=== PATIENT | female | born 1990 | race Caucasian/White ===

== ENCOUNTER → 2018-03-07 09:28 | Outpatient (CLI) | payer OTHER, MEDICAID, SELFPAY ==
[2018-03-07 10:55] LABS: Free T3, Triiodothyronine Free 3.14 pg/mL (2.77-5.27); T4 Total Thyroxine 6.44 ug/dL (5.5-11.0)
== END ==
PROVIDERS: PCP Nurse Practitioner Family; Visit Provider Nurse Practitioner Family
DX: E03.9 Hypothyroidism, unspecified (principal)
CPT/HCPCS: 36415; 84436; 84443; 84481

== ENCOUNTER → 2018-04-24 09:22 | Outpatient (CLI) | payer OTHER, MEDICAID, SELFPAY ==
[2018-04-24 12:25] LABS: Free T4, Direct Thyroxine 1.11 ng/dL (0.78-2.19)
[2018-04-26 19:58] LABS: Triiodothyronine T3 Total 82 ng/dL (76-181)
== END ==
PROVIDERS: PCP Nurse Practitioner Family; Visit Provider Nurse Practitioner Family
DX: E03.9 Hypothyroidism, unspecified (principal)
CPT/HCPCS: 36415; 84439; 84443; 84480

== ENCOUNTER → 2018-05-03 13:17 | Outpatient (CLI) | payer OTHER, MEDICAID, SELFPAY ==
[2018-05-03 13:56] LABS: Add Manual Diff / Slide Review NO; Basophils Absolute Auto 0 /uL (0-100); Basophils Percent Auto 0.5 % (0-2); Eosinophils Absolute Auto 200 /uL (0-450); Eosinophils Percent Auto 4.6 % (2-4); Hematocrit 41.2 % (36-46); Lymphocytes Absolute Auto 1700 /uL (1100-4500); Lymphocytes Percent Auto 35.1 % (25-40); Mean Corpuscular Hemoglobin 31.1 PG (26-34); Mean Corpuscular Volume 91.5 fL (80-100); Monocytes Absolute Auto 400 /uL (0-900); Monocytes Percent Auto 8.4 % (3-14); Neutrophils Absolute Auto 2400 /uL (1500-7000); Neutrophils Percent Auto 51.4 % (50-75); Platelet Count 291 X10^3/uL (150-400); Red Cell Distribution Width 12.3 % (11.6-14.8); White Blood Cell Count 4.7 X10^3/uL (4.5-11.0)
[2018-05-03 14:48] LABS: Alanine Aminotransferase 26 IU/L (9-52); Albumin 4.6 g/dL (3.5-5.0); Albumin Globulin Ratio 1.5 (1.0-2.8); Alkaline Phosphatase 43 U/L (38-126); Aspartate Aminotransferase 17 IU/L (14-36); BUN Creatinine Ratio 13.3 (6-22); Bilirubin Total 0.4 mg/dL (0.2-1.3); Blood Urea Nitrogen 12 mg/dL (7-17); Calcium 9.5 mg/dL (8.4-10.2); Carbon Dioxide 28 mmol/L (22-32); Chloride 101 mmol/L (98-107); Estimated Glomerular Filt Rate > 60.0 mL/min (>60); Glucose 99 mg/dL (70-100); HEMOLYSIS < 15 (0-50); Potassium 3.9 mmol/L (3.4-5.1); Sodium 140 mmol/L (137-145); Total Protein 7.6 g/dL (6.3-8.2)
[2018-05-03 15:04] LABS: Follicle Stimulating Hormone 8.18 mIU/mL; Prolactin 9.7 ng/mL (3.0-18.6)
[2018-05-05 20:34] LABS: Estradiol 31 pg/mL
[2018-05-07 11:15] LABS: Amylase 42 U/L (30-110); Lipase 154 U/L (23-300)
== END ==
PROVIDERS: PCP Nurse Practitioner Family; Visit Provider Nurse Practitioner Family
DX: R10.13 Epigastric pain (principal); N92.6 Irregular menstruation, unspecified
CPT/HCPCS: 36415; 80053; 82150; 82670; 83001; 83690; 84146; 85025

== ENCOUNTER → 2018-06-11 09:20 | Outpatient (CLI) | payer OTHER, MEDICAID, SELFPAY ==
[2018-06-11 10:49] LABS: Amylase 50 U/L (30-110); Lipase 78 U/L (23-300)
[2018-06-11 11:00] LABS: Free T4, Direct Thyroxine 1.31 ng/dL (0.78-2.19)
[2018-06-11 11:14] LABS: Thyroid Stimulating Hormone 5.61 uIU/mL (0.47-4.68)
[2018-06-13 15:18] LABS: Triiodothyronine T3 Total 92 ng/dL (76-181)
== END ==
PROVIDERS: PCP Nurse Practitioner Family; Visit Provider Nurse Practitioner Family
DX: R10.13 Epigastric pain (principal); E03.9 Hypothyroidism, unspecified
CPT/HCPCS: 36415; 82150; 83690; 84439; 84443; 84480

== ENCOUNTER 2018-08-19 12:18 | Emergency (ER) | payer OTHER, MEDICAID, SELFPAY ==
--- NOTE | 2018-08-19 12:22 | ED.ABDPAIN ---
HPI - Abdominal Pain <Stefanie Mccormack PA-C - Last Filed: 08/19/18 15:00> General Chief Complaint: Abdominal Pain Stated Complaint: RLQ abd pain/nausea/ x6 months Time Seen by Provider: 08/19/18 12:21 Source: patient Mode of arrival: ambulatory Limitations: no limitations History of Present Illness HPI narrative: This 28-year-old female is sent by her primary care provider for evaluation right epigastric and upper quadrant pain. She states this has been present for 6 months, gradually worsened. She states that she or shift yesterday and typically has been able to manage pain at work with ibuprofen and edibles, but getting to the point that his really difficult for her. She states pain is present to some degree constantly, better on an empty stomach and worse after eating, especially meat. She states that she has had nausea and took some Zofran earlier. She has not had vomiting. She states that she has times where she feels hot and cold, that occurs mainly in association with the pain. She has not checked her temperature. She denies any hematuria or urinary symptoms. She denies any STD concerns or possibility of stating she is abstinent. She denies acute bowel habit changes though states she has not had a bowel movement for 2 days and normally she goes daily (she admits she has been eating less due to this abdominal pain). She has been tolerating fluids without problem. She denies any other new complaints or history changes since last visit here Related Data Home Medications Medication Instructions Recorded Confirmed buprenorphine-naloxone 2 tab SUBLINGUAL DAILY 08/19/18 08/19/18 levothyroxine 100 mcg PO DAILY 08/19/18 08/19/18 trazodone 08/19/18 Previous Rx's Medication Instructions Recorded gabapentin [Neurontin] 300 mg PO SEE INSTRUCTIONS #270 cap 08/16/16 methocarbamol 1,000 mg PO Q8H #20 tab 08/19/18 Allergies Allergy/AdvReac Type Severity Reaction Status Date / Time amoxicillin [AMOXICILLIN] Allergy Unknown RASH/HIVES Verified 08/19/18 12:30 hydromorphone [From DILAUDID] Allergy Unknown Verified 08/19/18 12:30 Opioids - Morphine Analogues Allergy Unknown Verified 08/19/18 12:30 [OPIOIDS - MORPHINE ANALOGUES] Penicillins Allergy Unknown Verified 08/19/18 12:31 Review of Systems <Stefanie Mccormack PA-C - Last Filed: 08/19/18 15:00> Review of Systems ROS Unobtainable: All systems reviewed & are unremarkable except as noted in HPI and below PFSH <Stefanie Mccormack PA-C - Last Filed: 08/19/18 15:00> Medical History (Updated 08/19/18 @ 14:27 by Stefanie Mccormack PA-C) Migraine (Chronic) Insomnia disorder (Chronic) Hypothyroidism Crohn's disease without complication (04/23/15) Opiate dependence, continuous (04/23/15) Chronic bilateral low back pain without sciatica (07/19/15) GERD (gastroesophageal reflux disease) (Chronic) Surgical History (Updated 08/19/18 @ 12:25 by Stefanie Mccormack PA-C) H/O oophorectomy (Chronic) Social History (Updated 08/19/18 @ 12:26 by Stefanie Mccormack PA-C) Smoking Status: Current every day smoker Social History (Updated 08/19/18 @ 12:26 by Stefanie Mccormack PA-C) Smoking Status: Current every day smoker Comment: h/o opioid abuse. Denies ETOH Exam <Stefanie Mccormack PA-C - Last Filed: 08/19/18 15:00> Narrative Exam Narrative: GENERAL APPEARANCE: Patient sitting comfortably, in no distress. HEENT: PERRL, EOMI, no scleral icterus NECK: Supple LUNGS: Clear to auscultation bilaterally. HEART: Rate and rhythm regular, normal S1 and S2, no S3 or S4. ABDOMEN: Soft, nondistended, bowel sounds present x 4 quadrants, no masses palpable, no hepatosplenomegaly. Tender from the right epigastric border up to the right costal margin, +Gallo's sign. No lower quadrant tenderness. No clear mass palpable or visible with patient standing or straining that the right umbilical border feels slightly more full than the left EXTREMITIES: No edema DERMATOLOGIC: No jaundice or exanthem NEUROLOGIC: Alert and oriented with normal speech and coordination Initial Vital Signs Initial Vital Signs: Vital Signs Temperature 98.1 F 08/19/18 12:26 Pulse Rate 74 08/19/18 12:26 Respiratory Rate 16 08/19/18 12:26 Blood Pressure 133/99 H 08/19/18 12:26 Pulse Oximetry 100 08/19/18 12:26 <Brando Pedersen DO - Last Filed: 08/20/18 08:13> Initial Vital Signs Initial Vital Signs: Vital Signs Temperature 98.1 F 08/19/18 12:26 Pulse Rate 74 08/19/18 12:26 Respiratory Rate 16 08/19/18 12:26 Blood Pressure 133/99 H 08/19/18 12:26 Pulse Oximetry 100 08/19/18 12:26 Course <Stefanie Mccormack PA-C - Last Filed: 08/19/18 15:00> Additional Information: Patient has had pain present for 6 months, gradually worsening. No evidence of acute surgical issue or need for hospital admission today. 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 There is also potentially some relation to food intake and may need further workup or consultation. She can continue NSAID and also states she was recently prescribed Prilosec. I did send in a prescription of muscle relaxant for her to try to see if this is helpful. Advised follow-up with PCP. In addition, she had some micro hematuria but looked like her UA was contaminated. She declined to leave another sample. Has not had any history of urinary symptoms. Advised to repeat UA at follow-up with her PCP this week. Orders Ordered: Discontinued Medications Ketorolac Tromethamine (Toradol) 60 mg IM NOW ONE Stop: 08/19/18 12:38 Last Admin: 08/19/18 12:53 Dose: 60 mg Vital Signs - 8 hr 08/19/18 12:26 08/19/18 14:34 Temperature 98.1 F Pulse Rate 74 60 Respiratory Rate 16 18 Blood Pressure 133/99 H 124/94 H Pulse Oximetry 100 98 <Brando Pedersen DO - Last Filed: 08/20/18 08:13> Orders Ordered: Discontinued Medications Ketorolac Tromethamine (Toradol) 60 mg IM NOW ONE Stop: 08/19/18 12:38 Last Admin: 08/19/18 12:53 Dose: 60 mg Vital Signs - 8 hr 08/19/18 12:26 08/19/18 14:34 Temperature 98.1 F Pulse Rate 74 60 Respiratory Rate 16 18 Blood Pressure 133/99 H 124/94 H Pulse Oximetry 100 98 MDM - Abdominal Pain <Stefanie Mccormack PA-C - Last Filed: 08/19/18 15:00> Lab Data Attestation: I reviewed the patient's lab results. Result diagrams: 08/19/18 12:50 08/19/18 12:50 Lab Results 08/19/18 08/19/18 08/19/18 Range/Units 12:50 12:50 13:30 WBC 6.0 (4.5-11.0) X10^3/uL RBC 4.90 (4.0-5.2) X10^6/uL Hgb 14.6 (12.0-16.0) g/dL Hct 44.1 (36-46) % MCV 90.0 (80-100) fL MCH 29.7 (26-34) PG MCHC 33.0 (30-36) % RDW 12.6 (11.6-14.8) % Plt Count 277 (150-400) X10^3/uL Neut % (Auto) 54.6 (50-75) % Lymph % (Auto) 34.3 (25-40) % [place] % (Auto) 8.0 (3-14) % Eos % (Auto) 2.4 (2-4) % Baso % (Auto) 0.7 (0-2) % Neut # (Auto) 3300 (1617-6736) /uL Lymph # (Auto) 2100 (0186-8986) /uL [place] # (Auto) 500 (0-900) /uL Eos # (Auto) 100 (0-450) /uL Baso # (Auto) 0 (0-100) /uL Sodium 140 (137-145) mmol/L Potassium 3.8 (3.4-5.1) mmol/L Chloride 102 (98-107) mmol/L Carbon Dioxide 27 (22-32) mmol/L BUN 11 (7-17) mg/dL Creatinine 0.80 (0.52-1.04) mg/dL Estimated GFR > 60.0 (>60) mL/min BUN/Creatinine Ratio 13.8 (6-22) Glucose 96 (70-100) mg/dL Calcium 9.7 (8.4-10.2) mg/dL Total Bilirubin 0.6 (0.2-1.3) mg/dL AST 25 (14-36) IU/L ALT 25 (9-52) IU/L Alkaline Phosphatase 53 (38-126) U/L Total Protein 8.4 H (6.3-8.2) g/dL Albumin 4.7 (3.5-5.0) g/dL Globulin 3.7 (1.7-4.1) g/dL Albumin/Globulin Ratio 1.3 (1.0-2.8) Lipase 63 (23-300) U/L Urine RBC None seen (0-5/HPF) Urine WBC 1-5/hpf (0-5/HPF) Ur Squamous Epith Cells 5-10 /hpf H (0-5/HPF) Urine Bacteria Many (>30) H (None) Ur Culture Indicated? Culture not indicate Micro UA Comment Point of care testing: Point of Care Testing Test Results Negative Urine Dip Bedside Urine Glucose Negative Bedside Urine Bilirubin - Negative Bedside Urine Ketone - Negative Urine Specific [place] 1.025 Bedside Urine Occult Blood + Bedside Urine pH 6.5 Bedside Urine Protein - Negative Bedside Urine Urobilinogen - Negative Bedside Urine Nitrite - Negative Bedside Urine Leukocytes +/- 15 Esterase Imaging Data US - abdomen: Radiologist's impression: [address] [address] Ultrasound Report Signed Patient: GarrettJuly [facility]#: [id number] : 1990Acct:[id number] Age/Sex: 28 / FDate of Service: 08/19/18 Loc: ED Accession Number: [id number] Procedure: US abdomen limited Ordering Provider: Stefanie Mccormack P.A-C PROCEDURE: US ABDOMEN LIMITED INDICATIONS: PAIN; GALLBLADDER VS HERNIA TECHNIQUE: Real-time focused scanning was performed of the abdomen, with image documentation. COMPARISON: [facility], CT, ABDOMEN/PELVIS WITH CONTRAST, 05/20/2011, 20:37. FINDINGS: The liver is mildly enlarged at 20.9 cm craniocaudad. In an area near the umbilicus, to the right margin of the umbilicus no abnormality is seen despite tenderness in that region. Gallbladder wall thickness is normal. Bile ducts are not distended, no gallstones are seen. IMPRESSION: Normal limited abdominal ultrasound, no evidence of cholecystitis, or body wall hernia or inflammation in the area of current clinical concern near the umbilicus. Dictated by: Niraj Barber M.D. on 08/19/2018 at 13:37 Approved by: Niraj Barber M.D. on 08/19/2018 at 13:39 <Brando Pedersen DO - Last Filed: 08/20/18 08:13> Lab Data Lab Results 08/19/18 08/19/18 08/19/18 Range/Units 12:50 12:50 13:30 WBC 6.0 (4.5-11.0) X10^3/uL RBC 4.90 (4.0-5.2) X10^6/uL Hgb 14.6 (12.0-16.0) g/dL Hct 44.1 (36-46) % MCV 90.0 (80-100) fL MCH 29.7 (26-34) PG MCHC 33.0 (30-36) % RDW 12.6 (11.6-14.8) % Plt Count 277 (150-400) X10^3/uL Neut % (Auto) 54.6 (50-75) % Lymph % (Auto) 34.3 (25-40) % [place] % (Auto) 8.0 (3-14) % Eos % (Auto) 2.4 (2-4) % Baso % (Auto) 0.7 (0-2) % Neut # (Auto) 3300 (0012-3577) /uL Lymph # (Auto) 2100 (9291-3220) /uL [place] # (Auto) 500 (0-900) /uL Eos # (Auto) 100 (0-450) /uL Baso # (Auto) 0 (0-100) /uL Sodium 140 (137-145) mmol/L Potassium 3.8 (3.4-5.1) mmol/L Chloride 102 (98-107) mmol/L Carbon Dioxide 27 (22-32) mmol/L BUN 11 (7-17) mg/dL Creatinine 0.80 (0.52-1.04) mg/dL Estimated GFR > 60.0 (>60) mL/min BUN/Creatinine Ratio 13.8 (6-22) Glucose 96 (70-100) mg/dL Calcium 9.7 (8.4-10.2) mg/dL Total Bilirubin 0.6 (0.2-1.3) mg/dL AST 25 (14-36) IU/L ALT 25 (9-52) IU/L Alkaline Phosphatase 53 (38-126) U/L Total Protein 8.4 H (6.3-8.2) g/dL Albumin 4.7 (3.5-5.0) g/dL Globulin 3.7 (1.7-4.1) g/dL Albumin/Globulin Ratio 1.3 (1.0-2.8) Lipase 63 (23-300) U/L Urine RBC None seen (0-5/HPF) Urine WBC 1-5/hpf (0-5/HPF) Ur Squamous Epith Cells 5-10 /hpf H (0-5/HPF) Urine Bacteria Many (>30) H (None) Ur Culture Indicated? Culture not indicate Micro UA Comment Point of care testing: Point of Care Testing Test Results Negative Urine Dip Bedside Urine Glucose Negative Bedside Urine Bilirubin - Negative Bedside Urine Ketone - Negative Urine Specific [place] 1.025 Bedside Urine Occult Blood + Bedside Urine pH 6.5 Bedside Urine Protein - Negative Bedside Urine Urobilinogen - Negative Bedside Urine Nitrite - Negative Bedside Urine Leukocytes +/- 15 Esterase Discharge Plan Departure Patient Disposition: Home Clinical Impression: Right upper quadrant abdominal pain Discharge Date/Time: 08/19/18 14:35 Interventions: ED Discharge Assessment Last Done: 08/19/18 14:34 Instructions: DI for Abdominal Pain-Adult Activity Restrictions/Additional Instructions: Please return as we talked about if you have any acutely worsening symptoms, otherwise please call Dr. Ivey's office when you leave today and let them know that you were seen here and we advised you to follow up in the next few days. The source of your pain was not clear on your lab work. We did not culture your urine today since you were not able to leave another sample, but please be sure to recheck a urinalysis when you go to your office appointment. You can continue ibuprofen as needed. Please continue your Prilosec, 20 mg, and make sure you take it 30-45 minutes before a meal as it works better that way. I have sent in a muscle relaxant for you to try as well, but remember it can make you sleepy and do not drive when you take it. Please limit any activity that may strain your abdominal area such as heavy lifting or repetitive twisting or lifting. Prescriptions: New methocarbamol 500 mg tablet 1,000 mg PO Q8H Qty: 20 RF: 0 No Action gabapentin [Neurontin] 300 MG capsule 300 mg PO SEE INSTRUCTIONS Qty: 270 RF: 5 levothyroxine 100 mcg tablet 100 mcg PO DAILY RF: 0 trazodone 100 mg tablet RF: 0 buprenorphine-naloxone 8 MG/2 MG tablet, sublingual 2 tab Sublingual DAILY RF: 0 Referrals: Devan Lopez, AN/SYQ 13 NAV/C2 OPERATOR [Primary Care Provider] - <Brando Pedersen DO - Last Filed: 08/20/18 08:13> Cosign ED Attending Kiera Attestation: I was immediately available in the department for consultation. Documentation has been reviewed. I agree with assessment and plan.
[2018-08-19 12:26] VITALS: BP 133/99; PULSE 74; RESP 16; TEMP 36.7; O2SAT 100; BMI 34.5
--- NOTE | 2018-08-19 12:26 | ED_ITS ---
HPI - Abdominal Pain <Stefanie Mccormack PA-C - Last Filed: 08/19/18 15:00> General Chief Complaint: Abdominal Pain Stated Complaint: RLQ abd pain/nausea/ x6 months Time Seen by Provider: 08/19/18 12:21 Source: patient Mode of arrival: ambulatory Limitations: no limitations History of Present Illness HPI narrative: This 28-year-old female is sent by her primary care provider for evaluation right epigastric and upper quadrant pain. She states this has been present for 6 months, gradually worsened. She states that she or shift yesterday and typically has been able to manage pain at work with ibuprofen and edibles, but getting to the point that his really difficult for her. She states pain is present to some degree constantly, better on an empty stomach and worse after eating, especially meat. She states that she has had nausea and took some Zofran earlier. She has not had vomiting. She states that she has times where she feels hot and cold, that occurs mainly in association with the pain. She has not checked her temperature. She denies any hematuria or urinary symptoms. She denies any STD concerns or possibility of stating she is abstinent. She denies acute bowel habit changes though states she has not had a bowel movement for 2 days and normally she goes daily (she admits she has been eating less due to this abdominal pain). She has been tolerating fluids without problem. She denies any other new complaints or history changes since last visit here Related Data Home Medications Medication Instructions Recorded Confirmed buprenorphine-naloxone 2 tab SUBLINGUAL DAILY 08/19/18 08/19/18 levothyroxine 100 mcg PO DAILY 08/19/18 08/19/18 trazodone 08/19/18 Previous Rx's Medication Instructions Recorded gabapentin [Neurontin] 300 mg PO SEE INSTRUCTIONS #270 cap 08/16/16 methocarbamol 1,000 mg PO Q8H #20 tab 08/19/18 Allergies Allergy/AdvReac Type Severity Reaction Status Date / Time amoxicillin [AMOXICILLIN] Allergy Unknown RASH/HIVES Verified 08/19/18 12:30 hydromorphone [From DILAUDID] Allergy Unknown Verified 08/19/18 12:30 Opioids - Morphine Analogues Allergy Unknown Verified 08/19/18 12:30 [OPIOIDS - MORPHINE ANALOGUES] Penicillins Allergy Unknown Verified 08/19/18 12:31 Review of Systems <Stefanie Mccormack PA-C - Last Filed: 08/19/18 15:00> Review of Systems ROS Unobtainable: All systems reviewed & are unremarkable except as noted in HPI and below PFSH <Stefanie Mccormack PA-C - Last Filed: 08/19/18 15:00> Medical History (Updated 08/19/18 @ 14:27 by Stefanie Mccormack PA-C) Migraine (Chronic) Insomnia disorder (Chronic) Hypothyroidism Crohn's disease without complication (04/23/15) Opiate dependence, continuous (04/23/15) Chronic bilateral low back pain without sciatica (07/19/15) GERD (gastroesophageal reflux disease) (Chronic) Surgical History (Updated 08/19/18 @ 12:25 by Stefanie Mccormack PA-C) H/O oophorectomy (Chronic) Social History (Updated 08/19/18 @ 12:26 by Stefanie Mccormack PA-C) Smoking Status: Current every day smoker Social History (Updated 08/19/18 @ 12:26 by Stefanie Mccormack PA-C) Smoking Status: Current every day smoker Comment: h/o opioid abuse. Denies ETOH Exam <Stefanie Mccormack PA-C - Last Filed: 08/19/18 15:00> Narrative Exam Narrative: GENERAL APPEARANCE: Patient sitting comfortably, in no distress. HEENT: PERRL, EOMI, no scleral icterus NECK: Supple LUNGS: Clear to auscultation bilaterally. HEART: Rate and rhythm regular, normal S1 and S2, no S3 or S4. ABDOMEN: Soft, nondistended, bowel sounds present x 4 quadrants, no masses palpable, no hepatosplenomegaly. Tender from the right epigastric border up to the right costal margin, +Gallo's sign. No lower quadrant tenderness. No clear mass palpable or visible with patient standing or straining that the right umbilical border feels slightly more full than the left EXTREMITIES: No edema DERMATOLOGIC: No jaundice or exanthem NEUROLOGIC: Alert and oriented with normal speech and coordination Initial Vital Signs Initial Vital Signs: Vital Signs Temperature 98.1 F 08/19/18 12:26 Pulse Rate 74 08/19/18 12:26 Respiratory Rate 16 08/19/18 12:26 Blood Pressure 133/99 H 08/19/18 12:26 Pulse Oximetry 100 08/19/18 12:26 <Brando Pedersen DO - Last Filed: 08/20/18 08:13> Initial Vital Signs Initial Vital Signs: Vital Signs Temperature 98.1 F 08/19/18 12:26 Pulse Rate 74 08/19/18 12:26 Respiratory Rate 16 08/19/18 12:26 Blood Pressure 133/99 H 08/19/18 12:26 Pulse Oximetry 100 08/19/18 12:26 Course <Stefanie Mccormack PA-C - Last Filed: 08/19/18 15:00> Additional Information: Patient has had pain present for 6 months, gradually worsening. No evidence of acute surgical issue or need for hospital admission today. 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 There is also potentially some re lation to food intake and may need further workup or consultation. She can continue NSAID and also states she was recently prescribed Prilosec. I did send in a prescription of muscle relaxant for her to try to see if this is helpful. Advised follow-up with PCP. In addition, she had some micro hematuria but looked like her UA was contaminated. She declined to leave another sample. Has not had any history of urinary symptoms. Advised to repeat UA at follow-up with her PCP this week. Orders Ordered: Discontinued Medications Ketorolac Tromethamine (Toradol) 60 mg IM NOW ONE Stop: 08/19/18 12:38 Last Admin: 08/19/18 12:53 Dose: 60 mg Vital Signs - 8 hr 08/19/18 12:26 08/19/18 14:34 Temperature 98.1 F Pulse Rate 74 60 Respiratory Rate 16 18 Blood Pressure 133/99 H 124/94 H Pulse Oximetry 100 98 <Brando Pedersen DO - Last Filed: 08/20/18 08:13> Orders Ordered: Discontinued Medications Ketorolac Tromethamine (Toradol) 60 mg IM NOW ONE Stop: 08/19/18 12:38 Last Admin: 08/19/18 12:53 Dose: 60 mg Vital Signs - 8 hr 08/19/18 12:26 08/19/18 14:34 Temperature 98.1 F Pulse Rate 74 60 Respiratory Rate 16 18 Blood Pressure 133/99 H 124/94 H Pulse Oximetry 100 98 MDM - Abdominal Pain <Stefanie Mccormack PA-C - Last Filed: 08/19/18 15:00> Lab Data Attestation: I reviewed the patient's lab results. Result diagrams: 08/19/18 12:50 08/19/18 12:50 Lab Results 08/19/18 08/19/18 08/19/18 Range/Units 12:50 12:50 13:30 WBC 6.0 (4.5-11.0) X10^3/uL RBC 4.90 (4.0-5.2) X10^6/uL Hgb 14.6 (12.0-16.0) g/dL Hct 44.1 (36-46) % MCV 90.0 (80-100) fL MCH 29.7 (26-34) PG MCHC 33.0 (30-36) % RDW 12.6 (11.6-14.8) % Plt Count 277 (150-400) X10^3/uL Neut % (Auto) 54.6 (50-75) % Lymph % (Auto) 34.3 (25-40) % [place] % (Auto) 8.0 (3-14) % Eos % (Auto) 2.4 (2-4) % Baso % (Auto) 0.7 (0-2) % Neut # (Auto) 3300 (0685-6430) /uL Lymph # (Auto) 2100 (9469-4419) /uL [place] # (Auto) 500 (0-900) /uL Eos # (Auto) 100 (0-450) /uL Baso # (Auto) 0 (0-100) /uL Sodium 140 (137-145) mmol/L Potassium 3.8 (3.4-5.1) mmol/L Chloride 102 (98-107) mmol/L Carbon Dioxide 27 (22-32) mmol/L BUN 11 (7-17) mg/dL Creatinine 0.80 (0.52-1.04) mg/dL Estimated GFR > 60.0 (>60) mL/min BUN/Creatinine Ratio 13.8 (6-22) Glucose 96 (70-100) mg/dL Calcium 9.7 (8.4-10.2) mg/dL Total Bilirubin 0.6 (0.2-1.3) mg/dL AST 25 (14-36) IU/L ALT 25 (9-52) IU/L Alkaline Phosphatase 53 (38-126) U/L Total Protein 8.4 H (6.3-8.2) g/dL Albumin 4.7 (3.5-5.0) g/dL Globulin 3.7 (1.7-4.1) g/dL Albumin/Globulin Ratio 1.3 (1.0-2.8) Lipase 63 (23-300) U/L Urine RBC None seen (0-5/HPF) Urine WBC 1-5/hpf (0-5/HPF) Ur Squamous Epith Cells 5-10 /hpf H (0-5/HPF) Urine Bacteria Many (>30) H (None) Ur Culture Indicated? Culture not indicate Micro UA Comment Point of care testing: Point of Care Testing Test Results Negative Urine Dip Bedside Urine Glucose Negative Bedside Urine Bilirubin - Negative Bedside Urine Ketone - Negative Urine Specific [place] 1.025 Bedside Urine Occult Blood + Bedside Urine pH 6.5 Bedside Urine Protein - Negative Bedside Urine Urobilinogen - Negative Bedside Urine Nitrite - Negative Bedside Urine Leukocytes +/- 15 Esterase Imaging Data US - abdomen: Radiologist's impression: [address] [address] Ultrasound Report Signed Patient: GarrettJuly [facility]#: [id number] : 1990Acct:[id number] Age/Sex: 28 / FDate of Service: 08/19/18 Loc: ED Accession Number: [id number] Procedure: US abdomen limited Ordering Provider: Stefanie Mccormack P.A-C PROCEDURE: US ABDOMEN LIMITED INDICATIONS: PAIN; GALLBLADDER VS HERNIA TECHNIQUE: Real-time focused scanning was performed of the abdomen, with image documentation. COMPARISON: [facility], CT, ABDOMEN/PELVIS WITH CONTRAST, 05/20/2011, 20:37. FINDINGS: The liver is mildly enlarged at 20.9 cm craniocaudad. In an area near the umbilicus, to the right margin of the umbilicus no abnormality is seen despite tenderness in that region. Gallbladder wall thickness is normal. Bile ducts are not distended, no gallstones are seen. IMPRESSION: Normal limited abdominal ultrasound, no evidence of cholecystitis, or body wall hernia or inflammation in the area of current clinical concern near the umb ilicus. Dictated by: Niraj Barber M.D. on 08/19/2018 at 13:37 Approved by: Niraj Barber M.D. on 08/19/2018 at 13:39 <Brando Pedersen DO - Last Filed: 08/20/18 08:13> Lab Data Lab Results 08/19/18 08/19/18 08/19/18 Range/Units 12:50 12:50 13:30 WBC 6.0 (4.5-11.0) X10^3/uL RBC 4.90 (4.0-5.2) X10^6/uL Hgb 14.6 (12.0-16.0) g/dL Hct 44.1 (36-46) % MCV 90.0 (80-100) fL MCH 29.7 (26-34) PG MCHC 33.0 (30-36) % RDW 12.6 (11.6-14.8) % Plt Count 277 (150-400) X10^3/uL Neut % (Auto) 54.6 (50-75) % Lymph % (Auto) 34.3 (25-40) % [place] % (Auto) 8.0 (3-14) % Eos % (Auto) 2.4 (2-4) % Baso % (Auto) 0.7 (0-2) % Neut # (Auto) 3300 (6152-1940) /uL Lymph # (Auto) 2100 (0763-9157) /uL [place] # (Auto) 500 (0-900) /uL Eos # (Auto) 100 (0-450) /uL Baso # (Auto) 0 (0-100) /uL Sodium 140 (137-145) mmol/L Potassium 3.8 (3.4-5.1) mmol/L Chloride 102 (98-107) mmol/L Carbon Dioxide 27 (22-32) mmol/L BUN 11 (7-17) mg/dL Creatinine 0.80 (0.52-1.04) mg/dL Estimated GFR > 60.0 (>60) mL/min BUN/Creatinine Ratio 13.8 (6-22) Glucose 96 (70-100) mg/dL Calcium 9.7 (8.4-10.2) mg/dL Total Bilirubin 0.6 (0.2-1.3) mg/dL AST 25 (14-36) IU/L ALT 25 (9-52) IU/L Alkaline Phosphatase 53 (38-126) U/L Total Protein 8.4 H (6.3-8.2) g/dL Albumin 4.7 (3.5-5.0) g/dL Globulin 3.7 (1.7-4.1) g/dL Albumin/Globulin Ratio 1.3 (1.0-2.8) Lipase 63 (23-300) U/L Urine RBC None seen (0-5/HPF) Urine WBC 1-5/hpf (0-5/HPF) Ur Squamous Epith Cells 5-10 /hpf H (0-5/HPF) Urine Bacteria Many (>30) H (None) Ur Culture Indicated? Culture not indicate Micro UA Comment Point of care testing: Point of Care Testing Test Results Negative Urine Dip Bedside Urine Glucose Negative Bedside Urine Bilirubin - Negative Bedside Urine Ketone - Negative Urine Specific [place] 1.025 Bedside Urine Occult Blood + Bedside Urine pH 6.5 Bedside Urine Protein - Negative Bedside Urine Urobilinogen - Negative Bedside Urine Nitrite - Negative Bedside Urine Leukocytes +/- 15 Esterase Discharge Plan Departure Patient Disposition: Home Clinical Impression: Right upper quadrant abdominal pain Discharge Date/Time: 08/19/18 14:35 Interventions: ED Discharge Assessment Last Done: 08/19/18 14:34 Instructions: DI for Abdominal Pain-Adult Activity Restrictions/Additional Instructions: Please return as we talked about if you have any acutely worsening symptoms, otherwise please call Dr. Ivey's office when you leave today and let them know that you were seen here and we advised you to follow up in the next few days. The source of your pain was not clear on your lab work. We did not culture your urine today since you were not able to leave another sample, but please be sure to recheck a urinalysis when you go to your office appointment. You can continue ibuprofen as needed. Please continue your Prilosec, 20 mg, and make sure you take it 30-45 minutes before a meal as it works better that way. I have sent in a muscle relaxant for you to try as well, but remember it can make you sleepy and do not drive when you take it. Please limit any activity that may strain your abdominal area such as heavy lifting or repetitive twisting or lifting. Prescriptions: New methocarbamol 500 mg tablet 1,000 mg PO Q8H Qty: 20 RF: 0 No Action gabapentin [Neurontin] 300 MG capsule 300 mg PO SEE INSTRUCTIONS Qty: 270 RF: 5 levothyroxine 100 mcg tablet 100 mcg PO DAILY RF: 0 trazodone 100 mg tablet RF: 0 buprenorphine-naloxone 8 MG/2 MG tablet, sublingual 2 tab Sublingual DAILY RF: 0 Referrals: Devan Lopez, [employer] [Primary Care Provider] - <Brando Pedersen DO - Last Filed: 08/20/18 08:13> Cosign ED Attending Kiera Attestation: I was immediately available in the department for consultation. Documentation has been reviewed. I agree with as sessment and plan.
[2018-08-19] MEDS: KETOROLAC 60 MG/2 ML VIAL IM (12:53)
[2018-08-19 13:08] LABS: Add Manual Diff / Slide Review NO; Basophils Absolute Auto 0 /uL (0-100); Basophils Percent Auto 0.7 % (0-2); Eosinophils Absolute Auto 100 /uL (0-450); Eosinophils Percent Auto 2.4 % (2-4); Hematocrit 44.1 % (36-46); Hemoglobin 14.6 g/dL (12.0-16.0); Lymphocytes Absolute Auto 2100 /uL (1100-4500); Lymphocytes Percent Auto 34.3 % (25-40); Mean Corpuscular Hemoglobin 29.7 PG (26-34); Monocytes Absolute Auto 500 /uL (0-900); Neutrophils Absolute Auto 3300 /uL (1500-7000); Neutrophils Percent Auto 54.6 % (50-75); Platelet Count 277 X10^3/uL (150-400); Red Cell Distribution Width 12.6 % (11.6-14.8)
--- NOTE | 2018-08-19 13:09 | DI.US.S_ITS ---
PROCEDURE: US ABDOMEN LIMITED INDICATIONS: PAIN; GALLBLADDER VS HERNIA TECHNIQUE: Real-time focused scanning was performed of the abdomen, with image documentation. COMPARISON: [facility], CT, ABDOMEN/PELVIS WITH CONTRAST, 05/20/2011, 20:37. FINDINGS: The liver is mildly enlarged at 20.9 cm craniocaudad. In an area near the umbilicus, to the right margin of the umbilicus no abnormality is seen despite tenderness in that region. Gallbladder wall thickness is normal. Bile ducts are not distended, no gallstones are seen. IMPRESSION: Normal limited abdominal ultrasound, no evidence of cholecystitis, or body wall hernia or inflammation in the area of current clinical concern near the umbilicus. Dictated by: Niraj Barber M.D. on 08/19/2018 at 13:37 Approved by: Niraj Barber M.D. on 08/19/2018 at 13:39
[2018-08-19 13:16] LABS: Alanine Aminotransferase 25 IU/L (9-52); Albumin 4.7 g/dL (3.5-5.0); Albumin Globulin Ratio 1.3 (1.0-2.8); Alkaline Phosphatase 53 U/L (38-126); Aspartate Aminotransferase 25 IU/L (14-36); BUN Creatinine Ratio 13.8 (6-22); Bilirubin Total 0.6 mg/dL (0.2-1.3); Blood Urea Nitrogen 11 mg/dL (7-17); Calcium 9.7 mg/dL (8.4-10.2); Carbon Dioxide 27 mmol/L (22-32); Chloride 102 mmol/L (98-107); Estimated Glomerular Filt Rate > 60.0 mL/min (>60); Globulin 3.7 g/dL (1.7-4.1); Glucose 96 mg/dL (70-100); HEMOLYSIS < 15 (0-50); Lipase 63 U/L (23-300); Potassium 3.8 mmol/L (3.4-5.1); Sodium 140 mmol/L (137-145); Total Protein 8.4 g/dL (6.3-8.2)
--- NOTE | 2018-08-19 13:46 | PC.NURSE ---
Has not had a period in 5 years, but did have some vaginal bleeding last month. Has not been worked up for amenorrhea.
[2018-08-19 13:53] LABS: RBC Urine None Seen (0-5/HPF)
[2018-08-19 14:00] LABS: WBC Urine 1-5/HPF (0-5/HPF)
[2018-08-19 14:01] LABS: Bacteria Urine Many (>30); Squamous Epithelial Cell Urine 5-10 /HPF (0-5/HPF)
[2018-08-19 14:34] VITALS: BP 124/94; PULSE 60; RESP 18; O2SAT 98
== END 2018-08-19 14:35 | disposition home or self-care (01) ==
PROVIDERS: Emergency Provider Internal Medicine; PCP Nurse Practitioner Family
DX: R10.11 Right upper quadrant pain (principal)
CPT/HCPCS: 36415; 76705; 80053; 81003; 81015; 81025; 83690; 85025; 96372; 99282; 99284; J1885

== ENCOUNTER → 2018-12-03 12:41 | Outpatient (CLI) | payer OTHER, MEDICAID, SELFPAY ==
[2018-12-13 10:17] LABS: Triiodothyronine T3 Total 86
== END ==
PROVIDERS: PCP Nurse Practitioner Family; Visit Provider Nurse Practitioner Family
DX: E03.9 Hypothyroidism, unspecified (principal)
CPT/HCPCS: 36415; 84439; 84443; 84480

== ENCOUNTER → 2019-02-04 11:36 | Outpatient (CLI) | payer OTHER, MEDICAID, SELFPAY ==
[2019-02-04 12:52] LABS: Free T4, Direct Thyroxine 1.33 ng/dL (0.78-2.19)
== END ==
PROVIDERS: PCP Nurse Practitioner Family; Visit Provider Nurse Practitioner Family
DX: E03.9 Hypothyroidism, unspecified (principal)
CPT/HCPCS: 36415; 84439; 84443

== ENCOUNTER → 2019-06-05 13:30 | Outpatient (CLI) | payer OTHER, SELFPAY ==
--- NOTE | 2019-06-05 | DI.US.S_ITS ---
LIMITED ULTRASOUND OF LEFT BREAST: 06/05/2019 CLINICAL: Diffuse left breast pain. Comparison is made to exam dated: 06/05/2019 [facility] [place]. Real-time ultrasound of the left breast 11-4 o'clock region was performed on the area of interest. No discrete cystic or solid mass lesion identified in the area of pain. IMPRESSION: NEGATIVE There is no sonographic evidence of malignancy. There are no abnormalities seen in the left breast to correspond with the pain at 1, 2, 3, 4, 11, and 12 o'clock, however, clinical followup is recommended. This exam was interpreted at Station ID: [id number]. Electronically Signed By: Rudolph Leong M.D. ddp/:06/05/2019 14:14:31 letter sent: Clinical Evaluation Ultrasound BI-RADS: 1 Negative
--- NOTE | 2019-06-05 | DI.MG.S_ITS ---
BILATERAL DIGITAL DIAGNOSTIC MAMMOGRAM 3D/2D: 06/05/2019 CLINICAL: Baseline exam. Left breast pain. No prior exams were available for comparison. The tissue of both breasts is heterogeneously dense. This may lower the sensitivity of mammography. No significant masses, calcifications, or other findings are seen in either breast. IMPRESSION: INCOMPLETE: NEEDS ADDITIONAL IMAGING EVALUATION There is no abnormality seen in the left breast to correspond with the pain in the upper outer quadrant, however, ultrasound is recommended. This exam was interpreted at Station ID: [id number]. NOTE: For mammograms, a report in lay terms will be sent to the patient. Approximately 15% of breast malignancies will not be visualized mammographically. In the management of a palpable breast mass, a negative mammogram must not discourage biopsy of a clinically suspicious lesion. Electronically Signed By: Rudolph trivedi/axel:06/05/2019 14:03:52 ACR BI-RADS Category 0: Incomplete [id number]
== END ==
PROVIDERS: PCP Nurse Practitioner Family; Referring Provider Nurse Practitioner Family; Visit Provider Internal Medicine
DX: R92.8 Other abnormal and inconclusive findings on diagnostic imaging of breast (principal); N64.4 Mastodynia
CPT/HCPCS: 76642; 77066; G0279

== ENCOUNTER → 2020-06-18 09:42 | Outpatient (CLI) | payer OTHER, SELFPAY ==
[2020-06-18 10:21] LABS: Add Manual Diff / Slide Review NO; Basophils Absolute Auto 0 /uL (0-100); Basophils Percent Auto 0.6 % (0-2); Eosinophils Absolute Auto 100 /uL (0-450); Eosinophils Percent Auto 2.5 % (2-4); Hematocrit 39.8 % (36-46); Hemoglobin 13.5 g/dL (12.0-16.0); Lymphocytes Absolute Auto 1300 /uL (1100-4500); Lymphocytes Percent Auto 27.4 % (25-40); Mean Corpuscular HGB Conc 33.8 % (30-36); Mean Corpuscular Hemoglobin 30.6 PG (26-34); Mean Corpuscular Volume 90.8 fL (80-100); Monocytes Absolute Auto 400 /uL (0-900); Monocytes Percent Auto 7.4 % (3-14); Neutrophils Absolute Auto 3000 /uL (1500-7000); Neutrophils Percent Auto 62.1 % (50-75); Platelet Count 257 X10^3/uL (150-400); Red Blood Cell Count 4.39 X10^6/uL (4.0-5.2); Red Cell Distribution Width 12.6 % (11.6-14.8); White Blood Cell Count 4.8 X10^3/uL (4.5-11.0)
[2020-06-18 10:31] LABS: Hemoglobin A1C% w Est Avg Glu 5.2 % (4.0-6.0)
[2020-06-18 10:32] LABS: Alanine Aminotransferase 25 IU/L (<35); Albumin 4.7 g/dL (3.5-5.0); Alkaline Phosphatase 45 U/L (38-126); Aspartate Aminotransferase 30 IU/L (14-36); BUN Creatinine Ratio 12.5 (6-22); Bilirubin Total 0.1 mg/dL (0.2-1.3); Blood Urea Nitrogen 12 mg/dL (7-17); Calcium 9.2 mg/dL (8.4-10.2); Carbon Dioxide 29 mmol/L (22-32); Chloride 101 mmol/L (98-107); Estimated Glomerular Filt Rate > 60.0 mL/min (>60); Glucose 103 mg/dL (70-100); Potassium 3.9 mmol/L (3.4-5.1); Sodium 137 mmol/L (137-145); Total Protein 7.8 g/dL (6.3-8.2)
[2020-06-18 10:33] LABS: Albumin Globulin Ratio 1.5 (1.0-2.8); Cholesterol 217 mg/dL (140-199); Globulin 3.1 g/dL (1.7-4.1); HDL Cholesterol 44 mg/dL (40-60); HEMOLYSIS < 15 (0-50); LDL Cholesterol Calculated 140 mg/dL (<100); Triglycerides 167 mg/dL (35-150)
[2020-06-18 11:05] LABS: Free T4, Direct Thyroxine 0.93 ng/dL (0.78-2.19)
[2020-06-18 11:18] LABS: Thyroid Stimulating Hormone 30.4 uIU/mL (0.47-4.68)
== END ==
PROVIDERS: PCP Family Medicine; Referring Provider Family Medicine; Visit Provider Family Medicine
DX: E03.9 Hypothyroidism, unspecified (principal); F32.9 Major depressive disorder, single episode, unspecified; K50.90 Crohn's disease, unspecified, without complications
CPT/HCPCS: 36415; 80053; 80061; 83036; 84439; 84443; 85025

== ENCOUNTER → 2020-10-27 17:59 | Outpatient (CLI) | payer OTHER, SELFPAY ==
--- NOTE | 2020-10-27 18:00 | DI.RAD.S_ITS ---
PROCEDURE: XR KNEE RT 3V INDICATIONS: R knee pain/swelling TECHNIQUE: 3 views of the knee were acquired. COMPARISON: [facility], , KNEE 1-2 VIEWS RIGHT, 07/26/2007, 21:10. FINDINGS: Bones: Postsurgical changes from prior anterior cruciate ligament reconstruction with femoral and tibial tunnels and a metallic fixation device in the distal femur. A stable small chronic ossification is seen medial to the medial tibial plateau. Soft tissues: Small joint effusion. Small calcification adjacent to the lateral femoral epicondyle is likely secondary to a remote prior medial collateral ligament injury. IMPRESSION: 1. Postsurgical changes from anterior cruciate ligament reconstruction. 2. Small joint effusion. 3. No acute osseous abnormality. If clinical suspicion and/or symptoms persist, additional imaging with repeat plain films, or advanced imaging (e.g. CT, MRI) may be helpful for further assessment. Dictated by: Nasim Shaw M.D. on 10/27/2020 at 17:14 Approved by: Nasim Shaw M.D. on 10/27/2020 at 17:17
== END ==
PROVIDERS: PCP Family Medicine; Referring Provider Physician Assistant; Visit Provider Physician Assistant
DX: M25.561 Pain in right knee (principal); M25.461 Effusion, right knee
CPT/HCPCS: 73562

== ENCOUNTER 2021-01-11 01:11 | Emergency (ER) | payer OTHER, SELFPAY ==
[2021-01-11] VITALS (19 sets, daily range): BP systolic 100–165; BP diastolic 49–112; PULSE 39–43; RESP 14–25; TEMP 36.6; O2SAT 94–100; BMI 32.9
[2021-01-11] MEDS: ONDANSETRON 4 MG/2 ML INJ IV (01:24)
[2021-01-11 01:28] LABS: Add Manual Diff / Slide Review NO; Basophils Absolute Auto 0 /uL (0-100); Basophils Percent Auto 0.3 % (0-2); Eosinophils Absolute Auto 0 /uL (0-450); Eosinophils Percent Auto 0.5 % (2-4); Hematocrit 42.8 % (36-46); Hemoglobin 14.2 g/dL (12.0-16.0); Lymphocytes Absolute Auto 2200 /uL (1100-4500); Lymphocytes Percent Auto 20.4 % (25-40); Mean Corpuscular HGB Conc 33.3 % (30-36); Mean Corpuscular Hemoglobin 30.2 PG (26-34); Mean Corpuscular Volume 90.8 fL (80-100); Monocytes Absolute Auto 1000 /uL (0-900); Monocytes Percent Auto 9.3 % (3-14); Neutrophils Absolute Auto 7400 /uL (1500-7000); Neutrophils Percent Auto 69.5 % (50-75); Platelet Count 281 X10^3/uL (150-400); Red Blood Cell Count 4.71 X10^6/uL (4.0-5.2); Red Cell Distribution Width 12.5 % (11.6-14.8); White Blood Cell Count 10.7 X10^3/uL (4.5-11.0)
--- NOTE | 2021-01-11 01:31 | ED.ABDPAIN ---
HPI - Abdominal Pain General Chief Complaint: Abdominal Pain Stated Complaint: Vomiting/Abd pain Time Seen by Provider: 01/11/21 01:30 Source: patient and EMS Mode of arrival: EMS Limitations: no limitations History of Present Illness HPI narrative: This is a 30-year-old female comes emergency department complaint of vomiting and abdominal pain. Patient has had symptoms Sunday approximately 24 hours. She has felt hot cold but not had any objective fevers. Patient states that pain is in her lower abdomen and into her back. She denies chest pain, she denies shortness of breath. She denies any lightheadedness. She has had persistent vomiting/dry heaves. She has had multiple episodes of diarrhea, she does not believe she has had any black or bloody stools. She denies dysuria, urgency or frequency. She denies any vaginal discharge or bleeding. She denies any daily medications. She denies any past medical issues but per EMS has history of Crohn's. She denies any allergies but has allergies noted in her EMR. She does note she had a kidney infection about a month ago which was treated with antibiotics but never completely improved. She also has a known history of Crohn's with colitis. Patient accompanied by her roommate/friend. Related Data Home Medications Medication Instructions Recorded Confirmed buprenorphine 8 mg-naloxone 2 mg 2 tab SUBLINGUAL DAILY 08/19/18 10/27/20 sublingual tablet Previous Rx's Medication Instructions Recorded sertraline 50 mg tablet 50 mg PO DAILY #30 tab 02/16/20 levothyroxine 100 mcg tablet 100 mcg PO DAILY #90 tab 06/09/20 gabapentin 300 mg capsule 300 mg PO Q8H #270 cap 11/19/20 (Neurontin) trazodone 100 mg tablet 200 mg PO BEDTIME #180 tab 01/05/21 Allergies Allergy/AdvReac Type Severity Reaction Status Date / Time amoxicillin [AMOXICILLIN] Allergy Unknown RASH/HIVES Verified 01/11/21 01:24 hydromorphone [From DILAUDID] Allergy Unknown Verified 01/11/21 01:24 Opioids - Morphine Analogues Allergy Unknown Verified 01/11/21 01:24 [OPIOIDS - MORPHINE ANALOGUES] Penicillins Allergy Unknown Verified 01/11/21 01:24 Review of Systems Review of Systems ROS Unobtainable: All systems reviewed & are unremarkable except as noted in HPI and below Patient History Medical History Acne Anxiety Chronic bilateral low back pain without sciatica (07/19/15) Crohn's disease without complication (04/23/15) Depression GERD (gastroesophageal reflux disease) Headache Hyperlipidemia Hypothyroidism Insomnia disorder Migraine Opiate dependence, continuous (04/23/15) Pyelonephritis Tobacco abuse Surgical History Anesthesia H/O oophorectomy History of knee surgery Family History Father Thyroid condition Social History Smoking Status: Current every day smoker Tobacco: How many years used: 4 quit status: considering quitting alcohol intake: former substance use type: marijuana Smoking Status: Current every day smoker alcohol intake frequency: 0-2 drinks per day Substance Use Type: marijuana Exam Narrative Exam Narrative: GENERAL: Alert and oriented x three, female in mild distress. HEENT: Head normocephalic, atraumatic, EOMI, pupils reactive, face symmetric, moist mucous membranes NECK: Supple, full range of motion CARDIOVASCULAR: Bradycardic but regular rate and rhythm without murmurs, rubs or gallops. No swelling bilateral lower extremities. RESPIRATORY: Breath sounds equal bilaterally, no wheezes rales or rhonchi. No tachypnea accessory muscle use. ABDOMEN: Soft, positive for bilateral lower abdominal tenderness. Normoactive bowel sounds all 4 quadrants. No guarding or rebound, rigidity, no mass, non-distended. Patient has dry heaves but no liquid or solid emesis. : No CVA tenderness EXTREMITIES: Normal range of motion, no clubbing or edema bilaterally. Neurovascularly intact NEUROLOGICAL: Cranial nerves II through XII grossly intact. Moving all extremities SKIN: Warm, dry, no petechiae, no rashes or lesions. Initial Vital Signs Initial Vital Signs: Vital Signs Temperature 97.9 F 01/11/21 01:15 Pulse Rate 40 L 01/11/21 01:15 Respiratory Rate 14 01/11/21 01:15 Blood Pressure 157/76 H 01/11/21 01:15 Pulse Oximetry 99 01/11/21 01:15 Course Orders Ordered: Discontinued Medications Diphenhydramine HCl (Diphenhydramine 50 Mg/Ml Vial) 25 mg IV NOW ONE Stop: 01/11/21 04:26 Last Admin: 01/11/21 04:28 Dose: 25 mg Documented by: SYBIL Sodium Chloride (Normal Saline 0.9%) 1,000 mls @ 1,000 mls/hr IV BOLUS ONE Stop: 01/11/21 02:35 Last Infusion: 01/11/21 03:37 Dose: 0 mls/hr Documented by: Admin: 01/11/21 02:09 Dose: 1,000 mls/hr Documented by: SYBIL Sodium Chloride (Normal Saline 0.9%) 1,000 mls @ 1,000 mls/hr IV BOLUS ONE Stop: 01/11/21 04:45 Last Infusion: 01/11/21 06:38 Dose: 0 mls/hr Documented by: Admin: 01/11/21 04:00 Dose: 1,000 mls/hr Documented by: SYBIL Ketorolac Tromethamine (Ketorolac 30 Mg/Ml Vial) 15 mg IV NOW ONE Stop: 01/11/21 01:37 Last Admin: 01/11/21 01:55 Dose: 15 mg Documented by: SYBIL Lorazepam (Lorazepam 2 Mg/Ml Inj) 0.5 mg IV NOW ONE Stop: 01/11/21 01:37 Last Admin: 01/11/21 01:50 Dose: 0.5 mg Documented by: SYBIL Lorazepam (Lorazepam 2 Mg/Ml Inj) 0.5 mg IV NOW ONE Stop: 01/11/21 02:11 Last Admin: 01/11/21 02:12 Dose: 0.5 mg Documented by: SYBIL Metoclopramide HCl (Metoclopramide 10 Mg/2 Ml Inj) 10 mg IV NOW ONE Stop: 01/11/21 03:51 Last Admin: 01/11/21 04:00 Dose: 10 mg Documented by: SYBIL Morphine Sulfate (Morphine 4 Mg/Ml Inj) 4 mg IV NOW ONE Stop: 01/11/21 03:05 Last Admin: 01/11/21 03:10 Dose: 4 mg Documented by: SYBIL Ondansetron HCl (Ondansetron 4 Mg/2 Ml Inj) 4 mg IV NOW ONE Stop: 01/11/21 01:24 Last Admin: 01/11/21 01:24 Dose: 4 mg Documented by: SYBIL Ondansetron HCl (Ondansetron 4 Mg Odt Prepack) 1 bottle MISC SEEINSTR ONE Stop: 01/11/21 07:02 Last Admin: 01/11/21 07:16 Dose: 1 bottle Documented by: SYBIL Pantoprazole Sodium (Pantoprazole 40 Mg Vial) 40 mg IV NOW ONE Stop: 01/11/21 03:51 Last Admin: 01/11/21 04:00 Dose: 40 mg Documented by: SYBIL Reevaluation(s) Reevaluation #1: Patient has not had any active vomiting in the department but still feels nauseated. Given dose of Protonix and Reglan here in the department. Discussed we were able to obtain her last hospitalization at [facility] in August. At that time she was shown to have a TSH in 30s and HR was in the 40-50 range at that time. She also had negative CT and lab findings as well as a negative urine culture she was observed for 24 hours initially with concern for pyelonephritis complicated by dehydration and suspected marijuana induced hyperemesis. Patient was recommended to make sure she is taking her levothyroxine. Discussed here patient initially denied any medications then later stated she was taking her levothyroxine. Based on her elevation in her TSH I suspect that she is not. We have reviewed her labs and CT imaging. She has not given a urine and second liter of fluids was given. Time: 03:01 Reevaluation #2: Patient gave urine sample which was negative for obvious infection. Patient continues to be nauseated but has had no vomiting or dry heaving. Patient defers attempting an oral challenge and asks to be discharged home with oral antiemetic. Patient states she has an appointment with pcp in two weeks and will follow up her thyroid. All questions answered no other concerns for from patient. Return questions discussed. Time: 06:45 Vital Signs Vital signs: Vital Signs - 8 hr 01/11/21 01:15 01/11/21 01:20 01/11/21 01:30 Temperature 97.9 F Pulse Rate 40 L 40 L 43 L Respiratory Rate 14 22 24 Blood Pressure 157/76 H Pulse Oximetry 99 99 94 01/11/21 01:31 01/11/21 02:03 01/11/21 02:16 Temperature Pulse Rate 39 L 39 L 41 L Respiratory Rate 23 14 Blood Pressure 152/92 H 154/112 H Pulse Oximetry 99 100 99 01/11/21 02:30 01/11/21 03:00 01/11/21 03:01 Temperature Pulse Rate 39 L 39 L 39 L Respiratory Rate 23 22 Blood Pressure 156/110 H 165/89 H Pulse Oximetry 98 100 100 01/11/21 04:00 01/11/21 04:38 01/11/21 05:00 Temperature Pulse Rate 40 L 39 L 39 L Respiratory Rate 15 23 21 Blood Pressure 115/64 Pulse Oximetry 100 99 98 01/11/21 05:01 01/11/21 05:30 01/11/21 06:00 Temperature Pulse Rate 40 L 40 L 41 L Respiratory Rate 20 25 H 21 Blood Pressure 113/49 L Pulse Oximetry 98 98 97 01/11/21 06:01 01/11/21 06:30 Temperature Pulse Rate 40 L 41 L Respiratory Rate 20 24 Blood Pressure 100/50 L Pulse Oximetry 98 98 MDM - Abdominal Pain Lab Data Result diagrams: 01/11/21 01:14 01/11/21 01:14 Labs: Lab Results 01/11/21 01/11/21 01/11/21 Range/Units 01:14 01:14 01:14 WBC 10.7 (4.5-11.0) X10^3/uL RBC 4.71 (4.0-5.2) X10^6/uL Hgb 14.2 (12.0-16.0) g/dL Hct 42.8 (36-46) % MCV 90.8 (80-100) fL MCH 30.2 (26-34) PG MCHC 33.3 (30-36) % RDW 12.5 (11.6-14.8) % Plt Count 281 (150-400) X10^3/uL Neut % (Auto) 69.5 (50-75) % Lymph % (Auto) 20.4 L (25-40) % [place] % (Auto) 9.3 (3-14) % Eos % (Auto) 0.5 L (2-4) % Baso % (Auto) 0.3 (0-2) % Neut # (Auto) 7400 H (7366-0732) /uL Lymph # (Auto) 2200 (5053-4808) /uL [place] # (Auto) 1000 H (0-900) /uL Eos # (Auto) 0 (0-450) /uL Baso # (Auto) 0 (0-100) /uL Sodium 140 (137-145) mmol/L Potassium 3.5 (3.4-5.1) mmol/L Chloride 102 (98-107) mmol/L Carbon Dioxide 30 (22-32) mmol/L BUN 13 (7-17) mg/dL Creatinine 0.91 (0.52-1.04) mg/dL Estimated GFR > 60.0 (>60) mL/min BUN/Creatinine Ratio 14.3 (6-22) Glucose 105 H (70-100) mg/dL Calcium 10.0 (8.4-10.2) mg/dL Magnesium (1.6-2.3) mg/dL Total Bilirubin 0.8 (0.2-1.3) mg/dL AST 25 (14-36) IU/L ALT 19 (<35) IU/L Alkaline Phosphatase 47 (38-126) U/L Total Protein 8.3 H (6.3-8.2) g/dL Albumin 4.8 (3.5-5.0) g/dL Globulin 3.5 (1.7-4.1) g/dL Albumin/Globulin Ratio 1.4 (1.0-2.8) Lipase 72 (23-300) U/L TSH (0.47-4.68) uIU/mL Free T4 (0.78-2.19) ng/dL Serum , Qual Negative (Negative) Urine Color Urine Appearance Urine pH (4.5-8.0) Ur Specific [place] (1.000-1.035) Urine Protein (Negative) Urine Glucose (UA) (Negative) g/dL Urine Ketones (NEGATIVE) Urine Occult Blood (Negative) Urine Nitrate (Negative) Urine Bilirubin (NEGATIVE) Urine Urobilinogen (0.2) E.U./dL Ur Leukocyte Esterase (NEGATIVE) Urine RBC (0-5/HPF) Urine WBC (0-5/HPF) Ur Squamous Epith Cells (0-5/HPF) Urine Bacteria (None) Ur Culture Indicated? 01/11/21 01/11/21 01/11/21 Range/Units 01:14 01:14 06:30 WBC (4.5-11.0) X10^3/uL RBC (4.0-5.2) X10^6/uL Hgb (12.0-16.0) g/dL Hct (36-46) % MCV (80-100) fL MCH (26-34) PG MCHC (30-36) % RDW (11.6-14.8) % Plt Count (150-400) X10^3/uL Neut % (Auto) (50-75) % Lymph % (Auto) (25-40) % [place] % (Auto) (3-14) % Eos % (Auto) (2-4) % Baso % (Auto) (0-2) % Neut # (Auto) (0084-8628) /uL Lymph # (Auto) (9516-9288) /uL [place] # (Auto) (0-900) /uL Eos # (Auto) (0-450) /uL Baso # (Auto) (0-100) /uL Sodium (137-145) mmol/L Potassium (3.4-5.1) mmol/L Chloride (98-107) mmol/L Carbon Dioxide (22-32) mmol/L BUN (7-17) mg/dL Creatinine (0.52-1.04) mg/dL Estimated GFR (>60) mL/min BUN/Creatinine Ratio (6-22) Glucose (70-100) mg/dL Calcium (8.4-10.2) mg/dL Magnesium 1.8 (1.6-2.3) mg/dL Total Bilirubin (0.2-1.3) mg/dL AST (14-36) IU/L ALT (<35) IU/L Alkaline Phosphatase (38-126) U/L Total Protein (6.3-8.2) g/dL Albumin (3.5-5.0) g/dL Globulin (1.7-4.1) g/dL Albumin/Globulin Ratio (1.0-2.8) Lipase (23-300) U/L TSH 69.90 H (0.47-4.68) uIU/mL Free T4 0.93 (0.78-2.19) ng/dL Serum , Qual (Negative) Urine Color Dark yellow Urine Appearance Clear Urine pH 6.5 (4.5-8.0) Ur Specific [place] <=1.005 (1.000-1.035) Urine Protein 1+ H (Negative) Urine Glucose (UA) Negative (Negative) g/dL Urine Ketones 1+ H (NEGATIVE) Urine Occult Blood 2+ H (Negative) Urine Nitrate Negative (Negative) Urine Bilirubin Negative (NEGATIVE) Urine Urobilinogen 0.2 (0.2) E.U./dL Ur Leukocyte Esterase Negative (NEGATIVE) Urine RBC 1-5/hpf (0-5/HPF) Urine WBC 0-1/hpf (0-5/HPF) Ur Squamous Epith Cells 1-5 /hpf (0-5/HPF) Urine Bacteria Few (2-10) H (None) Ur Culture Indicated? Cult not indicated Imaging Data CT scan - abdomen/pelvis: Radiologist's Impression: No acute findings. Follicular cyst within the left ovary measuring 2.1 cm small volume free fluid within lower cul-de-sac likely physiologic reactive. Hepatomegaly. Multiple calcified phleboliths within the lower pelvis. ECG Data Attestation: I personally reviewed and interpreted this ECG as follows: Prior ECG tracings: available for review Interpretation: Sinus bradycardia rate of 41 MS 128 QRS of 106 and QTC of 400. No acute ST elevation. Nonspecific change. MDM Narrative Medical decision making narrative: This is a 30-year-old female who comes to the emergency department with complaint vomiting and abdominal pain starting 24 hours ago. Patient has bradycardia which is persistent. She is not hypotensive. Labs are unremarkable except for a TSH in the 50s which would correlate with her bradycardia. CT imaging does not show any acute changes. Patient had dry heaves in the department but no active fluid her liquid emesis. She is noted to have a hospitalization in August, at that time there was concern for pyelonephritis with similar symptoms and heart rate, urine culture was ultimately negative and at that time labs and imaging were also reassuring. Patient was arm drift or 24 hours and discharged home. During our discussion it is unclear if patient is taking her levothyroxine and we did discuss that if she is not taking it or it is not adjusted she can ultimately progressed to hypothyroid coma. Patient's urine is negative today. Patient continues to feel quite nauseated but has not had any persistent emesis or dry heaving. Patient and I discussed oral challenge here but she defers and would prefer anti nausea medication and discharge home at this time. Discharge Plan Departure Patient Disposition: Home Clinical Impression: Hypothyroid, Abdominal pain Instructions: Hypothyroidism, DI for Abdominal Pain-Adult Activity Restrictions/Additional Instructions: Your labs today show your TSH or thyroid level is very elevated. If you are taking your levothyroxine regularly here dosage likely needs to be adjusted. If you are not you do need to restart it. If it continues to worsen patients can become critically ill. Your labs, and CT imaging otherwise do not show any major changes. Your urine does not show any clear signs of infection. Take anti-nausea as prescribed. Please return for fevers, new or worsening symptoms, persistent vomiting, black or bloody stools, inability urinate passing out, new chest pain or shortness of breath or other concerning symptoms. Prescriptions: No Action levothyroxine 100 mcg tablet 100 mcg PO DAILY Qty: 90 RF: 1 gabapentin [Neurontin] 300 mg capsule 300 mg PO Q8H Qty: 270 RF: 1 trazodone 100 mg tablet 200 mg PO BEDTIME Qty: 180 RF: 1 sertraline 50 mg tablet 50 mg PO DAILY Qty: 30 RF: 2 buprenorphine-naloxone 8 MG/2 MG tablet, sublingual 2 tab Sublingual DAILY RF: 0 Referrals: Javier Mckee DO [Primary Care Provider] -
[2021-01-11 01:33] LABS: Alanine Aminotransferase 19 IU/L (<35); Albumin 4.8 g/dL (3.5-5.0); Albumin Globulin Ratio 1.4 (1.0-2.8); Alkaline Phosphatase 47 U/L (38-126); Aspartate Aminotransferase 25 IU/L (14-36); BUN Creatinine Ratio 14.3 (6-22); Bilirubin Total 0.8 mg/dL (0.2-1.3); Blood Urea Nitrogen 13 mg/dL (7-17); Carbon Dioxide 30 mmol/L (22-32); Chloride 102 mmol/L (98-107); Estimated Glomerular Filt Rate > 60.0 mL/min (>60); Globulin 3.5 g/dL (1.7-4.1); Glucose 105 mg/dL (70-100); HEMOLYSIS < 15 (0-50); Lipase 72 U/L (23-300); Potassium 3.5 mmol/L (3.4-5.1); Sodium 140 mmol/L (137-145); Total Protein 8.3 g/dL (6.3-8.2)
--- NOTE | 2021-01-11 01:36 | DI.CT.S_ITS ---
PROCEDURE: CT ABDOMEN PELVIS W CON INDICATIONS: vomiting/lower abd pain TECHNIQUE: After the administration of IV contrast, axial sections were acquired from the lung bases to the pubic symphysis. Coronal and sagittal reformats were performed. For radiation dose reduction, the following was used: automated exposure control, adjustment of mA and/or kV according to patient size. COMPARISON: [facility], CT, ABDOMEN/PELVIS WITH CONTRAST, 05/20/2011, 20:37. FINDINGS: Image quality: Excellent. Lung bases: Unremarkable. Heart: No significant findings. ABDOMEN: Liver: Unremarkable. Gallbladder: Unremarkable. Biliary ducts: Unremarkable. Pancreas: Unremarkable. Spleen: Unremarkable. Adrenal Glands: Unremarkable. Kidneys and Ureters: Unremarkable. Stomach and Bowel: Stomach, small bowel loops, and colon are normal in caliber and wall thickness. The appendix is normal in appearance. Peritoneum: There is a small amount of free fluid in the pelvis which appears within physiologic limits. No free air. Ventral Wall: No hernia. Abdominal Nodes: No retroperitoneal or mesenteric adenopathy by size criteria. Vessels: Aorta and inferior vena cava are normal in size. PELVIS: Pelvic Organs: There is a small peripherally enhancing cyst in the left ovary measuring up to 2.4 cm. Bladder: Unremarkable. Pelvic Nodes: No enlarged lymph nodes. Miscellaneous: No inguinal hernias are seen. Bones: There are a few small Schmorl's nodes along the superior and inferior endplates within the visualized lower thoracic and upper lumbar spine. IMPRESSION: 1. No definite acute intra-abdominal abnormality. 2. Small amount of pelvic free fluid appears within physiologic limits. 3. Peripherally enhancing cyst in the left ovary likely represents a corpus luteal cyst. Dictated by: Rudolph Leong M.D. on 01/11/2021 at 8:27 Approved by: Rudolph Leong M.D. on 01/11/2021 at 9:06
[2021-01-11 01:50] LABS: Pregnancy Test Serum,Qual Negative (Negative)
[2021-01-11] MEDS: LORazepam 2 MG/ML INJ 0.5 MG IV ×2 (01:50→02:12)
[2021-01-11] MEDS: KETOROLAC 30 MG/ML VIAL 15 MG IV (01:55)
[2021-01-11] MEDS: SODIUM CHLORIDE 0.9% 1,000 ML 1000 ML IV ×2 (02:09→04:00)
--- NOTE | 2021-01-11 02:29 | PC.NURSE ---
meds reassessed. Pt reports no change in pain or nausea but pt is now resting and not vomiting. MD aware of HR.
[2021-01-11 02:33] LABS: Magnesium 1.8 mg/dL (1.6-2.3)
[2021-01-11] MEDS: MORPHINE 4 MG/ML INJ IV (03:10)
[2021-01-11 03:20] LABS: Free T4, Direct Thyroxine 0.93 ng/dL (0.78-2.19)
--- NOTE | 2021-01-11 03:35 | PC.NURSE ---
Got pt up to the bathroom. She ambulated with stand by assist. Pt states once she is sitting on the commode that she is in too much pain to urinate and got up and walked back to her room. informed.
[2021-01-11] MEDS: PANTOPRAZOLE 40 MG VIAL IV (04:00)
[2021-01-11] MEDS: METOCLOPRAMIDE 10 MG/2 ML INJ IV (04:00)
--- NOTE | 2021-01-11 04:25 | PC.NURSE ---
Pt states that still after all the medications she is still nauseous and states I need more nausea meds or I'm going home. MD informed. Pt educated on nausea meds, her low HR and the interactions of nausea meds with her HR. to order Benadryl 25mg IV
[2021-01-11] MEDS: diphenhydrAMINE 50 MG/ML VIAL 25 MG IV (04:28)
--- NOTE | 2021-01-11 05:15 | PC.NURSE ---
Attempted to get a UA. Pt refused stating that she was still in pain and nauseous. Pt has not dry heaved since the first dose of Ativan and was soundly sleeping when I went in the room. MD does not wish to order any more medications at this time. 2nd L of NS almost finished infusing. Will continue to monitor the pt
--- NOTE | 2021-01-11 06:40 | PC.NURSE ---
Pt was requesting ice chips, was going to attempt a PO challenge. When ice chips were brought to her room she states that she is getting nauseous again. Ice chips held. notified. wishes to observe pt at this time. no new orders
[2021-01-11 06:47] LABS: Appearance Urine UA CLEAR; Bilirubin Urine UA NEGATIVE (NEGATIVE); Glucose Urine UA NEGATIVE (Negative); Ketones Urine UA 1+ (NEGATIVE); Leukocyte Esterase Urine UA NEGATIVE (NEGATIVE); Nitrite Urine UA NEGATIVE (Negative); Occult Blood Urine UA 2+ (Negative); Protein Urine UA 1+ (Negative); Specific Gravity Urine UA <=1.005 (1.000-1.035); Urobilinogen Urine UA 0.2 E.U./dL (0.2)
[2021-01-11 06:48] LABS: Color Urine UA Dark Yellow; pH Urine UA 6.5 (4.5-8.0)
[2021-01-11 06:53] LABS: Bacteria Urine Few (2-10); RBC Urine 1-5/HPF (0-5/HPF); Squamous Epithelial Cell Urine 1-5 /HPF (0-5/HPF); WBC Urine 0-1/HPF (0-5/HPF)
[2021-01-11 06:54] LABS: Culture Indicated Urine Cult Not Indicated
[2021-01-11] MEDS: ONDANSETRON 4 MG ODT PREPACK 1 BOTTLE MISC (07:16)
== END 2021-01-11 08:32 | disposition home or self-care (01) ==
PROVIDERS: Emergency Provider Emergency Medicine; PCP Family Medicine
DX: R10.9 Unspecified abdominal pain (principal); E03.9 Hypothyroidism, unspecified; R19.7 Diarrhea, unspecified; R11.2 Nausea with vomiting, unspecified; R00.1 Bradycardia, unspecified
CPT/HCPCS: 36415; 74177; 80053; 81001; 83690; 83735; 84439; 84443; 84703; 85025; 93005; 96361; 96374; 96375; 96376; 99284; C9113; J1200; J1885; J2060; J2270; J2405; J2765; Q9967

== ENCOUNTER 2021-01-12 08:53 | Emergency (ER) | payer OTHER, SELFPAY ==
[2021-01-12] VITALS (8 sets, daily range): BP systolic 117–138; BP diastolic 66–83; PULSE 39–54; RESP 17–18; TEMP 36.5; O2SAT 95–100; BMI 33.5
--- NOTE | 2021-01-12 09:07 | ED.ABDPAIN ---
HPI - Abdominal Pain General Chief Complaint: Nausea/Vomiting/Diarrhea Stated Complaint: Vomiting for 3 days Time Seen by Provider: 01/12/21 09:00 History of Present Illness HPI narrative: Patient is a 30-year-old female who presents for the 2nd time for nausea vomiting. She is that she has been vomiting for the last 3 days. Unable to keep anything down. She has been having bright red blood streaking in her vomit. She has continue to have pain on her left side. She was seen and evaluated here yesterday. She had CT blood work he was given multiple medications thought to have THC cyclic vomiting. She got Zofran at home she says that that has not helped. Denies any fever chest pain congestion. She says she previously had multiple episodes of diarrhea but has not had any diarrhea for 24 hours. She has not had any bloody diarrhea. She does take Suboxone, previous opiate addiction she says that she was able or has been trying to take her Suboxone as well. Related Data Home Medications Medication Instructions Recorded Confirmed buprenorphine 8 mg-naloxone 2 mg 2 tab SUBLINGUAL DAILY 08/19/18 10/27/20 sublingual tablet Previous Rx's Medication Instructions Recorded sertraline 50 mg tablet 50 mg PO DAILY #30 tab 02/16/20 levothyroxine 100 mcg tablet 100 mcg PO DAILY #90 tab 06/09/20 gabapentin 300 mg capsule 300 mg PO Q8H #270 cap 11/19/20 (Neurontin) trazodone 100 mg tablet 200 mg PO BEDTIME #180 tab 01/05/21 metoclopramide HCl 10 mg tablet 10 mg PO Q6H PRN #20 tab 01/12/21 (Reglan) Allergies Allergy/AdvReac Type Severity Reaction Status Date / Time amoxicillin [AMOXICILLIN] Allergy Unknown RASH/HIVES Verified 01/12/21 09:10 Penicillins Allergy Unknown Verified 01/11/21 01:24 Review of Systems Review of Systems Narrative: GENERAL: Denies chills, fatigue, malaise, fever, sweats, travel HEENT: Denies sinus pain, ear pain, sore throat, difficulty swallowing, neck pain RESPIRATORY: Denies dyspnea, cough, wheezing, hemoptysis, sputum. CARDIOVASCULAR: Denies chest pain, palpitations, orthopnea, edema GASTROINTESTINAL: See HPI : Denies dysuria, frequency, incontinence, hematuria, urinary retention, flank pain. MUSCULOSKELETAL: Denies weakness, joint pain, or bony pain SKIN: No rash, no erythema, no pruritus NEUROLOGIC: Denies weakness, dizziness, headache, numbness, change in speech, confusion PSYCHIATRIC: No concerning psychosocial issues. 12 point review of systems is negative except for those stated above and HPI Patient History Medical History Acne Anxiety Chronic bilateral low back pain without sciatica (07/19/15) Crohn's disease without complication (04/23/15) Depression GERD (gastroesophageal reflux disease) Headache Hyperlipidemia Hypothyroidism Insomnia disorder Migraine Opiate dependence, continuous (04/23/15) Pyelonephritis Tobacco abuse Surgical History Anesthesia H/O oophorectomy History of knee surgery Family History Father Thyroid condition Social History Smoking Status: Current every day smoker Tobacco: How many years used: 4 quit status: considering quitting alcohol intake: former substance use type: marijuana Smoking Status: Current every day smoker alcohol intake frequency: 0-2 drinks per day Substance Use Type: marijuana Exam Initial Vital Signs Initial Vital Signs: Vital Signs Temperature 97.7 F 01/12/21 09:05 Pulse Rate 45 L 01/12/21 09:05 Respiratory Rate 17 01/12/21 09:05 Blood Pressure 135/76 01/12/21 09:05 Pulse Oximetry 100 01/12/21 09:05 GENERAL: Patient is a 30-year-old female appears not feel well tearful HEENT: Head atraumatic,EOMI, pupils reactive, face symmetric, [moist] mucous membranes CARDIOVASCULAR: Regular rate and rhythm without murmurs, rubs or gallops. RESPIRATORY: Breath sounds equal bilaterally, no wheezes rales or rhonchi. ABDOMEN: Soft, nontender. Normoactive bowel sounds all 4 quadrants. No guarding or rebound. : No CVA tenderness EXTREMITIES: Normal range of motion, no clubbing or edema. Neurovascularly intact NEUROLOGICAL: Alert and oriented x4.Normal gait and speech. SKIN: Warm, dry, no laceration, no petechiae, no rashes or lesions. Course Orders Ordered: ED Orders 01/12/21 09:04 Complete Blood Count AUTO DIFF Stat Comprehensive Metabolic Panel Stat Lactate (Lactic Acid) Stat Lipase Stat 01/12/21 09:56 US pelvic complete Stat 01/12/21 11:20 Urine Culture Stat Urine Microscopic Stat Discontinued Medications Hydromorphone HCl (Hydromorphone 1 Mg Inj) 1 mg IV NOW ONE Stop: 01/12/21 11:02 Last Admin: 01/12/21 11:05 Dose: 1 mg Documented by: GRETCHEN Sodium Chloride (Normal Saline 0.9%) 1,000 mls @ 1,000 mls/hr IV CONT MCKAYLA Last Infusion: 01/12/21 10:51 Dose: 0 mls/hr Documented by: Admin: 01/12/21 09:22 Dose: 1,000 mls/hr Documented by: AMARILIS Sodium Chloride (Normal Saline 0.9%) 1,000 mls @ 1,000 mls/hr IV BOLUS ONE Stop: 01/12/21 12:48 Last Infusion: 01/12/21 12:45 Dose: 0 mls/hr Documented by: Admin: 01/12/21 11:57 Dose: 1,000 mls/hr Documented by: GRETCHEN Ketorolac Tromethamine (Ketorolac 30 Mg/Ml Vial) 30 mg IV NOW ONE Stop: 01/12/21 09:09 Last Admin: 01/12/21 09:23 Dose: 30 mg Documented by: AMARILIS Lorazepam (Lorazepam 2 Mg/Ml Inj) 0.5 mg IV NOW ONE Stop: 01/12/21 11:50 Last Admin: 01/12/21 11:57 Dose: 0.5 mg Documented by: GRETCHEN Metoclopramide HCl (Metoclopramide 10 Mg/2 Ml Inj) 10 mg IV NOW ONE Stop: 01/12/21 09:57 Last Admin: 01/12/21 10:05 Dose: 10 mg Documented by: GRETCHEN Ondansetron HCl (Ondansetron 4 Mg/2 Ml Inj) 4 mg IV NOW ONE Stop: 01/12/21 09:09 Last Admin: 01/12/21 09:23 Dose: 4 mg Documented by: AMARILIS Pantoprazole Sodium (Pantoprazole 40 Mg Vial) 40 mg IV NOW ONE Stop: 01/12/21 09:09 Last Admin: 01/12/21 09:23 Dose: 40 mg Documented by: AMARILIS Vital Signs Vital signs: Vital Signs - 8 hr 01/12/21 09:05 01/12/21 09:33 01/12/21 09:34 Temperature 97.7 F Pulse Rate 45 L 43 L 39 L Respiratory Rate 17 18 Blood Pressure 135/76 135/76 129/83 Pulse Oximetry 100 97 99 01/12/21 10:00 01/12/21 10:30 01/12/21 10:31 Temperature Pulse Rate 39 L 42 L 43 L Respiratory Rate Blood Pressure 138/83 128/66 Pulse Oximetry 95 96 97 01/12/21 11:40 01/12/21 12:59 Temperature Pulse Rate 42 L 54 L Respiratory Rate 18 18 Blood Pressure 138/83 117/66 Pulse Oximetry 98 97 MDM - Abdominal Pain Lab Data Result diagrams: 01/12/21 09:04 01/12/21 09:04 Labs: Lab Results 01/12/21 01/12/21 01/12/21 Range/Units 09:04 09:04 09:04 WBC 7.1 (4.5-11.0) X10^3/uL RBC 4.50 (4.0-5.2) X10^6/uL Hgb 13.7 (12.0-16.0) g/dL Hct 40.6 (36-46) % MCV 90.3 (80-100) fL MCH 30.4 (26-34) PG MCHC 33.7 (30-36) % RDW 12.5 (11.6-14.8) % Plt Count 264 (150-400) X10^3/uL Neut % (Auto) 61.2 (50-75) % Lymph % (Auto) 27.4 (25-40) % [place]rie % (Auto) 9.3 (3-14) % Eos % (Auto) 1.4 L (2-4) % Baso % (Auto) 0.7 (0-2) % Neut # (Auto) 4300 (3157-6301) /uL Lymph # (Auto) 1900 (6628-6488) /uL [place] # (Auto) 700 (0-900) /uL Eos # (Auto) 100 (0-450) /uL Baso # (Auto) 100 (0-100) /uL Sodium 138 (137-145) mmol/L Potassium 3.3 L (3.4-5.1) mmol/L Chloride 102 (98-107) mmol/L Carbon Dioxide 29 (22-32) mmol/L BUN 13 (7-17) mg/dL Creatinine 0.95 (0.52-1.04) mg/dL Estimated GFR > 60.0 (>60) mL/min BUN/Creatinine Ratio 13.7 (6-22) Glucose 96 (70-100) mg/dL Lactate 1.0 (0.7-2.1) mmol/L Calcium 9.4 (8.4-10.2) mg/dL Total Bilirubin 0.8 (0.2-1.3) mg/dL AST 22 (14-36) IU/L ALT 18 (<35) IU/L Alkaline Phosphatase 40 (38-126) U/L Total Protein 7.3 (6.3-8.2) g/dL Albumin 4.5 (3.5-5.0) g/dL Globulin 2.8 (1.7-4.1) g/dL Albumin/Globulin Ratio 1.6 (1.0-2.8) Lipase 100 (23-300) U/L Urine RBC (0-5/HPF) Urine WBC (0-5/HPF) Amorphous Sediment Urine Bacteria (None) Ur Culture Indicated? 01/12/21 Range/Units 11:20 WBC (4.5-11.0) X10^3/uL RBC (4.0-5.2) X10^6/uL Hgb (12.0-16.0) g/dL Hct (36-46) % MCV (80-100) fL MCH (26-34) PG MCHC (30-36) % RDW (11.6-14.8) % Plt Count (150-400) X10^3/uL Neut % (Auto) (50-75) % Lymph % (Auto) (25-40) % Guthrie % (Auto) (3-14) % Eos % (Auto) (2-4) % Baso % (Auto) (0-2) % Neut # (Auto) (5118-9338) /uL Lymph # (Auto) (6009-1105) /uL Guthrie # (Auto) (0-900) /uL Eos # (Auto) (0-450) /uL Baso # (Auto) (0-100) /uL Sodium (137-145) mmol/L Potassium (3.4-5.1) mmol/L Chloride (98-107) mmol/L Carbon Dioxide (22-32) mmol/L BUN (7-17) mg/dL Creatinine (0.52-1.04) mg/dL Estimated GFR (>60) mL/min BUN/Creatinine Ratio (6-22) Glucose (70-100) mg/dL Lactate (0.7-2.1) mmol/L Calcium (8.4-10.2) mg/dL Total Bilirubin (0.2-1.3) mg/dL AST (14-36) IU/L ALT (<35) IU/L Alkaline Phosphatase (38-126) U/L Total Protein (6.3-8.2) g/dL Albumin (3.5-5.0) g/dL Globulin (1.7-4.1) g/dL Albumin/Globulin Ratio (1.0-2.8) Lipase (23-300) U/L Urine RBC 0-1/hpf (0-5/HPF) Urine WBC 5-10/hpf H (0-5/HPF) Amorphous Sediment 3+ Urine Bacteria Moderate (10-30) H (None) Ur Culture Indicated? Culture not indicate Point of care testing: Urine Dip Bedside Urine Glucose Negative Bedside Urine Bilirubin - Negative Bedside Urine Ketone + 15 Urine Specific [place] 1.030 Bedside Urine Occult Blood ++ Bedside Urine pH 6 Bedside Urine Protein + 30 Bedside Urine Urobilinogen - Negative Bedside Urine Nitrite - Negative Bedside Urine Leukocytes - Negative Esterase Imaging Data US - [employer]: Radiologist's Impression: PROCEDURE:? US PELVIC COMPLETE ? INDICATIONS:? LEFT PELVIC PAIN WITH CYST ? TECHNIQUE:? Real-time scanning was performed of the pelvic organs, with image documentation.? Additional endovaginal scanning was necessary due to incomplete visualization of the adnexal and endometrial structures by transabdominal scanning.? ? COMPARISON:? [facility], [place], PELVIC COMPLETE, 07/26/2010, 11:34. ? FINDINGS:? ?? Uterus:? Anteverted.? Diffuse heterogeneity with prominent vessels.? The uterus measures 7.7 x 6.3 x 3.9 cm.? The endometrium measures 7.1 mm in combined thickness.? ? Ovaries:? The left ovary measures 4.5 x 2.4 x 2.6 cm. Hypoechoic lesion is seen within the left ovary, measuring up to 2 cm, which may represent a cyst or dominant follicle.? Arterial and venous flow is appreciated. The right ovary is not visualized. ? Other:? Small amount of fluid in the posterior cul-de-sac. ? IMPRESSION:? Hypoechoic lesion within the left ovary as detailed above, which may represent a cyst or dominant follicle. ? ? ? Dictated by: Lei Gavin M.D. on 01/12/2021 at 12:09 ? ? Approved by: Lei Gavin M.D. on 01/12/2021 at 12:15 ? [facility] Narrative Medical decision making narrative: Patient is having vomiting diarrhea ongoing for last few days. She has continue to feel nauseous here despite anti nausea medication but she has not thrown up. She is actually tolerating oral fluids. She has not had any diarrhea. Complains of left-sided pain. Both CT and ultrasound show very small ovarian cyst. Otherwise no abnormality. Blood work is overall reassuring. Patient was given a dose of Dilaudid which made her anxious requiring Ativan. She is requesting other medication besides Zofran to go home with. She understands on only wants Tylenol and Motrin if needed for pain. She also does use THC possible cyclic vomiting syndrome as well however with diarrhea I think more likely a gastroenteritis. No need to repeat CT at this time. Discharge Plan Departure Patient Disposition: Home Clinical Impression: Gastroenteritis Instructions: DI for Viral Gastroenteritis -- Adult Activity Restrictions/Additional Instructions: 1) You have been diagnosed with gastroenteritis 2) What to do: Drink frequent but small amounts of fluids. I recommend Gatorade or a Gatorade-like product, as it has small amounts of sugar and salts that improve fluid retention. 3) Take medications as directed With Reglan 10 mg every 6 hours if needed for nausea or vomiting--> SENT TO [facility] With Motrin 600 mg every 6-8 hours if needed for pain 4) Follow up with your primary care provider in 2-3 days 5) Return to ER if you should have any new or worsening symptoms such as, unable to hold down fluids despite use of anti-nausea medications and the small volume oral rehydration strategy. Prescriptions: New metoclopramide HCl [Reglan] 10 mg tablet 10 mg PO Q6H PRN (Reason: nausea and vomiting) Qty: 20 RF: 0 No Action levothyroxine 100 mcg tablet 100 mcg PO DAILY Qty: 90 RF: 1 gabapentin [Neurontin] 300 mg capsule 300 mg PO Q8H Qty: 270 RF: 1 trazodone 100 mg tablet 200 mg PO BEDTIME Qty: 180 RF: 1 sertraline 50 mg tablet 50 mg PO DAILY Qty: 30 RF: 2 buprenorphine-naloxone 8 MG/2 MG tablet, sublingual 2 tab Sublingual DAILY RF: 0 Referrals: Javier Mckee, [Primary Care Provider] -
[2021-01-12 09:18] LABS: Add Manual Diff / Slide Review NO; Basophils Absolute Auto 100 /uL (0-100); Basophils Percent Auto 0.7 % (0-2); Eosinophils Absolute Auto 100 /uL (0-450); Eosinophils Percent Auto 1.4 % (2-4); Hematocrit 40.6 % (36-46); Hemoglobin 13.7 g/dL (12.0-16.0); Lymphocytes Absolute Auto 1900 /uL (1100-4500); Lymphocytes Percent Auto 27.4 % (25-40); Mean Corpuscular HGB Conc 33.7 % (30-36); Mean Corpuscular Hemoglobin 30.4 PG (26-34); Mean Corpuscular Volume 90.3 fL (80-100); Monocytes Absolute Auto 700 /uL (0-900); Monocytes Percent Auto 9.3 % (3-14); Neutrophils Absolute Auto 4300 /uL (1500-7000); Neutrophils Percent Auto 61.2 % (50-75); Platelet Count 264 X10^3/uL (150-400); Red Cell Distribution Width 12.5 % (11.6-14.8); White Blood Cell Count 7.1 X10^3/uL (4.5-11.0)
[2021-01-12] MEDS: SODIUM CHLORIDE 0.9% 1,000 ML 1000 ML IV ×2 (09:22→11:57)
[2021-01-12] MEDS: ONDANSETRON 4 MG/2 ML INJ IV (09:23)
[2021-01-12] MEDS: KETOROLAC 30 MG/ML VIAL IV (09:23)
[2021-01-12] MEDS: PANTOPRAZOLE 40 MG VIAL IV (09:23)
[2021-01-12 09:26] LABS: Alanine Aminotransferase 18 IU/L (<35); Albumin 4.5 g/dL (3.5-5.0); Albumin Globulin Ratio 1.6 (1.0-2.8); Alkaline Phosphatase 40 U/L (38-126); Aspartate Aminotransferase 22 IU/L (14-36); BUN Creatinine Ratio 13.7 (6-22); Bilirubin Total 0.8 mg/dL (0.2-1.3); Blood Urea Nitrogen 13 mg/dL (7-17); Calcium 9.4 mg/dL (8.4-10.2); Carbon Dioxide 29 mmol/L (22-32); Chloride 102 mmol/L (98-107); Estimated Glomerular Filt Rate > 60.0 mL/min (>60); Globulin 2.8 g/dL (1.7-4.1); Glucose 96 mg/dL (70-100); HEMOLYSIS < 15 (0-50); Lipase 100 U/L (23-300); Potassium 3.3 mmol/L (3.4-5.1); Sodium 138 mmol/L (137-145); Total Protein 7.3 g/dL (6.3-8.2)
--- NOTE | 2021-01-12 09:56 | DI.US.S_ITS ---
PROCEDURE: US PELVIC COMPLETE INDICATIONS: LEFT PELVIC PAIN WITH CYST TECHNIQUE: Real-time scanning was performed of the pelvic organs, with image documentation. Additional endovaginal scanning was necessary due to incomplete visualization of the adnexal and endometrial structures by transabdominal scanning. COMPARISON: [facility], [place], PELVIC COMPLETE, 07/26/2010, 11:34. FINDINGS: Uterus: Anteverted. Diffuse heterogeneity with prominent vessels. The uterus measures 7.7 x 6.3 x 3.9 cm. The endometrium measures 7.1 mm in combined thickness. Ovaries: The left ovary measures 4.5 x 2.4 x 2.6 cm. Hypoechoic lesion is seen within the left ovary, measuring up to 2 cm, which may represent a cyst or dominant follicle. Arterial and venous flow is appreciated. The right ovary is not visualized. Other: Small amount of fluid in the posterior cul-de-sac. IMPRESSION: Hypoechoic lesion within the left ovary as detailed above, which may represent a cyst or dominant follicle. Dictated by: Lei Gavin M.D. on 01/12/2021 at 12:09 Approved by: Lei Gavin M.D. on 01/12/2021 at 12:15
[2021-01-12] MEDS: METOCLOPRAMIDE 10 MG/2 ML INJ IV (10:05)
[2021-01-12] MEDS: HYDROMORPHONE 1 MG INJ IV (11:05)
[2021-01-12 11:39] LABS: Amorphous Sediment Urine 3+; Bacteria Urine Moderate (10-30); RBC Urine 0-1/HPF (0-5/HPF); WBC Urine 5-10/HPF (0-5/HPF)
[2021-01-12] MEDS: LORazepam 2 MG/ML INJ 0.5 MG IV (11:57)
== END 2021-01-12 13:00 | disposition home or self-care (01) ==
PROVIDERS: Emergency Provider Emergency Medicine; PCP Family Medicine
DX: K52.9 Noninfective gastroenteritis and colitis, unspecified (principal); R11.2 Nausea with vomiting, unspecified; R10.2 Pelvic and perineal pain
CPT/HCPCS: 36415; 76830; 76856; 80053; 81003; 81015; 83605; 83690; 85025; 87086; 96361; 96374; 96375; 99284; C9113; J1170; J1885; J2060; J2405; J2765

== ENCOUNTER → 2021-01-21 09:34 | Outpatient (CLI) | payer OTHER, SELFPAY ==
[2021-01-21 12:29] LABS: COVID19 -Nasal RAPID Negative (Negative)
== END ==
PROVIDERS: PCP Family Medicine; Referring Provider Nurse Practitioner; Visit Provider Nurse Practitioner
DX: Z20.822 Contact with and (suspected) exposure to COVID-19 (principal)
CPT/HCPCS: 87635

== ENCOUNTER 2021-01-27 21:23 | Emergency (ER) | payer OTHER, SELFPAY ==
[2021-01-27 21:33] VITALS: BP 151/98; PULSE 70; RESP 15; TEMP 37.1; O2SAT 100; BMI 33.5
[2021-01-27 21:53] LABS: Add Manual Diff / Slide Review NO; Basophils Absolute Auto 100 /uL (0-100); Basophils Percent Auto 0.7 % (0-2); Eosinophils Absolute Auto 400 /uL (0-450); Eosinophils Percent Auto 4.7 % (2-4); Hematocrit 41.9 % (36-46); Hemoglobin 13.9 g/dL (12.0-16.0); Lymphocytes Absolute Auto 2000 /uL (1100-4500); Lymphocytes Percent Auto 24.1 % (25-40); Mean Corpuscular HGB Conc 33.2 % (30-36); Mean Corpuscular Hemoglobin 30.4 PG (26-34); Mean Corpuscular Volume 91.5 fL (80-100); Monocytes Absolute Auto 700 /uL (0-900); Monocytes Percent Auto 8.7 % (3-14); Neutrophils Absolute Auto 5000 /uL (1500-7000); Neutrophils Percent Auto 61.8 % (50-75); Platelet Count 336 X10^3/uL (150-400); Red Blood Cell Count 4.58 X10^6/uL (4.0-5.2); Red Cell Distribution Width 12.6 % (11.6-14.8); White Blood Cell Count 8.1 X10^3/uL (4.5-11.0)
[2021-01-27] MEDS: SODIUM CHLORIDE 0.9% 1,000 ML 1000 ML IV ×2 (21:54→23:01)
[2021-01-27 22:01] LABS: Alanine Aminotransferase 21 IU/L (<35); Albumin 4.6 g/dL (3.5-5.0); Albumin Globulin Ratio 1.5 (1.0-2.8); Alkaline Phosphatase 44 U/L (38-126); Aspartate Aminotransferase 25 IU/L (14-36); BUN Creatinine Ratio 13.5 (6-22); Bilirubin Total 0.5 mg/dL (0.2-1.3); Blood Urea Nitrogen 13 mg/dL (7-17); Calcium 9.5 mg/dL (8.4-10.2); Carbon Dioxide 29 mmol/L (22-32); Chloride 102 mmol/L (98-107); Estimated Glomerular Filt Rate > 60.0 mL/min (>60); Globulin 3.1 g/dL (1.7-4.1); Glucose 95 mg/dL (70-100); HEMOLYSIS 16 (0-50); Lipase 95 U/L (23-300); Sodium 139 mmol/L (137-145); Total Protein 7.7 g/dL (6.3-8.2)
[2021-01-27 22:09] LABS: COVID19 -Nasal RAPID Negative (Negative)
--- NOTE | 2021-01-27 22:33 | ED_ITS ---
HPI - General Adult General Chief complaint: Abdominal Pain Stated complaint: abdominal pain, vomiting Time Seen by Provider: 01/27/21 21:37 Source: patient and family Mode of arrival: Wheelchair Limitations: no limitations History of Present Illness HPI narrative: 30-year-old woman with a history of Crohn's disease, opioid use disorder currently on Suboxone, and hypothyroidism presents with complaints of persistent and worsening abdominal pain. She was initially seen in the emergency department on January 11 with similar complaints again on the she has had a couple of tele video appointments with her primary care provider and has a life appointment sometime next week. She describes severe unrelenting d iffuse abdominal pain that wraps around her entire abdomen. She states that palpating any portion of the abdomen will radiate pain to the other side. She denies chest pain dyspnea or palpitations. She states that she is utterly measurable with this and cannot continue. She describes no vaginal discharge or dysuria. She describes pain is 10/10 and is having trouble staying comfortable in any position on the exam bed. Workup today has included CT of the abdomen on the with no obvious abn ormalities. Pelvic ultrasound on the demonstrating no torsion and a 2 cm cyst on the left ovary likely a dominant follicle. Lab work with each visit has been unremarkable with no evidence of leukocytosis or anemia. Chemistries have been reassuring with no acute kidney injury and no elevated liver studies. Related Data Home Medications Medication Instructions Recorded Confirmed buprenorphine 8 mg-naloxone 2 mg 2 tab SUBLINGUAL DAILY 08/19/18 10/27/20 sublingual tablet Previous Rx's Medication Instructions Recorded sertraline 50 mg tablet 50 mg PO DAILY #30 tab 02/16/20 gabapentin 300 mg capsule 300 mg PO Q8H #270 cap 11/19/20 (Neurontin) trazodone 100 mg tablet 200 mg PO BEDTIME #180 tab 01/05/21 metoclopramide HCl 10 mg tablet 10 mg PO Q6H PRN #20 tab 01/12/21 (Reglan) levothyroxine 125 mcg tablet 100 mcg PO DAILY #90 tab 01/26/21 Allergies Allergy/AdvReac Type Severity Reaction Status Date / Time amoxicillin [AMOXICILLIN] Allergy Unknown RASH/HIVES Verified 01/12/21 09:10 Penicillins Allergy Unknown Verified 01/11/21 01:24 Review of Systems Review of Systems Narrative: Remainder of complete review of systems is otherwise unremarkable except for that included in the HPI. Patient History Medical History Acne Anxiety Chronic bilateral low back pain without sciatica (07/19/15) Crohn's disease without complication (04/23/15) Depression GERD (gastroesophageal reflux disease) Headache Hyperlipidemia Hypothyroidism Insomnia disorder Migraine Opiate dependence, continuous (04/23/15) Pyelonephritis Tobacco abuse Surgical History Anesthesia H/O oophorectomy History of knee surgery Family History Father Thyroid condition Social History Smoking Status: Current every day smoker Tobacco: How many years used: 4 quit status: considering quitting alcohol intake: former substance use type: marijuana Smoking Status: Current every day smoker alcohol intake frequency: 0-2 drinks per day Substance Use Type: marijuana Exam Narrative Exam Narrative: General: Healthy appearing, in severe distress with dramatic affect of behavior. Unable to get comfortable on the exam bed. Exam is compromised by dramatic behaviors. Well-nourished well-developed HEENT: Moist mucous membranes, normal sclera with reactive pupils, Respiratory: Lungs are clear to auscultation, no wheezing no rales no rhonchi. Full and symmetrical air movement Cardiac: Regular rate and rhythm no murmurs no bruits Abdomen: Diffusely tender across the entire abdomen, normal bowel tones, bilateral flank pain Genital: Normal external genitalia without vaginal discharge. Bimanual exam is attempted and simply having fingers in the introitus was too uncomfortable to continue. No vesicular lesions or mucosal abnormalities appreciated Skin: Warm and dry, no rashes Neurologic: Grossly neurologically intact with no obvious asymmetries or abnormalities Extremities: No trauma, well perfused Psych: Distracted by pain Initial Vital Signs Initial Vital Signs: Vital Signs Temperature 98.8 F 01/27/21 21:33 Pulse Rate 70 01/27/21 21:33 Respiratory Rate 15 01/27/21 21:33 Blood Pressure 151/98 H 01/27/21 21:33 Pulse Oximetry 100 01/27/21 21:33 Course Orders Ordered: ED Orders 01/27/21 21:42 COVID19 -Nasal swab/Pre-Proc Stat Complete Blood Count AUTO DIFF Stat Comprehensive Metabolic Panel Stat Lipase Stat 01/27/21 22:45 Urine Culture Stat Urine Drug Screen, Rapid Stat 01/27/21 22:47 CT abdomen pelvis w con Stat Discontinued Medications Diphenhydramine HCl (Diphenhydramine 50 Mg/Ml Vial) 50 mg IV NOW ONE Stop: 01/27/21 22:48 Last Admin: 01/27/21 23:00 Dose: 50 mg Documented by: DIA Haloperidol (Haloperidol 5 Mg/Ml Vial) 2 mg IV NOW ONE Stop: 01/27/21 22:48 Last Admin: 01/27/21 22:59 Dose: 2 mg Documented by: DIA Sodium Chloride (Normal Saline 0.9%) 1,000 mls @ 1,000 mls/hr IV BOLUS ONE Stop: 01/27/21 22:36 Last Infusion: 01/27/21 23:01 Dose: 0 mls/hr Documented by: Admin: 01/27/21 21:54 Dose: 1,000 mls/hr Documented by: DIA Sodium Chloride (Normal Saline 0.9%) 1,000 mls @ 1,000 mls/hr IV BOLUS ONE Stop: 01/27/21 23:46 Last Admin: 01/27/21 23:01 Dose: 1,000 mls/hr Documented by: DIA Ketorolac Tromethamine (Ketorolac 30 Mg/Ml Vial) 15 mg IV NOW ONE Stop: 01/27/21 22:48 Last Admin: 01/27/21 22:58 Dose: 15 mg Documented by: DIA Lorazepam (Lorazepam 2 Mg/Ml Inj) 1 mg IV NOW ONE Stop: 01/27/21 23:23 Last Admin: 01/27/21 23:25 Dose: 1 mg Documented by: DIA Vital Signs Vital signs: Vital Signs - 8 hr 01/27/21 21:33 01/27/21 23:08 Temperature 98.8 F Pulse Rate 70 56 L Respiratory Rate 15 16 Blood Pressure 151/98 H 104/59 L Pulse Oximetry 100 99 Medical Decision Making Lab Data Result diagrams: 01/27/21 21:42 01/27/21 21:42 Labs: Lab Results 10/01/27/21 01/27/21 Range/Units 21:42 21:42 21:42 WBC 8.1 (4.5-11.0) X10^3/uL RBC 4.58 (4.0-5.2) X10^6/uL Hgb 13.9 (12.0-16.0) g/dL Hct 41.9 (36-46) % MCV 91.5 (80-100) fL MCH 30.4 (26-34) PG MCHC 33.2 (30-36) % RDW 12.6 (11.6-14.8) % Plt Count 336 (150-400) X10^3/uL Neut % (Auto) 61.8 (50-75) % Lymph % (Auto) 24.1 L (25-40) % [place] % (Auto) 8.7 (3-14) % Eos % (Auto) 4.7 H (2-4) % Baso % (Auto) 0.7 (0-2) % Neut # (Auto) 5000 (2376-0041) /uL Lymph # (Auto) 2000 (8250-1999) /uL [place] # (Auto) 700 (0-900) /uL Eos # (Auto) 400 (0-450) /uL Baso # (Auto) 100 (0-100) /uL Sodium 139 (137-145) mmol/L Potassium 4.0 (3.4-5.1) mmol/L Chloride 102 (98-107) mmol/L Carbon Dioxide 29 (22-32) mmol/L BUN 13 (7-17) mg/dL Creatinine 0.96 (0.52-1.04) mg/dL Estimated GFR > 60.0 (>60) mL/min BUN/Creatinine Ratio 13.5 (6-22) Glucose 95 (70-100) mg/dL Calcium 9.5 (8.4-10.2) mg/dL Total Bilirubin 0.5 (0.2-1.3) mg/dL AST 25 (14-36) IU/L ALT 21 (<35) IU/L Alkaline Phosphatase 44 (38-126) U/L Total Protein 7.7 (6.3-8.2) g/dL Albumin 4.6 (3.5-5.0) g/dL Globulin 3.1 (1.7-4.1) g/dL Albumin/Globulin Ratio 1.5 (1.0-2.8) Lipase 95 (23-300) U/L U Opiates 300ng/mL cut (Negative) Ur Oxycodone Screen (Negative) Urine Methadone Screen (Negative) Ur Barbiturates Screen (Negative) U Tricyclic Antidepress (Negative) Ur Phencyclidine Scrn (Negative) Ur Amphetamines Screen (Negative) U Methamphetamines Scrn (Negative) Ur MDMA Scrn (Ecstasy) (Negative) U Benzodiazepines Scrn (Negative) Urine Cocaine Screen (Negative) U Marijuana (THC) Screen (Negative) SARS-CoV-2 (PCR) Negative (Negative) 01/27/21 Range/Units 22:45 WBC (4.5-11.0) X10^3/uL RBC (4.0-5.2) X10^6/uL Hgb (12.0-16.0) g/dL Hct (36-46) % MCV (80-100) fL MCH (26-34) PG MCHC (30-36) % RDW (11.6-14.8) % Plt Count (150-400) X10^3/uL Neut % (Auto) (50-75) % Lymph % (Auto) (25-40) % [place] % (Auto) (3-14) % Eos % (Auto) (2-4) % Baso % (Auto) (0-2) % Neut # (Auto) (6469-2617) /uL Lymph # (Auto) (8966-4139) /uL [place] # (Auto) (0-900) /uL Eos # (Auto) (0-450) /uL Baso # (Auto) (0-100) /uL Sodium (137-145) mmol/L Potassium (3.4-5.1) mmol/L Chloride (98-107) mmol/L Carbon Dioxide (22-32) mmol/L BUN (7-17) mg/dL Creatinine (0.52-1.04) mg/dL Estimated GFR (>60) mL/min BUN/Creatinine Ratio (6-22) Glucose (70-100) mg/dL Calcium (8.4-10.2) mg/dL Total Bilirubin (0.2-1.3) mg/dL AST (14-36) IU/L ALT (<35) IU/L Alkaline Phosphatase (38-126) U/L Total Protein (6.3-8.2) g/dL Albumin (3.5-5.0) g/dL Globulin (1.7-4.1) g/dL Albumin/Globulin Ratio (1.0-2.8) Lipase (23-300) U/L U Opiates 300ng/mL cut Negative (Negative) Ur Oxycodone Screen Negative (Negative) Urine Methadone Screen Negative (Negative) Ur Barbiturates Screen Negative (Negative) U Tricyclic Antidepress Negative (Negative) Ur Phencyclidine Scrn Negative (Negative) Ur Amphetamines Screen Negative (Negative) U Methamphetamines Scrn Negative (Negative) Ur MDMA Scrn (Ecstasy) Negative (Negative) U Benzodiazepines Scrn Negative (Negative) Urine Cocaine Screen Negative (Negative) U Marijuana (THC) Screen Positive H (Negative) SARS-CoV-2 (PCR) (Negative) Urine Dip Bedside Urine Glucose Negative Bedside Urine Bilirubin - Negative Bedside Urine Ketone - Negative Urine Specific [place] 1.030 Bedside Urine Occult Blood ++ Bedside Urine pH 5.5 Bedside Urine Protein - Negative Bedside Urine Urobilinogen - Negative Bedside Urine Nitrite - Negative Bedside Urine Leukocytes +/- 15 Esterase Point of care testing: Urine Dip Bedside Urine Glucose Negative Bedside Urine Bilirubin - Negative Bedside Urine Ketone - Negative Urine Specific [place] 1.030 Bedside Urine Occult Blood ++ Bedside Urine pH 5.5 Bedside Urine Protein - Negative Bedside Urine Urobilinogen - Negative Bedside Urine Nitrite - Negative Bedside Urine Leukocytes +/- [address] scan - abdomen/pelvis: Radiologist's Impression: FINDINGS:? Image quality:? Excellent.? ? Lung bases:? There is mild dependent atelectasis bilaterally. Heart:? No significant findings. ? ? ABDOMEN: Liver:? A small hypodense focus is redemonstrated in the posterior right hepatic dome which is too small to characterize but likely represents a cyst.? ? Gallbladder:? Unremarkable.? ? Biliary ducts:? Unremarkable.? ? Pancreas:? Unremarkable.? ? Spleen:? Unremarkable.? ? Adrenal Glands:? Unremarkable.? ? Kidneys and Ureters:? Unremarkable.? ? ? Stomach and Bowel:? Stomach, small bowel loops, and colon are normal in caliber and wall thickness.? The appendix is normal in appearance. Peritoneum:? There is a small amount of pelvic free fluid which appears within physiologic limits.? No free air.? ? Ventral Wall: ? There is a small fat-containing umbilical hernia.? No herniated bowel loops. Abdominal Nodes:? No retroperitoneal or mesenteric adenopathy by size criteria.? Vessels:? Aorta and inferior vena cava are normal in size.? ? PELVIS: Pelvic Organs:? The uterus and ovaries appear within normal size limits. ? Bladder:? The urinary bladder is nondistended. Pelvic Nodes: No enlarged lymph nodes.? Miscellaneous: No inguinal hernias are seen. ? ? ? Bones:? Unremarkable.? IMPRESSION:? ? 1.? No definite acute intra-abdominal abnormality. ? 2. No evidence of appendicitis, hydronephrosis, or bowel obstruction. ? 3. Small fat-containing umbilical hernia without evidence of bowel herniation.? ? ? Dictated by: Rudolph Leong M.D. on 01/27/2021 at 23:42 ? ? MDM Narrative Medical decision making narrative: 30-year-old woman now with her 3rd ER visit and 4th or 5th overall interaction with the healthcare system since early January with continued complaints of recurrent abdominal pain. She is writhing in agony. Workup today is unremarkable. Labs reassuring without evidence of significant infection, inflammation or sepsis. Because of the dramatic pain CT scan was read ordered and again shows no significant findings. Specifically no evidence of colitis, bowel obstruction, appendicitis, diverticulitis, suggestion of gallbladder inflammation, no pancreatitis no kidney stones no evidence of pyelonephritis. Urine shows no ketones nitrates leukocyte esterase Urine tox screen does show THC in the possibility of cannabinoid hyperemesis syndrome is entertained. She is given fluids IV Benadryl and IV Haldol. Has an adverse reaction to the Benadryl with increased agitation. Was given Ativan with significant relief. 1250 feeling better and would like to go home to see if she is able to actually sleep. We again did discuss cannabinoid hyperemesis syndrome. She said she done some reading on her own after talking about that at previous visits. She has not tried any hot showers to see if it helps with the pain when it occurs but she did not feel like her symptoms fit with what was described. At this point I do not have a definitive answer for her explain that to her and also reviewed all of the findings that she does not have. She is safe for home discharge at this time Discharge Plan Departure Patient Disposition: Home Clinical Impression: Abdominal pain Instructions: DI for Abdominal Pain-Adult Activity Restrictions/Additional Instructions: I am sorry that you are suffering so much Today's workup was quite reassuring. Your blood work does not show any sign of infection, anemia, your kidney function and liver function are very reassuring as are all of your electrolytes. Do not have any sign of a bladder infection at this time. No kidney infection and your CT scan suggests no kidney stones, no diverticulitis no appendicitis no inflammation of your intestines at any point. No evidence of gallbladder disease or pancreatic disease. Does not appear that you have pelvic inflammatory disease or ovarian abnormalities. No evidence of acute abnormalities along your spine or your skin. In the emergency department your given fluid as well as IV Benadryl and IV Haldol. It seems that you did not like the IV Benadryl but it may be simply because it when in a bit too quickly. It does seem that the IV Haldol helped with the nausea and the pain and when given a small amount of IV Ativan your able to sleep for a bit of time. Briefly discussed the possibility of cannabinoid hyperemesis syndrome. This syndrome response nicely to Haldol, as you did today. One of the trick she might try at home is trying a very hot shower or bath when your having this abdominal pain and see if that alleviates some of the symptoms. I would encourage you to do your own online research. The magazine [employer] has some excellent articles as well as online discussion panels the syndrome. I hope that you are feeling better. Prescriptions: No Action gabapentin [Neurontin] 300 mg capsule 300 mg PO Q8H Qty: 270 RF: 1 trazodone 100 mg tablet 200 mg PO BEDTIME Qty: 180 RF: 1 sertraline 50 mg tablet 50 mg PO DAILY Qty: 30 RF: 2 levothyroxine 125 mcg tablet 100 mcg PO DAILY Qty: 90 RF: 1 metoclopramide HCl [Reglan] 10 mg tablet 10 mg PO Q6H PRN (Reason: nausea and vomiting) Qty: 20 RF: 0 buprenorphine-naloxone 8 MG/2 MG tablet, sublingual 2 tab Sublingual DAILY RF: 0 Referrals: Javier Mckee, DO [Primary Care Provider] -
--- NOTE | 2021-01-27 22:47 | DI.CT.S_ITS ---
PROCEDURE: CT ABDOMEN PELVIS W CON INDICATIONS: persistent severe abdominal pain TECHNIQUE: After the administration of oral and IV contrast, axial sections were acquired from the lung bases to the pubic symphysis. Coronal and sagittal reformats were performed. For radiation dose reduction, the following was used: automated exposure control, adjustment of mA and/or kV according to patient size. COMPARISON: [facility], CT, CT ABDOMEN PELVIS W CON, 01/11/2021, 1:44. FINDINGS: Image quality: Excellent. Lung bases: There is mild dependent atelectasis bilaterally. Heart: No significant findings. ABDOMEN: Liver: A small hypodense focus is redemonstrated in the posterior right hepatic dome which is too small to characterize but likely represents a cyst. Gallbladder: Unremarkable. Biliary ducts: Unremarkable. Pancreas: Unremarkable. Spleen: Unremarkable. Adrenal Glands: Unremarkable. Kidneys and Ureters: Unremarkable. Stomach and Bowel: Stomach, small bowel loops, and colon are normal in caliber and wall thickness. The appendix is normal in appearance. Peritoneum: There is a small amount of pelvic free fluid which appears within physiologic limits. No free air. Ventral Wall: There is a small fat-containing umbilical hernia. No herniated bowel loops. Abdominal Nodes: No retroperitoneal or mesenteric adenopathy by size criteria. Vessels: Aorta and inferior vena cava are normal in size. PELVIS: Pelvic Organs: The uterus and ovaries appear within normal size limits. Bladder: The urinary bladder is nondistended. Pelvic Nodes: No enlarged lymph nodes. Miscellaneous: No inguinal hernias are seen. Bones: Unremarkable. IMPRESSION: 1. No definite acute intra-abdominal abnormality. 2. No evidence of appendicitis, hydronephrosis, or bowel obstruction. 3. Small fat-containing umbilical hernia without evidence of bowel herniation. Dictated by: Rudolph Leong M.D. on 01/27/2021 at 23:42 Approved by: Rudolph Leong M.D. on 01/27/2021 at 23:48
[2021-01-27] MEDS: KETOROLAC 30 MG/ML VIAL 15 MG IV (22:58)
[2021-01-27] MEDS: HALOPERIDOL 5 MG/ML VIAL 2 MG IV (22:59)
[2021-01-27] MEDS: diphenhydrAMINE 50 MG/ML VIAL IV (23:00)
[2021-01-27 23:08] VITALS: BP 104/59; PULSE 56; RESP 16; O2SAT 99
[2021-01-27 23:10] LABS: Ur Creatinine 50 (Normal); Ur Specific Gravity 1.025 (Normal); Urine pH 5 (Normal)
[2021-01-27 23:11] LABS: UR Morphine/Opiate cutoff 300 Negative (Negative); Urine Amphetamines Negative (Negative); Urine Barbiturates Negative (Negative); Urine Benzodiazepines Negative (Negative); Urine Cocaine Negative (Negative); Urine MDMA Negative (Negative); Urine Methadone Negative (Negative); Urine Methamphetamines Negative (Negative); Urine Oxycodone Negative (Negative); Urine Phencyclidine Negative (Negative); Urine Tetrahydrocannabinol Positive (Negative); Urine Tricyclic Antidepressant Negative (Negative)
[2021-01-27] MEDS: LORazepam 2 MG/ML INJ 1 MG IV (23:25)
--- NOTE | 2021-01-27 23:27 | PC.NURSE ---
Pt came back from CT and is c/o severe anxiety after given IV medications. MD aware. Pt does report reduction in abdominal pain.
--- NOTE | 2021-01-27 23:38 | PC.NURSE ---
Pt is now resting comfortably.
[2021-01-28 01:58] VITALS: BP 106/76; PULSE 82; RESP 16; O2SAT 96
== END 2021-01-28 02:19 | disposition home or self-care (01) ==
PROVIDERS: Emergency Provider Emergency Medicine; PCP Family Medicine
DX: R10.84 Generalized abdominal pain (principal); Z20.822 Contact with and (suspected) exposure to COVID-19
CPT/HCPCS: 36415; 74177; 80053; 80305; 81003; 83690; 85025; 87086; 87635; 96361; 96374; 96375; 99284; C9803; J1200; J1630; J1885; J2060; Q9967

== ENCOUNTER 2021-03-26 12:07 | Emergency (ER) | payer OTHER, SELFPAY ==
[2021-03-26] VITALS (9 sets, daily range): BP systolic 131–153; BP diastolic 80–122; PULSE 45–54; RESP 13–23; TEMP 36.7; O2SAT 97–100; BMI 34.2
[2021-03-26 12:28] LABS: Add Manual Diff / Slide Review NO; Basophils Absolute Auto 0 /uL (0-100); Basophils Percent Auto 0.4 % (0-2); Eosinophils Absolute Auto 0 /uL (0-450); Eosinophils Percent Auto 0.1 % (2-4); Hematocrit 42.1 % (36-46); Hemoglobin 14.4 g/dL (12.0-16.0); Lymphocytes Absolute Auto 1000 /uL (1100-4500); Lymphocytes Percent Auto 12.1 % (25-40); Mean Corpuscular HGB Conc 34.1 % (30-36); Mean Corpuscular Hemoglobin 30.9 PG (26-34); Mean Corpuscular Volume 90.4 fL (80-100); Monocytes Absolute Auto 700 /uL (0-900); Monocytes Percent Auto 8.5 % (3-14); Neutrophils Absolute Auto 6600 /uL (1500-7000); Neutrophils Percent Auto 78.9 % (50-75); Platelet Count 291 X10^3/uL (150-400); Red Blood Cell Count 4.66 X10^6/uL (4.0-5.2); Red Cell Distribution Width 12.7 % (11.6-14.8); White Blood Cell Count 8.3 X10^3/uL (4.5-11.0)
[2021-03-26] MEDS: ONDANSETRON 4 MG/2 ML INJ IV (12:31)
[2021-03-26] MEDS: SODIUM CHLORIDE 0.9% 1,000 ML 1000 ML IV (12:31)
--- NOTE | 2021-03-26 12:35 | DI.RAD.S_ITS ---
PROCEDURE: XR CHEST 1V INDICATIONS: Flu like symptoms TECHNIQUE: One view of the chest was acquired. COMPARISON: None. FINDINGS: Surgical changes and devices: None. Lungs and pleura: Lungs are clear. No pleural effusions or pneumothorax. Mediastinum: Mediastinal contours appear normal. Heart size is normal. Bones and chest wall: No suspicious bony lesions. Overlying soft tissues appear unremarkable. IMPRESSION: No acute cardiopulmonary abnormality. Dictated by: Ramon Burt M.D. on 03/26/2021 at 12:21 Approved by: Ramon Burt M.D. on 03/26/2021 at 12:22
[2021-03-26 12:43] LABS: COVID19 -Nasal RAPID Negative (Negative)
--- NOTE | 2021-03-26 12:45 | ED_ITS ---
HPI - Abdominal Pain General Chief Complaint: Abdominal Pain Stated Complaint: think I have the flu, puking for 3 days Time Seen by Provider: 03/26/21 12:15 Source: patient Mode of arrival: Ambulatory History of Present Illness HPI narrative: 30F daily smoker with a history of Crohn's disease, opioid use disorder currently on Suboxone, and hypothyroidism presents with complaints of persistent and worsening abdominal pain and nausea or vomiting for the past few days. She states everything hurts and is worsened by vomiting and moving. She's had no fever or chills. She denies any dietary change or missed medications. She's had no trauma or injury. She does have a history of similar presentations, and has had multiple visits in the past few months with extensive workups including lab work and multiple CTs which of been largely unremarkable. Related Data Home Medications Medication Instructions Recorded Confirmed buprenorphine 8 mg-naloxone 2 mg 2 tab SUBLINGUAL DAILY 08/19/18 02/14/21 sublingual tablet gabapentin 300 mg capsule 300 mg PO DAILY 03/26/21 03/26/21 (Neurontin) Previous Rx's Medication Instructions Recorded trazodone 100 mg tablet 200 mg PO BEDTIME #180 tab 01/05/21 levothyroxine 125 mcg tablet 125 mcg PO DAILY #90 tab 01/28/21 Allergies Allergy/AdvReac Type Severity Reaction Status Date / Time amoxicillin [AMOXICILLIN] Allergy Unknown RASH/HIVES Verified 03/26/21 12:40 Penicillins Allergy Unknown Verified 03/26/21 12:40 Review of Systems Review of Systems Narrative: GENERAL: See HP! HEENT: Denies sinus pain, ear pain, sore throat, difficulty swallowing, di zziness. RESPIRATORY: Denies dyspnea, cough, wheezing, hemoptysis, sputum. CARDIOVASCULAR: Denies chest pain, palpitations, orthopnea, edema, GASTROINTESTINAL: See HPI : Denies dysuria, frequency, incontinence, hematuria, urinary retention. MUSCULOSKELETAL: denies weakness, joint pain, or bony pain SKIN: Denies rash, skin lesions, or other NEUROLOGIC: Denies weakness, headache, numbness, change in speech, confusion, seizures, incoordination. PSYCHIATRIC: No concerning psychosocial issues. 12 point review of systems is negative except for those stated above Patient History Medical History Acne Anxiety Chronic bilateral low back pain without sciatica (07/19/15) Crohn's disease without complication (04/23/15) Depression GERD (gastroesophageal reflux disease) Headache Hyperlipidemia Hypothyroidism Insomnia disorder Migraine Opiate dependence, continuous (04/23/15) Pyelonephritis Tobacco abuse Surgical History Anesthesia H/O oophorectomy History of knee surgery Family History Father Thyroid condition Social History Smoking Status: Current every day smoker Tobacco: How many years used: 4 quit status: considering quitting alcohol intake: former substance use type: marijuana Smoking Status: Current every day smoker alcohol intake frequency: a few times a week Substance Use Type: marijuana Exam Narrative Exam Narrative: GENERAL: [30 year old patient appears stated age. Well-developed patient, in obvious distress, tearful, anxious HEAD: Atraumatic. Normocephalic. EYES: Pupils equal round and reactive. Extraocular motions intact. No scleral icterus. No injection or drainage. ENT: Nose without bleeding, purulent drainage. Throat without erythema, tonsillar hypertrophy or exudate. Airway patent. NECK: Trachea midline. Non tender CARDIOVASCULAR: Regular rate and rhythm without murmurs, gallops, or rubs. RESPIRATORY: Clear to auscultation. Breath sounds equal bilaterally. No wheezes, rales, or rhonchi. GASTROINTESTINAL: Abdomen soft, with generalized tendernesss, bowel sounds present EXTREMITIES: No edema or joint tenderness. BACK: Nontender without deformity or crepitance. No flank tenderness. NEURO: AOx3. SKIN: No rash or erythema of visible areas Initial Vital Signs Initial Vital Signs: Vital Signs Temperature 98.1 F 03/26/21 12:10 Pulse Rate 49 L 03/26/21 12:10 Respiratory Rate 20 03/26/21 12:10 Blood Pressure 153/81 H 03/26/21 12:10 Pulse Oximetry 97 03/26/21 12:10 Course Orders Ordered: ED Orders 03/26/21 12:18 COVID19 -Nasal swab/Pre-Proc Stat 03/26/21 12:21 Complete Blood Count AUTO DIFF Stat Comprehensive Metabolic Panel Stat Lipase Stat Troponin & CK Cardiac Panel Stat 03/26/21 12:29 EKG-12 Lead Stat 03/26/21 12:35 XR chest 1V Stat Discontinued Medications Sodium Chloride (Normal Saline 0.9%) 1,000 mls @ 1,000 mls/hr IV BOLUS ONE Stop: 03/26/21 13:24 Last Infusion: 03/26/21 13:39 Dose: 0 mls/hr Documented by: Admin: 03/26/21 12:31 Dose: 1,000 mls/hr Documented by: HERMELINDA Ketorolac Tromethamine (Ketorolac 30 Mg/Ml Vial) 15 mg IV NOW ONE Stop: 03/26/21 12:51 Last Admin: 03/26/21 12:54 Dose: 15 mg Documented by: HERMELINDA Lorazepam (Lorazepam 2 Mg/Ml Inj) 1 mg IV NOW ONE Stop: 03/26/21 12:51 Last Admin: 03/26/21 12:55 Dose: 1 mg Documented by: HERMELINDA Metoclopramide HCl (Metoclopramide 10 Mg/2 Ml Inj) 10 mg IV NOW ONE Stop: 03/26/21 13:33 Last Admin: 03/26/21 13:38 Dose: 10 mg Documented by: ZAINA Ondansetron HCl (Ondansetron 4 Mg/2 Ml Inj) 4 mg IV NOW ONE Stop: 03/26/21 12:26 Last Admin: 03/26/21 12:31 Dose: 4 mg Documented by: HERMELINDA Pantoprazole Sodium (Pantoprazole 40 Mg Vial) 40 mg IV NOW ONE Stop: 03/26/21 12:51 Last Admin: 03/26/21 12:55 Dose: 40 mg Documented by: HERMELINDA Reevaluation(s) Reevaluation #1: little if any improvement after 1st round of medications. Requesting more, added Reglan. Reevaluation #2: Patient left Against Medical Advice without any discussion, she was apparently upset, stated she did want a wait any longer and stormed out. It is likely that her IVs in place. Nursing has placed calls which were on answered. Vital Signs Vital signs: Vital Signs - 8 hr 03/26/21 12:10 03/26/21 12:25 03/26/21 12:30 Temperature 98.1 F Pulse Rate 49 L 54 L 47 L Respiratory Rate 20 20 16 Blood Pressure 153/81 H Pulse Oximetry 97 99 100 03/26/21 12:45 03/26/21 13:00 03/26/21 13:15 Temperature Pulse Rate 47 L 45 L 50 L Respiratory Rate 22 13 16 Blood Pressure 151/85 H 140/89 135/80 Pulse Oximetry 100 03/26/21 13:30 03/26/21 13:40 03/26/21 13:45 Temperature Pulse Rate 48 L 48 L 51 L Respiratory Rate 23 13 23 Blood Pressure 131/92 H 145/122 H Pulse Oximetry 100 99 MDM - Abdominal Pain Lab Data Result diagrams: 03/26/21 12:21 03/26/21 12:21 Labs: Lab Results 03/26/21 03/26/21 03/26/21 Range/Units 12:18 12: 12:21 WBC 8.3 (4.5-11.0) X10^3/uL RBC 4.66 (4.0-5.2) X10^6/uL Hgb 14.4 (12.0-16.0) g/dL Hct 42.1 (36-46) % MCV 90.4 (80-100) fL MCH 30.9 (26-34) PG MCHC 34.1 (30-36) % RDW 12.7 (11.6-14.8) % Plt Count 291 (150-400) X10^3/uL Neut % (Auto) 78.9 H (50-75) % Lymph % (Auto) 12.1 L (25-40) % [place] % (Auto) 8.5 (3-14) % Eos % (Auto) 0.1 L (2-4) % Baso % (Auto) 0.4 (0-2) % Neut # (Auto) 6600 (8246-2223) /uL Lymph # (Auto) 1000 L (1382-5827) /uL [place] # (Auto) 700 (0-900) /uL Eos # (Auto) 0 (0-450) /uL Baso # (Auto) 0 (0-100) /uL Sodium 137 (137-145) mmol/L Potassium 3.5 (3.4-5.1) mmol/L Chloride 101 (98-107) mmol/L Carbon Dioxide 31 (22-32) mmol/L BUN 17 (7-17) mg/dL Creatinine 0.93 (0.52-1.04) mg/dL Estimated GFR > 60.0 (>60) mL/min BUN/Creatinine Ratio 18.3 (6-22) Glucose 116 H (70-100) mg/dL Calcium 9.7 (8.4-10.2) mg/dL Total Bilirubin 0.6 (0.2-1.3) mg/dL AST 25 (14-36) IU/L ALT 18 (<35) IU/L Alkaline Phosphatase 36 L (38-126) U/L Total Creatine Kinase (30-135) U/L CK-MB (CK-2) CK-MB (CK-2) Rel Index Troponin I (0.01-0.034) ng/mL Total Protein 8.1 (6.3-8.2) g/dL Albumin 4.7 (3.5-5.0) g/dL Globulin 3.4 (1.7-4.1) g/dL Albumin/Globulin Ratio 1.4 (1.0-2.8) Lipase 59 (23-300) U/L SARS-CoV-2 (PCR) Negative (Negative) 03/26/21 Range/Units 12:21 WBC (4.5-11.0) X10^3/uL RBC (4.0-5.2) X10^6/uL Hgb (12.0-16.0) g/dL Hct (36-46) % MCV (80-100) fL MCH (26-34) PG MCHC (30-36) % RDW (11.6-14.8) % Plt Count (150-400) X10^3/uL Neut % (Auto) (50-75) % Lymph % (Auto) (25-40) % [place] % (Auto) (3-14) % Eos % (Auto) (2-4) % Baso % (Auto) (0-2) % Neut # (Auto) (8035-7410) /uL Lymph # (Auto) (4656-4071) /uL [place] # (Auto) (0-900) /uL Eos # (Auto) (0-450) /uL Baso # (Auto) (0-100) /uL Sodium (137-145) mmol/L Potassium (3.4-5.1) mmol/L Chloride (98-107) mmol/L Carbon Dioxide (22-32) mmol/L BUN (7-17) mg/dL Creatinine (0.52-1.04) mg/dL Estimated GFR (>60) mL/min BUN/Creatinine Ratio (6-22) Glucose (70-100) mg/dL Calcium (8.4-10.2) mg/dL Total Bilirubin (0.2-1.3) mg/dL AST (14-36) IU/L ALT (<35) IU/L Alkaline Phosphatase (38-126) U/L Total Creatine Kinase 69 (30-135) U/L CK-MB (CK-2) TNP CK-MB (CK-2) Rel Index TNP Troponin I < 0.012 (0.01-0.034) ng/mL Total Protein (6.3-8.2) g/dL Albumin (3.5-5.0) g/dL Globulin (1.7-4.1) g/dL Albumin/Globulin Ratio (1.0-2.8) Lipase (23-300) U/L SARS-CoV-2 (PCR) (Negative) Discharge Plan Departure Patient Disposition: Left Against Medical Advice Clinical Impression: Eloped from emergency department Prescriptions: No Action trazodone 100 mg tablet 200 mg PO BEDTIME Qty: 180 1RF levothyroxine 125 mcg tablet 125 mcg PO DAILY Qty: 90 1RF buprenorphine-naloxone 8 MG/2 MG tablet, sublingual 2 tab Sublingual DAILY 0RF gabapentin [Neurontin] 300 mg capsule 300 mg PO DAILY 0RF Referrals: Javier Mckee DO [Primary Care Provider] - Stand Alone Forms: Against Medical Advice
[2021-03-26 12:51] LABS: Alanine Aminotransferase 18 IU/L (<35); Albumin 4.7 g/dL (3.5-5.0); Albumin Globulin Ratio 1.4 (1.0-2.8); Alkaline Phosphatase 36 U/L (38-126); Aspartate Aminotransferase 25 IU/L (14-36); BUN Creatinine Ratio 18.3 (6-22); Bilirubin Total 0.6 mg/dL (0.2-1.3); Blood Urea Nitrogen 17 mg/dL (7-17); Calcium 9.7 mg/dL (8.4-10.2); Carbon Dioxide 31 mmol/L (22-32); Chloride 101 mmol/L (98-107); Creatine Kinase 69 U/L (30-135); Estimated Glomerular Filt Rate > 60.0 mL/min (>60); Globulin 3.4 g/dL (1.7-4.1); Glucose 116 mg/dL (70-100); HEMOLYSIS 32 (0-50); Lipase 59 U/L (23-300); Potassium 3.5 mmol/L (3.4-5.1); Sodium 137 mmol/L (137-145); Total Protein 8.1 g/dL (6.3-8.2)
[2021-03-26] MEDS: KETOROLAC 30 MG/ML VIAL 15 MG IV (12:54)
[2021-03-26] MEDS: LORazepam 2 MG/ML INJ 1 MG IV (12:55)
[2021-03-26] MEDS: PANTOPRAZOLE 40 MG VIAL IV (12:55)
[2021-03-26 13:03] LABS: Troponin I < 0.012 ng/mL (0.01-0.034)
[2021-03-26] MEDS: METOCLOPRAMIDE 10 MG/2 ML INJ IV (13:38)
--- NOTE | 2021-03-26 13:58 | PC.NURSE ---
Pt rang call kelley asking to be discharged. Provider aware. Less than 1 min later pt removed herself from monitoring and walked out of department. Unsure if she removed her IV. Ambulatory, steady gait, no active vomiting while leaving.
--- NOTE | 2021-03-26 14:03 | PC.NURSE ---
attempted to call patient to return. left message for patient to return to [facility]. 4 staff members unable to find patient's IV in room. We searched the trash and linen.
--- NOTE | 2021-03-26 14:06 | PC.NURSE ---
Pt used call light and this BUSINESS INTEGRATION MANAGER entered. Pt's deburring machine operator spoke for pt saying 'You're not a doctor'. This BUSINESS INTEGRATION MANAGER agreed and asked if there was anything I could help the pt with and the deburring machine operator and pt both said 'We want a doctor. We want more anti-nausea meds.' This BUSINESS INTEGRATION MANAGER verbally understood and said that the request would be reported to the nurse immediately. This BUSINESS INTEGRATION MANAGER left and reported the request to the nurse. The deburring machine operator and pt were both unpleasant in their speaking tone- they both seemed upset or possibly angry.
--- NOTE | 2021-03-26 14:14 | PC.NURSE ---
dispatch called to be made aware of patient left with an IV catheter, [address] informed dispatch that staff was unable to locate in the room if patient took the IV out. Charge, Ledy mcdaniels.
--- NOTE | 2021-03-26 14:28 | PC.NURSE ---
James WOODARD called back. went to patient's address on file. pt was not home. Will keep a look out for her. charge aware.
== END 2021-03-26 13:58 | disposition left against medical advice (07) ==
PROVIDERS: Emergency Provider Emergency Medicine; PCP Family Medicine
DX: Z53.29 Procedure and treatment not carried out because of patient's decision for other reasons (principal); F17.200 Nicotine dependence, unspecified, uncomplicated; Z20.822 Contact with and (suspected) exposure to COVID-19
CPT/HCPCS: 36415; 71045; 80053; 82550; 83690; 84484; 85025; 87635; 93005; 93010; 96361; 96374; 96375; 99284; C9803; C9113; J1885; J2060; J2405; J2765

== ENCOUNTER 2021-03-29 11:09 | Emergency (ER) | payer OTHER, SELFPAY ==
[2021-03-29 11:20] VITALS: BP 162/56; PULSE 54; RESP 18; TEMP 36.2; O2SAT 99
[2021-03-29] MEDS: SODIUM CHLORIDE 0.9% 1,000 ML 1000 ML IV (11:29)
[2021-03-29] MEDS: ONDANSETRON 4 MG/2 ML INJ IV (11:29)
[2021-03-29 11:35] LABS: Add Manual Diff / Slide Review NO; Basophils Absolute Auto 0 /uL (0-100); Basophils Percent Auto 0.4 % (0-2); Eosinophils Absolute Auto 100 /uL (0-450); Eosinophils Percent Auto 0.9 % (2-4); Hematocrit 41.5 % (36-46); Hemoglobin 14.4 g/dL (12.0-16.0); Lymphocytes Absolute Auto 1700 /uL (1100-4500); Lymphocytes Percent Auto 15.1 % (25-40); Mean Corpuscular HGB Conc 34.6 % (30-36); Mean Corpuscular Hemoglobin 31.1 PG (26-34); Monocytes Absolute Auto 900 /uL (0-900); Monocytes Percent Auto 8.1 % (3-14); Neutrophils Absolute Auto 8300 /uL (1500-7000); Neutrophils Percent Auto 75.5 % (50-75); Platelet Count 312 X10^3/uL (150-400); Red Blood Cell Count 4.62 X10^6/uL (4.0-5.2); Red Cell Distribution Width 12.5 % (11.6-14.8)
--- NOTE | 2021-03-29 11:39 | ED_ITS ---
HPI - Abdominal Pain General Chief Complaint: Abdominal Pain Stated Complaint: Vomiting, severe abd pain, Here 7 days ago Time Seen by Provider: 03/29/21 11:24 Source: patient and family Mode of arrival: Wheelchair Limitations: no limitations History of Present Illness HPI narrative: 37-year-old female who comes returning with acute on chronic abdominal pain. Patient has been seen here in the past. She was seen here on the , she had labs which were reassuring but eloped with her IV before the rest of her workup was performed. Patient states she has continued to have vomiting and abdominal pain continuing. She states in the last week. She has had episodes similar to this, she does not have a big change in her pattern of pain. She does have some flank particularly more on the left. She states she had a fever 101 last night. She has had nausea and vomiting. She had diarrhea several x2 nights ago but has not had any continued. She has not had any black or bloody stools. Denies any cold, cough or congestion. She denies any chest pain or shortness of breath. She denies any vaginal discharge or bleeding. She did states she has had some vaginal bleeding consistent with menses which she states is irregular. She is on buprenorphine for addiction. She states her last dose was 2 days ago. She takes gabapentin for chronic pain, levothyroxine and trazodone. She states she has had difficulty keeping her medications down. She also notes that she feels quite anxious. She has been off her Ativan for several months after being discharged from her primary care office. She does have follow-up established with Dr. Mckee but has not had a kmzf-sl-yrxy visit yet. Patient did have a negative COVID does done 03/26/2021. She is accompanied by her mother today. Related Data Home Medications Medication Instructions Recorded Confirmed buprenorphine 8 mg-naloxone 2 mg 2 tab SUBLINGUAL QAM 08/19/18 03/29/21 sublingual tablet gabapentin 300 mg capsule 300 mg PO DAILY 03/26/21 03/26/21 (Neurontin) Previous Rx's Medication Instructions Recorded trazodone 100 mg tablet 200 mg PO BEDTIME #180 tab 01/05/21 levothyroxine 125 mcg tablet 125 mcg PO DAILY #90 tab 01/28/21 Allergies Allergy/AdvReac Type Severity Reaction Status Date / Time amoxicillin [AMOXICILLIN] Allergy Unknown RASH/HIVES Verified 03/29/21 11:36 Penicillins Allergy Unknown Verified 03/29/21 11:36 Review of Systems Review of Systems ROS Unobtainable: All systems reviewed & are unremarkable except as noted in HPI and below Patient History Medical History Acne Anxiety Chronic bilateral low back pain without sciatica (07/19/15) Crohn's disease without complication (04/23/15) Depression GERD (gastroesophageal reflux disease) Headache Hyperlipidemia Hypothyroidism Insomnia disorder Migraine Opiate dependence, continuous (04/23/15) Pyelonephritis Tobacco abuse Surgical History Anesthesia H/O oophorectomy History of knee surgery Family History Father Thyroid condition Social History Smoking Status: Current every day smoker Tobacco: How many years used: 4 quit status: considering quitting alcohol intake: former substance use type: marijuana Smoking Status: Current every day smoker alcohol intake frequency: a few times a week Substance Use Type: former substance user and marijuana Exam Narrative Exam Narrative: GENERAL: Alert and oriented x three, female in moderate distress. Patient is bit tearful. HEENT: Head normocephalic, atraumatic, EOMI, pupils reactive, face symmetric, moist mucous membranes NECK: Supple, full range of motion CARDIOVASCULAR: Regular rate and rhythm without murmurs, rubs or gallops. RESPIRATORY: Breath sounds equal bilaterally, no wheezes rales or rhonchi. ABDOMEN: Soft, generalized tenderness. Normoactive bowel sounds all 4 quadrants. No guarding or rebound, rigidity, no mass. Patient did vomit clear phlegm while I was in the room. Non-distended. : No CVA tenderness EXTREMITIES: Normal range of motion, no clubbing or edema. Neurovascularly intact NEUROLOGICAL: Cranial nerves II through XII grossly intact. Moving all extremities SKIN: Warm, dry, no petechiae, no rashes or lesions. Initial Vital Signs Initial Vital Signs: Vital Signs Temperature 97.1 F L 03/29/21 11:20 Pulse Rate 54 L 03/29/21 11:20 Respiratory Rate 18 03/29/21 11:20 Blood Pressure 162/56 H 03/29/21 11:20 Pulse Oximetry 99 03/29/21 11:20 Course Orders Ordered: ED Orders 03/29/21 11:28 Complete Blood Count AUTO DIFF Stat Comprehensive Metabolic Panel Stat Lipase Stat 03/29/21 11:37 Consult to MANAGER DIVERSITY - Tomb Maker Helper Stat 03/29/21 11:41 Free T4, Direct Thyroxine Stat TSH w/ Reflex to FT4 Stat 03/29/21 12:34 CT abdomen pelvis w con Stat 03/29/21 13:32 Test Serum,Qual Stat Discontinued Medications Haloperidol (Haloperidol 5 Mg/Ml Vial) 5 mg IV NOW ONE Stop: 03/29/21 13:08 Last Admin: 03/29/21 13:13 Dose: 5 mg Documented by: CLAUDIA Sodium Chloride (Normal Saline 0.9%) 1,000 mls @ 1,000 mls/hr IV BOLUS ONE Stop: 03/29/21 12:25 Last Infusion: 03/29/21 13:31 Dose: 0 mls/hr Documented by: Admin: 03/29/21 11:29 Dose: 1,000 mls/hr Documented by: CLAUDIA Ketorolac Tromethamine (Ketorolac 30 Mg/Ml Vial) 30 mg IV NOW ONE Stop: 03/29/21 12:19 Last Admin: 03/29/21 12:25 Dose: 30 mg Documented by: CLAUDIA Lorazepam (Lorazepam 2 Mg/Ml Inj) 1 mg IV NOW ONE Stop: 03/29/21 12:19 Last Admin: 03/29/21 12:25 Dose: 1 mg Documented by: CLAUDIA Ondansetron HCl (Ondansetron 4 Mg/2 Ml Inj) 4 mg IV NOW ONE Stop: 03/29/21 11:22 Last Admin: 03/29/21 11:29 Dose: 4 mg Documented by: CLAUDIA Pantoprazole Sodium (Pantoprazole 40 Mg Vial) 40 mg IV NOW ONE Stop: 03/29/21 12:19 Last Admin: 03/29/21 12:25 Dose: 40 mg Documented by: CLAUDIA Vital Signs Vital signs: Vital Signs - 8 hr 03/29/21 11:20 03/29/21 12:28 03/29/21 12:30 Temperature 97.1 F L Pulse Rate 54 L 46 L 48 L Respiratory Rate 18 Blood Pressure 162/56 H Pulse Oximetry 99 99 98 03/29/21 12:31 03/29/21 12:51 03/29/21 13:00 Temperature Pulse Rate 46 L 45 L 47 L Respiratory Rate Blood Pressure 150/76 H 160/88 H 142/84 H Pulse Oximetry 99 100 99 MDM - Abdominal Pain Lab Data Result diagrams: 03/29/21 11:28 03/29/21 11:28 Labs: Lab Results 03/29/21 03/29/21 03/29/21 Range/Units 11:28 11:28 11:41 WBC 11.0 (4.5-11.0) X10^3/uL RBC 4.62 (4.0-5.2) X10^6/uL Hgb 14.4 (12.0-16.0) g/dL Hct 41.5 (36-46) % MCV 90.0 (80-100) fL MCH 31.1 (26-34) PG MCHC 34.6 (30-36) % RDW 12.5 (11.6-14.8) % Plt Count 312 (150-400) X10^3/uL Neut % (Auto) 75.5 H (50-75) % Lymph % (Auto) 15.1 L (25-40) % Bureau % (Auto) 8.1 (3-14) % Eos % (Auto) 0.9 L (2-4) % Baso % (Auto) 0.4 (0-2) % Neut # (Auto) 8300 H (9572-7927) /uL Lymph # (Auto) 1700 (4094-0255) /uL Bureau # (Auto) 900 (0-900) /uL Eos # (Auto) 100 (0-450) /uL Baso # (Auto) 0 (0-100) /uL Sodium 137 (137-145) mmol/L Potassium 4.1 (3.4-5.1) mmol/L Chloride 101 (98-107) mmol/L Carbon Dioxide 29 (22-32) mmol/L BUN 11 (7-17) mg/dL Creatinine 0.98 (0.52-1.04) mg/dL Estimated GFR > 60.0 (>60) mL/min BUN/Creatinine Ratio 11.2 (6-22) Glucose 103 H (70-100) mg/dL Calcium 9.5 (8.4-10.2) mg/dL Total Bilirubin 0.9 (0.2-1.3) mg/dL AST 37 H (14-36) IU/L ALT 41 H (<35) IU/L Alkaline Phosphatase 34 L (38-126) U/L Total Protein 7.9 (6.3-8.2) g/dL Albumin 4.7 (3.5-5.0) g/dL Globulin 3.2 (1.7-4.1) g/dL Albumin/Globulin Ratio 1.5 (1.0-2.8) Lipase 113 D (23-300) U/L TSH 22.40 H (0.47-4.68) uIU/mL Free T4 1.12 (0.78-2.19) ng/dL Serum , Qual (Negative) 03/29/21 Range/Units 13:32 WBC (4.5-11.0) X10^3/uL RBC (4.0-5.2) X10^6/uL Hgb (12.0-16.0) g/dL Hct (36-46) % MCV (80-100) fL MCH (26-34) PG MCHC (30-36) % RDW (11.6-14.8) % Plt Count (150-400) X10^3/uL Neut % (Auto) (50-75) % Lymph % (Auto) (25-40) % Bureau % (Auto) (3-14) % Eos % (Auto) (2-4) % Baso % (Auto) (0-2) % Neut # (Auto) (1847-7096) /uL Lymph # (Auto) (2065-1146) /uL Bureau # (Auto) (0-900) /uL Eos # (Auto) (0-450) /uL Baso # (Auto) (0-100) /uL Sodium (137-145) mmol/L Potassium (3.4-5.1) mmol/L Chloride (98-107) mmol/L Carbon Dioxide (22-32) mmol/L BUN (7-17) mg/dL Creatinine (0.52-1.04) mg/dL Estimated GFR (>60) mL/min BUN/Creatinine Ratio (6-22) Glucose (70-100) mg/dL Calcium (8.4-10.2) mg/dL Total Bilirubin (0.2-1.3) mg/dL AST (14-36) IU/L ALT (<35) IU/L Alkaline Phosphatase (38-126) U/L Total Protein (6.3-8.2) g/dL Albumin (3.5-5.0) g/dL Globulin (1.7-4.1) g/dL Albumin/Globulin Ratio (1.0-2.8) Lipase (23-300) U/L TSH (0.47-4.68) uIU/mL Free T4 (0.78-2.19) ng/dL Serum , Qual Negative (Negative) Imaging Data CT scan - abdomen/pelvis: Radiologist's Impression: GarrettJuly??30??F??1990 ? Allergy/Adv: amoxicillin, Penicillins Close Abdomen/Pelvis CT (Signed) Roger Maravilla - 03/29/21 Chest X-Ray (Signed) Ramon Burt - 03/26/21 Abdomen/Pelvis CT (Signed) Rudolph Leong - 01/27/21 Pelvis Ultrasound (Signed) RomaineLei - 01/12/21 Abdomen/Pelvis CT (Signed) Rudolph Leong - 01/11/21 Knee X-Ray (Signed) Nasim Shaw - 10/27/20 Mammogram Diagnostic (Signed) Rudolph Leong - 06/05/19 Breast Ultrasound (Signed) Rudolph Leong - 06/05/19 Abdomen Ultrasound (Signed) Niraj Barber - 08/19/18 Radiology - Historical 03/18/16 Launch?[address] [address] [address] Scan Report Signed Patient: GarrettJuly MR#: [id number] : 1990 Acct:[id number] Age/Sex: 30 / F Date of Service: 03/29/21 Loc: ED Accession Number: [id number] ?? Procedure: CT abdomen pelvis w con Ordering Provider: Ramonita Covarrubias D.O. PROCEDURE:? CT ABDOMEN PELVIS W CON ? INDICATIONS:? acute on chronic abd pain ? TECHNIQUE:? After the administration of IV contrast, axial sections were acquired from the lung bases to the pubic symphysis.? Coronal and sagittal reformats were performed.? For radiation dose reduction, the following was used:? automated exposure control, adjustment of mA and/or kV according to patient size. ? COMPARISON:? [facility], CT, CT ABDOMEN PELVIS W CON, 01/27/2021, 23:01. ? FINDINGS:? Image quality:? Excellent.? ? Lung bases:? Unremarkable.? ? Heart:? No significant findings. ? ? ABDOMEN: Liver:? Mildly prominent.? Tiny cyst at the dome of the liver suspected..? ? Gallbladder:? Not distended.? No calcified gallstones.? ? Biliary ducts:? Unremarkable.? ? Pancreas:? No peripancreatic fluid collection. Spleen:? No splenomegaly. Adrenal Glands:? No nodule. Kidneys and Ureters:? No hydronephrosis. ? Stomach and Bowel:? Stomach, small bowel loops, and colon are unremarkable.? The appendix is located in the midline location and is not dilated.? There is air within the appendiceal lumen. Peritoneum:? No abnormal intraperitoneal fluid.? No free air.? ? Ventral Wall: ? Small umbilical hernia is unchanged.? Abdominal Nodes:? No retroperitoneal or mesenteric adenopathy by size criteria.? Vessels:? Aorta and inferior vena cava are normal in size.? ? PELVIS: Pelvic Organs:? Small left ovarian cyst measuring 2.2 cm.? Anteverted uterus.? There is a small amount of free fluid in the pelvis. ? Bladder:? Unremarkable.? Small phleboliths are unchanged.? ? Pelvic Nodes: No enlarged lymph nodes.? Miscellaneous: No inguinal hernias are seen. ? ? ? Bones:? Unremarkable.? IMPRESSION:? 1. Small left ovarian cyst measuring 2.2 cm. Trace free fluid in the pelvis.? This potentially could be a source of pain. ? 2. Normal appendix.? No hydronephrosis.? Gallbladder is not distended. ? 3. Stable small umbilical hernia. ? 4. No small bowel obstruction. ? ? Dictated by: Roger Maravilla M.D. on 03/29/2021 at 12:58 ? ? Approved by: Roger Maravilla M.D. on 03/29/2021 at 13:05?? MDM Narrative Medical decision making narrative: Patient was seen recently for abdominal pain. She eloped prior to completion of workup potentially with her IV. Patient states that she recognizes not to do so today. She continues to have abdominal pain which has not resolved. She has had nausea and vomiting and did have 2 episodes of vomiting which looks to be clear phlegm while I am in the room. Patient's labs are reassuring. Urine sample was not obtained, CT was obtained and shows a small left ovarian cyst. Patient does note that she has pain more on the left side. Serum was obtained and is negative. TSH is 22 but is actually improved from prior. Patient had several doses of medication for nausea and discomfort. She felt like she was worse after contrast and tried Haldol as it seemed to have improved her symptoms in the past. Patient elects not to stay for the rest of her workup and left without completing this. She did wait for nursing to remove her IV before leaving. Discharge Plan Departure Patient Disposition: Home Clinical Impression: Abdominal pain, Vomiting, Ovarian cyst Instructions: DI for Abdominal Pain-Adult Activity Restrictions/Additional Instructions: Your lab work so far today is reassuring. Have not completed your workup and you have labs that have not been obtained and are pending. You are welcome to return at any time if he would like to. You do have a small left ovarian cyst that is 2.2 cm this could be causing you pain on your left side. Otherwise your imaging today does not show any other signs of infection or changes. Please return for fevers, worsening symptoms, persistent vomiting, passing out, black or bloody stools or other new or concerning symptoms. Prescriptions: No Action trazodone 100 mg tablet 200 mg PO BEDTIME Qty: 180 1RF levothyroxine 125 mcg tablet 125 mcg PO DAILY Qty: 90 1RF buprenorphine-naloxone 8 MG/2 MG tablet, sublingual 2 tab Sublingual QAM 0RF gabapentin [Neurontin] 300 mg capsule 300 mg PO DAILY 0RF Referrals: Javier Mckee, [Primary Care Provider] -
[2021-03-29 11:44] LABS: Alanine Aminotransferase 41 IU/L (<35); Albumin 4.7 g/dL (3.5-5.0); Albumin Globulin Ratio 1.5 (1.0-2.8); Alkaline Phosphatase 34 U/L (38-126); Aspartate Aminotransferase 37 IU/L (14-36); BUN Creatinine Ratio 11.2 (6-22); Bilirubin Total 0.9 mg/dL (0.2-1.3); Blood Urea Nitrogen 11 mg/dL (7-17); Calcium 9.5 mg/dL (8.4-10.2); Carbon Dioxide 29 mmol/L (22-32); Chloride 101 mmol/L (98-107); Estimated Glomerular Filt Rate > 60.0 mL/min (>60); Globulin 3.2 g/dL (1.7-4.1); Glucose 103 mg/dL (70-100); Lipase 113 U/L (23-300); Potassium 4.1 mmol/L (3.4-5.1); Sodium 137 mmol/L (137-145); Total Protein 7.9 g/dL (6.3-8.2)
[2021-03-29 11:45] LABS: HEMOLYSIS 131 (0-50)
[2021-03-29] MEDS: PANTOPRAZOLE 40 MG VIAL IV (12:25)
[2021-03-29] MEDS: LORazepam 2 MG/ML INJ 1 MG IV (12:25)
[2021-03-29] MEDS: KETOROLAC 30 MG/ML VIAL IV (12:25)
[2021-03-29 12:28] VITALS: PULSE 46; O2SAT 99
[2021-03-29 12:30] VITALS: PULSE 48; O2SAT 98
[2021-03-29 12:31] VITALS: BP 150/76; PULSE 46; O2SAT 99
--- NOTE | 2021-03-29 12:34 | DI.CT.S_ITS ---
PROCEDURE: CT ABDOMEN PELVIS W CON INDICATIONS: acute on chronic abd pain TECHNIQUE: After the administration of IV contrast, axial sections were acquired from the lung bases to the pubic symphysis. Coronal and sagittal reformats were performed. For radiation dose reduction, the following was used: automated exposure control, adjustment of mA and/or kV according to patient size. COMPARISON: [facility], CT, CT ABDOMEN PELVIS W CON, 01/27/2021, 23:01. FINDINGS: Image quality: Excellent. Lung bases: Unremarkable. Heart: No significant findings. ABDOMEN: Liver: Mildly prominent. Tiny cyst at the dome of the liver suspected.. Gallbladder: Not distended. No calcified gallstones. Biliary ducts: Unremarkable. Pancreas: No peripancreatic fluid collection. Spleen: No splenomegaly. Adrenal Glands: No nodule. Kidneys and Ureters: No hydronephrosis. Stomach and Bowel: Stomach, small bowel loops, and colon are unremarkable. The appendix is located in the midline location and is not dilated. There is air within the appendiceal lumen. Peritoneum: No abnormal intraperitoneal fluid. No free air. Ventral Wall: Small umbilical hernia is unchanged. Abdominal Nodes: No retroperitoneal or mesenteric adenopathy by size criteria. Vessels: Aorta and inferior vena cava are normal in size. PELVIS: Pelvic Organs: Small left ovarian cyst measuring 2.2 cm. Anteverted uterus. There is a small amount of free fluid in the pelvis. Bladder: Unremarkable. Small phleboliths are unchanged. Pelvic Nodes: No enlarged lymph nodes. Miscellaneous: No inguinal hernias are seen. Bones: Unremarkable. IMPRESSION: 1. Small left ovarian cyst measuring 2.2 cm. Trace free fluid in the pelvis. This potentially could be a source of pain. 2. Normal appendix. No hydronephrosis. Gallbladder is not distended. 3. Stable small umbilical hernia. 4. No small bowel obstruction. Dictated by: Roger Maravilla M.D. on 03/29/2021 at 12:58 Approved by: Roger Maravilla M.D. on 03/29/2021 at 13:05
[2021-03-29 12:51] VITALS: BP 160/88; PULSE 45; O2SAT 100
[2021-03-29 13:00] VITALS: BP 142/84; PULSE 47; O2SAT 99
[2021-03-29 13:06] LABS: Free T4, Direct Thyroxine 1.12 ng/dL (0.78-2.19)
[2021-03-29] MEDS: HALOPERIDOL 5 MG/ML VIAL IV (13:13)
--- NOTE | 2021-03-29 13:26 | CM.SWNOTE ---
S[employer] BUSINESS ANALYST Note [employer] BUSINESS ANALYST receives consult and enters room to meet with patient. Patient asks for SAP FICO BUSINESS ANALYST to return later. Per RN and WORKERS COMPENSATION CLAIMS ASSISTANT, patient is requesting to leave prior to SAP F[employer] BUSINESS ANALYST meeting with [employer] BUSINESS ANALYST. Patient presents to the ED with concern for abdominal pain, nausea and vomiting. Patient was present at this ED on 03/26/21 with similar symptoms and patient eloped with IV in arm. Patient has 9 ED encounters within the last 12 months. Patient's PCP is Dr. Javier Mckee and per MAR patient has fairly consistent f/u. Plan: Patient to d/c when medically clear, SAP F[employer] BUSINESS ANALYST to attempt to meet with patient at next presentation to the ED. ANIL Rodriges
--- NOTE | 2021-03-29 13:31 | PC.NURSE ---
Pt asked to leave. Pt signed paperwork and IV was removed. Pt was encouraged to stay but patient said she just needed to go. Pt called mom. 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
[2021-03-29 13:38] LABS: Pregnancy Test Serum,Qual Negative (Negative)
== END 2021-03-29 13:33 | disposition home or self-care (01) ==
PROVIDERS: Emergency Provider Emergency Medicine; PCP Family Medicine
DX: R10.9 Unspecified abdominal pain (principal); R11.2 Nausea with vomiting, unspecified; N83.202 Unspecified ovarian cyst, left side; Z88.0 Allergy status to penicillin; F17.200 Nicotine dependence, unspecified, uncomplicated
CPT/HCPCS: 36415; 74177; 80053; 83690; 84439; 84443; 84703; 85025; 96361; 96374; 96375; 99284; C9113; J1630; J1885; J2060; J2405; Q9967

== ENCOUNTER 2021-07-07 21:41 | Emergency (ER) | payer OTHER, SELFPAY ==
[2021-07-07 21:46] VITALS: BP 140/87; PULSE 74; RESP 18; TEMP 37; O2SAT 100; BMI 32.9
[2021-07-07] MEDS: TET,DIPH,PERTUSS(ACELL),VAC/PF 0.5 ML SYRINGE IM (21:56)
[2021-07-07] MEDS: LIDOCAINE 1% (PF) 2 ML INJ (22:53)
[2021-07-07] MEDS: OXYCODONE/ACETAMINOPHEN 5/325 TABLET 1 TAB PO (23:41)
[2021-07-07] MEDS: IBUPROFEN 400 MG TABLET PO (23:41)
--- NOTE | 2021-07-08 00:29 | ED.WOUNDLAC ---
HPI - Wound/Laceration General Chief Complaint: Wound/Laceration Stated Complaint: cut lt hand Time Seen by Provider: 07/07/21 23:35 Source: patient Mode of arrival: Ambulatory History of Present Illness HPI narrative: 30-year-old woman with a history of hypothyroidism, chronic pain and opioid use disorder presents after cutting her left middle finger at the D IP joint space while at work. 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 She is up-to-date on tetanus. She has no specific complaints or concerns beyond the injury. She notes that the injury is more painful than she has experienced with prior cuts and she isn't completely able to flex the tip of her finger and it is unclear with because there truly is a tendon injury or because of the severity of pain. Related Data Home Medications Medication Instructions Recorded Confirmed buprenorphine 8 mg-naloxone 2 mg 2 tab SUBLINGUAL QAM 08/19/18 03/29/21 sublingual tablet gabapentin 300 mg capsule 300 mg PO DAILY 03/26/21 03/26/21 (Neurontin) Previous Rx's Medication Instructions Recorded trazodone 100 mg tablet 200 mg PO BEDTIME #180 tab 01/05/21 levothyroxine 125 mcg tablet 125 mcg PO DAILY #90 tab 01/28/21 cephalexin 500 mg capsule 500 mg PO TID #15 cap 07/08/21 Allergies Allergy/AdvReac Type Severity Reaction Status Date / Time amoxicillin [AMOXICILLIN] Allergy Unknown RASH/HIVES Verified 07/07/21 21:48 Penicillins Allergy Unknown Verified 07/07/21 21:48 Review of Systems Review of Systems Narrative: No fevers, cough, chest pain, palpitations, dyspnea. Patient History Medical History Acne Anxiety Chronic bilateral low back pain without sciatica (07/19/15) Crohn's disease without complication (04/23/15) Depression GERD (gastroesophageal reflux disease) Headache Hyperlipidemia Hypothyroidism Insomnia disorder Migraine Opiate dependence, continuous (04/23/15) Pyelonephritis Tobacco abuse Surgical History Anesthesia H/O oophorectomy History of knee surgery Family History Father Thyroid condition Social History Smoking Status: Current every day smoker Tobacco: How many years used: 4 quit status: considering quitting alcohol intake: former substance use type: marijuana Smoking Status: Current every day smoker alcohol intake frequency: a few times a week Substance Use Type: former substance user and marijuana Exam Initial Vital Signs Initial Vital Signs: Vital Signs Temperature 98.6 F 07/07/21 21:46 Pulse Rate 74 07/07/21 21:46 Respiratory Rate 18 07/07/21 21:46 Blood Pressure 140/87 07/07/21 21:46 Pulse Oximetry 100 07/07/21 21:46 General: Alert appropriate in obvious pain with the laceration to the tip of the finger Respiratory: Able to speak in full sentences, no obvious respiratory distress Extremity: There is a 4 cm laceration along the D IP joint line, palmar surface middle finger left hand. There is no obvious tendon injury visible however she is having difficulty in flexing the tip of her finger. She is neurovascularly intact distally. Neurologic: Grossly intact no obvious asymmetries or abnormalities Psych: appropriate insight and affect, cooperative Procedures Laceration Repair Left middle finger laceration: Time of procedure: 00:35 Site: hand Side (If applicable): left Size (cm): 4 Description: flap Depth: involves tendon (Clearly into the fatty pad and concern for tendon involvement) Local Anesthetic: lidocaine 1% Amount of anesthesia used (mL): 4 Pre-repair: wound explored and irrigated extensively Skin layer closed with: nylon Size (cm): 4-0 Number of sutures: 4 Technique: simple, interrupted Course Orders Ordered: Discontinued Medications Diphtheria/Tetanus/Acell Pertussis (Tet,Diph,Pertuss(Acell),Vac/Pf 0.5 Ml Syringe) 0.5 ml IM .ONCE ONE Stop: 07/07/21 21:52 Last Admin: 07/07/21 21:56 Dose: 0.5 ml Documented by: AUPDIKE Ibuprofen (Ibuprofen 400 Mg Tablet) 400 mg PO NOW ONE Stop: 07/07/21 23:36 Last Admin: 07/07/21 23:41 Dose: 400 mg Documented by: RLAZANI Lidocaine HCl (Lidocaine 1% (Pf)) 2 ml INJ NOW ONE Stop: 07/07/21 22:47 Last Admin: 07/07/21 22:53 Dose: 2 ml Documented by: JOHNSON Oxycodone/Acetaminophen (Oxycodone/Acetaminophen 5/325 Tablet) 1 tab PO NOW ONE Stop: 07/07/21 23:36 Last Admin: 07/07/21 23:41 Dose: 1 tab Documented by: JOHNSON Vital Signs Vital signs: Vital Signs - 8 hr 07/07/21 21:46 Temperature 98.6 F Pulse Rate 74 Respiratory Rate 18 Blood Pressure 140/87 Pulse Oximetry 100 MDM - Wound/Laceration MDM Narrative Medical decision making narrative: 30-year-old woman who cut the distal portion of her left index finger in a wine glass while at work. I am concerned that she may have injured the tendon but it is difficult to completely tell as exam is compromised by the severity of her pain. The wound was cleaned completely no glass shards or foreign bodies appreciated. Closed with 4-0 nylon without complication. Will have her complete 5 days of Keflex due to infection risk. She is placed in a dressing that hold her finger in slight flexion including the D IP joint. Recommended sutures out in 7 days. I did recommend that she follow-up with [facility] orthopedic surgery with concerns for the tendon injury. Clearly reviewed with her signs and symptoms of the tendon injury and reason for follow-up. Clearly review signs and symptoms of infection and reasons to return to the emergency department. She is safe for home discharge at this time L&I forms are filled out Discharge Plan Departure Patient Disposition: Home Clinical Impression: Laceration of finger of left hand Instructions: DI for Minor Laceration Activity Restrictions/Additional Instructions: Thank you for coming in today I am sorry that you cut your finger on the wine glass. The wound was sutured together. I am going to give you a prescription for Keflex, wounds like this are at high risk for infection. The prescription was electronically transmitted to [facility] Using 400 mg of ibuprofen (2 uglm-[id number]-gjtzkvd pills) and 1 Tylenol every 6 hours can be very helpful in controlling pain. I am concerned that you cut the tendon going to the end of your finger. If you did, you are not going to be able to completely flex the and of your finger unless you have the tendon repaired. Please contact [facility] at [phone] to schedule an appointment with the hand surgeon so that they can evaluate the wound and see if additional treatment is going to be required. In the meantime, keep the area clean and dry. The stitches will need to come out on or about July 14. If you have increasing swelling, redness or any discharge from the wound you do need to have it re-evaluated. I hope you heal completely. Prescriptions: New cephalexin 500 mg capsule 500 mg PO TID Qty: 15 0RF No Action trazodone 100 mg tablet 200 mg PO BEDTIME Qty: 180 1RF levothyroxine 125 mcg tablet 125 mcg PO DAILY Qty: 90 1RF buprenorphine-naloxone 8 MG/2 MG tablet, sublingual 2 tab Sublingual QAM 0RF gabapentin [Neurontin] 300 mg capsule 300 mg PO DAILY 0RF Referrals: Javier Mckee, [Primary Care Provider] -
[2021-07-08 00:32] VITALS: BP 117/63; PULSE 55; RESP 16; O2SAT 98
[2021-07-08 00:48] VITALS: BP 133/81; PULSE 69; RESP 18; O2SAT 100
== END 2021-07-08 00:48 | disposition home or self-care (01) ==
PROVIDERS: Emergency Provider Emergency Medicine; PCP Family Medicine
DX: S61.213A Laceration without foreign body of left middle finger without damage to nail, initial encounter (principal); F17.200 Nicotine dependence, unspecified, uncomplicated; Z88.0 Allergy status to penicillin; W25.XXXA Contact with sharp glass, initial encounter; Y93.89 Activity, other specified; Y99.0 Civilian activity done for income or pay; Z23 Encounter for immunization
CPT/HCPCS: 12002; 90471; 99282; 99284; 90715

== ENCOUNTER 2021-07-26 11:02 | Emergency (ER) | payer OTHER, SELFPAY ==
[2021-07-26] MEDS: ONDANSETRON 4 MG/2 ML INJ (11:00)
[2021-07-26 11:09] VITALS: BP 150/84; PULSE 52; RESP 18; TEMP 37; O2SAT 98; BMI 32.9
[2021-07-26 11:51] LABS: Add Manual Diff / Slide Review NO; Basophils Absolute Auto 0 /uL (0-100); Basophils Percent Auto 0.2 % (0-2); Eosinophils Absolute Auto 0 /uL (0-450); Eosinophils Percent Auto 0.2 % (2-4); Hematocrit 45.1 % (36-46); Hemoglobin 15.3 g/dL (12.0-16.0); Lymphocytes Absolute Auto 1000 /uL (1100-4500); Lymphocytes Percent Auto 7.8 % (25-40); Mean Corpuscular Hemoglobin 30.9 PG (26-34); Mean Corpuscular Volume 91.1 fL (80-100); Monocytes Absolute Auto 500 /uL (0-900); Monocytes Percent Auto 3.7 % (3-14); Neutrophils Absolute Auto 11700 /uL (1500-7000); Neutrophils Percent Auto 88.1 % (50-75); Platelet Count 304 X10^3/uL (150-400); Red Blood Cell Count 4.95 X10^6/uL (4.0-5.2); Red Cell Distribution Width 12.6 % (11.6-14.8); White Blood Cell Count 13.3 X10^3/uL (4.5-11.0)
[2021-07-26 11:57] LABS: Alanine Aminotransferase 17 IU/L (<35); Albumin Globulin Ratio 1.5 (1.0-2.8); Alkaline Phosphatase 49 U/L (38-126); Aspartate Aminotransferase 25 IU/L (14-36); BUN Creatinine Ratio 10.8 (6-22); Bilirubin Total 0.5 mg/dL (0.2-1.3); Blood Urea Nitrogen 11 mg/dL (7-17); Calcium 9.7 mg/dL (8.4-10.2); Carbon Dioxide 26 mmol/L (22-32); Chloride 108 mmol/L (98-107); Estimated Glomerular Filt Rate > 60 mL/min (>60); Globulin 3.4 g/dL (1.7-4.1); Glucose 125 mg/dL (70-100); HEMOLYSIS < 15 (0-50); Lipase 69 U/L (23-300); Sodium 143 mmol/L (137-145); Total Protein 8.4 g/dL (6.3-8.2)
[2021-07-26] MEDS: KETOROLAC 30 MG/ML VIAL IV (12:03)
[2021-07-26] MEDS: LORazepam 2 MG/ML INJ 0.5 MG IV (12:04)
[2021-07-26] MEDS: SODIUM CHLORIDE 0.9% 1,000 ML 1000 ML IV (12:05)
[2021-07-26] MEDS: MORPHINE 4 MG/ML INJ IV (12:50)
--- NOTE | 2021-07-26 13:11 | PC.NURSE ---
Pt arrives stating left hand pain / post op, hand surgery 07/19/21 with persistent N/V. In addition, pt states vaginal and urinary bleeding but refuses urine POC and declines exam for vaginal bleeding. Pt pulled out her IV after receiving benedryl, reglan and morphine. Pt walked barefoot into the lobby twice in hospital gown. Pt redirected back to the exam room. Left VM with mother to peanut picker pt.
[2021-07-26] MEDS: METOCLOPRAMIDE 10 MG/2 ML INJ IV (13:20)
[2021-07-26] MEDS: diphenhydrAMINE 50 MG/ML VIAL IV (13:21)
--- NOTE | 2021-07-26 13:27 | PC.NURSE ---
Patient stating she needs to leave and walked out of ED with patient gown on looking for ride. Assisted in covering patient up and explained that we can assist in getting a ride home. Patient agreeable and walked back into ED. [employer] was called for patient.
--- NOTE | 2021-08-01 20:28 | ED_ITS ---
HPI - Nausea/Vomiting/Diarrhea <Ashley Gagnon PA-C - Last Filed: 08/01/21 20:39> General Chief complaint: Nausea/Vomiting/Diarrhea Stated complaint: Hand pain and nausea s/p hand surgery Time Seen by Provider: 07/26/21 11:40 Source: patient and EMS Mode of arrival: EMS History of Present Illness HPI Narrative: 31-year-old female with past medical history opiate dependence, on methadone presents to the ED status post a hand surgery for nausea and vomiting, surgical pain. Patient had to stop methadone a week prior to the surgery so she could get narcotic pain medications for postop pain control. Patient was put on Vicodin for pain control, which according to the patient was ineffective in controlling her pain. Patient also states that she is undergoing symptoms of opiate withdrawal such as nausea and vomiting. Patient is requesting that she go back on the methadone to end the withdrawal symptoms, and agrees to take Tylenol or ibuprofen for pain control which may or may not be effective. Patient denies fever, chills, chest pain, shortness of breath. Related Data Home Medications Medication Instructions Recorded Confirmed buprenorphine 8 mg-naloxone 2 mg 2 tab SUBLINGUAL QAM 08/19/18 03/29/21 sublingual tablet Previous Rx's Medication Instructions Recorded trazodone 100 mg tablet 200 mg PO BEDTIME #180 tab 01/05/21 levothyroxine 125 mcg tablet 125 mcg PO DAILY #90 tab 01/28/21 cephalexin 500 mg capsule 500 mg PO TID #15 cap 07/08/21 gabapentin 300 mg capsule 300 mg PO BID #60 cap 08/03/21 (Neurontin) Allergies Allergy/AdvReac Type Severity Reaction Status Date / Time amoxicillin [AMOXICILLIN] Allergy Unknown RASH/HIVES Verified 07/07/21 21:48 Penicillins Allergy Unknown Verified 07/07/21 21:48 Review of Systems <Ashley Gagnon PA-C - Last Filed: 08/01/21 20:39> Review of Systems ROS Unobtainable: All systems reviewed & are unremarkable except as noted in HPI and below Constitutional Constitutional: Denies chills, Denies fatigue, Denies fever(s), Denies frequent falls, Denies lethargy and Denies weakness Eyes Eyes: Denies change in vision, Denies eye discharge, Denies irritation and Denies loss of vision ENT Ears, Nose, Mouth, and Throat: Denies change in voice, Denies dizziness, Denies neck pain, Denies sore throat and Denies throat swelling Cardiovascular Cardiovascular: Denies chest pain, Denies irregular heart rhythm, Denies lightheadedness, Denies palpitations, Denies dyspnea, Denies dyspnea on exertion and Denies orthopnea Respiratory Respiratory: Denies cough, Denies dyspnea, Denies dyspnea on exertion and Denies wheezing Gastrointestinal Gastrointestinal: Denies abdominal pain, Denies change in bowel habits, Denies diarrhea, Reports nausea and Reports vomiting Genitourinary Genitourinary: Denies hematuria, Denies flank pain, Denies urinary incontinence and Denies urinary urgency Musculoskeletal Musculoskeletal: Denies back pain, Denies muscle weakness, Denies neck pain, Denies numbness and Denies tingling Comments: Hand pain at the site of surgery Integumentary/Breasts Skin/Breast: Denies pruritus, Denies erythema, Denies rash and Denies wounds Neurologic Neurologic: Denies behavioral changes, Denies confusion, Denies dizziness, Denies frequent falls, Denies loss of vision, Denies numbness, Denies tingling and Denies weakness Psychiatric Psychiatric: Denies anxiety, Denies behavioral changes, Denies confusion, Denies depression, Denies homicidal ideation and Denies suicidal ideation Endocrine Endocrine: Denies fatigue, Denies flushing and Denies palpitations Hematologic/Lymphatic Hematologic/Lymphatic: Denies easy bruising Allergic/Immunologic Allergic/Immunologic: Denies urticaria, Denies throat swelling and Denies wheezing Patient History <Ashley Gagnon PA-C - Last Filed: 08/01/21 20:39> Medical History Acne Anxiety Chronic bilateral low back pain without sciatica (07/19/15) Crohn's disease without complication (04/23/15) Depression GERD (gastroesophageal reflux disease) Headache Hyperlipidemia Hypothyroidism Insomnia disorder Migraine Opiate dependence, continuous (04/23/15) Pyelonephritis Tobacco abuse Surgical History Anesthesia H/O oophorectomy History of knee surgery Family History Father Thyroid condition Social History Smoking Status: Current every day smoker Tobacco: How many years used: 4 quit status: considering quitting alcohol intake: former substance use type: marijuana Smoking Status: Current every day smoker alcohol intake frequency: a few times a week Substance Use Type: former substance user and marijuana Exam <Ashley Gagnon PA-C - Last Filed: 08/01/21 20:39> Initial Vital Signs Initial Vital Signs: Vital Signs Temperature 98.6 F 07/26/21 11:09 Pulse Rate 52 L 07/26/21 11:09 Respiratory Rate 18 07/26/21 11:09 Blood Pressure 150/84 H 07/26/21 11:09 Pulse Oximetry 98 07/26/21 11:09 Const General: cooperative, healthy appearing and comfortable HENMT Head: normal to inspection Eyes General: Yes appearance normal, both eyes and all related structures Neck Neck: normal visual inspection Resp Effort & Inspection: normal respiratory effort Auscultation: clear to auscultation bilaterally Cardio Rate: regular rate Rhythm: regular rhythm GI Other: Abdomen is soft, nondistended, nontender to palpation. General: No CVA tenderness Skin General: no rashes or lesions noted Neuro General: patient alert, patient awake and patient oriented x3 Extrem Other: Surgical wound bandaged Psych Appearance: grossly normal Mental Status: mental status grossly normal <Ramonita Covarrubias DO - Last Filed: 08/10/21 03:41> Initial Vital Signs Initial Vital Signs: Vital Signs Temperature 98.6 F 07/26/21 11:09 Pulse Rate 52 L 07/26/21 11:09 Respiratory Rate 18 07/26/21 11:09 Blood Pressure 150/84 H 07/26/21 11:09 Pulse Oximetry 98 07/26/21 11:09 Course <Ashley Gagnon PA-C - Last Filed: 08/01/21 20:39> Orders Ordered: Discontinued Medications Diphenhydramine HCl (Diphenhydramine 50 Mg/Ml Vial) 50 mg IV NOW ONE Stop: 07/26/21 12:43 Last Admin: 07/26/21 13:21 Dose: 50 mg Documented by: AMARILIS Sodium Chloride (Normal Saline 0.9%) 1,000 mls @ 1,000 mls/hr IV BOLUS ONE Stop: 07/26/21 12:39 Last Infusion: 07/26/21 13:22 Dose: 0 mls/hr Documented by: Admin: 07/26/21 12:05 Dose: 1,000 mls/hr Documented by: AMARILIS Ketorolac Tromethamine (Ketorolac 30 Mg/Ml Vial) 30 mg IV NOW ONE Stop: 07/26/21 11:42 Last Admin: 07/26/21 12:03 Dose: 30 mg Documented by: AMARILIS Lorazepam (Lorazepam 2 Mg/Ml Inj) 0.5 mg IV NOW ONE Stop: 07/26/21 11:43 Last Admin: 07/26/21 12:04 Dose: 0.5 mg Documented by: AMARILIS Metoclopramide HCl (Metoclopramide 10 Mg/2 Ml Inj) 10 mg IV NOW ONE Stop: 07/26/21 12:42 Last Admin: 07/26/21 13:20 Dose: 10 mg Documented by: AMARILIS Morphine Sulfate (Morphine 4 Mg/Ml Inj) 4 mg IV NOW ONE Stop: 07/26/21 12:47 Last Admin: 07/26/21 12:50 Dose: 4 mg Documented by: AMARILIS Ondansetron HCl (Ondansetron 4 Mg/2 Ml Inj) 4 mg IV NOW ONE Stop: 07/26/21 11:41 <Ramonita Covarrubias DO - Last Filed: 08/10/21 03:41> Orders Ordered: Discontinued Medications Diphenhydramine HCl (Diphenhydramine 50 Mg/Ml Vial) 50 mg IV NOW ONE Stop: 07/26/21 12:43 Last Admin: 07/26/21 13:21 Dose: 50 mg Documented by: AMARILIS Sodium Chloride (Normal Saline 0.9%) 1,000 mls @ 1,000 mls/hr IV BOLUS ONE Stop: 07/26/21 12:39 Last Infusion: 07/26/21 13:22 Dose: 0 mls/hr Documented by: Admin: 07/26/21 12:05 Dose: 1,000 mls/hr Documented by: AMARILIS Ketorolac Tromethamine (Ketorolac 30 Mg/Ml Vial) 30 mg IV NOW ONE Stop: 07/26/21 11:42 Last Admin: 07/26/21 12:03 Dose: 30 mg Documented by: AMARILIS Lorazepam (Lorazepam 2 Mg/Ml Inj) 0.5 mg IV NOW ONE Stop: 07/26/21 11:43 Last Admin: 07/26/21 12:04 Dose: 0.5 mg Documented by: AMARILIS Metoclopramide HCl (Metoclopramide 10 Mg/2 Ml Inj) 10 mg IV NOW ONE Stop: 07/26/21 12:42 Last Admin: 07/26/21 13:20 Dose: 10 mg Documented by: AMARILIS Morphine Sulfate (Morphine 4 Mg/Ml Inj) 4 mg IV NOW ONE Stop: 07/26/21 12:47 Last Admin: 07/26/21 12:50 Dose: 4 mg Documented by: AMARILIS Ondansetron HCl (Ondansetron 4 Mg/2 Ml Inj) 4 mg IV NOW ONE Stop: 07/26/21 11:41 MDM - Nausea/Vomiting/Diarrhea <Ashley Gagnon PA-C - Last Filed: 08/01/21 20:39> Medical Records Attestation: I reviewed the patient's medical records. Lab Data Attestation: I reviewed the patient's lab results. Lab results narrative: Labs within normal limits Result diagrams: 07/26/21 11:30 07/26/21 11:30 Labs: Lab Results 07/26/21 07/26/21 07/26/21 Range/Units 11:30 11:30 11:30 WBC 13.3 H (4.5-11.0) X10^3/uL RBC 4.95 (4.0-5.2) X10^6/uL Hgb 15.3 (12.0-16.0) g/dL Hct 45.1 (36-46) % MCV 91.1 (80-100) fL MCH 30.9 (26-34) PG MCHC 34.0 (30-36) % RDW 12.6 (11.6-14.8) % Plt Count 304 (150-400) X10^3/uL Neut % (Auto) 88.1 H (50-75) % Lymph % (Auto) 7.8 L (25-40) % [place] % (Auto) 3.7 (3-14) % Eos % (Auto) 0.2 L (2-4) % Baso % (Auto) 0.2 (0-2) % Neut # (Auto) 45868 H (8606-4792) /uL Lymph # (Auto) 1000 L (6683-8185) /uL [place] # (Auto) 500 (0-900) /uL Eos # (Auto) 0 (0-450) /uL Baso # (Auto) 0 (0-100) /uL Sodium 143 (137-145) mmol/L Potassium 4.0 (3.4-5.1) mmol/L Chloride 108 H (98-107) mmol/L Carbon Dioxide 26 (22-32) mmol/L BUN 11 (7-17) mg/dL Creatinine 1.02 (0.52-1.04) mg/dL Estimated GFR > 60 (>60) mL/min BUN/Creatinine Ratio 10.8 (6-22) Glucose 125 H (70-100) mg/dL Calcium 9.7 (8.4-10.2) mg/dL Total Bilirubin 0.5 (0.2-1.3) mg/dL AST 25 (14-36) IU/L ALT 17 (<35) IU/L Alkaline Phosphatase 49 (38-126) U/L Total Protein 8.4 H (6.3-8.2) g/dL Albumin 5.0 (3.5-5.0) g/dL Globulin 3.4 (1.7-4.1) g/dL Albumin/Globulin Ratio 1.5 (1.0-2.8) Lipase 69 (23-300) U/L MDM Narrative Medical decision making narrative: 31-year-old female with past medical history opiate dependence, on methadone presents to the ED status post a hand surgery for nausea and vomiting, surgical pain. Concern for opiate withdrawal versus dehydration versus sepsis. Will order labs. Will treat symptoms with Zofran, Ketoralac, IV fluids. Patient's nausea was not controlled on Zofran or Reglan. Patient received Ativan with some relief. Patient's pain was treated with morphine. Patient wishes to be discharged, agrees to go back on the methadone at home, is aware that opiates will not be effective in that case for pain control. Patient is aware that she can take Tylenol or ibuprofen for pain. ED return precautions discussed with patient. Patient verbalizes understanding. <Ramonita Covarrubias DO - Last Filed: 08/10/21 03:41> Lab Data Labs: Lab Results 07/26/21 07/26/21 07/26/21 Range/Units 11:30 11:30 11:30 WBC 13.3 H (4.5-11.0) X10^3/uL RBC 4.95 (4.0-5.2) X10^6/uL Hgb 15.3 (12.0-16.0) g/dL Hct 45.1 (36-46) % MCV 91.1 (80-100) fL MCH 30.9 (26-34) PG MCHC 34.0 (30-36) % RDW 12.6 (11.6-14.8) % Plt Count 304 (150-400) X10^3/uL Neut % (Auto) 88.1 H (50-75) % Lymph % (Auto) 7.8 L (25-40) % [place] % (Auto) 3.7 (3-14) % Eos % (Auto) 0.2 L (2-4) % Baso % (Auto) 0.2 (0-2) % Neut # (Auto) 07889 H (6077-4018) /uL Lymph # (Auto) 1000 L (4044-5149) /uL [place] # (Auto) 500 (0-900) /uL Eos # (Auto) 0 (0-450) /uL Baso # (Auto) 0 (0-100) /uL Sodium 143 (137-145) mmol/L Potassium 4.0 (3.4-5.1) mmol/L Chloride 108 H (98-107) mmol/L Carbon Dioxide 26 (22-32) mmol/L BUN 11 (7-17) mg/dL Creatinine 1.02 (0.52-1.04) mg/dL Estimated GFR > 60 (>60) mL/min BUN/Creatinine Ratio 10.8 (6-22) Glucose 125 H (70-100) mg/dL Calcium 9.7 (8.4-10.2) mg/dL Total Bilirubin 0.5 (0.2-1.3) mg/dL AST 25 (14-36) IU/L ALT 17 (<35) IU/L Alkaline Phosphatase 49 (38-126) U/L Total Protein 8.4 H (6.3-8.2) g/dL Albumin 5.0 (3.5-5.0) g/dL Globulin 3.4 (1.7-4.1) g/dL Albumin/Globulin Ratio 1.5 (1.0-2.8) Lipase 69 (23-300) U/L Discharge Plan Departure Patient Disposition: Home Clinical Impression: Vomiting Instructions: DI for Dehydration -- Adult, DI for Vomiting -- Adult Activity Restrictions/Additional Instructions: You were evaluated in the ED today for nausea and vomiting. You were given medications for nausea control and pain control. You may resume taking Suboxone at home, however be aware that you will not be able to use opioid medication for pain control that you might need to heal from surgery. Please return to the ED if you continue to vomit uncontrollably, unable to keep down fluids, worse minnie symptoms. Prescriptions: No Action trazodone 100 mg tablet 200 mg PO BEDTIME Qty: 180 1RF levothyroxine 125 mcg tablet 125 mcg PO DAILY Qty: 90 1RF gabapentin [Neurontin] 300 mg capsule 300 mg PO BID Qty: 60 1RF buprenorphine-naloxone 8 MG/2 MG tablet, sublingual 2 tab Sublingual QAM 0RF cephalexin 500 mg capsule 500 mg PO TID Qty: 15 0RF Referrals: Javier Mckee DO [Primary Care Provider] - <Ramonita Covarrubias DO - Last Filed: 08/10/21 03:41> Cosign ED Attending Coskirstinature Attestation: I was immediately available in the department for consultation. Documentation has been reviewed.
== END 2021-07-26 13:37 | disposition home or self-care (01) ==
PROVIDERS: Emergency Medicine; Emergency Provider Student in an Organized Health Care Education/Training Program; PCP Family Medicine
DX: R11.2 Nausea with vomiting, unspecified (principal); G89.18 Other acute postprocedural pain; E86.0 Dehydration; F11.21 Opioid dependence, in remission
CPT/HCPCS: 36415; 80053; 83690; 85025; 96361; 96374; 96375; 99284; J1200; J1885; J2060; J2270; J2405; J2765

== ENCOUNTER → 2021-11-30 11:24 | Outpatient (CLI) | payer OTHER, SELFPAY ==
--- NOTE | 2021-11-30 11:26 | DI.RAD.S_ITS ---
PROCEDURE: XR ANKLE RT MIN 3V INDICATIONS: Possible ankle injury TECHNIQUE: 3 views of the ankle were acquired. COMPARISON: [facility], , ANKLE 3 VIEWS LEFT, 09/15/2008, 14:27. FINDINGS: Bones: No fractures or dislocations. Ankle mortise is normally aligned. No suspicious bony lesions. The talar dome demonstrates no jose d abnormality. An accessory ossicle is seen, an os supratalare. Soft tissues: No tibiotalar joint effusion. Achilles tendon appears normal. IMPRESSION: No displaced fractures are seen on these plain films. If there is focal tenderness, or other clinical concern for a fracture not seen on these images in this patient with a given history of trauma, please consider a dedicated CT or a short-term followup plain film series (in 1-2 weeks) for further evaluation. Dictated by: Matthew Jamison M.D. on 11/30/2021 at 11:38 Approved by: Matthew Jamison M.D. on 11/30/2021 at 11:38
--- NOTE | 2021-11-30 11:26 | DI.RAD.S_ITS ---
PROCEDURE: XR FOOT RT MIN 3V INDICATIONS: Foot pain TECHNIQUE: 3 views of the foot were acquired. COMPARISON: [facility], CR, XR ANKLE RT MIN 3V, 11/30/2021, 11:43. FINDINGS: Bones: No fractures or dislocations. No suspicious bony lesions. Accessory ossicles are seen, including an os supratalare and an os tibial externum Soft tissues: No tibiotalar joint effusion. Achilles tendon appears normal. IMPRESSION: No significant foot plain film abnormality is seen. Dictated by: Matthew Jamison M.D. on 11/30/2021 at 11:39 Approved by: Matthew Jamison M.D. on 11/30/2021 at 11:39
== END ==
LOC: RAD 11:26
PROVIDERS: PCP Family Medicine; Referring Provider Nurse Practitioner Family; Visit Provider Nurse Practitioner Family
DX: S99.911A Unspecified injury of right ankle, initial encounter (principal); M79.671 Pain in right foot; X58.XXXA Exposure to other specified factors, initial encounter
CPT/HCPCS: 73610; 73630

== ENCOUNTER 2022-01-21 17:07 | Emergency (ER) | payer OTHER, SELFPAY ==
[2022-01-21] VITALS (8 sets, daily range): BP systolic 121–153; BP diastolic 84–102; PULSE 55–71; RESP 15–31; TEMP 36.3; O2SAT 97–100; BMI 34.5
--- NOTE | 2022-01-21 17:22 | DI.RAD.S_ITS ---
PROCEDURE: XR CHEST 1V INDICATIONS: chest pain TECHNIQUE: One view of the chest was acquired. COMPARISON: [facility], , CHEST 1 VIEW, 03/18/2016, 20:17. [facility], , XR CHEST 1V, 03/26/2021, 12:38. FINDINGS: Surgical changes and devices: None. Lungs and pleura: Lungs are clear. No pleural effusions or pneumothorax. Mediastinum: Mediastinal contours appear normal. Heart size is normal. Bones and chest wall: No suspicious bony lesions. Overlying soft tissues appear unremarkable. IMPRESSION: Portable chest within normal limits. Dictated by: Matthew Jamison M.D. on 01/21/2022 at 17:09 Approved by: Matthew Jamison M.D. on 01/21/2022 at 17:10
[2022-01-21 17:45] LABS: Alanine Aminotransferase 16 IU/L (<35); Albumin 4.6 g/dL (3.5-5.0); Albumin Globulin Ratio 1.3 (1.0-2.8); Alkaline Phosphatase 51 U/L (38-126); Aspartate Aminotransferase 26 IU/L (14-36); BUN Creatinine Ratio 16.5 (6-22); Bilirubin Total 0.4 mg/dL (0.2-1.3); Blood Urea Nitrogen 14 mg/dL (7-17); Calcium 9.3 mg/dL (8.4-10.2); Carbon Dioxide 28 mmol/L (22-32); Chloride 103 mmol/L (98-107); Creatine Kinase 356 U/L (30-135); Estimated Glomerular Filt Rate > 60 mL/min (>60); Globulin 3.6 g/dL (1.7-4.1); Glucose 108 mg/dL (70-100); HEMOLYSIS < 15 (0-50); Lipase 89 U/L (23-300); Magnesium 2.1 mg/dL (1.6-2.3); Potassium 3.6 mmol/L (3.4-5.1); Sodium 138 mmol/L (137-145); Total Protein 8.2 g/dL (6.3-8.2)
[2022-01-21 17:48] LABS: Add Manual Diff / Slide Review NO; Basophils Absolute Auto 100 /uL (0-100); Basophils Percent Auto 0.9 % (0-2); Eosinophils Absolute Auto 200 /uL (0-450); Eosinophils Percent Auto 2.5 % (2-4); Hematocrit 40.7 % (36-46); Lymphocytes Absolute Auto 2900 /uL (1100-4500); Lymphocytes Percent Auto 32.4 % (25-40); Mean Corpuscular HGB Conc 34.5 % (30-36); Mean Corpuscular Hemoglobin 31.2 PG (26-34); Mean Corpuscular Volume 90.6 fL (80-100); Monocytes Absolute Auto 800 /uL (0-900); Monocytes Percent Auto 9.6 % (3-14); Neutrophils Absolute Auto 4800 /uL (1500-7000); Neutrophils Percent Auto 54.6 % (50-75); Platelet Count 324 X10^3/uL (150-400); Red Cell Distribution Width 12.4 % (11.6-14.8); White Blood Cell Count 8.8 X10^3/uL (4.5-11.0)
[2022-01-21 17:56] LABS: Troponin I < 0.012 ng/mL (0.01-0.034)
[2022-01-21 18:00] LABS: CKMB % Relative Index 0.9 % (1.5-5.0); Creatine Kinase MB 3.11 ng/mL (<2.37)
[2022-01-21 18:42] LABS: Free T4, Direct Thyroxine 1.35 ng/dL (0.78-2.19)
--- NOTE | 2022-01-21 19:18 | ED_ITS ---
HPI - Chest Pain General Chief Complaint: Chest Pain Stated Complaint: Left side chest pain, to upper back and left arm Time Seen by Provider: 01/21/22 18:07 Source: patient Mode of arrival: Ambulatory Limitations: no limitations History of Present Illness HPI narrative: 31-year-old woman with hypothyroidism and tobacco use presents with chest pain. Initial episode was approximately 2 months ago associated with walking lasted a couple of minutes 2nd episode was approximately 3 weeks ago, again with walking lasted a bit longer but spontaneous resolution. Current episode occurred with walking from a sports field to the car has been present for at least 4 hours she describes it as severe tightness in the center of her chest focusing on the left side radiating down her left arm and up to her face. She has a ?delusional type feeling? where she feels detached, she describes minor dyspnea no diaphoresis. Pain is still present mostly is tightness on my initial exam. Related Data Home Medications Medication Instructions Recorded Confirmed buprenorphine 8 mg-naloxone 2 mg 2 tab sublingual QAM 08/19/18 12/21/21 sublingual tablet Previous Rx's Medication Instructions Recorded cephalexin 500 mg capsule 500 mg PO TID #15 caps 07/08/21 trazodone 100 mg tablet See Rx Instructions .Route 12/06/21 .COMPLEX #180 tabs levothyroxine 125 mcg tablet See Rx Instructions .Route 12/21/21 .COMPLEX #30 tabs omeprazole 40 mg capsule,delayed 40 mg PO DAILY #30 caps 12/21/21 release prochlorperazine maleate 10 mg 10 mg PO Q8H PRN nausea and 12/21/21 tablet (Compazine) vomiting #30 tabs gabapentin 300 mg capsule See Rx Instructions .Route 01/12/22 .COMPLEX #60 caps Allergies Allergy/AdvReac Type Severity Reaction Status Date / Time amoxicillin [AMOXICILLIN] Allergy Unknown RASH/HIVES Verified 01/21/22 17:13 Penicillins Allergy Unknown Verified 01/21/22 17:13 Review of Systems Review of Systems Narrative: Pertinent positive and negative findings as per HPI Remainder of review of systems is otherwise unremarkable for Constitutional: Fevers, chills, weakness ENT: No sore throat, ear pain Respiratory: Cough, wheeze, dyspnea GI: Nausea, vomiting, diarrhea, : Dysuria, hematuria, Patient History Medical History Acne Anxiety Chronic bilateral low back pain without sciatica (07/19/15) Crohn's disease without complication (04/23/15) Depression GERD (gastroesophageal reflux disease) Headache Hyperlipidemia Hypothyroidism Insomnia disorder Migraine Opiate dependence, continuous (04/23/15) Pyelonephritis Tobacco abuse Surgical History Anesthesia H/O oophorectomy History of knee surgery Family History Father Thyroid condition Social History Smoking Status: Current every day smoker Tobacco: How many years used: 4 quit status: considering quitting alcohol intake: former substance use type: marijuana Smoking Status: Current every day smoker alcohol intake frequency: holidays/special occasions only Substance Use Type: former substance user and marijuana Exam Initial Vital Signs Initial Vital Signs: Vital Signs Temperature 97.3 F L 01/21/22 17:11 Pulse Rate 71 01/21/22 17:11 Respiratory Rate 15 01/21/22 17:11 Blood Pressure 140/91 H 01/21/22 17:11 Pulse Oximetry 100 01/21/22 17:11 Oxygen Delivery Method 01/21/22 17:11 Patient chose to leave against medical advice and declined exam at this time She was hoarse but breathing comfortably and cognitively appropriate. Course Orders Ordered: ED Orders 01/21/22 17:20 Complete Blood Count AUTO DIFF Stat Comprehensive Metabolic Panel Stat Free T4, Direct Thyroxine Stat Lipase Stat Magnesium Stat TSH w/ Reflex to FT4 Stat Troponin & CK Cardiac Panel Stat 01/21/22 17:22 XR chest 1V Stat EKG-12 Lead Stat Vital Signs Vital signs: Vital Signs - 8 hr 01/21/22 17:11 01/21/22 17:40 01/21/22 17:41 Temperature 97.3 F L Pulse Rate 71 66 66 Respiratory Rate 15 Blood Pressure 140/91 H Pulse Oximetry 100 98 98 Oxygen Delivery Method Room Air 01/21/22 17:41 01/21/22 18:00 01/21/22 18:00 Temperature Pulse Rate 64 Respiratory Rate 22 Blood Pressure 134/84 141/98 H Pulse Oximetry 97 Oxygen Delivery Method 01/21/22 18:30 01/21/22 18:31 01/21/22 18:31 Temperature Pulse Rate 61 60 Respiratory Rate 23 22 Blood Pressure 153/102 H Pulse Oximetry 98 98 Oxygen Delivery Method 01/21/22 19:00 01/21/22 19:01 01/21/22 19:01 Temperature Pulse Rate 55 L 58 L Respiratory Rate 31 H 23 Blood Pressure 121/84 Pulse Oximetry 98 98 Oxygen Delivery Method MDM - Chest Pain Lab Data Result diagrams: 01/21/22 17:20 01/21/22 17:20 Labs: Lab Results 01/21/22 01/21/22 01/21/22 Range/Units 17:20 17:20 17:20 WBC 8.8 (4.5-11.0) X10^3/uL RBC 4.50 (4.0-5.2) X10^6/uL Hgb 14.0 (12.0-16.0) g/dL Hct 40.7 (36-46) % MCV 90.6 (80-100) fL MCH 31.2 (26-34) PG MCHC 34.5 (30-36) % RDW 12.4 (11.6-14.8) % Plt Count 324 (150-400) X10^3/uL Neut % (Auto) 54.6 (50-75) % Lymph % (Auto) 32.4 (25-40) % [place] % (Auto) 9.6 (3-14) % Eos % (Auto) 2.5 (2-4) % Baso % (Auto) 0.9 (0-2) % Neut # (Auto) 4800 (6738-4208) /uL Lymph # (Auto) 2900 (4362-2120) /uL [place] # (Auto) 800 (0-900) /uL Eos # (Auto) 200 (0-450) /uL Baso # (Auto) 100 (0-100) /uL Sodium 138 (137-145) mmol/L Potassium 3.6 (3.4-5.1) mmol/L Chloride 103 (98-107) mmol/L Carbon Dioxide 28 (22-32) mmol/L BUN 14 (7-17) mg/dL Creatinine 0.85 (0.52-1.04) mg/dL Estimated GFR > 60 (>60) mL/min BUN/Creatinine Ratio 16.5 (6-22) Glucose 108 H (70-100) mg/dL Calcium 9.3 (8.4-10.2) mg/dL Magnesium 2.1 (1.6-2.3) mg/dL Total Bilirubin 0.4 (0.2-1.3) mg/dL AST 26 (14-36) IU/L ALT 16 (<35) IU/L Alkaline Phosphatase 51 (38-126) U/L Total Creatine Kinase 356 H (30-135) U/L CK-MB (CK-2) 3.11 H (<2.37) ng/mL CK-MB (CK-2) Rel Index 0.9 L (1.5-5.0) % Troponin I < 0.012 (0.01-0.034) ng/mL Total Protein 8.2 (6.3-8.2) g/dL Albumin 4.6 (3.5-5.0) g/dL Globulin 3.6 (1.7-4.1) g/dL Albumin/Globulin Ratio 1.3 (1.0-2.8) Lipase 89 (23-300) U/L TSH 12.20 H (0.47-4.68) uIU/mL Free T4 1.35 (0.78-2.19) ng/dL MDM Narrative Medical decision making narrative: 31-year-old woman with what sounds like increasing angina and needs further evaluation. Possibility of pulmonary embolism is certainly entertained. In itial troponin drawn approximately 1 hour after onset of chest pain is unremarkable. EKG does not show acute ischemic changes. After to have hours in the emergency department patient was unwilling to consider staying for additional workup as she is a single mom in her child needs to be cared for. She did not think she could find additional home child. She was able to speak in full sentences and not in acute distress as she signed out against medical advice. In the clearly reviewed with her that she has what sounds like significant medical issue, needs further workup, I am worried about her heart. I encouraged her repeatedly to stay and when she is at amount about need to care for her child encouraged her to return at any time. At the very least to follow-up with her primary care doctor early next week. Discharge Plan Departure Patient Disposition: Left Against Medical Advice Clinical Impression: Chest pain Prescriptions: No Action trazodone 100 mg tablet See Rx Instructions .ROUTE .COMPLEX Qty: 180 0RF Dose Instruction: TAKE TWO TABLETS NIGHTLY AT BEDTIME Rx Instructions: TAKE TWO TABLETS NIGHTLY AT BEDTIME levothyroxine 125 mcg tablet See Rx Instructions .ROUTE .COMPLEX Qty: 30 0RF Dose Instruction: TAKE ONE TABLET BY MOUTH DAILY. Rx Instructions: TAKE ONE TABLET BY MOUTH DAILY. gabapentin 300 mg capsule See Rx Instructions .ROUTE .COMPLEX Qty: 60 0RF Dose Instruction: TAKE ONE CAPSULE BY MOUTH TWICE DAILY Rx Instructions: TAKE ONE CAPSULE BY MOUTH TWICE DAILY omeprazole 40 mg capsule,delayed release(DR/EC) 40 mg PO DAILY Qty: 30 2RF prochlorperazine maleate [Compazine] 10 mg tablet 10 mg PO Q8H PRN (Reason: nausea and vomiting) Qty: 30 1RF buprenorphine-naloxone 8 MG/2 MG tablet, sublingual 2 tab Sublingual QAM cephalexin 500 mg capsule 500 mg PO TID Qty: 15 0RF Referrals: Javier Mckee, [Primary Care Provider] - Stand Alone Forms: Against Medical Advice
--- NOTE | 2022-01-21 19:19 | PC.NURSE ---
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 Patient updated on plan of care and Dr. Rincon notified. Patient again updated that MD will be in room within five minutes and patient uses profane language to tell this RN that she is only waiting five more minutes.
--- NOTE | 2022-01-21 19:28 | PC.NURSE ---
MD speaks with patient and patient persistent about leaving. Patient signs AMA form and is discharged, ambulating with steady gait.
== END 2022-01-21 19:30 | disposition left against medical advice (07) ==
PROVIDERS: Emergency Medicine; Emergency Provider Emergency Medicine; PCP Family Medicine
DX: R07.9 Chest pain, unspecified (principal)
CPT/HCPCS: 36415; 71045; 80053; 82550; 82553; 83690; 83735; 84439; 84443; 84484; 85025; 93005; 93010; 99283; 99284

== ENCOUNTER → 2022-02-20 10:06 | Outpatient (CLI) | payer OTHER, SELFPAY ==
--- NOTE | 2022-02-20 10:07 | DI.CT.S_ITS ---
PROCEDURE: CT ANGIO CHEST PE PROTOCOL INDICATIONS: Rule out past or recent PE TECHNIQUE: After the administration of intravenous contrast, 2 mm thick sections acquired from the pulmonary apices to the posterior costophrenic angles. 3-dimensional maximum intensity projection (MIP) coronal and sagittal reformats were then acquired through the thorax. For radiation dose reduction, the following was used: automated exposure control, adjustment of mA and/or kV according to patient size. COMPARISON: [facility], CR, XR CHEST 1V, 01/21/2022, 17:25. FINDINGS: Image quality: Excellent. Pulmonary arteries: The pulmonary artery defecation is slightly suboptimal. Pulmonary arteries are normal in size, and demonstrate no definitive intraluminal filling defects to suggest central pulmonary embolism. Lungs and pleura: Mild patchy subpleural ground-glass infiltrates in the left lower lobe and lingula. [place] dependent atelectasis. No pleural effusions or pneumothorax. Central and peripheral airways are patent. Mediastinum: Heart size is normal, without pericardial effusion. No mediastinal or hilar adenopathy. Thoracic aorta is normal in caliber and enhancement. Esophagus is normal in caliber, without hiatal hernia. Bones and chest wall: No suspicious bony lesions. Ribs and thoracic spine appear intact throughout. Thyroid gland is normal. No axillary or supraclavicular adenopathy. Abdomen: Visualized upper abdominal solid organs appear normal in the early arterial phase of enhancement. IMPRESSION: 1. No definitive central pulmonary embolism. 2. Mild patchy subpleural ground-glass infiltrates in the left lower lobe and lingula, suggesting atypical infection. Recommend clinical correlation. Dictated by: Joanne Cortez M.D. on 02/20/2022 at 10:44 Approved by: Joanne Cortez M.D. on 02/20/2022 at 10:49
[2022-02-20 11:21] LABS: Add Manual Diff / Slide Review NO; Basophils Absolute Auto 0 /uL (0-100); Basophils Percent Auto 0.6 % (0-2); Eosinophils Absolute Auto 200 /uL (0-450); Eosinophils Percent Auto 3.9 % (2-4); Hematocrit 41.3 % (36-46); Hemoglobin 13.9 g/dL (12.0-16.0); Lymphocytes Absolute Auto 1400 /uL (1100-4500); Lymphocytes Percent Auto 23.7 % (25-40); Mean Corpuscular HGB Conc 33.6 % (30-36); Mean Corpuscular Hemoglobin 31.1 PG (26-34); Mean Corpuscular Volume 92.6 fL (80-100); Monocytes Absolute Auto 500 /uL (0-900); Monocytes Percent Auto 8.5 % (3-14); Neutrophils Absolute Auto 3900 /uL (1500-7000); Neutrophils Percent Auto 63.3 % (50-75); Platelet Count 299 X10^3/uL (150-400); Red Blood Cell Count 4.46 X10^6/uL (4.0-5.2); Red Cell Distribution Width 12.5 % (11.6-14.8); White Blood Cell Count 6.1 X10^3/uL (4.5-11.0)
[2022-02-20 11:49] LABS: Alanine Aminotransferase 19 IU/L (<35); Albumin 4.2 g/dL (3.5-5.0); Albumin Globulin Ratio 1.4 (1.0-2.8); Alkaline Phosphatase 43 U/L (38-126); Aspartate Aminotransferase 20 IU/L (14-36); BUN Creatinine Ratio 16.9 (6-22); Bilirubin Total 0.4 mg/dL (0.2-1.3); Blood Urea Nitrogen 15 mg/dL (7-17); Calcium 8.7 mg/dL (8.4-10.2); Carbon Dioxide 28 mmol/L (22-32); Chloride 102 mmol/L (98-107); Cholesterol 161 mg/dL (140-199); Creatine Kinase 73 U/L (30-135); Estimated Glomerular Filt Rate > 60 mL/min (>60); Glucose 89 mg/dL (70-100); HDL Cholesterol 53 mg/dL (40-60); HEMOLYSIS < 15 (0-50); LDL Cholesterol Calculated 85 mg/dL (<100); Potassium 4.1 mmol/L (3.4-5.1); Sodium 138 mmol/L (137-145); Total Protein 7.2 g/dL (6.3-8.2); Triglycerides 113 mg/dL (35-150)
[2022-02-20 11:58] LABS: Free T4, Direct Thyroxine 1.19 ng/dL (0.78-2.19)
[2022-02-20 12:12] LABS: Thyroid Stimulating Hormone 5.24 uIU/mL (0.47-4.68)
== END ==
PROVIDERS: PCP Family Medicine; Referring Provider Family Medicine; Visit Provider Family Medicine
DX: R07.89 Other chest pain (principal); E78.2 Mixed hyperlipidemia; E03.9 Hypothyroidism, unspecified; K42.9 Umbilical hernia without obstruction or gangrene; Z72.0 Tobacco use
CPT/HCPCS: 36415; 71275; 80053; 80061; 82550; 84439; 84443; 85025; Q9967

== ENCOUNTER 2022-05-15 10:57 | Day surgery (SDC) | payer OTHER, SELFPAY ==
[2022-05-12 07:51] VITALS: BMI 36.7
[2022-05-15] VITALS (9 sets, daily range): BP systolic 102–139; BP diastolic 62–98; PULSE 54–79; RESP 15–19; TEMP 36.2–36.8; O2SAT 94–99; BMI 36.7
[2022-05-15] MEDS: LACTATED RINGERS 1,000 ML 42 ML IV ×2 (11:27→12:44)
--- NOTE | 2022-05-15 11:44 | SUR.PREOP ---
pt states she has not had sex for over 3 years and does not want to do a test.
--- NOTE | 2022-05-15 11:52 | PM.PREOP ---
Pre-operative Note COVID-19 COVID-19 status: Not tested Interval Note History & Physical reviewed/Exam performed by Physician: Yes Changes to H&P: No ASA Class (for procedural sedation): II
[2022-05-15] MEDS: CEFAZOLIN 2 GM/100 ML PREMIX 100 ML IV (12:10)
--- NOTE | 2022-05-15 12:21 | SUR.OPER ---
Supine on padded OR bed, head on pillow, arms secured on padded arm boards at <90 degrees abduction, legs uncrossed, safety belt at thigh.
[2022-05-15] MEDS: BUPIVACAINE 0.5% W/ EPI (PF) 30 ML VIAL INJ (12:29)
--- NOTE | 2022-05-15 13:10 | PM.OP.1 ---
Operative Date/Time/Diagnoses Date of procedure: 05/15/22 Time of procedure: 13:10 Pre-op diagnosis: Umbilical hernia Post-op diagnosis: same Procedure & Clinicians Procedure: Open umbilical hernia repair with mesh Same procedure as scheduled: Yes Surgeon: Joey Flores Anesthesia Type: General Operative Notes Procedure in detail: Ancef was administered. The patient was brought to the operating room, placed on the table in the supine position and general endotracheal anesthesia was induced. The abdomen was prepped and draped in the usual fashion. A time-out was performed. A 5 cm curvilinear incision was made inferior to the umbilicus. The hernia sac was dissected free from the surrounding subcutaneous adipose tissue. There were 3 small defects in close proximity. The thin fascial bridges were divided creating 1 larger defect of about a cm. The fascia was then closed transversely with multiple interrupted 0 Ethibond sutures. The subcutaneous adipose tissue was cleared off of the anterior sheath circumferentially about 1 cm in each direction. A piece of polypropylene mesh was trimmed to fit over the fascial closure and secured with Tisseel. Once the Tisseel was dried the umbilical skin was tacked down to the deep subcutaneous adipose tissue with a single 3-0 Vicryl stitch. The skin was closed with multiple interrupted 3-0 Vicryl dermal sutures followed by a running 4 Monocryl subcuticular closure. Steri-Strips were applied and an abdominal binder was applied. Post-operative Condition: stable Disposition: PACU
[2022-05-15] MEDS: fentaNYL 100 MCG/2 ML INJ IV (13:42)
[2022-05-15] MEDS: OXYCODONE/ACETAMINOPHEN 5/325 TABLET 1 TAB PO (13:44)
--- NOTE | 2022-05-15 13:59 | SUR.PHASEI ---
States she needs to void bad. taken to BR, ambulated to toilet independently. States she feels better. taken to P[facility] and report given to [place] PAULA.
== END 2022-05-15 14:26 | disposition home or self-care (01) ==
PROVIDERS: PCP Family Medicine; Referring Provider Surgery; Visit Provider Surgery
PROC: (CPT 49591; principal; 2022-05-15 12:00)
DX: K42.9 Umbilical hernia without obstruction or gangrene (principal)
CPT/HCPCS: 49591; J0330; J0690; J1100; J2405; J2704; J3010

== ENCOUNTER → 2022-06-24 11:49 | Outpatient (CLI) | payer OTHER, SELFPAY | PROVIDERS: PCP Family Medicine; Visit Provider Registered Nurse | DX: R10.9 Unspecified abdominal pain (principal) | CPT/HCPCS: 87086 ==

== ENCOUNTER 2022-06-24 12:04 | Emergency (ER) | payer OTHER, SELFPAY ==
[2022-06-24 12:09] VITALS: BP 137/81; PULSE 77; RESP 12; TEMP 36.6; O2SAT 100
--- NOTE | 2022-06-24 12:15 | DI.US.S_ITS ---
PROCEDURE: US ABDOMEN COMPLETE INDICATIONS: CVA Tenderness, bilat flank pain. TECHNIQUE: Real-time scanning was performed of the abdominal and retroperitoneal organs, with image documentation. COMPARISON: [facility], CT, CT ABDOMEN PELVIS W CON, 01/27/2021, 23:01. [facility], US, US ABDOMEN LIMITED, 08/19/2018, 12:59. FINDINGS: Liver: Liver measures 18.1 cm. There is diffuse increased echogenicity liver compared with the adjacent kidney. Gallbladder: Gallbladder is within normal limits without biliary sludge, stones, wall thickening, pericholecystic fluid, or sonographic Gallo sign. Biliary ducts: Intrahepatic bile ducts are non-dilated. Extrahepatic bile duct caliber measures 4.4 mm. Normal is 6-7 mm or less in diameter, or 10 mm or less post-cholecystectomy. Pancreas: Visualized portions of the pancreas are sonographically normal. Spleen: Spleen is normal in size and homogeneous in echotexture. Kidneys: Kidneys are normal in size and echotexture. Right kidney measures 11.4 cm long; left kidney measures 9.8 cm long. No hydronephrosis or nephrolithiasis. No solid masses. Aorta: Visualized aorta is normal in caliber at less than 3 cm. Iliacs: Proximal common iliac arteries are normal in caliber at less than 2.5 cm. IVC: Intrahepatic inferior vena cava is patent. Miscellaneous: Urinary bladder is within normal limits. Prevoid 101 mL. Urinary jets not identified. IMPRESSION: 1. No hydronephrosis or stone identified. 2. Increased echogenicity of the liver can be seen with hepatic steatosis. Dictated by: Juan R Tucker M.D. on 06/24/2022 at 13:28 Approved by: Juan R Tucker M.D. on 06/24/2022 at 13:32
[2022-06-24 13:19] LABS: Add Manual Diff / Slide Review NO; Basophils Absolute Auto 0 /uL (0-100); Basophils Percent Auto 0.6 % (0-2); Eosinophils Absolute Auto 300 /uL (0-450); Eosinophils Percent Auto 4.7 % (2-4); Hematocrit 40.4 % (36-46); Hemoglobin 13.8 g/dL (12.0-16.0); Lymphocytes Absolute Auto 1600 /uL (1100-4500); Lymphocytes Percent Auto 21.6 % (25-40); Mean Corpuscular HGB Conc 34.1 % (30-36); Mean Corpuscular Volume 90.8 fL (80-100); Monocytes Absolute Auto 500 /uL (0-900); Monocytes Percent Auto 7.4 % (3-14); Neutrophils Absolute Auto 4700 /uL (1500-7000); Neutrophils Percent Auto 65.7 % (50-75); Platelet Count 383 X10^3/uL (150-400); Red Blood Cell Count 4.45 X10^6/uL (4.0-5.2); Red Cell Distribution Width 12.4 % (11.6-14.8); White Blood Cell Count 7.2 X10^3/uL (4.5-11.0)
--- NOTE | 2022-06-24 13:58 | ED.FEMALEGU ---
HPI - Female Genitourinary <BETO Rich - Last Filed: 06/24/22 15:21> General Chief complaint: Urogenital-Female Stated complaint: Sent from [facility]; hernia surgery; poss. kidney inf. Time Seen by Provider: 06/24/22 12:36 History of Present Illness HPI Narrative: This is a 31-year-old female presents to the emergency department complaining of dysuria and worsening symptoms now with bilateral flank pain over the last few days. States that she had pharyngitis, presumably streptococcal earlier this week and treated with salt water rinses but endorses having patchy exudate on her tonsils, sore throat, and now with these symptoms related to her urine. She denies any abnormal vaginal discharge, states that she has not been eating or drinking much due to low appetite and has not been voiding or having as many stools as usual. She denies fever chills but states that she is been feeling nauseous, now with flank pain, dysuria, cloudy urine and feeling like she must need antibiotics now. She has anaphylaxis allergy to penicillins. Related Data Home Medications Medication Instructions Recorded Confirmed buprenorphine 8 mg-naloxone 2 mg 2 tab sublingual QAM 08/19/18 05/15/22 sublingual tablet Previous Rx's Medication Instructions Recorded omeprazole 40 mg capsule,delayed 40 mg PO DAILY #30 caps 12/21/21 release nitroglycerin 0.4 mg sublingual 0.4 mg sublingual Q5M PRN chest 02/15/22 tablet pain #20 tabs gabapentin 300 mg capsule 300 mg PO BID #180 caps 05/02/22 levothyroxine 125 mcg tablet See Rx Instructions .Route 05/02/22 .COMPLEX #90 tabs trazodone 100 mg tablet See Rx Instructions .Route 05/02/22 .COMPLEX #180 tabs oxycodone-acetaminophen 5 mg-325 1 tab PO Q8H PRN pain #10 tabs 05/15/22 mg tablet clindamycin HCl 300 mg capsule 300 mg PO TID 10 days #30 caps 06/24/22 ondansetron 4 mg disintegrating 4 mg PO Q8H PRN nausea and 06/24/22 tablet vomiting #10 tabs sulfamethoxazole 800 1 tab PO BID 7 days #14 tabs 06/24/22 mg-trimethoprim 160 mg tablet (Bactrim DS) Allergies Allergy/AdvReac Type Severity Reaction Status Date / Time amoxicillin [AMOXICILLIN] Allergy Unknown RASH/HIVES Verified 06/24/22 12:11 Penicillins Allergy Unknown Verified 06/24/22 12:11 hydromorphone Allergy Verified 06/24/22 12:11 Opioids - Morphine Analogues Allergy Verified 06/24/22 12:11 Review of Systems <BETO Rich - Last Filed: 06/24/22 15:21> Review of Systems ROS Unobtainable: All systems reviewed & are unremarkable except as noted in HPI and below Patient History <BETO Rich - Last Filed: 06/24/22 15:21> Medical History Acne Anxiety Chronic bilateral low back pain without sciatica (07/19/15) Crohn's disease without complication (04/23/15) Depression GERD (gastroesophageal reflux disease) Headache Hyperlipidemia Hypothyroidism Insomnia disorder Migraine Opiate dependence, continuous (04/23/15) Pyelonephritis Tobacco abuse Umbilical hernia Surgical History Anesthesia H/O oophorectomy History of knee surgery Family History Father Thyroid condition alcohol intake frequency: holidays/special occasions only Substance Use Type: former substance user and marijuana Exam <BETO Rich - Last Filed: 06/24/22 15:21> Narrative Exam Narrative: Reviewed vitals signs and nursing notes. General: cooperative, in no acute distress, well groomed HEENT: symmetrical facial expressions, moist mucous membranes, neck is supple CV: regular rate and rhythm, warm extremities Respiratory: Without abnormal breath sounds, normal work of breathing, without tachypnea, hypoxia. GI: abdomen soft, protuberant, mild CVA tenderness bilaterally, suprapubic tenderness to palpation, no other abdominal tenderness, without masses MSK: moves all extremities, neurovascularly intact, no weakness, normal tone Skin: brisk capillary refill, without rash or wound Neuro: normal speech and cognition, A&O x3, ambulatory, clear speech Initial Vital Signs Initial Vital Signs: Vital Signs Temperature 97.9 F 06/24/22 12:09 Pulse Rate 77 06/24/22 12:09 Respiratory Rate 12 06/24/22 12:09 Blood Pressure 137/81 06/24/22 12:09 Pulse Oximetry 100 06/24/22 12:09 Oxygen Delivery Method Room Air 06/24/22 12:09 <Ramonita Covarrubias DO - Last Filed: 06/25/22 13:29> Initial Vital Signs Initial Vital Signs: Vital Signs Temperature 97.9 F 06/24/22 12:09 Pulse Rate 77 06/24/22 12:09 Respiratory Rate 12 06/24/22 12:09 Blood Pressure 137/81 06/24/22 12:09 Pulse Oximetry 100 06/24/22 12:09 Oxygen Delivery Method Room Air 06/24/22 12:09 Course <BETO Rich - Last Filed: 06/24/22 15:21> Orders Ordered: Discontinued Medications Azithromycin (Azithromycin 250 Mg Tablet) 500 mg PO NOW ONE Stop: 06/24/22 13:49 Last Admin: 06/24/22 14:22 Dose: Not Given Documented By: EDIE Clindamycin HCl (Clindamycin 150 Mg Capsule) 300 mg PO NOW ONE Stop: 06/24/22 13:51 Last Admin: 06/24/22 14:10 Dose: 300 mg Documented By: EDIE Dexamethasone (Dexamethasone 10 Mg/Ml Vial) 10 mg PO NOW ONE Stop: 06/24/22 13:49 Last Admin: 06/24/22 14:10 Dose: 10 mg Documented By: EDIE Ketorolac Tromethamine (Ketorolac 30 Mg/Ml Vial) 30 mg IM NOW ONE Stop: 06/24/22 13:49 Last Admin: 06/24/22 14:10 Dose: 30 mg Documented By: EDIE Ondansetron HCl (Ondansetron 4 Mg Odt) 4 mg PO NOW PRN PRN Reason: Nausea And Vomiting Last Admin: 06/24/22 14:11 Dose: 4 mg Documented By: EDIE Ondansetron HCl (Ondansetron 4 Mg/2 Ml Inj) 4 mg IV NOW PRN PRN Reason: Nausea And Vomiting Trimethoprim/Sulfamethoxazole (Trimeth/Sulfa 160/800 (Ds) Tablet) 1 tab PO NOW ONE Stop: 06/24/22 13:49 Last Admin: 06/24/22 14:11 Dose: 1 tab Documented By: EDIE Vital Signs Vital signs: Vital Signs - 8 hr 06/24/22 12:09 06/24/22 14:22 Temperature 97.9 F 98.8 F Pulse Rate 77 88 Respiratory Rate 12 18 Blood Pressure 137/81 125/84 Pulse Oximetry 100 99 Oxygen Delivery Method Room Air Room Air <Ramonita Covarrubias DO - Last Filed: 06/25/22 13:29> Orders Ordered: Discontinued Medications Azithromycin (Azithromycin 250 Mg Tablet) 500 mg PO NOW ONE Stop: 06/24/22 13:49 Last Admin: 06/24/22 14:22 Dose: Not Given Documented By: EDIE Clindamycin HCl (Clindamycin 150 Mg Capsule) 300 mg PO NOW ONE Stop: 06/24/22 13:51 Last Admin: 06/24/22 14:10 Dose: 300 mg Documented By: EDIE Dexamethasone (Dexamethasone 10 Mg/Ml Vial) 10 mg PO NOW ONE Stop: 06/24/22 13:49 Last Admin: 06/24/22 14:10 Dose: 10 mg Documented By: EDIE Ketorolac Tromethamine (Ketorolac 30 Mg/Ml Vial) 30 mg IM NOW ONE Stop: 06/24/22 13:49 Last Admin: 06/24/22 14:10 Dose: 30 mg Documented By: EDIE Ondansetron HCl (Ondansetron 4 Mg Odt) 4 mg PO NOW PRN PRN Reason: Nausea And Vomiting Last Admin: 06/24/22 14:11 Dose: 4 mg Documented By: EDIE Ondansetron HCl (Ondansetron 4 Mg/2 Ml Inj) 4 mg IV NOW PRN PRN Reason: Nausea And Vomiting Trimethoprim/Sulfamethoxazole (Trimeth/Sulfa 160/800 (Ds) Tablet) 1 tab PO NOW ONE Stop: 06/24/22 13:49 Last Admin: 06/24/22 14:11 Dose: 1 tab Documented By: EDIE Vital Signs Vital signs: Vital Signs - 8 hr 06/24/22 12:09 06/24/22 14:22 Temperature 97.9 F 98.8 F Pulse Rate 77 88 Respiratory Rate 12 18 Blood Pressure 137/81 125/84 Pulse Oximetry 100 99 Oxygen Delivery Method Room Air Room Air MDM - Female Genitourinary <BETO Rich - Last Filed: 06/24/22 15:21> Lab Data 06/24/22 13:04 06/24/22 13:44 Labs: Lab Results 06/24/22 06/24/22 06/24/22 Range/Units 13:04 13:44 13:50 WBC 7.2 (4.5-11.0) X10^3/uL RBC 4.45 (4.0-5.2) X10^6/uL Hgb 13.8 (12.0-16.0) g/dL Hct 40.4 (36-46) % MCV 90.8 (80-100) fL MCH 31.0 (26-34) PG MCHC 34.1 (30-36) % RDW 12.4 (11.6-14.8) % Plt Count 383 (150-400) X10^3/uL Neut % (Auto) 65.7 (50-75) % Lymph % (Auto) 21.6 L (25-40) % [place] % (Auto) 7.4 (3-14) % Eos % (Auto) 4.7 H (2-4) % Baso % (Auto) 0.6 (0-2) % Neut # (Auto) 4700 (3299-6787) /uL Lymph # (Auto) 1600 (6530-0470) /uL [place] # (Auto) 500 (0-900) /uL Eos # (Auto) 300 (0-450) /uL Baso # (Auto) 0 (0-100) /uL Sodium 139 (137-145) mmol/L Potassium 4.3 (3.4-5.1) mmol/L Chloride 103 (98-107) mmol/L Carbon Dioxide 30 (22-32) mmol/L BUN 10 (7-17) mg/dL Creatinine 0.78 (0.52-1.04) mg/dL Estimated GFR > 60 (>60) mL/min BUN/Creatinine Ratio 12.8 (6-22) Glucose 99 (70-100) mg/dL Calcium 9.1 (8.4-10.2) mg/dL Total Bilirubin 0.5 (0.2-1.3) mg/dL AST 21 (14-36) IU/L ALT 18 (<35) IU/L Alkaline Phosphatase 58 (38-126) U/L Total Protein 8.0 (6.3-8.2) g/dL Albumin 4.4 (3.5-5.0) g/dL Globulin 3.6 (1.7-4.1) g/dL Albumin/Globulin Ratio 1.2 (1.0-2.8) Lipase 77 (23-300) U/L Urine RBC 0-1/hpf (0-5/HPF) Urine WBC 5-10/hpf H (0-5/HPF) Ur Squamous Epith Cells 1-5 /hpf (0-5/HPF) Amorphous Sediment 2+ Urine Bacteria Moderate (10-30) H (None) Ur Chlamydia DNA (PCR) N gonorrhoeae DNA (PCR) 06/24/22 Range/Units 13:50 WBC (4.5-11.0) X10^3/uL RBC (4.0-5.2) X10^6/uL Hgb (12.0-16.0) g/dL Hct (36-46) % MCV (80-100) fL MCH (26-34) PG MCHC (30-36) % RDW (11.6-14.8) % Plt Count (150-400) X10^3/uL Neut % (Auto) (50-75) % Lymph % (Auto) (25-40) % [place] % (Auto) (3-14) % Eos % (Auto) (2-4) % Baso % (Auto) (0-2) % Neut # (Auto) (0773-9083) /uL Lymph # (Auto) (2054-5009) /uL [place] # (Auto) (0-900) /uL Eos # (Auto) (0-450) /uL Baso # (Auto) (0-100) /uL Sodium (137-145) mmol/L Potassium (3.4-5.1) mmol/L Chloride (98-107) mmol/L Carbon Dioxide (22-32) mmol/L BUN (7-17) mg/dL Creatinine (0.52-1.04) mg/dL Estimated GFR (>60) mL/min BUN/Creatinine Ratio (6-22) Glucose (70-100) mg/dL Calcium (8.4-10.2) mg/dL Total Bilirubin (0.2-1.3) mg/dL AST (14-36) IU/L ALT (<35) IU/L Alkaline Phosphatase (38-126) U/L Total Protein (6.3-8.2) g/dL Albumin (3.5-5.0) g/dL Globulin (1.7-4.1) g/dL Albumin/Globulin Ratio (1.0-2.8) Lipase (23-300) U/L Urine RBC (0-5/HPF) Urine WBC (0-5/HPF) Ur Squamous Epith Cells (0-5/HPF) Amorphous Sediment Urine Bacteria (None) Ur Chlamydia DNA (PCR) Not detected N gonorrhoeae DNA (PCR) Not detected Point of Care Testing Rapid Strep A Positive Imaging Data US - abdomen: Radiologist's Impression: PROCEDURE:? US ABDOMEN COMPLETE ? INDICATIONS:? CVA Tenderness, bilat flank pain. ? TECHNIQUE:? Real-time scanning was performed of the abdominal and retroperitoneal organs, with image documentation.? ? COMPARISON:? [facility], CT, CT ABDOMEN PELVIS W CON, 01/27/2021, 23:01.? [facility], US, US ABDOMEN LIMITED, 08/19/2018, 12:59. ? FINDINGS:? ? Liver:? Liver measures 18.1 cm.? There is diffuse increased echogenicity liver compared with the adjacent kidney. ? Gallbladder:? Gallbladder is within normal limits without biliary sludge, stones, wall thickening, pericholecystic fluid, or sonographic Gallo sign. ? Biliary ducts:? Intrahepatic bile ducts are non-dilated.? Extrahepatic bile duct caliber measures 4.4 mm.? Normal is 6-7 mm or less in diameter, or 10 mm or less post-cholecystectomy.? ? Pancreas:? Visualized portions of the pancreas are sonographically normal.? ? Spleen:? Spleen is normal in size and homogeneous in echotexture.? ? Kidneys:? Kidneys are normal in size and echotexture.? Right kidney measures 11.4 cm long; left kidney measures 9.8 cm long.? No hydronephrosis or nephrolithiasis.? No solid masses.? ? Aorta:? Visualized aorta is normal in caliber at less than 3 cm.? ? Iliacs:? Proximal common iliac arteries are normal in caliber at less than 2.5 cm.? ? IVC:? Intrahepatic inferior vena cava is patent.? ? Miscellaneous:? Urinary bladder is within normal limits.? Prevoid 101 mL.? Urinary jets not identified. ? ? IMPRESSION:? 1. No hydronephrosis or stone identified. 2. Increased echogenicity of the liver can be seen with hepatic steatosis. ? ? ? Dictated by: Juan R Tucker M.D. on 06/24/2022 at 13:28 ? ? Approved by: Juan R Tucker M.D. on 06/24/2022 at 13:32 ? MDM Narrative Medical decision making narrative: Chief Complaint: Urinary tract infection, sore throat Independent historian: Patient Differential diagnoses include but are not limited to: I have independently reviewed the patient's vital signs and nursing notes as well as prior records if available. Pertinent lab findings reviewed: CBC is unremarkable, urine microscopy shows moderate bacteria and WBCs, chemistry is unremarkable, Rapid strep is positive for strep throat Urine dip from the walk-in clinic was positive for leukocyte esterase, RBCs and WBCs, urine microscopy was added on but this did not get started for at least 2 hours, new urine sample obtained and was sent down to the lab for microscopy and urine culture, throat culture obtained and is pending Pertinent Imaging reviewed: Abdominal ultrasound ordered from nursing, it does not show hydronephrosis, renal calculus, increased echogenicity of the liver Patient was sent over from the walk-in clinic for definitive care with upper urinary tract symptoms, complains of strep throat symptoms for the last week but has not had treatment other than salt water rinses. Today her rapid strep is positive, your microscopy with bacteria and WBCs. She had CVA tenderness bilaterally but it was mild. She was treated with clindamycin t.i.d. times 10 days as she has anaphylaxis allergy to amoxicillin and Bactrim for UTI b.i.d. x7 days. Encouraged patient to stay hydrated, she is given a prescription of Zofran to use as needed nausea vomiting. Her lab work is unremarkable, she is tolerating p.o. and wishes to be discharged so she can go to work today. Her pain was treated with dexamethasone 10 mg, Toradol IM Social considerations that may affect disposition: none Questions are addressed and there is agreement with the plan and for follow-up. Patient is appropriate for outpatient management. MIPS: This encounter doesn't have any diagnosis' associated with MIPS criteria. <Ramonita Covarrubias, DO - Last Filed: 06/25/22 13:29> Lab Data Labs: Lab Results 06/24/22 06/24/22 06/24/22 Range/Units 13:04 13:44 13:50 WBC 7.2 (4.5-11.0) X10^3/uL RBC 4.45 (4.0-5.2) X10^6/uL Hgb 13.8 (12.0-16.0) g/dL Hct 40.4 (36-46) % MCV 90.8 (80-100) fL MCH 31.0 (26-34) PG MCHC 34.1 (30-36) % RDW 12.4 (11.6-14.8) % Plt Count 383 (150-400) X10^3/uL Neut % (Auto) 65.7 (50-75) % Lymph % (Auto) 21.6 L (25-40) % [place] % (Auto) 7.4 (3-14) % Eos % (Auto) 4.7 H (2-4) % Baso % (Auto) 0.6 (0-2) % Neut # (Auto) 4700 (6324-9019) /uL Lymph # (Auto) 1600 (3662-0450) /uL [place] # (Auto) 500 (0-900) /uL Eos # (Auto) 300 (0-450) /uL Baso # (Auto) 0 (0-100) /uL Sodium 139 (137-145) mmol/L Potassium 4.3 (3.4-5.1) mmol/L Chloride 103 (98-107) mmol/L Carbon Dioxide 30 (22-32) mmol/L BUN 10 (7-17) mg/dL Creatinine 0.78 (0.52-1.04) mg/dL Estimated GFR > 60 (>60) mL/min BUN/Creatinine Ratio 12.8 (6-22) Glucose 99 (70-100) mg/dL Calcium 9.1 (8.4-10.2) mg/dL Total Bilirubin 0.5 (0.2-1.3) mg/dL AST 21 (14-36) IU/L ALT 18 (<35) IU/L Alkaline Phosphatase 58 (38-126) U/L Total Protein 8.0 (6.3-8.2) g/dL Albumin 4.4 (3.5-5.0) g/dL Globulin 3.6 (1.7-4.1) g/dL Albumin/Globulin Ratio 1.2 (1.0-2.8) Lipase 77 (23-300) U/L Urine RBC 0-1/hpf (0-5/HPF) Urine WBC 5-10/hpf H (0-5/HPF) Ur Squamous Epith Cells 1-5 /hpf (0-5/HPF) Amorphous Sediment 2+ Urine Bacteria Moderate (10-30) H (None) Ur Chlamydia DNA (PCR) N gonorrhoeae DNA (PCR) 06/24/22 Range/Units 13:50 WBC (4.5-11.0) X10^3/uL RBC (4.0-5.2) X10^6/uL Hgb (12.0-16.0) g/dL Hct (36-46) % MCV (80-100) fL MCH (26-34) PG MCHC (30-36) % RDW (11.6-14.8) % Plt Count (150-400) X10^3/uL Neut % (Auto) (50-75) % Lymph % (Auto) (25-40) % [place] % (Auto) (3-14) % Eos % (Auto) (2-4) % Baso % (Auto) (0-2) % Neut # (Auto) (4937-9029) /uL Lymph # (Auto) (2257-3301) /uL [place] # (Auto) (0-900) /uL Eos # (Auto) (0-450) /uL Baso # (Auto) (0-100) /uL Sodium (137-145) mmol/L Potassium (3.4-5.1) mmol/L Chloride (98-107) mmol/L Carbon Dioxide (22-32) mmol/L BUN (7-17) mg/dL Creatinine (0.52-1.04) mg/dL Estimated GFR (>60) mL/min BUN/Creatinine Ratio (6-22) Glucose (70-100) mg/dL Calcium (8.4-10.2) mg/dL Total Bilirubin (0.2-1.3) mg/dL AST (14-36) IU/L ALT (<35) IU/L Alkaline Phosphatase (38-126) U/L Total Protein (6.3-8.2) g/dL Albumin (3.5-5.0) g/dL Globulin (1.7-4.1) g/dL Albumin/Globulin Ratio (1.0-2.8) Lipase (23-300) U/L Urine RBC (0-5/HPF) Urine WBC (0-5/HPF) Ur Squamous Epith Cells (0-5/HPF) Amorphous Sediment Urine Bacteria (None) Ur Chlamydia DNA (PCR) Not detected N gonorrhoeae DNA (PCR) Not detected Point of Care Testing Rapid Strep A Positive Discharge Plan Departure Patient Disposition: Home Clinical Impression: Complicated urinary tract infection Pharyngitis Qualifiers: Pharyngitis/tonsillitis etiology: streptococcus Qualified Code(s): J02.0 - Streptococcal pharyngitis Instructions: Urinary Tract Infection, DI for Pharyngitis/Tonsillopharyngitis -- Adult Activity Restrictions/Additional Instructions: *You have been diagnosed with pharyngitis, likely strep throat or another bacterial pharyngitis. You also have a complicated urinary tract infection which has ascended up towards her kidneys. Please stay on these antibiotics as prescribed, the clindamycin you take for 10 days for your throat and Bactrim he will take for at least 7 days for your UTI. Use Zofran as needed for nausea, follow-up with your primary care provider as needed, come back to the emergency department if you need us, I am sorry for your symptoms and I hope that you start feeling better soon. He will call you if we need to change her antibiotic based on the throat culture and urine culture. *What to do: *Please continue to take your regular medications as directed. [ x] New medication prescriptions sent to your pharmacy: [ [facility] [ ] New medication written as a paper prescription [ ] No new medications given *Please follow up with your primary care provider in 2-3 days, call for an appointment. Let them know you were seen in the Emergency Department and that we asked that you be seen for follow-up. We will electronically transmit a record of today's note if your PCP is in our system *If you do not have a primary care provider please contact [phone] to establish care with one of the [facility] primary care providers. *Return to Emergency Department if you should have any new, worsening, or concerning symptoms, such as [fever greater than 101F, chills, worsening pain, persistent vomiting or other bothersome symptoms]. Prescriptions: New clindamycin HCl 300 mg capsule 300 mg PO TID 10 Days Qty: 30 0RF sulfamethoxazole-trimethoprim [Bactrim DS] 800-160 mg tablet 1 tab PO BID 7 Days Qty: 14 0RF ondansetron 4 mg tablet,disintegrating 4 mg PO Q8H PRN (Reason: nausea and vomiting) Qty: 10 0RF No Action levothyroxine 125 mcg tablet See Rx Instructions .ROUTE .COMPLEX Qty: 90 0RF Dose Instruction: TAKE ONE TABLET BY MOUTH DAILY. Rx Instructions: TAKE ONE TABLET BY MOUTH DAILY. gabapentin 300 mg capsule 300 mg PO BID Qty: 180 1RF trazodone 100 mg tablet See Rx Instructions .ROUTE .COMPLEX Qty: 180 1RF Dose Instruction: TAKE TWO TABLETS NIGHTLY AT BEDTIME Rx Instructions: TAKE TWO TABLETS NIGHTLY AT BEDTIME omeprazole 40 mg capsule,delayed release(DR/EC) 40 mg PO DAILY Qty: 30 2RF nitroglycerin 0.4 mg tablet, sublingual 0.4 mg sublingual Q5M PRN (Reason: chest pain) Qty: 20 1RF Rx Instructions: do not exceed 3 doses per episode oxycodone-acetaminophen 5-325 mg tablet 1 tab PO Q8H PRN (Reason: pain) Qty: 10 0RF buprenorphine-naloxone 8 MG/2 MG tablet, sublingual 2 tab Sublingual QAM Referrals: Javier Mckee DO [Primary Care Provider] - Stand Alone Forms: Patient Portal/API <Ramonita Covarrubias DO - Last Filed: 06/25/22 13:29> Cosign ED Attending Cosignature Attestation: I was immediately available in the department for consultation. Supervised by Ramonita Covarrubias DO
[2022-06-24 14:03] LABS: Alanine Aminotransferase 18 IU/L (<35); Albumin 4.4 g/dL (3.5-5.0); Albumin Globulin Ratio 1.2 (1.0-2.8); Alkaline Phosphatase 58 U/L (38-126); Aspartate Aminotransferase 21 IU/L (14-36); BUN Creatinine Ratio 12.8 (6-22); Bilirubin Total 0.5 mg/dL (0.2-1.3); Blood Urea Nitrogen 10 mg/dL (7-17); Calcium 9.1 mg/dL (8.4-10.2); Carbon Dioxide 30 mmol/L (22-32); Chloride 103 mmol/L (98-107); Estimated Glomerular Filt Rate > 60 mL/min (>60); Globulin 3.6 g/dL (1.7-4.1); Glucose 99 mg/dL (70-100); HEMOLYSIS < 15 (0-50); Lipase 77 U/L (23-300); Potassium 4.3 mmol/L (3.4-5.1); Sodium 139 mmol/L (137-145)
[2022-06-24 14:05] LABS: Amorphous Sediment Urine 2+; Bacteria Urine Moderate (10-30); RBC Urine 0-1/HPF (0-5/HPF); Squamous Epithelial Cell Urine 1-5 /HPF (0-5/HPF); WBC Urine 5-10/HPF (0-5/HPF)
[2022-06-24] MEDS: CLINDAMYCIN 150 MG CAPSULE 300 MG PO (14:10)
[2022-06-24] MEDS: KETOROLAC 30 MG/ML VIAL IM (14:10)
[2022-06-24] MEDS: DEXAMETHASONE 10 MG/ML VIAL PO (14:10)
[2022-06-24] MEDS: TRIMETH/SULFA 160/800 (DS) TABLET 1 TAB PO (14:11)
[2022-06-24] MEDS: ONDANSETRON 4 MG ODT PO (14:11)
[2022-06-24 14:22] VITALS: BP 125/84; PULSE 88; RESP 18; TEMP 37.1; O2SAT 99
[2022-06-24 15:28] LABS: Urine N gonorrhoeae NOT DETECTED
[2022-06-24 15:33] LABS: Urine Chlamydia NOT DETECTED
== END 2022-06-24 14:23 | disposition home or self-care (01) ==
PROVIDERS: Emergency Medicine; Emergency Provider Nurse Practitioner Critical Care Medicine; PCP Family Medicine
DX: N39.0 Urinary tract infection, site not specified (principal); J02.0 Streptococcal pharyngitis; R10.9 Unspecified abdominal pain; F17.200 Nicotine dependence, unspecified, uncomplicated
CPT/HCPCS: 36415; 76700; 80053; 81015; 83690; 85025; 87070; 87086; 87491; 87591; 87880; 96372; 99283; 99284; J1100; J1885

== ENCOUNTER → 2023-04-10 14:44 | Outpatient (CLI) | payer OTHER, SELFPAY | PROVIDERS: PCP Family Medicine; Visit Provider Nurse Practitioner Family | DX: R10.30 Lower abdominal pain, unspecified (principal) | CPT/HCPCS: 87086 ==

== ENCOUNTER 2023-04-10 14:58 | Emergency (ER) | payer OTHER, SELFPAY ==
[2023-04-10 15:04] VITALS: BP 132/79; PULSE 67; RESP 18; TEMP 37.6; O2SAT 100; BMI 34.5
[2023-04-10 15:32] LABS: Add Manual Diff / Slide Review NO; Basophils Absolute Auto 0 /uL (0-100); Basophils Percent Auto 0.5 % (0-2); Eosinophils Absolute Auto 200 /uL (0-450); Eosinophils Percent Auto 2.2 % (2-4); Hematocrit 41.9 % (36-46); Hemoglobin 14.5 g/dL (12.0-16.0); Lymphocytes Absolute Auto 2100 /uL (1100-4500); Mean Corpuscular HGB Conc 34.5 % (30-36); Mean Corpuscular Hemoglobin 31.5 PG (26-34); Mean Corpuscular Volume 91.4 fL (80-100); Monocytes Absolute Auto 700 /uL (0-900); Monocytes Percent Auto 9.5 % (3-14); Neutrophils Absolute Auto 4500 /uL (1500-7000); Neutrophils Percent Auto 59.8 % (50-75); Platelet Count 294 X10^3/uL (150-400); Red Blood Cell Count 4.59 X10^6/uL (4.0-5.2); Red Cell Distribution Width 12.4 % (11.6-14.8); White Blood Cell Count 7.5 X10^3/uL (4.5-11.0)
--- NOTE | 2023-04-10 15:53 | ED_ITS ---
HPI - Abdominal Pain General Chief Complaint: Abdominal Pain Stated Complaint: lower abd pain Time Seen by Provider: 04/10/23 15:31 Source: patient Mode of arrival: Ambulatory History of Present Illness HPI narrative: Patient is 32-year-old female history of substance abuse sober for the last 7 years presenting today with ongoing lower abdominal pain. She says it has been about 2 weeks intensifying. She may have had some effect stool she denies any Pepto-Bismol. She sometimes feels nauseous. No fever or chills. She has previously had a couple of abdominal surgeries including hernia repairs. She is very tearful tender on exam. She tried to go to [facility] yesterday but was very upset when they gave her Dilaudid she left without any workup. She continues to have pain today. No chest pain or shortness of breath. She sometimes had fatigue. She is helped very upset unsure what this pain is. Sometimes she has right flank pain radiating down to her groin. But really feels like she is pain all across her lower abdomen definitely worse on the right greater than the left Related Data Home Medications Medication Instructions Recorded Confirmed buprenorphine 8 mg-naloxone 2 mg 2 tab sublingual QAM 08/19/18 04/10/23 sublingual tablet Previous Rx's Medication Instructions Recorded nitroglycerin 0.4 mg sublingual 0.4 mg sublingual Q5M PRN chest 02/15/22 tablet pain #20 tabs trazodone 100 mg tablet See Rx Instructions .Route 05/02/22 .COMPLEX #180 tabs levothyroxine 125 mcg tablet See Rx Instructions .Route 10/20/22 .COMPLEX #90 tabs gabapentin 300 mg capsule 300 mg PO BID #180 caps 12/07/22 Allergies Allergy/AdvReac Type Severity Reaction Status Date / Time amoxicillin [AMOXICILLIN] Allergy Unknown RASH/HIVES Verified 04/10/23 14:38 Penicillins Allergy Unknown Verified 04/10/23 14:38 hydromorphone Allergy Verified 04/10/23 14:38 Opioids - Morphine Analogues Allergy Verified 04/10/23 14:38 cephalexin AdvReac Severe Rash Verified 04/10/23 14:38 Patient History Medical History Acne Anxiety Chronic bilateral low back pain without sciatica (04/11/16) Crohn's disease without complication (04/23/15) Depression GERD (gastroesophageal reflux disease) Headache Hyperlipidemia Hypothyroidism Insomnia disorder Left ankle injury Migraine Opiate dependence, continuous (04/23/15) Pyelonephritis Tobacco abuse Umbilical hernia Surgical History Anesthesia H/O oophorectomy History of knee surgery Family History Father Thyroid condition Social History household members: friend(s) Smoking Status: Current every day smoker Tobacco: How many years used: 4 quit status: considering quitting alcohol intake: former substance use type: marijuana Smoking Status: Current every day smoker alcohol intake frequency: holidays/special occasions only Substance Use Type: former substance user and marijuana Exam Initial Vital Signs Initial Vital Signs: Vital Signs Temperature 99.6 F 04/10/23 15:04 Pulse Rate 67 04/10/23 15:04 Respiratory Rate 18 04/10/23 15:04 Blood Pressure 132/79 04/10/23 15:04 Pulse Oximetry 100 04/10/23 15:04 Oxygen Delivery Method Room Air 04/10/23 15:04 GENERAL: Tearful 32-year-old female HEENT: Head atraumatic,EOMI, pupils reactive, face symmetric, moist mucous membranes CARDIOVASCULAR: Regular rate and rhythm without murmurs, rubs or gallops. RESPIRATORY: Breath sounds equal bilaterally, no wheezes rales or rhonchi. ABDOMEN: Soft, lower abdominal pain right greater than left round left as well. Minimal right upper quadrant pain : Mild right CVA tenderness EXTREMITIES: Normal range of motion, no clubbing or edema. Neurovascularly intact NEUROLOGICAL: Alert and oriented x4. SKIN: Warm, dry, no laceration, no petechiae, no rashes or lesions. Course Orders Ordered: ED Orders 04/10/23 15:16 Consult to COMPUTER ASSEMBLER - [employer] Stat 04/10/23 15:20 Complete Blood Count AUTO DIFF Stat Comprehensive Metabolic Panel Stat Lipase Stat 04/10/23 16:26 CT abdomen pelvis w con Stat 04/10/23 16:35 Urine Microscopic Stat Ondansetron HCl (Ondansetron 4 Mg Odt) 4 mg PO NOW PRN PRN Reason: Nausea And Vomiting Ondansetron HCl (Ondansetron 4 Mg/2 Ml Inj) 4 mg IV NOW PRN PRN Reason: Nausea And Vomiting Vital Signs Vital signs: Vital Signs - 8 hr 04/10/23 15:04 Temperature 99.6 F Pulse Rate 67 Respiratory Rate 18 Blood Pressure 132/79 Pulse Oximetry 100 Oxygen Delivery Method Room Air MDM - Abdominal Pain Lab Data 04/10/23 15:20 04/10/23 15:20 Labs: Lab Results 04/10/23 04/10/23 Range/Units 15:20 16:35 WBC 7.5 (4.5-11.0) X10^3/uL RBC 4.59 (4.0-5.2) X10^6/uL Hgb 14.5 (12.0-16.0) g/dL Hct 41.9 (36-46) % MCV 91.4 (80-100) fL MCH 31.5 (26-34) PG MCHC 34.5 (30-36) % RDW 12.4 (11.6-14.8) % Plt Count 294 (150-400) X10^3/uL Neut % (Auto) 59.8 (50-75) % Lymph % (Auto) 28.0 (25-40) % [place] % (Auto) 9.5 (3-14) % Eos % (Auto) 2.2 (2-4) % Baso % (Auto) 0.5 (0-2) % Neut # (Auto) 4500 (6220-9248) /uL Lymph # (Auto) 2100 (7603-9288) /uL [place] # (Auto) 700 (0-900) /uL Eos # (Auto) 200 (0-450) /uL Baso # (Auto) 0 (0-100) /uL Sodium 137 (137-145) mmol/L Potassium 3.2 L (3.4-5.1) mmol/L Chloride 98 (98-107) mmol/L Carbon Dioxide 30 (22-32) mmol/L BUN 17 (7-17) mg/dL Creatinine 0.97 (0.52-1.04) mg/dL Estimated GFR > 60 (>60) mL/min BUN/Creatinine Ratio 17.5 (6-22) Glucose 90 (70-100) mg/dL Calcium 9.5 (8.4-10.2) mg/dL Total Bilirubin 0.8 (0.2-1.3) mg/dL AST TNP ALT 36 H (<35) IU/L Alkaline Phosphatase 47 (38-126) U/L Total Protein 8.3 H (6.3-8.2) g/dL Albumin 4.6 (3.5-5.0) g/dL Globulin 3.7 (1.7-4.1) g/dL Albumin/Globulin Ratio 1.2 (1.0-2.8) Lipase 115 (23-300) U/L Urine RBC 0-1/hpf (0-5/HPF) Urine WBC 0-1/hpf (0-5/HPF) Ur Squamous Epith Cells 0-1 /hpf (0-5/HPF) Urine Bacteria Few (2-10) H (None) Ur Culture Indicated? Cult not indicated Point of care testing: Point of Care Testing Test Results Negative Urine Dip Bedside Urine Glucose Negative Bedside Urine Bilirubin - Negative Urine Specific [place] 1.005 Bedside Urine Occult Blood + Bedside Urine pH 6.0 Bedside Urine Protein - Negative Bedside Urine Urobilinogen - Negative Bedside Urine Nitrite - Negative Bedside Urine Leukocytes +/- [address] scan - abdomen/pelvis: Radiologist's Impression: PROCEDURE: CT ABDOMEN PELVIS W CON INDICATIONS: right flank pain and ab pain TECHNIQUE: After the administration of intravenous contrast, axial sections acquired from the lung bases to the pubic symphysis. Coronal and sagittal reformats were performed. For radiation dose reduction, the following was used: automated exposure control, adjustment of mA and/or kV according to patient size. COMPARISON: [facility], CT, CT ABDOMEN PELVIS W CON, 03/29/2021, 12:45. [facility], CT, CT ABDOMEN PELVIS W CON, 01/27/2021, 23:01. FINDINGS: Image quality: Diagnostic. Lower Chest: No significant findings. ABDOMEN: Liver: No solid mass. Gallbladder: No radiopaque gallstones or wall thickening. Biliary ducts: No biliary dilation. Pancreas: No ductal dilation. Spleen: Size is within normal limits. Adrenal Glands: No adrenal nodules. Kidneys and Ureters: No hydronephrosis. No solid mass. No complex renal cystic lesion which requires follow up. Stomach and Bowel: Normal colonic caliber, without significant wall thickening. Normal appendix Peritoneum: No abnormal intraperitoneal fluid. No free air. Ventral Wall: Increase soft tissue density in periumbilical hernia without acute inflammatory changes. This may represent interval hernia repair. Recommend clinical correlation. Abdominal Nodes: No retroperitoneal or mesenteric adenopathy by size criteria. Vessels: Aorta and inferior vena cava are normal in size. PELVIS: Pelvic Organs: Unremarkable. Bladder: Unremarkable. Pelvic Nodes: No enlarged lymph nodes. Miscellaneous: No inguinal hernias are seen. Bones: Visualized osseous structures appear intact without acute fracture or focal destructive lesion. No acute compression fractures of the imaged spine. IMPRESSION: CT abdomen and pelvis without of acute abnormalities to explain patient's symptoms. Normal appendix. No evidence for obstructive uropathy. Dictated by: Tonny Brooks M.D. on 04/10/2023 at 18:00 [facility] Narrative Medical decision making narrative: Patient 32-year-old tearful female presenting today with ongoing abdominal pain for the last 2 weeks she feels like she can not go to work because of it. This is never happened to her before. No fever or chills. Blood work does not show any evidence of anemia or leukocytosis. She has reported some episodes of black stool, potassium slightly low 3.2 no PAUL or electrolyte abnormalities no evidence of pancreatitis CT abdomen no cause of abdominal pain is identified At this time patient is tender but blood work is reassuring CT does not show any acute abnormality. Recommend colonoscopy possible endometriosis need further outpatient workup. She understands but is quite frustrated. Discharge Plan Departure Patient Disposition: Home Clinical Impression: Abdominal pain Instructions: DI for Abdominal Pain-Adult Activity Restrictions/Additional Instructions: *You have been diagnosed with abdominal pain *What to do: At this time your CT and blood work are overall reassuring. Recommend outpatient follow-up with your ongoing abdominal pain may need colonoscopy *Continue to take medications as directed *Follow up with your primary care provider in 2-3 days or call [phone] *Return to ER if you should have increasing pain nausea vomiting weakness [or] any new, worsening or concerning symptoms Prescriptions: No Action trazodone 100 mg tablet See Rx Instructions .ROUTE .COMPLEX Qty: 180 1RF Dose Instruction: TAKE TWO TABLETS NIGHTLY AT BEDTIME Rx Instructions: TAKE TWO TABLETS NIGHTLY AT BEDTIME levothyroxine 125 mcg tablet See Rx Instructions .ROUTE .COMPLEX Qty: 90 0RF Dose Instruction: TAKE ONE TABLET BY MOUTH DAILY. Rx Instructions: TAKE ONE TABLET BY MOUTH DAILY. gabapentin 300 mg capsule 300 mg PO BID Qty: 180 1RF nitroglycerin 0.4 mg tablet, sublingual 0.4 mg sublingual Q5M PRN (Reason: chest pain) Qty: 20 1RF Rx Instructions: do not exceed 3 doses per episode buprenorphine-naloxone 8 MG/2 MG tablet, sublingual 2 tab Sublingual QAM Referrals: Javier Mckee DO [Primary Care Provider] - Stand Alone Forms: Patient Portal/API
--- NOTE | 2023-04-10 16:26 | DI.CT.S_ITS ---
PROCEDURE: CT ABDOMEN PELVIS W CON INDICATIONS: right flank pain and ab pain TECHNIQUE: After the administration of intravenous contrast, axial sections acquired from the lung bases to the pubic symphysis. Coronal and sagittal reformats were performed. For radiation dose reduction, the following was used: automated exposure control, adjustment of mA and/or kV according to patient size. COMPARISON: [facility], CT, CT ABDOMEN PELVIS W CON, 03/29/2021, 12:45. [facility], CT, CT ABDOMEN PELVIS W CON, 01/27/2021, 23:01. FINDINGS: Image quality: Diagnostic. Lower Chest: No significant findings. ABDOMEN: Liver: No solid mass. Gallbladder: No radiopaque gallstones or wall thickening. Biliary ducts: No biliary dilation. Pancreas: No ductal dilation. Spleen: Size is within normal limits. Adrenal Glands: No adrenal nodules. Kidneys and Ureters: No hydronephrosis. No solid mass. No complex renal cystic lesion which requires follow up. Stomach and Bowel: Normal colonic caliber, without significant wall thickening. Normal appendix Peritoneum: No abnormal intraperitoneal fluid. No free air. Ventral Wall: Increase soft tissue density in periumbilical hernia without acute inflammatory changes. This may represent interval hernia repair. Recommend clinical correlation. Abdominal Nodes: No retroperitoneal or mesenteric adenopathy by size criteria. Vessels: Aorta and inferior vena cava are normal in size. PELVIS: Pelvic Organs: Unremarkable. Bladder: Unremarkable. Pelvic Nodes: No enlarged lymph nodes. Miscellaneous: No inguinal hernias are seen. Bones: Visualized osseous structures appear intact without acute fracture or focal destructive lesion. No acute compression fractures of the imaged spine. IMPRESSION: CT abdomen and pelvis without of acute abnormalities to explain patient's symptoms. Normal appendix. No evidence for obstructive uropathy. Dictated by: Tonny Brooks M.D. on 04/10/2023 at 18:00 Approved by: Tonny Brooks M.D. on 04/10/2023 at 18:06
--- NOTE | 2023-04-10 16:27 | CM.SWNOTE ---
ED DRYWALL SANDER Note DRYWALL SANDER receives consult due to patient's concern for her financial situation. Patient is 32 y/o female who presents to the ED due to concern for abdominal pain. Patient was at [facility] yesterday but had to leave AMA due to concern for lack of childcare. Patient's PCP is Dr. Mckee, patient has [employer] insurance. Patient endorses she has been feeling sick for quite some time especially the last few days and has been unable to work. Patient endorses she has a friend caring for her child until 6pm and has to leave ED before then. Patient endorse she will need a medical work note as well. DRYWALL SANDER provides patient with financial hardship application, encourages patient to apply for Medicaid as well. DRYWALL SANDER provides patient with resources for food, utilities and basic needs. Plan: patient to d/c to home upon medical clearance, patient to f/u with resources provided and f/u with PCP. OSEAS RodrigesSW
[2023-04-10 16:39] LABS: Alanine Aminotransferase 36 IU/L (<35); Albumin 4.6 g/dL (3.5-5.0); Albumin Globulin Ratio 1.2 (1.0-2.8); Alkaline Phosphatase 47 U/L (38-126); BUN Creatinine Ratio 17.5 (6-22); Bilirubin Total 0.8 mg/dL (0.2-1.3); Blood Urea Nitrogen 17 mg/dL (7-17); Calcium 9.5 mg/dL (8.4-10.2); Carbon Dioxide 30 mmol/L (22-32); Chloride 98 mmol/L (98-107); Estimated Glomerular Filt Rate > 60 mL/min (>60); Globulin 3.7 g/dL (1.7-4.1); Glucose 90 mg/dL (70-100); Lipase 115 U/L (23-300); Potassium 3.2 mmol/L (3.4-5.1); Sodium 137 mmol/L (137-145); Total Protein 8.3 g/dL (6.3-8.2)
[2023-04-10 17:05] LABS: Bacteria Urine Few (2-10); Culture Indicated Urine Cult Not Indicated; RBC Urine 0-1/HPF (0-5/HPF); Squamous Epithelial Cell Urine 0-1 /HPF (0-5/HPF); WBC Urine 0-1/HPF (0-5/HPF)
[2023-04-13 16:32] LABS: HEMOLYSIS < 15 (0-50)
[2023-04-13 16:33] LABS: Aspartate Aminotransferase 31 IU/L (14-36)
== END 2023-04-10 18:14 | disposition home or self-care (01) ==
PROVIDERS: Emergency Provider Emergency Medicine; PCP Family Medicine
DX: R10.30 Lower abdominal pain, unspecified (principal)
CPT/HCPCS: 36415; 74177; 80053; 81003; 81015; 81025; 83690; 85025; 87086; 99284; Q9967

== ENCOUNTER 2023-06-24 08:43 | Emergency (ER) | payer OTHER, SELFPAY ==
[2023-06-24] VITALS (9 sets, daily range): BP systolic 94–141; BP diastolic 52–94; PULSE 47–95; RESP 16; TEMP 37.1; O2SAT 91–99; BMI 34.2
--- NOTE | 2023-06-24 08:52 | ED.NAVMDI ---
HPI - Nausea/Vomiting/Diarrhea General Chief complaint: Nausea/Vomiting/Diarrhea Stated complaint: vomiting/cramping T-4 Time Seen by Provider: 06/24/23 08:45 Source: patient and family Mode of arrival: Ambulatory History of Present Illness HPI Narrative: 32-year-old female with history of Crohn's disease, not currently on medications, former substance use presents by private vehicle from home for 4 days of generalized abdominal pain with nausea and vomiting. Patient states that this feels like a typical Crohn's flare-up for her, triggered by stress. Patient states that her mother recently and since then she has had pain. She was tried dicyclomine without relief. She states that hot showers have somewhat helped her pain, but today is day 4 of symptoms and her friend prompted her to seek evaluation in the emergency department. Related Data Home Medications Medication Instructions Recorded Confirmed buprenorphine 8 mg-naloxone 2 mg 2 tab sublingual QAM 08/19/18 04/10/23 sublingual tablet Previous Rx's Medication Instructions Recorded nitroglycerin 0.4 mg sublingual 0.4 mg sublingual Q5M PRN chest 02/15/22 tablet pain #20 tabs gabapentin 300 mg capsule 300 mg PO BID #180 caps 12/07/22 dicyclomine 20 mg tablet 20 mg PO TID PRN abdominal pain 04/17/23 #30 tabs levothyroxine 125 mcg tablet See Rx Instructions .Route 04/17/23 .COMPLEX #90 tabs ondansetron 8 mg disintegrating 8 mg PO Q8H PRN nausea and 04/17/23 tablet vomiting #30 tabs trazodone 100 mg tablet See Rx Instructions .Route 06/12/23 .COMPLEX #180 tabs ondansetron 4 mg disintegrating 4 mg PO Q8H PRN nausea and 06/24/23 tablet vomiting #30 tabs promethazine 25 mg tablet 25 mg PO Q6H PRN nausea and 06/24/23 vomiting #20 tabs Allergies Allergy/AdvReac Type Severity Reaction Status Date / Time amoxicillin [AMOXICILLIN] Allergy Unknown RASH/HIVES Verified 06/24/23 08:51 Penicillins Allergy Unknown Verified 06/24/23 08:51 hydromorphone Allergy Verified 06/24/23 08:51 Opioids - Morphine Analogues Allergy Verified 06/24/23 08:51 cephalexin AdvReac Severe Rash Verified 06/24/23 08:51 diphenhydramine AdvReac Severe Anxiety Verified 06/24/23 08:51 Review of Systems Review of Systems Narrative: Negative except as noted above Patient History Medical History Left ankle injury Umbilical hernia Pyelonephritis Tobacco abuse Hyperlipidemia Acne Anxiety Headache Depression GERD (gastroesophageal reflux disease) Chronic bilateral low back pain without sciatica (07/19/15) Opiate dependence, continuous (04/23/15) Crohn's disease without complication (04/23/15) Hypothyroidism Insomnia disorder Migraine Surgical History Anesthesia History of knee surgery H/O oophorectomy Family History Father Thyroid condition Social History household members: friend(s) Smoking Status: Current every day smoker Tobacco: How many years used: 4 quit status: considering quitting alcohol intake: former substance use type: marijuana Smoking Status: Current every day smoker alcohol intake frequency: holidays/special occasions only Substance Use Type: former substance user and marijuana Exam Initial Vital Signs Initial Vital Signs: Vital Signs Temperature 98.8 F 06/24/23 08:49 Pulse Rate 95 H 06/24/23 08:49 Respiratory Rate 16 06/24/23 08:49 Blood Pressure 141/94 H 06/24/23 08:49 Pulse Oximetry 99 06/24/23 08:49 Oxygen Delivery Method Room Air 06/24/23 08:49 Const: Awake, alert, uncomfortable, in pain Cardiac: regular rate, regular rhythm RESP: unlabored, clear bilaterally, no wheezing GI: Soft, generalized tenderness to palpation without rebound or guarding MSK: Atraumatic, full range of motion, pulses equal Skin: Warm, Dry, intact, no rashes Neuro: AO x3, CN II-XII grossly intact, moves all extremities Course Orders Ordered: ED Orders 06/24/23 08:51 EKG-12 Lead Stat 06/24/23 08:55 CBC Auto Diff [Complete Blood Count AUTO DIFF] Stat CMP [Comprehensive Metabolic Panel] Stat Lipase Stat Discontinued Medications Droperidol (Droperidol 5 Mg/2 Ml Vial) 2.5 mg IV NOW ONE Stop: 06/24/23 08:51 Last Admin: 06/24/23 09:09 Dose: 2.5 mg Documented By: KANA Sodium Chloride (Normal Saline 0.9%) 1,000 mls @ 1,000 mls/hr IV BOLUS ONE Stop: 06/24/23 09:49 Last Infusion: 06/24/23 10:14 Dose: Infused Documented By: Admin: 06/24/23 09:08 Dose: 1,000 mls/hr Documented By: KANA Acetaminophen (Ofirmev) 1,000 mg in 100 mls @ 400 mls/hr IV NOW ONE Stop: 06/24/23 09:46 Last Infusion: 06/24/23 09:53 Dose: Infused Documented By: Admin: 06/24/23 09:36 Dose: 400 mls/hr Documented By: KANA Sodium Chloride (Normal Saline 0.9%) 1,000 mls @ 1,000 mls/hr IV BOLUS ONE Stop: 06/24/23 11:45 Last Infusion: 06/24/23 12:11 Dose: Infused Documented By: Admin: 06/24/23 10:58 Dose: 1,000 mls/hr Documented By: KANA Vital Signs Vital signs: Vital Signs - 8 hr 06/24/23 08:49 06/24/23 09:38 06/24/23 10:00 Temperature 98.8 F Pulse Rate 95 H 54 L 54 L Respiratory Rate 16 Blood Pressure 141/94 H Pulse Oximetry 99 91 92 Oxygen Delivery Method Room Air 06/24/23 10:07 06/24/23 10:07 06/24/23 10:30 Temperature Pulse Rate 56 L Respiratory Rate Blood Pressure 102/57 L 98/54 L Pulse Oximetry 95 Oxygen Delivery Method 06/24/23 10:30 06/24/23 11:00 06/24/23 11:00 Temperature Pulse Rate 54 L Respiratory Rate Blood Pressure 102/56 L Pulse Oximetry 98 97 Oxygen Delivery Method 06/24/23 11:21 06/24/23 11:21 06/24/23 11:30 Temperature Pulse Rate 55 L Respiratory Rate Blood Pressure 104/66 102/58 L Pulse Oximetry 98 Oxygen Delivery Method 06/24/23 11:30 06/24/23 12:00 06/24/23 12:00 Temperature Pulse Rate 47 L 49 L Respiratory Rate Blood Pressure 94/52 L Pulse Oximetry 98 95 Oxygen Delivery Method MDM - Nausea/Vomiting/Diarrhea Differential Diagnosis Differential diagnosis: Likely traveler's diarrhea, food poisoning and gastroenteritis Lab Data 06/24/23 08:55 06/24/23 08:55 Labs: Lab Results 06/24/23 Range/Units 08:55 WBC 11.7 H (4.5-11.0) X10^3/uL RBC 4.85 (4.0-5.2) X10^6/uL Hgb 14.9 (12.0-16.0) g/dL Hct 43.7 (36-46) % MCV 89.9 (80-100) fL MCH 30.8 (26-34) PG MCHC 34.2 (30-36) % RDW 12.6 (11.6-14.8) % Plt Count 353 (150-400) X10^3/uL Neut % (Auto) 77.8 H (50-75) % Lymph % (Auto) 12.6 L (25-40) % [place] % (Auto) 8.8 (3-14) % Eos % (Auto) 0.2 L (2-4) % Baso % (Auto) 0.6 (0-2) % Neut # (Auto) 9100 H (2194-8025) /uL Lymph # (Auto) 1500 (4594-4575) /uL [place] # (Auto) 1000 H (0-900) /uL Eos # (Auto) 0 (0-450) /uL Baso # (Auto) 100 (0-100) /uL Sodium 140 (137-145) mmol/L Potassium 3.8 (3.4-5.1) mmol/L Chloride 103 (98-107) mmol/L Carbon Dioxide 30 (22-32) mmol/L BUN 18 H (7-17) mg/dL Creatinine 1.19 H (0.52-1.04) mg/dL Estimated GFR > 60 (>60) mL/min BUN/Creatinine Ratio 15.1 (6-22) Glucose 101 H (70-100) mg/dL Calcium 10.3 H (8.4-10.2) mg/dL Total Bilirubin 0.8 (0.2-1.3) mg/dL AST 24 (14-36) IU/L ALT 22 (<35) IU/L Alkaline Phosphatase 49 (38-126) U/L Total Protein 8.9 H (6.3-8.2) g/dL Albumin 4.8 (3.5-5.0) g/dL Globulin 4.1 (1.7-4.1) g/dL Albumin/Globulin Ratio 1.2 (1.0-2.8) Lipase 72 (23-300) U/L [facility] Narrative Medical decision making narrative: Abdominal pain with nausea and vomiting, per patient history likely stress induced. Patient reports improvement with hot showers, consider cannabinoid hyperemesis as well. Abdomen is soft, generally tender to palpation without focality. Hemodynamically stable. We will trial droperidol, IV fluids and we will reassess. Pain and nausea resolved after droperidol and IV Tylenol administration. Laboratory work is reviewed, patient's WBC count 11.7, hemoglobin 14.9. Suspect that mild leukocytosis is secondary to stress from vomiting. Sodium 140, potassium 3.8, chloride 103, creatinine 1.19, GFR greater than 60. Patient received 2 L of IV fluids, subsequently able to tolerate p.o. without nausea or emesis. Patient stated that she felt well and ready to go home. Nausea medication sent to pharmacy of choice. Patient counseled to follow a brat diet. PCP follow up advised. Discharge Plan Departure Patient Disposition: Home Clinical Impression: Nausea & vomiting Instructions: DI for Vomiting -- Adult Activity Restrictions/Additional Instructions: Follow a light diet over the next several days to avoid aggravating her stomach. Take the prescribed nausea medications as directed. Please follow up with your primary care doctor. Prescriptions: New ondansetron 4 mg tablet,disintegrating 4 mg PO Q8H PRN (Reason: nausea and vomiting) Qty: 30 0RF promethazine 25 mg tablet 25 mg PO Q6H PRN (Reason: nausea and vomiting) Qty: 20 0RF No Action gabapentin 300 mg capsule 300 mg PO BID Qty: 180 1RF trazodone 100 mg tablet See Rx Instructions .ROUTE .COMPLEX Qty: 180 1RF Dose Instruction: TAKE TWO TABLETS NIGHTLY AT BEDTIME Rx Instructions: TAKE TWO TABLETS NIGHTLY AT BEDTIME nitroglycerin 0.4 mg tablet, sublingual 0.4 mg sublingual Q5M PRN (Reason: chest pain) Qty: 20 1RF Rx Instructions: do not exceed 3 doses per episode dicyclomine 20 mg tablet 20 mg PO TID PRN (Reason: abdominal pain) Qty: 30 1RF ondansetron 8 mg tablet,disintegrating 8 mg PO Q8H PRN (Reason: nausea and vomiting) Qty: 30 1RF levothyroxine 125 mcg tablet See Rx Instructions .ROUTE .COMPLEX Qty: 90 3RF Dose Instruction: TAKE ONE TABLET BY MOUTH DAILY. Rx Instructions: TAKE ONE TABLET BY MOUTH DAILY. buprenorphine-naloxone 8 MG/2 MG tablet, sublingual 2 tab Sublingual QAM Referrals: Javier Mckee DO [Primary Care Provider] - Stand Alone Forms: Patient Portal/API
[2023-06-24] MEDS: SODIUM CHLORIDE 0.9% 1,000 ML 1000 ML IV ×2 (09:08→10:58)
[2023-06-24 09:09] LABS: Basophils Absolute Auto 100 /uL (0-100); Eosinophils Absolute Auto 0 /uL (0-450); Hemoglobin 14.9 g/dL (12.0-16.0); Monocytes Absolute Auto 1000 /uL (0-900)
[2023-06-24] MEDS: DROPERIDOL 5 MG/2 ML VIAL 2.5 MG IV (09:09)
--- NOTE | 2023-06-24 09:13 | PC.NURSE ---
Pt came to the ED today because she has been having worsening abd pain and n/v for the past 4 days. Pt has hx og crohn's disease and her mother recently . Pt states that she often has crohn's flare-ups when she is experiencing significant stress in her life. Pt states that she is having an 8/10 pain that she describes as cramping and sharp. pt also reports that she cannot keep any food or fluids down. And tender on palpation. VS WNL. A&ox4.
[2023-06-24 09:15] LABS: Add Manual Diff / Slide Review NO; Basophils Percent Auto 0.6 % (0-2); Eosinophils Percent Auto 0.2 % (2-4); Hematocrit 43.7 % (36-46); Lymphocytes Absolute Auto 1500 /uL (1100-4500); Lymphocytes Percent Auto 12.6 % (25-40); Mean Corpuscular HGB Conc 34.2 % (30-36); Mean Corpuscular Hemoglobin 30.8 PG (26-34); Mean Corpuscular Volume 89.9 fL (80-100); Monocytes Percent Auto 8.8 % (3-14); Neutrophils Absolute Auto 9100 /uL (1500-7000); Neutrophils Percent Auto 77.8 % (50-75); Platelet Count 353 X10^3/uL (150-400); Red Blood Cell Count 4.85 X10^6/uL (4.0-5.2); Red Cell Distribution Width 12.6 % (11.6-14.8); White Blood Cell Count 11.7 X10^3/uL (4.5-11.0)
[2023-06-24 09:21] LABS: Alanine Aminotransferase 22 IU/L (<35); Albumin 4.8 g/dL (3.5-5.0); Albumin Globulin Ratio 1.2 (1.0-2.8); Alkaline Phosphatase 49 U/L (38-126); Aspartate Aminotransferase 24 IU/L (14-36); BUN Creatinine Ratio 15.1 (6-22); Bilirubin Total 0.8 mg/dL (0.2-1.3); Blood Urea Nitrogen 18 mg/dL (7-17); Calcium 10.3 mg/dL (8.4-10.2); Carbon Dioxide 30 mmol/L (22-32); Chloride 103 mmol/L (98-107); Estimated Glomerular Filt Rate > 60 mL/min (>60); Globulin 4.1 g/dL (1.7-4.1); Glucose 101 mg/dL (70-100); HEMOLYSIS < 15 (0-50); Potassium 3.8 mmol/L (3.4-5.1); Sodium 140 mmol/L (137-145); Total Protein 8.9 g/dL (6.3-8.2)
[2023-06-24 09:22] LABS: Lipase 72 U/L (23-300)
[2023-06-24] MEDS: ACETAMINOPHEN IV 1,000 MG/100 ML VIAL 400 MG IV (09:36)
== END 2023-06-24 12:49 | disposition home or self-care (01) ==
PROVIDERS: Emergency Provider Emergency Medicine; PCP Family Medicine
DX: R11.2 Nausea with vomiting, unspecified (principal); R07.9 Chest pain, unspecified
CPT/HCPCS: 36415; 80053; 83690; 85025; 93005; 96361; 96365; 96375; 99284; J0136; J1790

== ENCOUNTER 2023-10-22 21:46 | Emergency (ER) | payer SELFPAY ==
--- NOTE | 2023-10-22 22:01 | ED.GENADULT ---
HPI - General Adult General Chief complaint: Abdominal Pain Stated complaint: stomach pain Time Seen by Provider: 10/22/23 22:01 History of Present Illness HPI narrative: 33-year-old woman with a history of Crohn's disease, hypothyroidism who presents with 3 weeks of abdominal pain. She notes that in the past she has had kidney infections without significant urinary symptoms and she is wondering if that is what is causing her pain at this time. Over the 3 weeks she is tried increasing fluids, cranberry capsules, she has not noticed significant dysuria or frequency, no diarrhea, no vaginal discharge and no genital lesions or concerns. She describes the pain as through the central portion of her abdomen and radiating into her back. She is not describing fevers, chest pain, palpitations, dyspnea, lower extremity edema. Related Data Home Medications Medication Instructions Recorded Confirmed buprenorphine 8 mg-naloxone 2 mg 2 tab sublingual QAM 08/19/18 04/10/23 sublingual tablet Previous Rx's Medication Instructions Recorded nitroglycerin 0.4 mg sublingual 0.4 mg sublingual Q5M PRN chest 02/15/22 tablet pain #20 tabs dicyclomine 20 mg tablet 20 mg PO TID PRN abdominal pain 04/17/23 #30 tabs levothyroxine 125 mcg tablet See Rx Instructions .Route 04/17/23 .COMPLEX #90 tabs ondansetron 8 mg disintegrating 8 mg PO Q8H PRN nausea and 04/17/23 tablet vomiting #30 tabs trazodone 100 mg tablet See Rx Instructions .Route 06/12/23 .COMPLEX #180 tabs ondansetron 4 mg disintegrating 4 mg PO Q8H PRN nausea and 06/24/23 tablet vomiting #30 tabs promethazine 25 mg tablet 25 mg PO Q6H PRN nausea and 06/24/23 vomiting #20 tabs gabapentin 300 mg capsule 300 mg PO BID #180 caps 10/12/23 Allergies Allergy/AdvReac Type Severity Reaction Status Date / Time amoxicillin [AMOXICILLIN] Allergy Unknown RASH/HIVES Verified 06/24/23 08:51 Penicillins Allergy Unknown Verified 06/24/23 08:51 hydromorphone Allergy Verified 06/24/23 08:51 Opioids - Morphine Analogues Allergy Verified 06/24/23 08:51 cephalexin AdvReac Severe Rash Verified 06/24/23 08:51 diphenhydramine AdvReac Severe Anxiety Verified 06/24/23 08:51 Review of Systems Review of Systems Narrative: Pertinent positive and negative findings as per HPI Patient History Medical History Left ankle injury Umbilical hernia Pyelonephritis Tobacco abuse Hyperlipidemia Acne Anxiety Headache Depression GERD (gastroesophageal reflux disease) Chronic bilateral low back pain without sciatica (07/19/15) Opiate dependence, continuous (04/23/15) Crohn's disease without complication (04/23/15) Hypothyroidism Insomnia disorder Migraine Surgical History Anesthesia History of knee surgery H/O oophorectomy Family History Father Thyroid condition Social History household members: friend(s) Smoking Status: Current every day smoker Tobacco: How many years used: 4 quit status: considering quitting alcohol intake: former substance use type: marijuana Smoking Status: Current every day smoker alcohol intake frequency: holidays/special occasions only Substance Use Type: former substance user and marijuana Exam Initial Vital Signs Initial Vital Signs: Vital Signs Temperature 97.7 F 10/22/23 22:06 Pulse Rate 49 L 10/22/23 22:06 Respiratory Rate 16 10/22/23 22:06 Blood Pressure 124/72 10/22/23 22:06 Pulse Oximetry 100 10/22/23 22:06 Oxygen Delivery Method Room Air 10/22/23 22:06 General: Healthy appearing, appears significantly uncomfortable and complains the pain is radiating to her perineum and perirectal area. Able to give a complete and coherent history. Well-nourished well-developed HEENT: Moist mucous membranes, normal sclera with reactive pupils, Respiratory: Lungs are clear to auscultation, no wheezing no rales no rhonchi. Full and symmetrical air movement Cardiac: Regular rate and rhythm no murmurs no bruits Abdomen: Soft, moderate diffuse tenderness with significant tenderness periumbilical and into the right low quadrant with some mild periumbilical guarding but no rebound. She does not have flank pain Skin: Warm and dry, no rashes Neurologic: Grossly neurologically intact with no obvious asymmetries or abnormalities Extremities: No trauma, well perfused Psych: Cooperative, appropriate insight and affect Course Orders Ordered: ED Orders 10/22/23 22:01 Complete Blood Count AUTO DIFF Stat Comprehensive Metabolic Panel Stat Lipase Stat UA Complete [Urinalysis and Microscopic] Stat Urine Culture Stat 10/22/23 22:12 EKG-12 Lead Stat 10/22/23 23:03 CT abdomen pelvis w con Stat Ondansetron HCl (Ondansetron 4 Mg/2 Ml Inj) 4 mg IV NOW PRN PRN Reason: Nausea And Vomiting Ondansetron HCl (Ondansetron 4 Mg Odt) 4 mg PO NOW PRN PRN Reason: Nausea And Vomiting Discontinued Medications Sodium Chloride (Normal Saline 0.9%) 1,000 mls @ 1,000 mls/hr IV BOLUS ONE Stop: 10/23/23 00:02 Last Admin: 10/22/23 23:09 Dose: 1,000 mls/hr Documented By: Vital Signs Vital signs: Vital Signs - 8 hr 10/22/23 22:06 Temperature 97.7 F Pulse Rate 49 L Respiratory Rate 16 Blood Pressure 124/72 Pulse Oximetry 100 Oxygen Delivery Method Room Air Medical Decision Making Lab Data 10/22/23 22:01 10/22/23 22:01 Labs: Lab Results 10/22/23 Range/Units 22:01 WBC 8.9 (4.5-11.0) X10^3/uL RBC 4.34 (4.0-5.2) X10^6/uL Hgb 13.5 (12.0-16.0) g/dL Hct 40.0 (36-46) % MCV 92.2 (80-100) fL MCH 31.0 (26-34) PG MCHC 33.7 (30-36) % RDW 13.0 (11.6-14.8) % Plt Count 264 (150-400) X10^3/uL Neut % (Auto) 66.0 (50-75) % Lymph % (Auto) 24.0 L (25-40) % [place] % (Auto) 8.2 (3-14) % Eos % (Auto) 1.3 L (2-4) % Baso % (Auto) 0.5 (0-2) % Neut # (Auto) 5900 (5974-7472) /uL Lymph # (Auto) 2100 (3494-4315) /uL [place] # (Auto) 700 (0-900) /uL Eos # (Auto) 100 (0-450) /uL Baso # (Auto) 0 (0-100) /uL Sodium 137 (137-145) mmol/L Potassium 3.6 (3.4-5.1) mmol/L Chloride 108 H (98-107) mmol/L Carbon Dioxide 27 (22-32) mmol/L BUN 13 (7-17) mg/dL Creatinine 0.88 (0.52-1.04) mg/dL Estimated GFR > 60 (>60) mL/min BUN/Creatinine Ratio 14.8 (6-22) Glucose 96 (70-100) mg/dL Calcium 9.1 (8.4-10.2) mg/dL Total Bilirubin 0.4 (0.2-1.3) mg/dL AST 27 (14-36) IU/L ALT 15 (<35) IU/L Alkaline Phosphatase 47 (38-126) U/L Total Protein 7.4 (6.3-8.2) g/dL Albumin 4.3 (3.5-5.0) g/dL Globulin 3.1 (1.7-4.1) g/dL Albumin/Globulin Ratio 1.4 (1.0-2.8) Lipase 69 (23-300) U/L Urine Color Yellow Urine Appearance Sl cloudy Urine pH 5.5 (4.5-8.0) Ur Specific [place] >=1.030 H (1.000-1.035) Urine Protein Negative (Negative) Urine Glucose (UA) Negative (Negative) g/dL Urine Ketones Negative (NEGATIVE) Urine Occult Blood 1+ H (Negative) Urine Nitrate Positive H (Negative) Urine Bilirubin Negative (NEGATIVE) Urine Urobilinogen 0.2 (0.2) E.U./dL Ur Leukocyte Esterase Negative (NEGATIVE) Urine RBC 0-1/hpf (0-5/HPF) Urine WBC 1-5/hpf (0-5/HPF) Ur Squamous Epith Cells 0-1 /hpf (0-5/HPF) Urine Bacteria Moderate (10-30) H (None) Ur Culture Indicated? Cult not indicated Vol Urine Centrifuged 10ml (spun) Point of Care Testing Test Results Negative Urine Dip Bedside Urine Glucose Negative Bedside Urine Bilirubin - Negative Bedside Urine Ketone - Negative Urine Specific [place] 1.030 Bedside Urine Occult Blood ++ Bedside Urine pH 6.0 Bedside Urine Protein - Negative Bedside Urine Urobilinogen - Negative Bedside Urine Nitrite + Positive Bedside Urine Leukocytes - Negative Esterase Point of care testing: Point of Care Testing Test Results Negative Urine Dip Bedside Urine Glucose Negative Bedside Urine Bilirubin - Negative Bedside Urine Ketone - Negative Urine Specific [place] 1.030 Bedside Urine Occult Blood ++ Bedside Urine pH 6.0 Bedside Urine Protein - Negative Bedside Urine Urobilinogen - Negative Bedside Urine Nitrite + Positive Bedside Urine Leukocytes - Negative Esterase Imaging Data CT scan - abdomen/pelvis: Radiologist's Impression: PROCEDURE: CT ABDOMEN PELVIS W CON INDICATIONS: diffuse abdominal pain TECHNIQUE: After the administration of intravenous contrast, axial sections acquired from the lung bases to the pubic symphysis. Coronal and sagittal reformats were performed. For radiation dose reduction, the following was used: automated exposure control, adjustment of mA and/or kV according to patient size. COMPARISON: [facility], CT, CT ABDOMEN PELVIS W CON, 04/10/2023, 16:40. FINDINGS: Image quality: Diagnostic. Lower Chest: No significant findings. ABDOMEN: Liver: No solid mass. Gallbladder: No radiopaque gallstones or wall thickening. Biliary ducts: No biliary dilation. Pancreas: No ductal dilation. Spleen: Size is within normal limits. Adrenal Glands: No adrenal nodules. Kidneys and Ureters: No hydronephrosis. No solid mass. No complex renal cystic lesion which requires follow up. Stomach and Bowel: Normal colonic caliber, without significant wall thickening. Peritoneum: Trace dependent fluid. No free air. Ventral Wall: No significant ventral hernia. Abdominal Nodes: No retroperitoneal or mesenteric adenopathy by size criteria. Vessels: Aorta and inferior vena cava are normal in size. PELVIS: Pelvic Organs: Unremarkable. Bladder: No bladder wall thickening, accounting for underdistention. Pelvic Nodes: No enlarged lymph nodes. Miscellaneous: No inguinal hernias are seen. Bones: No aggressive osseous abnormality. IMPRESSION: No acute abdominal or pelvic process. Dictated by: Josephine Chatterjee M.D. on 10/22/2023 at 23:55 MDM Narrative Medical decision making narrative: CC: Three weeks of abdominal pain increasing and now radiating toward her perineum and perirectal Complicating co-morbidities: History of Crohn's disease Data collected from: patient Medical records reviewed: ER documentation from June 23 with complaints of vomiting and cramping with the abdominal imaging done at that time Surgical notes from May of 2022 with umbilical hernia repair reviewed. Patient notes that her belly just has not felt same since the surgery. Primary care notes from April of 2023 are reviewed Differential considered: Crohn's flare, fistula, perirectal abscess, ruptured appendicitis. Doubt pelvic inflammatory disease or STI Exam documented above, pertinent findings include: Diffuse abdominal tenderness worse periumbilical radiating down into the right lower quadrant with mild periumbilical guarding but no rebound. Remainder of exam is benign Lab Test results independently reviewed as above. Pertinent findings: CBC does not suggest significant infection Chemistries are reassuring Lipase is unremarkable Urine has nitrites Imaging studies independently reviewed: CT scan does not show significant pathology, no abscess, diverticulitis, appendicitis, thickened bowel wall. There was a moderate amount of stool but no other explanation for her symptoms Treatments: Fluids, Zofran Re-evaluations: Discussion: 33-year-old woman with a history of Crohn's disease comes in with recurrent episode of abdominal pain. There has been worsening for 3 weeks she is concerned she has a kidney infection or pyelonephritis. She has had no fevers, vaginal discharge. She does not report diarrhea or constipation. CT scan is reassuring with no evidence of acute surgical findings, no significant bowel wall inflammation, no suggestion of inflammation in the pelvis. She has got a moderate amount of stool particularly in the right side and this may be contributing to her pain. We discussed trying MiraLax to see if having a large bowel movement is effective in helping with her overall pain control. Clearly reviewed with her laboratory findings urinalysis and CT findings. At this point there is no indication for hospitalization additional imaging or or lab work. Questions were answered and she is safe for discharge Discharge Plan Departure Patient Disposition: Home Clinical Impression: Abdominal pain Qualifiers: Abdominal location: generalized Qualified Code(s): R10.84 - Generalized abdominal pain Instructions: DI for Abdominal Pain-Adult Activity Restrictions/Additional Instructions: Thank you for coming in today Fortunately, your blood work was very reassuring. Kidney function, liver function, electrolytes were all normal. There was no sign of overwhelming infection or significant anemia. Your CT scan does not suggest any acute surgical abnormality such as abscess, diverticulitis, appendicitis, thickened bowel wall or other concerning findings. There was a moderate amount of stool throughout your right colon and this may be contributing to your overall pain. I would suggest you try a couple of doses of MiraLax to get your bowels moving. The correct amount of MiraLax is however much takes to begin having bowel movements. If you find that you are getting worse or develop any new symptoms, please feel free to return to the emergency department for further evaluation. Prescriptions: No Action trazodone 100 mg tablet See Rx Instructions .ROUTE .COMPLEX Qty: 180 1RF Dose Instruction: TAKE TWO TABLETS NIGHTLY AT BEDTIME Rx Instructions: TAKE TWO TABLETS NIGHTLY AT BEDTIME gabapentin 300 mg capsule 300 mg PO BID Qty: 180 1RF nitroglycerin 0.4 mg tablet, sublingual 0.4 mg sublingual Q5M PRN (Reason: chest pain) Qty: 20 1RF Rx Instructions: do not exceed 3 doses per episode dicyclomine 20 mg tablet 20 mg PO TID PRN (Reason: abdominal pain) Qty: 30 1RF ondansetron 8 mg tablet,disintegrating 8 mg PO Q8H PRN (Reason: nausea and vomiting) Qty: 30 1RF levothyroxine 125 mcg tablet See Rx Instructions .ROUTE .COMPLEX Qty: 90 3RF Dose Instruction: TAKE ONE TABLET BY MOUTH DAILY. Rx Instructions: TAKE ONE TABLET BY MOUTH DAILY. ondansetron 4 mg tablet,disintegrating 4 mg PO Q8H PRN (Reason: nausea and vomiting) Qty: 30 0RF promethazine 25 mg tablet 25 mg PO Q6H PRN (Reason: nausea and vomiting) Qty: 20 0RF buprenorphine-naloxone 8 MG/2 MG tablet, sublingual 2 tab Sublingual QAM Referrals: Javier Mckee DO [Primary Care Provider] - Stand Alone Forms: Patient Portal/API
[2023-10-22 22:06] VITALS: BP 124/72; PULSE 49; RESP 16; TEMP 36.5; O2SAT 100; BMI 29.6
[2023-10-22 22:20] LABS: Add Manual Diff / Slide Review NO; Basophils Absolute Auto 0 /uL (0-100); Basophils Percent Auto 0.5 % (0-2); Eosinophils Absolute Auto 100 /uL (0-450); Eosinophils Percent Auto 1.3 % (2-4); Hemoglobin 13.5 g/dL (12.0-16.0); Lymphocytes Absolute Auto 2100 /uL (1100-4500); Mean Corpuscular HGB Conc 33.7 % (30-36); Mean Corpuscular Volume 92.2 fL (80-100); Monocytes Absolute Auto 700 /uL (0-900); Monocytes Percent Auto 8.2 % (3-14); Neutrophils Absolute Auto 5900 /uL (1500-7000); Platelet Count 264 X10^3/uL (150-400); Red Blood Cell Count 4.34 X10^6/uL (4.0-5.2); White Blood Cell Count 8.9 X10^3/uL (4.5-11.0)
[2023-10-22 22:36] LABS: Alanine Aminotransferase 15 IU/L (<35); Albumin 4.3 g/dL (3.5-5.0); Albumin Globulin Ratio 1.4 (1.0-2.8); Alkaline Phosphatase 47 U/L (38-126); Aspartate Aminotransferase 27 IU/L (14-36); BUN Creatinine Ratio 14.8 (6-22); Bilirubin Total 0.4 mg/dL (0.2-1.3); Blood Urea Nitrogen 13 mg/dL (7-17); Calcium 9.1 mg/dL (8.4-10.2); Carbon Dioxide 27 mmol/L (22-32); Chloride 108 mmol/L (98-107); Estimated Glomerular Filt Rate > 60 mL/min (>60); Globulin 3.1 g/dL (1.7-4.1); Glucose 96 mg/dL (70-100); HEMOLYSIS 32 (0-50); Lipase 69 U/L (23-300); Potassium 3.6 mmol/L (3.4-5.1); Sodium 137 mmol/L (137-145); Total Protein 7.4 g/dL (6.3-8.2)
--- NOTE | 2023-10-22 23:03 | DI.CT.S_ITS ---
PROCEDURE: CT ABDOMEN PELVIS W CON INDICATIONS: diffuse abdominal pain TECHNIQUE: After the administration of intravenous contrast, axial sections acquired from the lung bases to the pubic symphysis. Coronal and sagittal reformats were performed. For radiation dose reduction, the following was used: automated exposure control, adjustment of mA and/or kV according to patient size. COMPARISON: [facility], CT, CT ABDOMEN PELVIS W CON, 04/10/2023, 16:40. FINDINGS: Image quality: Diagnostic. Lower Chest: No significant findings. ABDOMEN: Liver: No solid mass. Gallbladder: No radiopaque gallstones or wall thickening. Biliary ducts: No biliary dilation. Pancreas: No ductal dilation. Spleen: Size is within normal limits. Adrenal Glands: No adrenal nodules. Kidneys and Ureters: No hydronephrosis. No solid mass. No complex renal cystic lesion which requires follow up. Stomach and Bowel: Normal colonic caliber, without significant wall thickening. Peritoneum: Trace dependent fluid. No free air. Ventral Wall: No significant ventral hernia. Abdominal Nodes: No retroperitoneal or mesenteric adenopathy by size criteria. Vessels: Aorta and inferior vena cava are normal in size. PELVIS: Pelvic Organs: Unremarkable. Bladder: No bladder wall thickening, accounting for underdistention. Pelvic Nodes: No enlarged lymph nodes. Miscellaneous: No inguinal hernias are seen. Bones: No aggressive osseous abnormality. IMPRESSION: No acute abdominal or pelvic process. Dictated by: Josephine Chatterjee M.D. on 10/22/2023 at 23:55 Approved by: Josephine Chatterjee M.D. on 10/23/2023 at 0:01
[2023-10-22] MEDS: SODIUM CHLORIDE 0.9% 1,000 ML 1000 ML IV (23:09)
[2023-10-22 23:47] LABS: Appearance Urine UA SL CLOUDY; Bilirubin Urine UA NEGATIVE (NEGATIVE); Color Urine UA YELLOW; Glucose Urine UA NEGATIVE (Negative); Ketones Urine UA NEGATIVE (NEGATIVE); Leukocyte Esterase Urine UA NEGATIVE (NEGATIVE); Nitrite Urine UA POSITIVE (Negative); Occult Blood Urine UA 1+ (Negative); Protein Urine UA NEGATIVE (Negative); Specific Gravity Urine UA >=1.030 (1.000-1.035); Urobilinogen Urine UA 0.2 E.U./dL (0.2); pH Urine UA 5.5 (4.5-8.0)
[2023-10-22 23:53] LABS: Bacteria Urine Moderate (10-30); Culture Indicated Urine Cult Not Indicated; RBC Urine 0-1/HPF (0-5/HPF); Squamous Epithelial Cell Urine 0-1 /HPF (0-5/HPF); Urine Volume 10mL (spun); WBC Urine 1-5/HPF (0-5/HPF)
[2023-10-23 00:58] VITALS: BP 129/87; PULSE 65; RESP 16; O2SAT 100
== END 2023-10-23 01:03 | disposition home or self-care (01) ==
PROVIDERS: Emergency Provider Emergency Medicine; PCP Family Medicine
DX: R10.84 Generalized abdominal pain (principal)
CPT/HCPCS: 36415; 74177; 80053; 81001; 81003; 81025; 83690; 85025; 87077; 87086; 87186; 96360; 96361; 99284; Q9967

== ENCOUNTER → 2023-12-21 11:00 | Outpatient (CLI) | payer OTHER, MEDICAID, SELFPAY ==
[2023-12-21 12:27] LABS: Natera Collection Specimen Collected
[2023-12-21 12:42] LABS: Add Manual Diff / Slide Review NO; Basophils Absolute Auto 0 /uL (0-100); Basophils Percent Auto 0.4 % (0-2); Eosinophils Absolute Auto 0 /uL (0-450); Eosinophils Percent Auto 0.8 % (2-4); Hematocrit 40.1 % (36-46); Hemoglobin 13.7 g/dL (12.0-16.0); Lymphocytes Absolute Auto 900 /uL (1100-4500); Mean Corpuscular Hemoglobin 31.5 PG (26-34); Mean Corpuscular Volume 92.6 fL (80-100); Monocytes Absolute Auto 900 /uL (0-900); Monocytes Percent Auto 15.9 % (3-14); Neutrophils Absolute Auto 3600 /uL (1500-7000); Neutrophils Percent Auto 66.9 % (50-75); Platelet Count 262 X10^3/uL (150-400); Red Blood Cell Count 4.33 X10^6/uL (4.0-5.2); Red Cell Distribution Width 13.2 % (11.6-14.8); White Blood Cell Count 5.4 X10^3/uL (4.5-11.0)
[2023-12-21 13:27] LABS: Hepatitis B Surface Antigen NEGATIVE s/c (NEGATIVE); Rubella Antibody IgG 25.5 IU/mL (>15)
[2023-12-21 13:42] LABS: HIV 1 & 2 Ab/Ag 4th Gen Combo NEGATIVE (NEGATIVE); Hep C Virus Ab w/Reflex Quant NEGATIVE s/c (NEGATIVE)
[2023-12-22 06:18] LABS: RPR Screen Non Reactive (Non Reactive)
[2023-12-22 07:20] LABS: Varicella IgG Antibody 1158 index (Immune >165)
[2023-12-22 16:47] LABS: Free T4, Direct Thyroxine 0.91 ng/dL (0.78-2.19)
== END ==
PROVIDERS: PCP Family Medicine; Referring Provider Student in an Organized Health Care Education/Training Program; Visit Provider Student in an Organized Health Care Education/Training Program
DX: O09.90 Supervision of high risk pregnancy, unspecified, unspecified trimester (principal); O99.280 Endocrine, nutritional and metabolic diseases complicating pregnancy, unspecified trimester; E03.9 Hypothyroidism, unspecified
CPT/HCPCS: 36415; 80055; 84439; 84443; 86787; 86803; 86850; 86900; 86901; 87389

== ENCOUNTER → 2024-02-08 12:59 | Outpatient (CLI) | payer OTHER, MEDICAID, SELFPAY | PROVIDERS: PCP Family Medicine; Referring Provider Physician Assistant Medical; Visit Provider Physician Assistant Medical | DX: R30.0 Dysuria (principal); N30.01 Acute cystitis with hematuria | CPT/HCPCS: 81002; 87077; 87086; 87186 ==

== ENCOUNTER 2024-02-13 05:42 | Emergency (ER) | payer OTHER, MEDICAID, SELFPAY ==
[2024-02-13 05:46] VITALS: BP 111/72; PULSE 61; RESP 16; TEMP 37; O2SAT 100; BMI 34.0
--- NOTE | 2024-02-13 06:02 | PC.NURSE ---
Pt recently treated for UTI. Pt feels symptoms are not better.
--- NOTE | 2024-02-13 06:07 | ED_ITS ---
HPI - Back Pain/Injury General Chief Complaint: Back Pain/Injury Stated Complaint: uti 18 weeks Time Seen by Provider: 02/13/24 05:52 Source: patient Mode of arrival: Ambulatory History of Present Illness HPI Narrative: Patient is a 33-year-old female. Approximately 17 weeks EGA. No vaginal bleeding. No loss of fluid. Was having quite a bit of dysuria and urgency and frequency. Went to the walk-in clinic approximately 1 week ago. Was diagnosed with a urinary tract infection. Was placed on Macrobid. She stated that it was a 5 day treatment. She took it for approximately 3 days but the last 2 days she was ?not been consistent? with taking the medicine because of nausea. She was having continued dysuria, frequency, urgency. Related Data Home Medications Medication Instructions Recorded Confirmed buprenorphine 8 mg-naloxone 2 mg 2 tab sublingual QAM 08/19/18 02/08/24 sublingual tablet vitamin-ferrous sulfate tab PO 11/27/23 02/08/24 27 mg iron-folic acid 0.8 mg tablet Previous Rx's Medication Instructions Recorded nitroglycerin 0.4 mg sublingual 0.4 mg sublingual Q5M PRN chest 02/15/22 tablet pain #20 tabs trazodone 100 mg tablet See Rx Instructions .Route 06/12/23 .COMPLEX #180 tabs ondansetron 4 mg disintegrating 4 mg PO Q8H PRN nausea and 06/24/23 tablet vomiting #30 tabs levothyroxine 150 mcg tablet 150 mcg PO DAILY #30 tabs 12/24/23 gabapentin 100 mg capsule 100 mg PO DAILY #30 caps 01/04/24 nicotine 7 mg/24 hr daily 1 patch transdermal Q24H #14 ea 01/04/24 transdermal patch nitrofurantoin 100 mg PO Q12H 7 days #14 caps 02/08/24 monohydrate/macrocrystals 100 mg capsule (Macrobid) ondansetron 4 mg disintegrating 4 mg PO Q6H PRN nausea and 02/13/24 tablet vomiting #14 tabs phenazopyridine 100 mg tablet 100 mg PO TID PRN pain 6 doses #6 02/13/24 (Pyridium) tabs sulfamethoxazole 800 1 tab PO BID 3 days #6 tabs 02/13/24 mg-trimethoprim 160 mg tablet (Bactrim DS) Allergies Allergy/AdvReac Type Severity Reaction Status Date / Time amoxicillin [AMOXICILLIN] Allergy Unknown RASH/HIVES Verified 02/08/24 10:48 Penicillins Allergy Unknown Swelling Verified 02/08/24 10:48 of Lip/Tongue/Throat cephalexin AdvReac Severe Rash Verified 02/08/24 10:48 diphenhydramine AdvReac Severe Anxiety Verified 02/08/24 10:48 hydromorphone AdvReac Verified 02/08/24 10:48 Opioids - Morphine Analogues AdvReac Verified 02/08/24 10:48 Review of Systems Review of Systems Narrative: See HPI Patient History Medical History Opioid abuse, in remission History of opioid abuse Crohn's disease without complication (04/23/15) Hypothyroidism Left ankle injury Umbilical hernia Pyelonephritis Ovarian neoplasm Acne GERD (gastroesophageal reflux disease) Chronic bilateral low back pain without sciatica (07/19/15) Surgical History (Updated 12/06/23 @ 13:07 by Emma Hall DO) History of hernia repair Anesthesia History of knee surgery H/O oophorectomy Family History (Updated 11/27/23 @ 10:28 by Vika Rey RN) Father Hyperthyroidism Heart disease Heavy smoker Mother Depression Anxiety Drug abuse Social History marital status: unmarried,living together number of children: 1 household members: significant other and children lives independently: Yes caregiver/support person: Yes housing: house pets and animals: Yes (dogs, birds, aware of precautions) education level: college (some college) 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) current occupational exposures/hazards: No travel history: recent ([place]) seatbelt use: always helmet use: Yes water heater temp set < 120 deg: Yes working smoke detector in home: Yes fire extinguisher in home: Yes carbon monox detector in home: Yes firearms in home: No do you feel safe at home: Yes Smoking Status: Former smoker Tobacco: How many years used: 4 quit status: considering quitting second hand exposure: Yes (S/O smokes) alcohol intake: former substance use type: former substance user and marijuana during the past year weight has: decreased > 10 lbs (unintentional following mother's ) well-balanced diet: daily or most days daily servings fruits/ve or more times/day caffeine: Yes Type(s) of exercise: walking, bicycling and other (skateboarding) Smoking Status: Former smoker alcohol intake frequency: holidays/special occasions only Substance Use Type: former substance user and marijuana Exam Initial Vital Signs Initial Vital Signs: Vital Signs Temperature 98.6 F 02/13/24 05:46 Pulse Rate 61 02/13/24 05:46 Respiratory Rate 16 02/13/24 05:46 Blood Pressure 111/72 02/13/24 05:46 Pulse Oximetry 100 02/13/24 05:46 Oxygen Delivery Method Room Air 02/13/24 05:46 Const General: cooperative, comfortable and No ill appearing [facility] Head: normal to inspection and normocephalic GI Inspection: non-distended Neuro General: patient alert and patient awake Course Orders Ordered: ED Orders 02/13/24 06:08 Urine Culture Stat Discontinued Medications Phenazopyridine HCl (Phenazopyridine 100 Mg Tablet) 100 mg PO NOW ONE Stop: 02/13/24 06:07 Trimethoprim/Sulfamethoxazole (Trimeth/Sulfa 160/800 (Ds) Tablet) 1 tab PO NOW ONE Stop: 02/13/24 06:07 Vital Signs Vital signs: Vital Signs - 8 hr 02/13/24 05:46 Temperature 98.6 F Pulse Rate 61 Respiratory Rate 16 Blood Pressure 111/72 Pulse Oximetry 100 Oxygen Delivery Method Room Air MDM - Back Pain/Injury Lab Data Labs: Urine Dip Bedside Urine Glucose Negative Bedside Urine Bilirubin - Negative Bedside Urine Ketone - Negative Urine Specific [place] 1.015 Bedside Urine Occult Blood +/- Bedside Urine pH 6.0 Bedside Urine Protein - Negative Bedside Urine Urobilinogen - Negative Bedside Urine Nitrite - Negative Bedside Urine Leukocytes - Negative Esterase MDM Narrative Medical decision making narrative: Nontoxic appearing, afebrile, not tachycardic. Low suspicion for pyelonephritis. Review of the medical record shows that she had an E coli that was pansensitive. It seems that she was what inconsistent with taking the Macrobid towards the end of the treatment. She was still having quite a bit of dysuria. She was allergic to Keflex and penicillin. She was not allergic to sulfa. She was in the 2nd trimester. Will treat with sulfa and Pyridium. Another culture was obtained. She has a follow-up with her OB provider next week. Will discharge patient home with return precautions. Discharge Plan Departure Patient Disposition: Home Clinical Impression: Dysuria Instructions: DI for Dysuria -- Adult Activity Restrictions/Additional Instructions: I recommend that you keep your scheduled appointment with your primary OB provider for next week. A prescription for a new antibiotic was sent to [facility]. Please take it as directed. Increase your fluid intake. Return to the emergency department for new symptoms. Prescriptions: New sulfamethoxazole-trimethoprim [Bactrim DS] 800-160 mg tablet 1 tab PO BID 3 Days Qty: 6 0RF phenazopyridine [Pyridium] 100 mg tablet 100 mg PO TID PRN (Reason: pain) Qty: 6 0RF ondansetron 4 mg tablet,disintegrating 4 mg PO Q6H PRN (Reason: nausea and vomiting) Qty: 14 0RF No Action trazodone 100 mg tablet See Rx Instructions .ROUTE .COMPLEX Qty: 180 1RF Dose Instruction: TAKE TWO TABLETS NIGHTLY AT BEDTIME Rx Instructions: TAKE TWO TABLETS NIGHTLY AT BEDTIME levothyroxine 150 mcg tablet 150 mcg PO DAILY Qty: 30 3RF nitrofurantoin monohyd/m-cryst [Macrobid] 100 mg capsule 100 mg PO Q12H 7 Days Qty: 14 0RF Rx Instructions: must administer with a meal/food nicotine 7 mg/24 hr patch 24 hour 1 patch transdermal Q24H Qty: 14 0RF Rx Instructions: use daily for two weeks then quit gabapentin 100 mg capsule 100 mg PO DAILY Qty: 30 0RF nitroglycerin 0.4 mg tablet, sublingual 0.4 mg sublingual Q5M PRN (Reason: chest pain) Qty: 20 1RF Rx Instructions: do not exceed 3 doses per episode vit-ferrous sulfat-FA 27 mg iron- 0.8 mg tablet PO ondansetron 4 mg tablet,disintegrating 4 mg PO Q8H PRN (Reason: nausea and vomiting) Qty: 30 0RF buprenorphine-naloxone 8 MG/2 MG tablet, sublingual 2 tab Sublingual QAM Referrals: Javier Mckee DO [Primary Care Provider] - Stand Alone Forms: Patient Portal/API/Survey
[2024-02-13] MEDS: PHENAZOPYRIDINE 100 MG TABLET PO (06:15)
[2024-02-13] MEDS: TRIMETH/SULFA 160/800 (DS) TABLET 1 TAB PO (06:15)
== END 2024-02-13 06:32 | disposition home or self-care (01) ==
PROVIDERS: Emergency Provider Emergency Medicine; PCP Family Medicine
DX: O26.892 Other specified pregnancy related conditions, second trimester (principal); R30.0 Dysuria; Z3A.17 17 weeks gestation of pregnancy
CPT/HCPCS: 81003; 87086; 99283

== ENCOUNTER → 2024-02-26 11:15 | Outpatient (CLI) | payer OTHER, MEDICAID, SELFPAY | PROVIDERS: PCP Family Medicine; Visit Provider Student in an Organized Health Care Education/Training Program | DX: O23.42 Unspecified infection of urinary tract in pregnancy, second trimester (principal); N39.0 Urinary tract infection, site not specified; Z3A.26 26 weeks gestation of pregnancy | CPT/HCPCS: 87086 ==

== ENCOUNTER → 2024-03-11 08:31 | Outpatient (CLI) | payer OTHER, MEDICAID, SELFPAY ==
--- NOTE | 2024-03-11 08:32 | DI.US.S_ITS ---
PROCEDURE: US OB >= 14 WEEKS FETUS INDICATIONS: ANATOMY OUTSIDE/PRIOR DATING DATA: The calculations are made using the working MISTY of 07/14/2024. TECHNIQUE: Real-time scanning was performed of the fetus, with image documentation and biometric measurements. Endovaginal scanning: Not performed COMPARISON: None. FINDINGS: General: A single living intrauterine gestation is present. Presentation: Vertex. Placenta: Placental position is posterior , without previa. Amniotic fluid index: 19.7 cm, normal range is 5-24 cm. Single deepest vertical pocket is 5.4 cm. heart rate: 147 beats per minute. Maternal cervical canal: 4.3 cm long. Normal lower limit is 2.5 cm. biometrics: Biparietal diameter: 5.5 cm, 22 weeks 4 days Head circumference: 20.2 cm, 22 weeks 2 days Abdominal circumference: 19.5 cm, 24 weeks 2 days (94th percentile) Femur length: 3.7 cm, 21 weeks 6 days Clinically estimated gestational age: 21 weeks 1 day Composite gestational age from present scan: 22 weeks 5 days Estimated weight and percentile: 562 g, 88th percentile Anatomic survey: Neuro: Ventricles are non-dilated at less than 10 mm. Cisterna magna is normal at 3-11 mm. Cerebellum is normal in size and morphology. Nuchal skin fold: Normal at less than 6 mm between 14-21 weeks gestational age. Face: Nose and lips, facial profile are normal. Spine: No evidence for spina bifida. Heart: 4-chambered heart is present, with normal ventricular outflow tracts. Diaphragm: Diaphragm is intact. Stomach: Left-sided stomach is present. Kidneys: No hydronephrosis. Normal is less than 5 mm in 2nd trimester, less than 7 mm in 3rd trimester. Cord: 3-vessel cord has orthotopic insertion. Bladder: Normal in size. Extremities: All 4 extremities identified. IMPRESSION: Single living intrauterine at 22 weeks 1 day, MISTY of 07/14/2024. Estimated weight of 562 g, 88th percentile. Abdominal circumference is at 94th percentile. Otherwise, normal anatomy survey. We strive to produce accurate, complete, and clear reports of imaging services. To assist us in improving patient care, this report was composed using standard report templates and voice recognition software. Therefore, it may contain abnormal punctuation, insertions and/or omissions. Occasional wrong-word or sound-alike substitutions may occur. Though we review the report and make efforts to correct it, we do recommend that the report be read carefully in proper context to recognize any text inaccuracies. Dictated by: Don Gonzales M.D. on 03/12/2024 at 12:37 Approved by: Don oGnzales M.D. on 03/12/2024 at 12:40
== END ==
PROVIDERS: PCP Family Medicine; Referring Provider Student in an Organized Health Care Education/Training Program; Visit Provider Student in an Organized Health Care Education/Training Program
DX: Z34.82 Encounter for supervision of other normal pregnancy, second trimester (principal); Z3A.22 22 weeks gestation of pregnancy
CPT/HCPCS: 76811

== ENCOUNTER 2024-05-21 08:06 | Emergency (ER) | payer OTHER, SELFPAY ==
[2024-05-21 08:20] VITALS: BP 119/64; PULSE 67; RESP 18; TEMP 37.4; O2SAT 99; BMI 38.0
[2024-05-21 08:28] VITALS: PULSE 81; O2SAT 97
[2024-05-21 08:30] VITALS: PULSE 74; O2SAT 97
[2024-05-21 08:47] LABS: Add Manual Diff / Slide Review NO; Basophils Absolute Auto 100 /uL (0-100); Basophils Percent Auto 0.4 % (0-2); Eosinophils Absolute Auto 200 /uL (0-450); Eosinophils Percent Auto 1.6 % (2-4); Hematocrit 35.8 % (36-46); Hemoglobin 12.2 g/dL (12.0-16.0); Lymphocytes Absolute Auto 1300 /uL (1100-4500); Lymphocytes Percent Auto 10.7 % (25-40); Mean Corpuscular Hemoglobin 31.8 PG (26-34); Mean Corpuscular Volume 93.4 fL (80-100); Monocytes Absolute Auto 900 /uL (0-900); Monocytes Percent Auto 7.5 % (3-14); Neutrophils Absolute Auto 9800 /uL (1500-7000); Neutrophils Percent Auto 79.8 % (50-75); Platelet Count 273 X10^3/uL (150-400); Red Blood Cell Count 3.83 X10^6/uL (4.0-5.2); Red Cell Distribution Width 12.6 % (11.6-14.8); White Blood Cell Count 12.2 X10^3/uL (4.5-11.0)
[2024-05-21 08:51] LABS: Alanine Aminotransferase 26 IU/L (<35); Albumin 3.7 g/dL (3.5-5.0); Albumin Globulin Ratio 1.2 (1.0-2.8); Alkaline Phosphatase 111 U/L (38-126); Aspartate Aminotransferase 28 IU/L (14-36); BUN Creatinine Ratio 10.6 (6-22); Bilirubin Total 0.4 mg/dL (0.2-1.3); Blood Urea Nitrogen 7 mg/dL (7-17); Calcium 8.8 mg/dL (8.4-10.2); Carbon Dioxide 18 mmol/L (22-32); Chloride 110 mmol/L (98-107); Estimated Glomerular Filt Rate > 60 mL/min (>60); Globulin 3.1 g/dL (1.7-4.1); Glucose 90 mg/dL (70-100); HEMOLYSIS < 15 (0-50); Lipase 114 U/L (23-300); Potassium 3.8 mmol/L (3.4-5.1); Sodium 135 mmol/L (137-145); Total Protein 6.8 g/dL (6.3-8.2)
[2024-05-21] MEDS: SODIUM CHLORIDE 0.9% 1,000 ML 1000 ML IV (09:02)
--- NOTE | 2024-05-21 09:42 | ED.PREGNANCY ---
HPI - General Chief complaint: OB/Uterine Contractions Stated complaint: needs fluids, 32wks , sent by Time Seen by Provider: 05/21/24 08:39 Source: patient, RN notes reviewed and old records reviewed Mode of arrival: Family Vehicle Limitations: no limitations History of Present Illness HPI Narrative: 33-year-old female history of opiate abuse, hypothyroidism 32 weeks presents with complaint of nausea and vomiting. Patient has recent exposures to influenza and RSV over the past 4 weeks from her child states she has been a little bit congested although improving. No fevers today but had a fever of 102 F about 3 days ago. Patient states no chest pain, little bit of shortness of breath, mild cough that has been nonproductive. No hemoptysis. No abdominal back or flank pain. Has had some intermittent nausea and vomiting. Patient states has had normal bowel movements with no black or bloody stools. No vaginal bleeding or discharge. No dysuria urgency or frequency that she appreciates although a little bit of suprapubic discomfort with urination. Patient states was told to come by her physician for fluids and evaluation. Home medications include Subutex, gabapentin and levothyroxine. Patient states does have allergy to amoxicillin but thinks she can take cephalexin. Patient has cephalexin listed under her allergies. She has Zofran at home but found it was not very helpful. Former smoker, occasional alcohol, marijuana, former opiate substance use. Patient is following with Dr. Hall. Related Data Home Medications Medication Instructions Recorded Confirmed buprenorphine 8 mg-naloxone 2 mg 2 tab sublingual QAM 08/19/18 05/20/24 sublingual tablet vitamin-ferrous sulfate tab PO 11/27/23 05/20/24 27 mg iron-folic acid 0.8 mg tablet Previous Rx's Medication Instructions Recorded nitroglycerin 0.4 mg sublingual 0.4 mg sublingual Q5M PRN chest 02/15/22 tablet pain #20 tabs trazodone 100 mg tablet See Rx Instructions .Route 06/12/23 .COMPLEX #180 tabs ondansetron 4 mg disintegrating 4 mg PO Q8H PRN nausea and 06/24/23 tablet vomiting #30 tabs levothyroxine 150 mcg tablet 150 mcg PO DAILY #30 tabs 12/24/23 gabapentin 100 mg capsule 100 mg PO DAILY #30 caps 01/04/24 nicotine 7 mg/24 hr daily 1 patch transdermal Q24H #14 ea 01/04/24 transdermal patch ondansetron 4 mg disintegrating 4 mg PO Q6H PRN nausea and 02/13/24 tablet vomiting #14 tabs phenazopyridine 100 mg tablet 100 mg PO TID PRN pain 6 doses #6 02/13/24 (Pyridium) tabs metoclopramide HCl 10 mg tablet 10 mg PO Q6H PRN nausea and 05/21/24 (Reglan) vomiting #10 tabs nitrofurantoin 100 mg PO BID 5 days #10 caps 05/21/24 monohydrate/macrocrystals 100 mg capsule (Macrobid) Allergies Allergy/AdvReac Type Severity Reaction Status Date / Time amoxicillin [AMOXICILLIN] Allergy Unknown RASH/HIVES Verified 05/20/24 08:36 Penicillins Allergy Unknown Swelling Verified 05/20/24 08:36 of Lip/Tongue/Throat cephalexin AdvReac Severe Rash Verified 05/20/24 08:36 diphenhydramine AdvReac Severe Anxiety Verified 05/20/24 08:36 hydromorphone AdvReac Verified 05/20/24 08:36 Opioids - Morphine Analogues AdvReac Verified 05/20/24 08:36 Review of Systems Review of Systems ROS Unobtainable: All systems reviewed & are unremarkable except as noted in HPI and below Exam Narrative Exam Narrative: GENERAL: Alert and oriented x three, female in mild distress HEENT: Head normocephalic, atraumatic, EOMI, pupils reactive, face symmetric, mild nasal congestion, moist mucous membranes NECK: Supple, full range of motion CARDIOVASCULAR: Regular rate and rhythm without murmurs, rubs or gallops. RESPIRATORY: Breath sounds equal bilaterally, no wheezes rales or rhonchi. ABDOMEN: Soft, nontender. Gravid, size appears appropriate for dates. Normoactive bowel sounds all 4 quadrants. No guarding or rebound, rigidity, no mass : No CVA tenderness EXTREMITIES: Normal range of motion, no clubbing or edema. Reflexes slightly brisk upper and lower extremities. Neurovascularly intact NEUROLOGICAL: Cranial nerves II through XII grossly intact. Moving all extremities SKIN: Warm, dry, no petechiae, no rashes or lesions. Initial Vital Signs Initial Vital Signs: Vital Signs Temperature 99.3 F 05/21/24 08:20 Pulse Rate 67 05/21/24 08:20 Respiratory Rate 18 05/21/24 08:20 Blood Pressure 119/64 05/21/24 08:20 Pulse Oximetry 99 05/21/24 08:20 Oxygen Delivery Method Room Air 05/21/24 08:20 Course Orders Ordered: Discontinued Medications Sodium Chloride (Normal Saline 0.9%) 1,000 mls @ 1,000 mls/hr IV BOLUS ONE Stop: 05/21/24 09:25 Last Infusion: 05/21/24 10:21 Dose: Infused Documented By: Admin: 05/21/24 09:02 Dose: 1,000 mls/hr Documented By: MAGDA Nitrofurantoin Macrocrystals (Nitrofurantoin Er 100 Mg Capsule) 100 mg PO NOW ONE Stop: 05/21/24 10:08 Last Admin: 05/21/24 10:22 Dose: 100 mg Documented By: MAGDA Vital Signs Vital signs: Vital Signs - 8 hr 05/21/24 08:20 05/21/24 08:28 05/21/24 08:30 Temperature 99.3 F Pulse Rate 67 81 74 Respiratory Rate 18 Blood Pressure 119/64 Pulse Oximetry 99 97 97 Oxygen Delivery Method Room Air MDM - OB/Uterine Contractions Lab Data 05/21/24 08:27 05/21/24 08:27 Labs: Lab Results 05/21/24 05/21/24 Range/Units 08:27 08:58 WBC 12.2 H (4.5-11.0) X10^3/uL RBC 3.83 L (4.0-5.2) X10^6/uL Hgb 12.2 (12.0-16.0) g/dL Hct 35.8 L (36-46) % MCV 93.4 (80-100) fL MCH 31.8 (26-34) PG MCHC 34.0 (30-36) % RDW 12.6 (11.6-14.8) % Plt Count 273 (150-400) X10^3/uL Neut % (Auto) 79.8 H (50-75) % Lymph % (Auto) 10.7 L (25-40) % Garden % (Auto) 7.5 (3-14) % Eos % (Auto) 1.6 L (2-4) % Baso % (Auto) 0.4 (0-2) % Neut # (Auto) 9800 H (9192-3034) /uL Lymph # (Auto) 1300 (5221-5964) /uL Garden # (Auto) 900 (0-900) /uL Eos # (Auto) 200 (0-450) /uL Baso # (Auto) 100 (0-100) /uL Sodium 135 L (137-145) mmol/L Potassium 3.8 (3.4-5.1) mmol/L Chloride 110 H (98-107) mmol/L Carbon Dioxide 18 L (22-32) mmol/L BUN 7 (7-17) mg/dL Creatinine 0.66 (0.52-1.04) mg/dL Estimated GFR > 60 (>60) mL/min BUN/Creatinine Ratio 10.6 (6-22) Glucose 90 (70-100) mg/dL Calcium 8.8 (8.4-10.2) mg/dL Total Bilirubin 0.4 (0.2-1.3) mg/dL AST 28 (14-36) IU/L ALT 26 (<35) IU/L Alkaline Phosphatase 111 (38-126) U/L Total Protein 6.8 (6.3-8.2) g/dL Albumin 3.7 (3.5-5.0) g/dL Globulin 3.1 (1.7-4.1) g/dL Albumin/Globulin Ratio 1.2 (1.0-2.8) Lipase 114 (23-300) U/L Urine RBC 1-5/hpf (0-5/HPF) Urine WBC 1-5/hpf (0-5/HPF) Ur Squamous Epith Cells 1-5 /hpf (0-5/HPF) Urine Bacteria Few (2-10) H (None) Ur Culture Indicated? Cult not indicated Vol Urine Centrifuged Low vol <10ml (spun) A Urine Dip Bedside Urine Glucose Negative Bedside Urine Bilirubin - Negative Bedside Urine Ketone - Negative Urine Specific [place] 1.030 Bedside Urine Occult Blood - Negative Bedside Urine pH 6.0 Bedside Urine Protein +/- 15 Bedside Urine Urobilinogen - Negative Bedside Urine Nitrite - Negative Bedside Urine Leukocytes +/- 15 Esterase MDM Narrative Medical decision making narrative: Thirty-two weeks told to come to the emergency department for fluids intermittent nausea vomiting for 2 weeks had a child at home with RSV 2 weeks ago. Patient did complain of headache, reflexes are slightly brisk, no clonus. Pressure is 119/64 here on arrival. Patient has had recent upper respiratory symptoms likely contributing. Labs show white count of 12.2 hemoglobin of 12.2 platelets of 273. Electrolytes shows sodium 135 chloride of 110 CO2 18 BUN of 7 with a creatinine of 0.66, potassium of 3.8 glucose is 90 LFTs are negative lipase is 114. Point of care urine shows leukocyte esterase, no nitrates. Positive for protein. Urine microscopy 5 red cells 1-5 whites 1-5 squamous few bacteria. Patient received a L of saline. She states she was feeling significantly improved at this time. She was not having any persistent vomiting here in the department. Defers anything additional. Discussed with the patient has a little bit of urinary symptoms does have some bacteria since she was we will go ahead and cover with an oral antibiotic patient reports allergy to amoxicillin possibly cephalexin as well we will cover with Macrobid. Patient I discussed she has Zofran at home but was not helpful we will give script for oral to use as needed. Patient discharged to and D for NST. Discharge Plan Departure Patient Disposition: Home Clinical Impression: Nausea and vomiting during Activity Restrictions/Additional Instructions: Follow up with your provider. Your urine shows questionable infection does have some bacteria as well as white cells and leukocyte esterase a prescription for oral antibiotic was sent to [facility] in [place] There is also prescription for Reglan, can take 1 tablet every 6 hours as needed for nausea/vomiting. You can take this instead of ondansetron or Zofran. Please return for fevers, new abdominal back or flank pain, persistent vomiting, lightheadedness or passing out, new chest pain or shortness of breath, coughing up blood, sudden swelling of your lower extremities, severe headaches or other new or concerning changes. Prescriptions: New metoclopramide HCl [Reglan] 10 mg tablet 10 mg PO Q6H PRN (Reason: nausea and vomiting) Qty: 10 0RF nitrofurantoin monohyd/m-cryst [Macrobid] 100 mg capsule 100 mg PO BID 5 Days Qty: 10 0RF Rx Instructions: must administer with a meal/food No Action trazodone 100 mg tablet See Rx Instructions .ROUTE .COMPLEX Qty: 180 1RF Dose Instruction: TAKE TWO TABLETS NIGHTLY AT BEDTIME Rx Instructions: TAKE TWO TABLETS NIGHTLY AT BEDTIME levothyroxine 150 mcg tablet 150 mcg PO DAILY Qty: 30 3RF nicotine 7 mg/24 hr patch 24 hour 1 patch transdermal Q24H Qty: 14 0RF Rx Instructions: use daily for two weeks then quit gabapentin 100 mg capsule 100 mg PO DAILY Qty: 30 0RF nitroglycerin 0.4 mg tablet, sublingual 0.4 mg sublingual Q5M PRN (Reason: chest pain) Qty: 20 1RF Rx Instructions: do not exceed 3 doses per episode vit-ferrous sulfat-FA 27 mg iron- 0.8 mg tablet PO ondansetron 4 mg tablet,disintegrating 4 mg PO Q8H PRN (Reason: nausea and vomiting) Qty: 30 0RF buprenorphine-naloxone 8 MG/2 MG tablet, sublingual 2 tab Sublingual QAM phenazopyridine [Pyridium] 100 mg tablet 100 mg PO TID PRN (Reason: pain) Qty: 6 0RF ondansetron 4 mg tablet,disintegrating 4 mg PO Q6H PRN (Reason: nausea and vomiting) Qty: 14 0RF Referrals: Javier Mckee DO [Primary Care Provider] - Emma Hall DO [Physician] - Stand Alone Forms: Patient Portal/API/Survey
[2024-05-21 09:58] LABS: Bacteria Urine Few (2-10); RBC Urine 1-5/HPF (0-5/HPF); Squamous Epithelial Cell Urine 1-5 /HPF (0-5/HPF); Urine Volume Low Vol <10mL (spun); WBC Urine 1-5/HPF (0-5/HPF)
[2024-05-21 09:59] LABS: Culture Indicated Urine Cult Not Indicated
[2024-05-21] MEDS: NITROFURANTOIN ER 100 MG CAPSULE PO (10:22)
--- NOTE | 2024-05-21 10:24 | PC.NURSE ---
Pt denies cramping. states she feels baby move. States she is 32 weeks along. states she had a l&d appt yesterday. Pt reports vomiting and not being able to keep any fluids down. Pt reports cold like symptoms going around; however pt states she feels she is somewhat getting better. Pt ambulatory w/o assistance. Denies urinary issues or discharge.
[2024-05-21 10:27] VITALS: BP 116/64; PULSE 61; RESP 16; TEMP 36.6; O2SAT 96
== END 2024-05-21 10:30 | disposition home or self-care (01) ==
PROVIDERS: Emergency Provider Emergency Medicine; PCP Family Medicine
DX: O21.9 Vomiting of pregnancy, unspecified (principal); R50.9 Fever, unspecified; R51.9 Headache, unspecified; Z3A.32 32 weeks gestation of pregnancy
CPT/HCPCS: 59025; 80053; 81003; 81015; 83690; 84112; 85025; 96360; 99284

== ENCOUNTER 2024-05-21 10:32 | Outpatient (CLI) | payer OTHER, SELFPAY ==
--- NOTE | 2024-05-21 11:49 | PM.OBTRLD ---
Visit Information Visit Information Date of evaluation: 05/21/24 Primary OB Provider: Emma Hall On-call OB Provider: Lala James Reason for Evaluation: Yes non-stress test Comments/Additional reasons for admission: N/v, resolved with IVF [facility] Medical History Opioid abuse, in remission History of opioid abuse Crohn's disease without complication (04/23/15) Hypothyroidism Left ankle injury Umbilical hernia Pyelonephritis Ovarian neoplasm Acne GERD (gastroesophageal reflux disease) Chronic bilateral low back pain without sciatica (07/19/15) Surgical History (Updated 12/06/23 @ 13:07 by Emma Hall DO) History of hernia repair Anesthesia History of knee surgery H/O oophorectomy Family History (Updated 11/27/23 @ 10:28 by Vika Rey RN) Father Hyperthyroidism Heart disease Heavy smoker Mother Depression Anxiety Drug abuse Social History marital status: unmarried,living together number of children: 1 household members: significant other and children lives independently: Yes caregiver/support person: Yes housing: house pets and animals: Yes (dogs, birds, aware of precautions) education level: college (some college) 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) current occupational exposures/hazards: No travel history: recent ([place]) seatbelt use: always helmet use: Yes water heater temp set < 120 deg: Yes working smoke detector in home: Yes fire extinguisher in home: Yes carbon monox detector in home: Yes firearms in home: No do you feel safe at home: Yes Smoking Status: Former smoker Tobacco: How many years used: 4 quit status: considering quitting second hand exposure: Yes (S/O smokes) alcohol intake: former substance use type: former substance user and marijuana during the past year weight has: decreased > 10 lbs (unintentional following mother's ) well-balanced diet: daily or most days daily servings fruits/ve or more times/day caffeine: Yes Type(s) of exercise: walking, bicycling and other (skateboarding) Evaluation Evaluation Baseline heart rate: 135 Variability: Average (6-10) monitor accelerations: Present Monitor Decelerations: Absent Status: Category l Diagnosis, Plan/Disposition Plan/Disposition OB Disposition: home
== END 2024-05-21 11:54 | disposition home or self-care (01) ==
LOC: LABOR 10:48 → OB 13:23
PROVIDERS: PCP Family Medicine; Referring Provider Student in an Organized Health Care Education/Training Program; Visit Provider Student in an Organized Health Care Education/Training Program
DX: O26.893 Other specified pregnancy related conditions, third trimester (principal); R11.2 Nausea with vomiting, unspecified; E86.0 Dehydration; Z3A.32 32 weeks gestation of pregnancy
CPT/HCPCS: 59025; 84112; G0378; G0379

== ENCOUNTER 2024-06-06 09:06 | Outpatient (CLI) | payer OTHER, SELFPAY ==
[2024-06-06 09:38] LABS: Appearance Urine UA CLEAR; Bilirubin Urine UA NEGATIVE (NEGATIVE); Color Urine UA YELLOW; Glucose Urine UA NEGATIVE (Negative); Ketones Urine UA NEGATIVE (NEGATIVE); Leukocyte Esterase Urine UA TRACE (NEGATIVE); Nitrite Urine UA NEGATIVE (Negative); Occult Blood Urine UA NEGATIVE (Negative); Protein Urine UA NEGATIVE (Negative); Specific Gravity Urine UA 1.025 (1.000-1.035); Urobilinogen Urine UA 0.2 E.U./dL (0.2)
[2024-06-06] MEDS: LACTATED RINGERS 1,000 ML 1000 ML IV ×2 (09:40→10:40)
[2024-06-06 09:49] LABS: Bacteria Urine Many (>30); Culture Indicated Urine Cult Not Indicated; RBC Urine None Seen (0-5/HPF); Squamous Epithelial Cell Urine 5-10 /HPF (0-5/HPF); Urine Volume 10mL (spun); WBC Urine 1-5/HPF (0-5/HPF)
== END 2024-06-06 11:00 | disposition home or self-care (01) ==
LOC: LABOR 09:38 → OB 15:01
PROVIDERS: PCP Family Medicine; Referring Provider Student in an Organized Health Care Education/Training Program; Visit Provider Student in an Organized Health Care Education/Training Program
DX: O26.893 Other specified pregnancy related conditions, third trimester (principal); R10.9 Unspecified abdominal pain; M54.9 Dorsalgia, unspecified; R10.2 Pelvic and perineal pain; Z3A.34 34 weeks gestation of pregnancy
CPT/HCPCS: 36415; 59050; 81001; 87086; 96360; 96361; G0378; G0379

== ENCOUNTER → 2024-06-06 12:06 | Outpatient (CLI) | payer OTHER, SELFPAY ==
--- NOTE | 2024-06-06 12:07 | DI.US.S_ITS ---
PROCEDURE: US ABDOMEN LIMITED INDICATIONS: RUQ PAIN-R/O CHOLECYSTITIS TECHNIQUE: Real-time scanning was performed of the abdominal and retroperitoneal organs, with image documentation. COMPARISON: [facility], [place], US ABDOMEN COMPLETE, 06/24/2022, 13:13. FINDINGS: Liver: Liver measures 20.1 cm. No focal mass. Gallbladder: No gallstones. No wall thickening. No pericholecystic edema. Negative sonographic Gallo's sign. Biliary ducts: Intrahepatic bile ducts are non-dilated. Extrahepatic bile duct caliber measures 4.3 mm. Normal is 6-7 mm or less in diameter, or 10 mm or less post-cholecystectomy. Pancreas: Not visualized. Miscellaneous: No free abdominal fluid. Single live intrauterine is identified with heart tones measuring 126 beats per minute. IMPRESSION: Mild paddle megaly. Single live intrauterine . Gallbladder is unremarkable. Dictated by: Josephine Chatterjee M.D. on 06/06/2024 at 14:21 Approved by: Josephine Chatterjee M.D. on 06/06/2024 at 14:21
[2024-06-06 12:56] LABS: Add Manual Diff / Slide Review NO; Basophils Absolute Auto 100 /uL (0-100); Basophils Percent Auto 0.6 % (0-2); Eosinophils Absolute Auto 100 /uL (0-450); Hematocrit 35.1 % (36-46); Lymphocytes Absolute Auto 2000 /uL (1100-4500); Lymphocytes Percent Auto 15.7 % (25-40); Mean Corpuscular HGB Conc 34.1 % (30-36); Mean Corpuscular Hemoglobin 31.6 PG (26-34); Mean Corpuscular Volume 92.8 fL (80-100); Monocytes Absolute Auto 900 /uL (0-900); Monocytes Percent Auto 7.2 % (3-14); Neutrophils Absolute Auto 9500 /uL (1500-7000); Neutrophils Percent Auto 75.5 % (50-75); Platelet Count 277 X10^3/uL (150-400); Red Blood Cell Count 3.78 X10^6/uL (4.0-5.2); Red Cell Distribution Width 12.3 % (11.6-14.8); White Blood Cell Count 12.6 X10^3/uL (4.5-11.0)
[2024-06-06 13:09] LABS: Alanine Aminotransferase 23 IU/L (<35); Albumin 3.6 g/dL (3.5-5.0); Albumin Globulin Ratio 1.2 (1.0-2.8); Alkaline Phosphatase 154 U/L (38-126); Amylase 60 U/L (30-110); Aspartate Aminotransferase 27 IU/L (14-36); BUN Creatinine Ratio 8.8 (6-22); Bilirubin Total 0.3 mg/dL (0.2-1.3); Blood Urea Nitrogen 5 mg/dL (7-17); Calcium 9.1 mg/dL (8.4-10.2); Carbon Dioxide 20 mmol/L (22-32); Chloride 107 mmol/L (98-107); Estimated Glomerular Filt Rate > 60 mL/min (>60); Globulin 2.9 g/dL (1.7-4.1); Glucose 68 mg/dL (70-100); HEMOLYSIS < 15 (0-50); Lipase 122 U/L (23-300); Potassium 3.6 mmol/L (3.4-5.1); Sodium 136 mmol/L (137-145); Total Protein 6.5 g/dL (6.3-8.2)
--- NOTE | 2024-06-06 13:53 | DI.US.S_ITS ---
PROCEDURE: US ABDOMEN LIMITED INDICATIONS: rule-out appendicitis TECHNIQUE: Real-time focused scanning was performed of the abdomen with attention to the appendix, with image documentation. COMPARISON: [facility], [place], US ABDOMEN LIMITED, 06/06/2024, 13:24. FINDINGS: Appendix visualization: Visualized Appendix measurements: Greatest measurement measures 4 mm Associated findings: Echogenic fat: Negative. Appendiceal compressibility: Present Appendicoliths: Negative. Nearby free fluid: Negative. Lymphadenopathy: Negative. Tenderness on exam: Negative. Miscellaneous: Single live intrauterine with heart tones seen at 128 beats per minute. IMPRESSION: Negative for appendicitis. Dictated by: Josephine Chatterjee M.D. on 06/06/2024 at 14:23 Approved by: Josephine Chatterjee M.D. on 06/06/2024 at 14:23
[2024-06-06 14:09] LABS: Free T4, Direct Thyroxine 0.72 ng/dL (0.78-2.19)
== END ==
PROVIDERS: PCP Family Medicine; Referring Provider Student in an Organized Health Care Education/Training Program; Visit Provider Student in an Organized Health Care Education/Training Program
DX: O26.893 Other specified pregnancy related conditions, third trimester (principal); R10.11 Right upper quadrant pain; M54.9 Dorsalgia, unspecified; R10.2 Pelvic and perineal pain; Z3A.34 34 weeks gestation of pregnancy
CPT/HCPCS: 36415; 59050; 76705; 80053; 81001; 82150; 83690; 84439; 84443; 85025; 87086; 96360; 96361

== ENCOUNTER → 2024-06-20 14:10 | Outpatient (CLI) | payer OTHER, SELFPAY ==
[2024-06-21 12:37] LABS: Strep Grp B PCR NEG for Grp B Strep
== END ==
PROVIDERS: PCP Family Medicine; Visit Provider Obstetrics & Gynecology
DX: Z36.85 Encounter for antenatal screening for Streptococcus B (principal)
CPT/HCPCS: 87653

== ENCOUNTER 2024-06-20 17:30 | Outpatient (CLI) | payer OTHER, SELFPAY ==
--- NOTE | 2024-06-20 18:31 | P.TNLD_ITS ---
Visit Information Visit Information Date of evaluation: 06/20/24 Primary OB Provider: Emma Hall On-call OB Provider: Carla Ulloa Reason for Evaluation: Yes non-stress test Comments/Additional reasons for admission: 33 yo at 36w4d here for NST for AMA, tobacco use in [facility] Medical History Opioid abuse, in remission History of opioid abuse Crohn's disease without complication (04/23/15) Hypothyroidism Left ankle injury Umbilical hernia Pyelonephritis Ovarian neoplasm Acne GERD (gastroesophageal reflux disease) Chronic bilateral low back pain without sciatica (07/19/15) Surgical History (Updated 12/06/23 @ 13:07 by Emma Hall DO) History of hernia repair Anesthesia History of knee surgery H/O oophorectomy Family History (Updated 11/27/23 @ 10:28 by Vika Rey RN) Father Hyperthyroidism Heart disease Heavy smoker Mother Depression Anxiety Drug abuse Social History marital status: unmarried,living together number of children: 1 household members: significant other and children lives independently: Yes caregiver/support person: Yes housing: house pets and animals: Yes (dogs, birds, aware of precautions) education level: college (some college) 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) current occupational exposures/hazards: No travel history: recent ([place]) seatbelt use: always helmet use: Yes water heater temp set < 120 deg: Yes working smoke detector in home: Yes fire extinguisher in home: Yes carbon monox detector in home: Yes firearms in home: No do you feel safe at home: Yes Smoking Status: Former smoker Tobacco: How many years used: 4 quit status: considering quitting second hand exposure: Yes (S/O smokes) alcohol intake: former substance use type: former substance user and marijuana during the past year weight has: decreased > 10 lbs (unintentional following mother's ) well-balanced diet: daily or most days daily servings fruits/ve or more times/day caffeine: Yes Type(s) of exercise: walking, bicycling and other (skateboarding) Evaluation Evaluation Baseline heart rate: 145 Variability: Average (6-10) monitor accelerations: Present Monitor Decelerations: Absent Category of Tracing: Reactive Diagnosis, Plan/Disposition Plan/Disposition Plan: 33 yo at 36w4d here for NST for AMA, tobacco use disorder. NST reactive. Safe to discharge. OB Disposition: home
== END 2024-06-20 18:25 | disposition home or self-care (01) ==
LOC: LABOR 17:33 → OB 06-23 11:07
PROVIDERS: PCP Family Medicine; Referring Provider Obstetrics & Gynecology; Visit Provider Obstetrics & Gynecology
DX: O09.523 Supervision of elderly multigravida, third trimester (principal); O99.333 Smoking (tobacco) complicating pregnancy, third trimester; F17.200 Nicotine dependence, unspecified, uncomplicated; Z3A.36 36 weeks gestation of pregnancy; Z36.85 Encounter for antenatal screening for Streptococcus B
CPT/HCPCS: 59025; 87653; G0378; G0379

== ENCOUNTER 2024-07-10 05:38 | Inpatient (IN) | payer OTHER, SELFPAY ==
[2024-07-10] VITALS (9 sets, daily range): BP systolic 98–109; BP diastolic 54–74; PULSE 10–64; RESP 10–20; TEMP 35.5–37; O2SAT 95–100
[2024-07-10 06:21] LABS: Add Manual Diff / Slide Review NO; Basophils Absolute Auto 100 /uL (0-100); Basophils Percent Auto 1.2 % (0-2); Eosinophils Absolute Auto 100 /uL (0-450); Eosinophils Percent Auto 0.9 % (2-4); Hematocrit 34.2 % (36-46); Hemoglobin 11.7 g/dL (12.0-16.0); Lymphocytes Absolute Auto 1200 /uL (1100-4500); Lymphocytes Percent Auto 13.8 % (25-40); Mean Corpuscular HGB Conc 34.1 % (30-36); Mean Corpuscular Volume 90.8 fL (80-100); Monocytes Absolute Auto 800 /uL (0-900); Monocytes Percent Auto 8.8 % (3-14); Neutrophils Absolute Auto 6800 /uL (1500-7000); Neutrophils Percent Auto 75.3 % (50-75); Platelet Count 272 X10^3/uL (150-400); Red Blood Cell Count 3.77 X10^6/uL (4.0-5.2); Red Cell Distribution Width 12.3 % (11.6-14.8)
[2024-07-10] MEDS: CITRIC ACID/SODIUM CITRATE 15 ML SOLUTION 30 ML PO (07:28)
--- NOTE | 2024-07-10 07:35 | PM.OBHP.IH.1 ---
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 care: good care Dating criteria OB: LMP confirmed by 1st trimester US Ultrasounds: normal mid trimester US Narrative: Ultrasound Ultrasound Details:: Dating US 12/06/23: yoder IUP with CRL 1.9cm, + FCA 168, normal appearing cervix, bilateral ovaries, and uterus Anatomy US 03/11/24: normal anatomy, posterior placenta, EFW 88%ile Expected Delivery Route/Plan Planned repeat C/S Specific Issues/Plans [x ] cfDNA- low risk XX; thinks she is negative for CF carrier Advanced maternal age UTI in --> treated 02/13/24; [x ] repeat UCx (02/25- contaminated); [x ] 3rd trimester urine culture Tobacco use in --> trying to quit; prescribed nicotine patches 12/05 (made her sick, so quit cold turkey) History of hypothyroidism (on 125mcg synthroid pre-)--> [ x] TSH with NOB labs, increased to 150mcg; [x ] repeat TSH 2nd trimester (TSH 17/T4 0.72- pt reports not taking her synthroid the week prior to this lab draw, thus will leave at 150mcg) Hx of prior (arrest of dilation at 42wks)--> planned repeat (scheduled for 07/10/24 at 39+3wks) Hx opiate abuse, currently clean on Subutex (10-12mg) through [facility] in [place]; please do not Rx opiates or benzos unless unavoidable; [x ] consider MFM referral (ordered 02/25, MFM declined referral) Obesity (pre- BMI 34) S/O Guido Assigned to Rafael Indications Operative indications ( section): previous uterine surgery Preadmission Labs Last OB Lab Results: Blood Type A Positive 07/10/24 06:10 Antibody Screen Negative 07/10/24 06:10 Hct 34.2 % (36-46) L 07/10/24 06:10 Hgb 11.7 g/dL (12.0-16.0) L 07/10/24 06:10 Hep Bs Antigen Negative s/c (NEGATIVE) 12/21/23 11:27 Hepatitis C Antibody Negative s/c (NEGATIVE) 12/21/23 11:27 Rubella Antibody 25.5 IU/mL (>15) 12/21/23 11:27 VZV IgG Antibody 1158 index (Immune >165) 12/21/23 11:27 Hemoglobin A1c 5.2 % (4.0-6.0) 06/18/20 09:51 Group B Strep (PCR) Neg for grp b strep 06/20/24 14:15 Glucose Tolerance Testin hr (negative) -: Chlamydia screen: negative, Gonorrhea screen: negative and Urine: negative -: PAP smear: Normal Genetic Screens: Cell-free DNA: Normal External Labs -: Urine: negative Prior (ies) Past Pregnancies Del. Date GA/Weeks Labor Lgth Wt Sex Route Outcome Anesthesia Place Delv Breastfeed Preg Comp Name 09/07/06 ~8 spontaneous 01/25/13 40.1 12 8 lb 12 oz Male live - full term epidural [place] Attempted other [place] Delivery Date: 09/07/06 Last Updated by: Vika Rey RN passed spontaneously, possible minor infection after? anemia? (I wasn't well for awhile after) Delivery Date: 01/25/13 Last Updated by: Vika Rey RN abstinence syndrome Evaluation Evaluation Baseline heart rate: 140 Variability: Moderate (11-25) monitor accelerations: Present Monitor Decelerations: Absent Status: Category l PFSH Medical History Opioid abuse, in remission History of opioid abuse Crohn's disease without complication (04/23/15) Hypothyroidism Left ankle injury Umbilical hernia Pyelonephritis Ovarian neoplasm Acne GERD (gastroesophageal reflux disease) Chronic bilateral low back pain without sciatica (07/19/15) Surgical History (Updated 12/06/23 @ 13:07 by Emma Hall DO) History of hernia repair Anesthesia History of knee surgery H/O oophorectomy Family History (Updated 11/27/23 @ 10:28 by Vika Rey RN) Father Hyperthyroidism Heart disease Heavy smoker Mother Depression Anxiety Drug abuse Social History marital status: unmarried,living together number of children: 1 household members: significant other and children lives independently: Yes caregiver/support person: Yes housing: house pets and animals: Yes (dogs, birds, aware of precautions) education level: college (some college) 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) current occupational exposures/hazards: No travel history: recent ([place]) seatbelt use: always helmet use: Yes water heater temp set < 120 deg: Yes working smoke detector in home: Yes fire extinguisher in home: Yes carbon monox detector in home: Yes firearms in home: No do you feel safe at home: Yes Smoking Status: Current some day smoker Tobacco: How many years used: 4 quit status: considering quitting second hand exposure: Yes (S/O smokes) alcohol intake: former substance use type: former substance user and marijuana during the past year weight has: decreased > 10 lbs (unintentional following mother's ) well-balanced diet: daily or most days daily servings fruits/ve or more times/day caffeine: Yes Type(s) of exercise: walking, bicycling and other (skateboarding) Meds Home Medications and Allergies Home Medications Medication Instructions Recorded Confirmed Type buprenorphine 8 mg-naloxone 2 mg 2 tab sublingual QAM 08/19/18 07/04/24 History sublingual tablet nitroglycerin 0.4 mg sublingual 0.4 mg sublingual Q5M PRN chest 02/15/22 07/04/24 Rx tablet pain #20 tabs trazodone 100 mg tablet See Rx Instructions .Route 06/12/23 07/04/24 Rx .COMPLEX #180 tabs ondansetron 4 mg disintegrating 4 mg PO Q8H PRN nausea and 06/24/23 07/04/24 Rx tablet vomiting #30 tabs vitamin-ferrous sulfate tab PO 11/27/23 07/04/24 History 27 mg iron-folic acid 0.8 mg tablet gabapentin 100 mg capsule 100 mg PO DAILY #30 caps 01/04/24 07/04/24 Rx nicotine 7 mg/24 hr daily 1 patch transdermal Q24H #14 ea 01/04/24 07/04/24 Rx transdermal patch ondansetron 4 mg disintegrating 4 mg PO Q6H PRN nausea and 02/13/24 07/04/24 Rx tablet vomiting #14 tabs phenazopyridine 100 mg tablet 100 mg PO TID PRN pain 6 doses #6 02/13/24 07/04/24 Rx (Pyridium) tabs levothyroxine 200 mcg tablet 200 mcg PO DAILY #60 tabs 06/06/24 07/04/24 Rx metoclopramide HCl 10 mg tablet 10 mg PO Q6H PRN nausea and 07/04/24 07/04/24 Rx (Reglan) vomiting #10 tabs pantoprazole 40 mg tablet,delayed 40 mg PO DAILY #30 tabs 07/04/24 07/04/24 Rx release (Protonix) Allergies Allergy/AdvReac Type Severity Reaction Status Date / Time amoxicillin [AMOXICILLIN] Allergy Unknown RASH/HIVES Verified 07/04/24 11:54 Penicillins Allergy Unknown Swelling Verified 07/04/24 11:54 of Lip/Tongue/Throat cephalexin AdvReac Severe Rash Verified 07/04/24 11:54 diphenhydramine AdvReac Severe Anxiety Verified 07/04/24 11:54 hydromorphone AdvReac Verified 07/04/24 11:54 Opioids - Morphine Analogues AdvReac Verified 07/04/24 11:54 Review of Systems Review of Systems ROS: Yes All systems reviewed with the patient and are negative except as otherwise documented OB Exam Vital signs Blood Pressure: 104/74 Pulse Rate: 64 Respiratory Rate: 16 Temperature: 98.6 F [facility] Head: normal to inspection and normocephalic Eyes General: appearance normal, both eyes and all related structures Resp Effort & Inspection: normal respiratory effort and able to speak in complete sentences Extremities Lower extremity: Yes normal to inspection GI Inspection: normal to inspection Other: gravid, nontender, nondistended Objective Labs 07/10/24 06:10 Labs: Laboratory Results - last 24 hr 07/10/24 06:10 WBC 9.0 RBC 3.77 L Hgb 11.7 L Hct 34.2 L MCV 90.8 MCH 31.0 MCHC 34.1 RDW 12.3 Plt Count 272 Neut % (Auto) 75.3 H Lymph % (Auto) 13.8 L [place] % (Auto) 8.8 Eos % (Auto) 0.9 L Baso % (Auto) 1.2 Neut # (Auto) 6800 Lymph # (Auto) 1200 [place] # (Auto) 800 Eos # (Auto) 100 Baso # (Auto) 100 Blood Type A Positive Antibody Screen Negative Assessment and Plan Assessment and Plan Assessment and Plan narrative: 33yo at 39+3wks admitted for repeat . -CBC, T&S on admission -NST on admission -neuraxial anesthesia -GBS neg; surgical prophylaxis with gent/clinda due to patient allergies to keflex/PCN -PPH risk low -VTE risk low, SCDs with anesthesia -move to OR for delivery once all teams ready consent: It was explained to the patient that a section is a surgery to deliver the baby through an incision in the abdominal wall and uterus.? All procedures can be associated with risk and unforeseen complications, which can be immediate or delayed.? Risks and complications of section include, but are not limited to:? infection of the uterus, pelvic organs, or skin; inadvertent injury to internal organs such as the bowel, bladder, or possibly even the baby; blood loss, transfusion, and/or life-threatening hemorrhage requiring hysterectomy; blood clots in the legs, pelvic organs, or lungs; adverse reaction to medications or anesthesia during surgery; development of placenta accreta spectrum in a subsequent ; and increased risk of section in a subsequent . Time-Based Coding :: [20min] spent with patient and on the chart (including review of chart, obtaining history, exam, reviewing outside data, placing orders, documenting exam and treatment plan, and counseling patient) on [07/10/24].
[2024-07-10] MEDS: GENTAMICIN 340 MG in SODIUM CHLORIDE 0.9% 100 ML 108.5 MG IV (08:05)
[2024-07-10] MEDS: CLINDAMYCIN 900 MG/50 ML PIGGYBACK 50 MG IV (08:15)
--- NOTE | 2024-07-10 08:17 | SUR.OPER ---
Supine on Padded OR bed, head on pillow, safety belt at thigh, arms secured on padded arm boards at <90 degrees abduction. Bump under right buttock. Legs uncrossed with pillow under knees, gel pad to heels, tape over blanket to lower legs.
[2024-07-10] MEDS: BUPIVACAINE LIPOSOME 266 MG/20 ML VIAL INJ (08:21)
--- NOTE | 2024-07-10 09:16 | PM.OBCS.1 ---
Operative Date/Time/Diagnoses Date of procedure: 07/10/24 Time of procedure: 08:00 Pre-op diagnosis: 1. [place] intrauterine gestation at 39+3 weeks 2. History of prior section 3. History of opioid abuse, in remission on buprenorphine 4. Hypothyroidism 5. Advanced maternal age 6. Obesity 7. History of tobacco use, quit during Post-op diagnosis: same Procedure & Clinicians Procedure: Repeat low transverse section Same procedure as scheduled: Yes Indications: 33yo at 39+3wks with history of prior section, counseled and consented for repeat delivery. Surgeon: Emma Hall Click Yes if Unassisted: No Bias Cutting Machine Operator Vertical: Keny Lott Reason for Bias Cutting Machine Operator Vertical: Bias Cutting Machine Operator Vertical was necessary for timely, efficient, and safe completion of the procedure. Anesthesia Type: Spinal Operative Notes Findings: Normal-appearing uterus and bilateral fallopian tubes and left ovary. Right ovary surgically absent. Clear fluid noted with AROM. Delivery productive of a viable female in cephalic presentation with APGARs 9/9 and weighing 3571g. Closure Type: primary Specimen(s): cord blood Intraoperative meds administered: Acetaminophen, Duramorph, Ketorolac and Pitocin Applied: Catheter Estimated Blood Loss (mL): 600 Blood products transfused: none Procedure in detail: The risks, benefits, indications and alternatives of the procedure were reviewed with the patient and informed consent was obtained. The patient was taken to the operating room where spinal anesthesia was obtained without difficulty and was found to be adequate. Sequential compression devices were placed bilaterally for VTE prophylaxis. She was then prepped and draped in the normal, sterile fashion in the dorsal supine position with a leftward tilt. She received clindamycin and gentamicin for surgical prophylaxis given her allergies to penicillin and cephalexin. A Pfannenstiel skin incision was then made with the scalpel and carried through to the underlying layer of fascia. The fascia was incised in the midline and the incision extended laterally with the Murphy scissors. The inferior aspect of the fascial incision was grasped with Killian clamps, elevated, and the underlying rectus muscles were dissected off bluntly, aided with Murphy scissors. Attention was then turned to the superior aspect of the incision, which, in a similar fashion, was grasped, tented up with Killian clamps and the rectus muscles were dissected off bluntly, aided with Murphy scissors. The rectus muscles were then at the midline. The peritoneum was identified, and entered digitally. The peritoneal incision was then extended horizontally, superiorly and inferiorly, with good visualization of the bladder. The bladder blade was then inserted. The vesicouterine peritoneum was then identified, grasped with pick-ups, and entered sharply with Metzenbaum scissors. This incision was then extended laterally and the bladder flap was created digitally. The lower uterine segment was incised in a transverse fashion with the scalpel. The uterine incision was then extended manually in a cephalad/caudad direction. The amniotic sac was artificially ruptured, productive of clear fluid. The bladder blade was then removed. The infant?s head delivered atraumatically through the hysterotomy without difficulty, followed by the body.? The cord was doubly clamped and cut after a 60sec delay with the handed off to the waiting pediatrics team. The placenta was then removed spontaneously with gentle traction on the umbilical cord. The uterus was then exteriorized and cleared of all clots and debris. The uterine incision was repaired with 0-vicryl in a running, locked fashion with excellent hemostasis achieved. The posterior cul-de-sac was then suctioned.? The uterus was returned to the abdomen and the hysterotomy was again noted to be hemostatic. The paracolic gutters were cleared of all clot and debris. The fascia was reapproximated with 0-vicryl in a running fashion. 40cc of Exparel was injected into the subcutaneous layer along the fascia. The subcutaneous layer was then closed with 3-0 vicryl in simple, interrupted sutures. The skin was closed with 4-0 monocryl in a subcuticular fashion. The incision was then dressed with steri-strips and an Aquacel dressing was applied. At the completion of the case, a Crede maneuver was performed with good uterine tone and minimal vaginal bleeding noted.? The patient tolerated the procedure well. Sponge, lap and needle counts were correct x3. The patient was taken to the recovery room in stable condition. Complications: none Baby 1: Delivery Date: 07/10/24 Delivery Time: 08:23 Gender: Female Presentation: vertex Placental Delivery Description: Expressed Cord Vessel Description: 3 Vessels score (1 min): 9 score (5 min): 9 weight: 7 lb 13.963 oz Post-operative Condition: stable Disposition: PACU Aftercare: routine postop
--- NOTE | 2024-07-10 09:18 | EKG_ITS ---
[id number] [address] Test Date: 2024-07-10 Pat Name: Lexy Garrett Department: Room: [facility] Gender: Female [employer] Plant Operator: Dianne WALTON : 1990 Requested By: Order Number: [id number] Reading MD: Mert Nance Measurements Intervals [place] Rate: 53 P: 64 TX: 134 QRS: 49 QRSD: 100 T: 38 QT: 500 QTc: 469 Interpretive Statements Sinus bradycardia Electronically Signed On 07-11-2024 19:10:10 PDT by Mert Nance
[2024-07-10] MEDS: OXYTOCIN PREMIX 30 UNIT/500 ML PLAST..BAG 200 UNIT IV (09:22)
[2024-07-10 09:40] LABS: Add Manual Diff / Slide Review NO; Basophils Absolute Auto 0 /uL (0-100); Basophils Percent Auto 0.5 % (0-2); Eosinophils Absolute Auto 100 /uL (0-450); Eosinophils Percent Auto 0.6 % (2-4); Hematocrit 35.4 % (36-46); Hemoglobin 12.1 g/dL (12.0-16.0); Lymphocytes Absolute Auto 1700 /uL (1100-4500); Lymphocytes Percent Auto 17.1 % (25-40); Mean Corpuscular HGB Conc 34.2 % (30-36); Mean Corpuscular Hemoglobin 31.4 PG (26-34); Mean Corpuscular Volume 91.7 fL (80-100); Monocytes Absolute Auto 800 /uL (0-900); Monocytes Percent Auto 7.7 % (3-14); Neutrophils Absolute Auto 7500 /uL (1500-7000); Neutrophils Percent Auto 74.1 % (50-75); Platelet Count 242 X10^3/uL (150-400); Red Blood Cell Count 3.86 X10^6/uL (4.0-5.2); Red Cell Distribution Width 12.4 % (11.6-14.8); White Blood Cell Count 10.1 X10^3/uL (4.5-11.0)
[2024-07-10 09:51] LABS: Alanine Aminotransferase 23 IU/L (<35); Albumin 3.3 g/dL (3.5-5.0); Albumin Globulin Ratio 1.1 (1.0-2.8); Alkaline Phosphatase 262 U/L (38-126); Aspartate Aminotransferase 27 IU/L (14-36); BUN Creatinine Ratio 9.9 (6-22); Bilirubin Total 0.5 mg/dL (0.2-1.3); Blood Urea Nitrogen 7 mg/dL (7-17); Calcium 8.4 mg/dL (8.4-10.2); Carbon Dioxide 20 mmol/L (22-32); Chloride 109 mmol/L (98-107); Creatine Kinase 72 U/L (30-135); Estimated Glomerular Filt Rate > 60 mL/min (>60); Glucose 80 mg/dL (70-100); HEMOLYSIS < 15 (0-50); Potassium 3.8 mmol/L (3.4-5.1); Sodium 136 mmol/L (137-145); Total Protein 6.3 g/dL (6.3-8.2)
[2024-07-10 10:04] LABS: Troponin I < 0.012 ng/mL (0.01-0.034)
--- NOTE | 2024-07-10 10:09 | SUR.PHASEI ---
Lisa at bedside for PACU stay. Report given to RNs. Patient transdferred to the center with both RNs. Patient left in stable condition.
[2024-07-10] MEDS: BUPRENORPHINE/NALOXONE 8MG/2MG 1 TAB 2 TAB SL (10:26)
[2024-07-10] MEDS: LEVOTHYROXINE 100 MCG TABLET 150 MCG PO (11:04)
[2024-07-10] MEDS: LANOLIN OINT 7 GM 1 APPLIC TOP (14:51)
[2024-07-10] MEDS: KETOROLAC 30 MG/ML VIAL IV ×2 (14:51→20:55)
[2024-07-10] MEDS: WITCH HAZEL/GLYCERIN PADS 1 EACH TOP (14:53)
[2024-07-10] MEDS: ACETAMINOPHEN 325 MG TABLET 650 MG PO ×2 (14:53→20:54)
[2024-07-11] MEDS: KETOROLAC 30 MG/ML VIAL IV (03:10)
[2024-07-11] MEDS: ACETAMINOPHEN 325 MG TABLET 650 MG PO ×2 (03:11→14:30)
[2024-07-11] MEDS: LEVOTHYROXINE 100 MCG TABLET 150 MCG PO (07:38)
--- NOTE | 2024-07-11 08:27 | PM.OBDS.1 ---
Discharge Providers Provider Date of admission: 07/10/24 05:38 Discharge Date: 07/11/24 Primary care physician: Javier Mckee DO Consults: 07/10/24 10:10 Consult to [employer] Routine Comment: Discharge provider: Emma Hall DO Summary Hospital Course Date Patient Seen: 07/11/24 Time Patient Seen: 08:27 Diagnoses: Term gestation at 39+3wks, delivered via repeat low transverse section History of prior delivery History of opioid abuse, stable on buprenorphine therapy Hypothyroidism Advanced maternal age History of tobacco use, quit during Obesity Hospital Course: 33yo [id number] admitted at 39+3wks for planned repeat delivery. Her delivery was uncomplicated, and productive of a viable female . Her course was unremarkable. On post-op day #1, she was ambulating, tolerating regular diet, voiding spontaneously with minimal lochia. Her pain was well controlled with oral medications, thus she was discharged to [facility] on post-op day #1. Peripartum Data Infant Delivery Method: Section Procedures: External monitoring Spinal anesthesia Antibiotic prophylaxis delivery complications: none [place] 1: Gender: Female Disposition of : other (kept for observation for 72hrs due to opioid agonist exposure) Discharge Diagnosis (1) Maternal care for low transverse scar from previous delivery: Status: Acute (2) Single live : Status: Acute (3) Substance abuse affecting , antepartum: Status: Acute (4) Advanced maternal age (AMA) in : Status: Acute (5) Hypothyroidism affecting : Status: Acute (6) Tobacco use affecting , antepartum: Status: Acute (7) Obesity affecting : Status: Acute (8) 39 weeks gestation of : Status: Acute Status at Discharge Cognitive/behavioral status at discharge: oriented Functional status at discharge: independent ambulation Overall status at discharge: patient is progressing back to baseline Time Spent with Patient Time attestation: Total time spent providing and/or coordinating discharge services: Time spent: Less than 30 minutes Objective Labs 07/10/24 09:30 07/10/24 09:30 Labs: Laboratory Results - last 24 hr 07/10/24 09:30 WBC 10.1 RBC 3.86 L Hgb 12.1 Hct 35.4 L MCV 91.7 MCH 31.4 MCHC 34.2 RDW 12.4 Plt Count 242 Neut % (Auto) 74.1 Lymph % (Auto) 17.1 L [place] % (Auto) 7.7 Eos % (Auto) 0.6 L Baso % (Auto) 0.5 Neut # (Auto) 7500 H Lymph # (Auto) 1700 [place] # (Auto) 800 Eos # (Auto) 100 Baso # (Auto) 0 Sodium 136 L Potassium 3.8 Chloride 109 H Carbon Dioxide 20 L BUN 7 Creatinine 0.71 Estimated GFR > 60 BUN/Creatinine Ratio 9.9 Glucose 80 Calcium 8.4 Total Bilirubin 0.5 AST 27 ALT 23 Alkaline Phosphatase 262 H Total Creatine Kinase 72 Troponin I < 0.012 Total Protein 6.3 Albumin 3.3 L Globulin 3.0 Albumin/Globulin Ratio 1.1 Exam Vital Signs (past 8 hours): Oxygen Delivery Method Room Air,T-Piece vitals reviewed in OBIX Const General: cooperative, healthy appearing, comfortable and No acute distress Resp Effort & Inspection: normal respiratory effort and able to speak in complete sentences GI Inspection: normal to inspection Other: fundus firm and nontender at U-2 Skin General: no rashes or lesions noted Other: incision covered with Aquacel dressing with minimal strikethrough Neuro General: patient alert and patient awake Extrem General: normal to inspection, no pedal edema and no calf tenderness Psych Mood: congruent mood Affect: normal affect Discharge Plan Discharge Plan Patient Disposition: Home Provider Discharge Comment: Take ibuprofen 800mg every 8hrs and acetaminophen 650mg every 6hrs for pain. Use oxycodone 5mg every 4hrs as needed for severe pain. Avoid lifting greater than 20lbs for at least 6 weeks. Avoid placing anything in the vagina until 6 weeks . Discharge orders & Medications Prescriptions: New oxycodone 5 mg Tablet 5 mg PO Q4H PRN (Reason: Pain, Moderate (4-6)) Qty: 10 0RF Continued trazodone 100 mg tablet See Rx Instructions .ROUTE .COMPLEX Qty: 180 1RF Dose Instruction: TAKE TWO TABLETS NIGHTLY AT BEDTIME Rx Instructions: TAKE TWO TABLETS NIGHTLY AT BEDTIME levothyroxine 200 mcg tablet 200 mcg PO DAILY Qty: 60 0RF nicotine 7 mg/24 hr patch 24 hour 1 patch transdermal Q24H Qty: 14 0RF Rx Instructions: use daily for two weeks then quit gabapentin 100 mg capsule 100 mg PO DAILY Qty: 30 0RF nitroglycerin 0.4 mg tablet, sublingual 0.4 mg sublingual Q5M PRN (Reason: chest pain) Qty: 20 1RF Rx Instructions: do not exceed 3 doses per episode vit-ferrous sulfat-FA 27 mg iron- 0.8 mg tablet PO metoclopramide HCl [Reglan] 10 mg tablet 10 mg PO Q6H PRN (Reason: nausea and vomiting) Qty: 10 0RF pantoprazole [Protonix] 40 mg tablet,delayed release (DR/EC) 40 mg PO DAILY Qty: 30 0RF ondansetron 4 mg tablet,disintegrating 4 mg PO Q8H PRN (Reason: nausea and vomiting) Qty: 30 0RF buprenorphine-naloxone 8 MG/2 MG tablet, sublingual 2 tab Sublingual QAM phenazopyridine [Pyridium] 100 mg tablet 100 mg PO TID PRN (Reason: pain) Qty: 6 0RF ondansetron 4 mg tablet,disintegrating 4 mg PO Q6H PRN (Reason: nausea and vomiting) Qty: 14 0RF Follow up/Referrals: Emma Hall DO [Physician] - Diet/Activity/Treatments Diet: Diet as Tolerated Activity: As tolerated. Skin/Wound/Dressing Care Skin care: You may shower normally. Report to your healthcare provider any signs of infection, such as:: chills, fever, increased pain, unusual drainage and unusual redness Dressing: The bandage on your incision will be removed in the office next week. Visit Report/Discharge Packet Instructions: DI for , DI for Prescription Opioid Use Stand Alone Forms: Patient Portal/API, Stroke Signs & Symptoms Discharge Data Primary Care Provider: Javier Mckee
[2024-07-11] MEDS: PRENATAL VIT,CALC/IRON/FOLIC 1 TABLET 1 TAB PO (08:51)
[2024-07-11] MEDS: DOCUSATE 100 MG CAPSULE PO (08:51)
[2024-07-11] MEDS: BUPRENORPHINE/NALOXONE 8MG/2MG 1 TAB 1.5 TAB SL (08:55)
[2024-07-11] MEDS: IBUPROFEN 600 MG TABLET PO ×2 (10:45→15:32)
[2024-07-11] MEDS: OXYCODONE IR 10 MG TABLET PO (16:10)
== END 2024-07-11 18:29 | disposition home or self-care (01) | DRG 540 ==
PROVIDERS: Nurse Anesthetist, Certified Registered; Admitting Provider Student in an Organized Health Care Education/Training Program; PCP Family Medicine; Referring Provider Student in an Organized Health Care Education/Training Program; Visit Provider Student in an Organized Health Care Education/Training Program
PROC: 10D00Z1 Extraction of Products of Conception, Low, Open Approach (ICD-10-PCS; CPT 59514; principal; 2024-07-10 07:45)
DX: O34.211 Maternal care for low transverse scar from previous cesarean delivery (principal); Z3A.39 39 weeks gestation of pregnancy; Z37.0 Single live birth; O99.323 Drug use complicating pregnancy, third trimester; F11.20 Opioid dependence, uncomplicated; O99.284 Endocrine, nutritional and metabolic diseases complicating childbirth; E03.9 Hypothyroidism, unspecified; O99.214 Obesity complicating childbirth; O99.334 Smoking (tobacco) complicating childbirth
CPT/HCPCS: 59050; 59514; 80053; 82550; 84484; 85025; 86850; 86900; 86901; 93005; J0666; J1100; J1885; J2274; J2405; J2590

== ENCOUNTER 2024-07-13 12:34 | Emergency (ER) | payer OTHER, SELFPAY ==
[2024-07-13] VITALS (9 sets, daily range): BP systolic 103–131; BP diastolic 60–79; PULSE 50–70; RESP 16–18; TEMP 36.4; O2SAT 95–100; BMI 37.3
--- NOTE | 2024-07-13 13:05 | ED_ITS ---
HPI - Female Genitourinary General Chief complaint: OB/Uterine Contractions Stated complaint: post csection t-3, abd swelling/px, legs swelling Time Seen by Provider: 07/13/24 13:05 Source: patient Mode of arrival: Family Vehicle History of Present Illness HPI Narrative: This is a 33-year-old female who is status post section at 31 weeks on July 10 here at [facility]. She is here today with left lower quadrant abdominal pain which he describes as burning. Patient has not had a bowel movement since before her . He is not having any dysuria or frequency he is not having fevers nausea or vomiting. Other than sections has had an umbilical hernia repair. Believes that she has been passing gas. Notes a moderate vaginal discharge not having significant bleeding She is also concern of some swelling in both feet. No calf pain. Related Data Home Medications Medication Instructions Recorded Confirmed buprenorphine 8 mg-naloxone 2 mg 2 tab sublingual QAM 08/19/18 07/04/24 sublingual tablet vitamin-ferrous sulfate tab PO 11/27/23 07/04/24 27 mg iron-folic acid 0.8 mg tablet Previous Rx's Medication Instructions Recorded nitroglycerin 0.4 mg sublingual 0.4 mg sublingual Q5M PRN chest 02/15/22 tablet pain #20 tabs trazodone 100 mg tablet See Rx Instructions .Route 06/12/23 .COMPLEX #180 tabs ondansetron 4 mg disintegrating 4 mg PO Q8H PRN nausea and 06/24/23 tablet vomiting #30 tabs gabapentin 100 mg capsule 100 mg PO DAILY #30 caps 01/04/24 nicotine 7 mg/24 hr daily 1 patch transdermal Q24H #14 ea 01/04/24 transdermal patch ondansetron 4 mg disintegrating 4 mg PO Q6H PRN nausea and 02/13/24 tablet vomiting #14 tabs phenazopyridine 100 mg tablet 100 mg PO TID PRN pain 6 doses #6 02/13/24 (Pyridium) tabs levothyroxine 200 mcg tablet 200 mcg PO DAILY #60 tabs 06/06/24 metoclopramide HCl 10 mg tablet 10 mg PO Q6H PRN nausea and 07/04/24 (Reglan) vomiting #10 tabs pantoprazole 40 mg tablet,delayed 40 mg PO DAILY #30 tabs 07/04/24 release (Protonix) oxycodone 5 mg tablet 5 mg PO Q4H PRN Pain, Moderate 07/11/24 (4-6) #10 tabs polyethylene glycol 3350 17 17 g PO DAILY #119 grams 07/13/24 gram/dose oral powder (Miralax) Allergies Allergy/AdvReac Type Severity Reaction Status Date / Time amoxicillin [AMOXICILLIN] Allergy Unknown RASH/HIVES Verified 07/10/24 08:55 Penicillins Allergy Unknown Swelling Verified 07/10/24 08:55 of Lip/Tongue/Throat cephalexin AdvReac Severe Rash Verified 07/10/24 08:55 diphenhydramine AdvReac Severe Anxiety Verified 07/10/24 08:55 hydromorphone AdvReac Verified 07/10/24 08:55 Opioids - Morphine Analogues AdvReac Verified 07/10/24 08:55 Patient History Medical History Opioid abuse, in remission History of opioid abuse Crohn's disease without complication (04/23/15) Hypothyroidism Left ankle injury Umbilical hernia Pyelonephritis Ovarian neoplasm Acne GERD (gastroesophageal reflux disease) Chronic bilateral low back pain without sciatica (07/19/15) Surgical History (Updated 12/06/23 @ 13:07 by Emma Hall DO) History of hernia repair Anesthesia History of knee surgery H/O oophorectomy Family History (Updated 11/27/23 @ 10:28 by Vika Rey RN) Father Hyperthyroidism Heart disease Heavy smoker Mother Depression Anxiety Drug abuse tobacco type: cigarettes Exam Initial Vital Signs Initial Vital Signs: Vital Signs Temperature 97.6 F 07/13/24 12:38 Pulse Rate 64 07/13/24 12:38 Respiratory Rate 18 07/13/24 12:38 Blood Pressure 131/79 07/13/24 12:38 Pulse Oximetry 100 07/13/24 12:38 Oxygen Delivery Method Room Air 07/13/24 12:38 vital signs are reviewed Const General: cooperative and No acute distress HENMT Head: normocephalic and atraumatic Neck Neck: supple Resp Effort & Inspection: normal respiratory effort and able to speak in complete sentences Auscultation: clear to auscultation bilaterally Cardio Rate: regular rate Rhythm: regular rhythm Heart Sounds: no murmurs GI Other: Bowel sounds are normal. Surgical incision appears to be intact without erythema or warmth. She is tender in the left lower quadrant and left flank with voluntary guarding no rebound no mass. No CVAT Back/Spine/Pelvis Back: normal to inspection Skin General: no rashes or lesions noted and warm Neuro General: patient alert and patient oriented x3 Course Orders Ordered: ED Orders 07/13/24 13:22 Ictotest Urine Stat Urine Microscopic Stat 07/13/24 13:33 Complete Blood Count AUTO DIFF Stat Comprehensive Metabolic Panel Stat Lipase Stat 07/13/24 14:22 US periph venous low extrem bi Stat 07/13/24 14:23 US pelvic complete Stat 07/13/24 14:49 CT abdomen pelvis w con Stat Ondansetron HCl (Ondansetron 4 Mg/2 Ml Inj) 4 mg IV NOW PRN PRN Reason: Nausea And Vomiting Ondansetron HCl (Ondansetron 4 Mg Odt) 4 mg PO NOW PRN PRN Reason: Nausea And Vomiting Discontinued Medications Glycerin (Glycerin Supp Adult 1 Supp) 1 each SC NOW ONE Stop: 07/13/24 17:03 Hydromorphone HCl (Hydromorphone 1 Mg Inj) 1 mg IV NOW ONE Stop: 07/13/24 16:07 Last Admin: 07/13/24 16:49 Dose: 1 mg Documented By: MAGDA Oxycodone HCl (Oxycodone Ir 5 Mg Tablet) 5 mg PO NOW ONE Stop: 07/13/24 14:22 Last Admin: 07/13/24 14:26 Dose: 5 mg Documented By: MAGDA Consultations Consultation #1: Case was discussed with Dr. Livan Lott on-call for OBGYN, concerned for a rectus sheath hematoma suggest we get a CT abdomen and pelvis Vital Signs Vital signs: Vital Signs - 8 hr 07/13/24 12:38 07/13/24 13:30 07/13/24 13:30 Temperature 97.6 F Pulse Rate 64 70 Respiratory Rate 18 Blood Pressure 131/79 107/73 Pulse Oximetry 100 96 Oxygen Delivery Method Room Air 07/13/24 13:45 07/13/24 13:45 07/13/24 14:00 Temperature Pulse Rate 61 Respiratory Rate Blood Pressure 103/68 Pulse Oximetry 96 96 Oxygen Delivery Method 07/13/24 14:00 07/13/24 15:08 07/13/24 15:08 Temperature Pulse Rate 51 L Respiratory Rate Blood Pressure 130/76 118/73 Pulse Oximetry 98 Oxygen Delivery Method 07/13/24 15:30 07/13/24 15:32 07/13/24 15:32 Temperature Pulse Rate 55 L 54 L Respiratory Rate Blood Pressure 114/64 Pulse Oximetry 96 96 Oxygen Delivery Method 07/13/24 16:00 07/13/24 16:00 Temperature Pulse Rate 50 L Respiratory Rate Blood Pressure 106/60 Pulse Oximetry 95 Oxygen Delivery Method MDM - Female Genitourinary Lab Data Lab results narrative: No evidence of infection on UA, CBC with diff and CMP are reassuring no leukocytosis 07/13/24 13:33 07/13/24 13:33 Labs: Lab Results 07/13/24 07/13/24 Range/Units 13:22 13:33 WBC 7.9 (4.5-11.0) X10^3/uL RBC 4.02 (4.0-5.2) X10^6/uL Hgb 12.6 (12.0-16.0) g/dL Hct 37.1 (36-46) % MCV 92.4 (80-100) fL MCH 31.4 (26-34) PG MCHC 34.0 (30-36) % RDW 12.3 (11.6-14.8) % Plt Count 381 (150-400) X10^3/uL Neut % (Auto) 62.4 (50-75) % Lymph % (Auto) 24.8 L (25-40) % Ada % (Auto) 9.2 (3-14) % Eos % (Auto) 2.9 (2-4) % Baso % (Auto) 0.7 (0-2) % Neut # (Auto) 4900 (3305-0203) /uL Lymph # (Auto) 1900 (6210-4667) /uL Ada # (Auto) 700 (0-900) /uL Eos # (Auto) 200 (0-450) /uL Baso # (Auto) 100 (0-100) /uL Sodium 137 (137-145) mmol/L Potassium 4.7 (3.4-5.1) mmol/L Chloride 107 (98-107) mmol/L Carbon Dioxide 21 L (22-32) mmol/L BUN 13 (7-17) mg/dL Creatinine 0.87 (0.52-1.04) mg/dL Estimated GFR > 60 (>60) mL/min BUN/Creatinine Ratio 14.9 (6-22) Glucose 83 (70-100) mg/dL Calcium 10.6 H (8.4-10.2) mg/dL Total Bilirubin 0.5 (0.2-1.3) mg/dL AST 45 H (14-36) IU/L ALT 25 (<35) IU/L Alkaline Phosphatase 191 H (38-126) U/L Total Protein 7.1 (6.3-8.2) g/dL Albumin 3.8 (3.5-5.0) g/dL Globulin 3.3 (1.7-4.1) g/dL Albumin/Globulin Ratio 1.2 (1.0-2.8) Lipase 65 (23-300) U/L Ur Bilirubin Confirm Negative (Negative) Urine RBC >100/hpf H (0-5/HPF) Urine WBC 1-5/hpf (0-5/HPF) Ur Squamous Epith Cells >30 /hpf H (0-5/HPF) Urine Bacteria Many (>30) H (None) Urine Mucus 2+ H (Negative) Ur Culture Indicated? Cult not indicated Vol Urine Centrifuged 10ml (spun) Urine Dip Bedside Urine Glucose Negative Bedside Urine Bilirubin + 1 Bedside Urine Ketone +/- 5 Urine Specific Sheldon 1.030 Bedside Urine Occult Blood +++ Bedside Urine pH 6.0 Bedside Urine Protein + 30 Bedside Urine Urobilinogen - Negative Bedside Urine Nitrite - Negative Bedside Urine Leukocytes - Negative Esterase Imaging Data CT scan - abdomen/pelvis: My Impression: Postoperative changes, no acute findings Radiologist's Impression: [address] [address] [address] Scan Report Signed Patient: GarrettJuly MR#: [id number] : 1990 Acct:[id number] Age/Sex: 33 / F Date of Service: 07/13/24 Loc: ED Accession Number: [id number] Procedure: CT abdomen pelvis w con Ordering Provider: Korey Almaraz MD PROCEDURE: CT ABDOMEN PELVIS W CON INDICATIONS: l sided abdominal pain TECHNIQUE: After the administration of intravenous contrast, axial sections acquired from the lung bases to the pubic symphysis. Coronal and sagittal reformats were performed. For radiation dose reduction, the following was used: automated exposure control, adjustment of mA and/or kV according to patient size. COMPARISON: [facility], CT, CT ABDOMEN PELVIS W CON, 10/22/2023, 23:05. FINDINGS: Lower Chest: No significant findings. ABDOMEN: Liver: No solid mass. Gallbladder: No radiopaque gallstones or wall thickening. Biliary ducts: No biliary dilation. Pancreas: No ductal dilation. Spleen: Size is within normal limits. Adrenal Glands: No adrenal nodules. Kidneys and Ureters: No hydronephrosis. No solid mass. No complex renal cystic lesion which requires follow up. Stomach and Bowel: Large amount of fecal debris throughout the colon. Peritoneum: No abnormal intraperitoneal fluid. No free air. Ventral Wall: No significant ventral hernia. Small amount of postprocedural air in the subcutaneous tissue anterior abdominal wall consistent with recent surgery Abdominal Nodes: No retroperitoneal or mesenteric adenopathy by size criteria. Vessels: Aorta and inferior vena cava are normal in size. PELVIS: Pelvic Organs: Enlarged hypervascular uterus Bladder: No bladder wall thickening, accounting for underdistention. Pelvic Nodes: No enlarged lymph nodes. Miscellaneous: No inguinal hernias are seen. Bones: No aggressive osseous abnormality. IMPRESSION: Enlarged uterus and postoperative changes within expected limits. No evidence of complication. No abscess or free air. Approved by: Awais Zhong M.D. on 07/13/2024 at 14:59 US - DVT: Radiologist's Impression: Reported negative for DVT US - OB: Radiologist's Impression: Per radiology, pelvic ultrasound does not suggest retained products of conception MDM Narrative Medical decision making narrative: 33-year-old female with recent section presenting with left-sided abdominal pain. Does not have midline tenderness, does not have leukocytosis or fever I considered but do not suspect endometritis. Imaging and labs do not suggest urinary tract infection or ureteral stone. CT does not show evidence of diverticulitis although she does appear to be constipated without bowel obstruction. I plan to start her on MiraLax and counseled her to try and minimize opiate analgesia. Discharge Plan Departure Patient Disposition: Home Clinical Impression: Pedal edema Abdominal pain Qualifiers: Abdominal location: left lower quadrant Qualified Code(s): R10.32 - Left lower quadrant pain Activity Restrictions/Additional Instructions: Emergency department evaluation today is reassuring. It does not look like the you have an infection or other postoperative complication requiring immediate intervention. It does appear that you have constipation. As we discussed, opiate pain medications will make this worse. Try to limit your use of these. Make sure that you are getting adequate fluids. I have prescribed MiraLax, I recommend that you start this and hopefully her bowel function will improve soon. Also walking will help you get your bowels moving. Follow up soon with your OBGYN doctor. Return to the emergency department for fevers uncontrolled vomiting increasing pain or other acute symptoms Prescriptions: New polyethylene glycol 3350 [Miralax] 17 gram/dose powder 17 g PO DAILY Qty: 119 0RF No Action trazodone 100 mg tablet See Rx Instructions .ROUTE .COMPLEX Qty: 180 1RF Dose Instruction: TAKE TWO TABLETS NIGHTLY AT BEDTIME Rx Instructions: TAKE TWO TABLETS NIGHTLY AT BEDTIME levothyroxine 200 mcg tablet 200 mcg PO DAILY Qty: 60 0RF nicotine 7 mg/24 hr patch 24 hour 1 patch transdermal Q24H Qty: 14 0RF Rx Instructions: use daily for two weeks then quit gabapentin 100 mg capsule 100 mg PO DAILY Qty: 30 0RF nitroglycerin 0.4 mg tablet, sublingual 0.4 mg sublingual Q5M PRN (Reason: chest pain) Qty: 20 1RF Rx Instructions: do not exceed 3 doses per episode vit-ferrous sulfat-FA 27 mg iron- 0.8 mg tablet PO metoclopramide HCl [Reglan] 10 mg tablet 10 mg PO Q6H PRN (Reason: nausea and vomiting) Qty: 10 0RF pantoprazole [Protonix] 40 mg tablet,delayed release (DR/EC) 40 mg PO DAILY Qty: 30 0RF ondansetron 4 mg tablet,disintegrating 4 mg PO Q8H PRN (Reason: nausea and vomiting) Qty: 30 0RF buprenorphine-naloxone 8 MG/2 MG tablet, sublingual 2 tab Sublingual QAM phenazopyridine [Pyridium] 100 mg tablet 100 mg PO TID PRN (Reason: pain) Qty: 6 0RF ondansetron 4 mg tablet,disintegrating 4 mg PO Q6H PRN (Reason: nausea and vomiting) Qty: 14 0RF oxycodone 5 mg Tablet 5 mg PO Q4H PRN (Reason: Pain, Moderate (4-6)) Qty: 10 0RF Referrals: Javier Mckee, [Primary Care Provider] - Stand Alone Forms: Patient Portal/API/Survey
[2024-07-13 13:36] LABS: Ictotest Urine Negative (Negative)
--- NOTE | 2024-07-13 13:38 | PC.NURSE ---
Pt refused IV. Pt educated on importance of IV for meds/imaging etc. Pt stated she declined until blood work came back
--- NOTE | 2024-07-13 13:39 | PC.NURSE ---
Pt reports uncomplicated c section 3 days ago. Pt reports upon leaving the hospital yesterday she started to have swelling in abdomen and lower extremity. Lower extremity swelling noted. Abdomen appears to be round; pt reports it has increased in size. Pt states she had no complications until leaving home;
[2024-07-13 13:46] LABS: RBC Urine >100/HPF (0-5/HPF); Urine Volume 10mL (spun)
[2024-07-13 13:47] LABS: Bacteria Urine Many (>30); Culture Indicated Urine Cult Not Indicated; Mucus Urine 2+ (Negative); Squamous Epithelial Cell Urine >30 /HPF (0-5/HPF); WBC Urine 1-5/HPF (0-5/HPF)
[2024-07-13 13:54] LABS: Add Manual Diff / Slide Review NO; Basophils Absolute Auto 100 /uL (0-100); Basophils Percent Auto 0.7 % (0-2); Eosinophils Absolute Auto 200 /uL (0-450); Eosinophils Percent Auto 2.9 % (2-4); Hematocrit 37.1 % (36-46); Hemoglobin 12.6 g/dL (12.0-16.0); Lymphocytes Absolute Auto 1900 /uL (1100-4500); Lymphocytes Percent Auto 24.8 % (25-40); Mean Corpuscular Hemoglobin 31.4 PG (26-34); Mean Corpuscular Volume 92.4 fL (80-100); Monocytes Absolute Auto 700 /uL (0-900); Monocytes Percent Auto 9.2 % (3-14); Neutrophils Absolute Auto 4900 /uL (1500-7000); Neutrophils Percent Auto 62.4 % (50-75); Platelet Count 381 X10^3/uL (150-400); Red Blood Cell Count 4.02 X10^6/uL (4.0-5.2); Red Cell Distribution Width 12.3 % (11.6-14.8); White Blood Cell Count 7.9 X10^3/uL (4.5-11.0)
[2024-07-13 14:00] LABS: Alanine Aminotransferase 25 IU/L (<35); Albumin 3.8 g/dL (3.5-5.0); Albumin Globulin Ratio 1.2 (1.0-2.8); Alkaline Phosphatase 191 U/L (38-126); Aspartate Aminotransferase 45 IU/L (14-36); BUN Creatinine Ratio 14.9 (6-22); Bilirubin Total 0.5 mg/dL (0.2-1.3); Blood Urea Nitrogen 13 mg/dL (7-17); Calcium 10.6 mg/dL (8.4-10.2); Carbon Dioxide 21 mmol/L (22-32); Chloride 107 mmol/L (98-107); Estimated Glomerular Filt Rate > 60 mL/min (>60); Globulin 3.3 g/dL (1.7-4.1); Glucose 83 mg/dL (70-100); HEMOLYSIS 24 (0-50); Lipase 65 U/L (23-300); Potassium 4.7 mmol/L (3.4-5.1); Sodium 137 mmol/L (137-145); Total Protein 7.1 g/dL (6.3-8.2)
--- NOTE | 2024-07-13 14:22 | DI.US.S_ITS ---
PROCEDURE: US PERIPH VENOUS LOW EXTREM BI INDICATIONS: leg swelling, DVT suspected TECHNIQUE: Real-time imaging, as well as color and pulse Doppler interrogation, were performed of the deep veins of both legs from the inguinal ligament to the popliteal fossa, with documentation of the visualized calf veins. COMPARISON: None. FINDINGS: Right: The common femoral, femoral, popliteal, and the visualized calf veins are normally compressible, and free of intraluminal thrombus. Color and pulse Doppler demonstrate normal phasic intravascular flow. There is normal augmentation response to distal compression maneuver. Left: The common femoral, femoral, popliteal, and the visualized calf veins are normally compressible, and free of intraluminal thrombus. Color and pulse Doppler demonstrate normal phasic intravascular flow. There is normal augmentation response to distal compression maneuver. IMPRESSION: No findings of deep venous thrombosis in either lower extremity. Approved by: Awais Zhong M.D. on 07/13/2024 at 14:56
--- NOTE | 2024-07-13 14:23 | DI.US.S_ITS ---
PROCEDURE: US PELVIC COMPLETE INDICATIONS: SEVERE PAIN 3 DAYS POST TECHNIQUE: Real-time scanning was performed of the pelvic organs, with image documentation. Additional endovaginal scanning was necessary due to incomplete visualization of the adnexal and endometrial structures by transabdominal scanning. COMPARISON: None. FINDINGS: Uterus: Uterus is anteverted and normal in size at 15.7 x 10.0 x 14.3 cm. The myometrium is homogeneous. The endometrium measures 29 mm combined thickness. Ovaries: Nonvisualized Other: No pathologic free abdominal or pelvic fluid. IMPRESSION: Limited exam. Thickened endometrium 29 mm. No convincing evidence of retained products of conception. Approved by: Awais Zhong M.D. on 07/13/2024 at 14:55
[2024-07-13] MEDS: OXYCODONE IR 5 MG TABLET PO (14:26)
--- NOTE | 2024-07-13 14:29 | PC.NURSE ---
Pt removed vital sign monitoring.
--- NOTE | 2024-07-13 14:33 | PC.NURSE ---
Pt stated to RN I am not waiting 5 hours in the ER
--- NOTE | 2024-07-13 14:49 | DI.CT.S_ITS ---
PROCEDURE: CT ABDOMEN PELVIS W CON INDICATIONS: l sided abdominal pain TECHNIQUE: After the administration of intravenous contrast, axial sections acquired from the lung bases to the pubic symphysis. Coronal and sagittal reformats were performed. For radiation dose reduction, the following was used: automated exposure control, adjustment of mA and/or kV according to patient size. COMPARISON: [facility], CT, CT ABDOMEN PELVIS W CON, 10/22/2023, 23:05. FINDINGS: Lower Chest: No significant findings. ABDOMEN: Liver: No solid mass. Gallbladder: No radiopaque gallstones or wall thickening. Biliary ducts: No biliary dilation. Pancreas: No ductal dilation. Spleen: Size is within normal limits. Adrenal Glands: No adrenal nodules. Kidneys and Ureters: No hydronephrosis. No solid mass. No complex renal cystic lesion which requires follow up. Stomach and Bowel: Large amount of fecal debris throughout the colon. Peritoneum: No abnormal intraperitoneal fluid. No free air. Ventral Wall: No significant ventral hernia. Small amount of postprocedural air in the subcutaneous tissue anterior abdominal wall consistent with recent surgery Abdominal Nodes: No retroperitoneal or mesenteric adenopathy by size criteria. Vessels: Aorta and inferior vena cava are normal in size. PELVIS: Pelvic Organs: Enlarged hypervascular uterus Bladder: No bladder wall thickening, accounting for underdistention. Pelvic Nodes: No enlarged lymph nodes. Miscellaneous: No inguinal hernias are seen. Bones: No aggressive osseous abnormality. IMPRESSION: Enlarged uterus and postoperative changes within expected limits. No evidence of complication. No abscess or free air. Approved by: Awais Zhong M.D. on 07/13/2024 at 14:59
--- NOTE | 2024-07-13 16:47 | PC.NURSE ---
BC made aware pt was given narcotics prior to walking over with breast milk
[2024-07-13] MEDS: HYDROMORPHONE 1 MG INJ IV (16:49)
== END 2024-07-13 17:44 | disposition home or self-care (01) ==
PROVIDERS: Emergency Medicine; Emergency Provider Emergency Medicine; PCP Family Medicine
DX: O90.89 Other complications of the puerperium, not elsewhere classified (principal); R10.32 Left lower quadrant pain; R60.0 Localized edema
CPT/HCPCS: 36415; 74177; 76856; 80053; 81003; 81015; 83690; 85025; 93970; 96374; 99284; J1171; Q9967

== ENCOUNTER → 2024-10-28 13:31 | Outpatient (CLI) | payer OTHER, SELFPAY | LOC: LAB 13:32 | PROVIDERS: PCP Family Medicine; Visit Provider Student in an Organized Health Care Education/Training Program | DX: R30.0 Dysuria (principal) | CPT/HCPCS: 87086 ==

== ENCOUNTER → 2024-10-28 13:50 | Outpatient (CLI) | payer OTHER, SELFPAY ==
--- NOTE | 2024-10-28 13:52 | DI.CT.S_ITS ---
PROCEDURE: CT ABDOMEN PELVIS W CON INDICATIONS: Pelvic Pain post Csection TECHNIQUE: Oral contrast was given in this patient. After the administration of intravenous contrast, axial sections acquired from the lung bases to the pubic symphysis. Coronal and sagittal reformats were performed. For radiation dose reduction, the following was used: automated exposure control, adjustment of mA and/or kV according to patient size. COMPARISON: [facility], CT, CT ABDOMEN PELVIS W CON, 07/13/2024, 14:56. [facility], CT, CT ABDOMEN PELVIS W CON, 10/22/2023, 23:05. [facility], CT, CT ABDOMEN PELVIS W CON, 04/10/2023, 16:40. [facility], US, US PERIPH VENOUS LOW EXTREM BI, 07/13/2024, 14:52. FINDINGS: Image quality: Diagnostic. Lower Chest: No significant findings. ABDOMEN: Liver: No solid mass. Gallbladder: No radiopaque gallstones or wall thickening. Biliary ducts: No biliary dilation. Pancreas: No ductal dilation. Spleen: Size is within normal limits. Adrenal Glands: No adrenal nodules. Kidneys and Ureters: No hydronephrosis. No solid mass. No complex renal cystic lesion which requires follow up. Stomach and Bowel: Normal colonic caliber, without significant wall thickening. No dilated loops of small bowel are seen. A normal appendix is noted. Peritoneum: No abnormal intraperitoneal fluid. No free air. Ventral Wall: No significant ventral hernia. Abdominal Nodes: No retroperitoneal or mesenteric adenopathy by size criteria. Vessels: Aorta and inferior vena cava are normal in size. PELVIS: Pelvic Organs: No adnexal masses are seen on either side. Minimal free fluid can be seen within the pelvis. Bladder: No bladder wall thickening, accounting for underdistention. Pelvic Nodes: No enlarged lymph nodes. Miscellaneous: No inguinal hernias are seen. Bones: No aggressive osseous abnormality. IMPRESSION: Unremarkable study, without a postoperative complication seen. No imaging explanation is found for this patient's presenting symptoms. Dictated by: Matthew Jamison M.D. on 10/28/2024 at 14:43 Approved by: Matthew Jamison M.D. on 10/28/2024 at 14:45
== END ==
LOC: CT 13:51
PROVIDERS: PCP Family Medicine; Referring Provider Student in an Organized Health Care Education/Training Program; Visit Provider Student in an Organized Health Care Education/Training Program
DX: Z39.2 Encounter for routine postpartum follow-up (principal); R10.9 Unspecified abdominal pain
CPT/HCPCS: 74177; 87086; Q9967

== ENCOUNTER → 2024-12-24 09:32 | Outpatient (CLI) | payer OTHER, SELFPAY | PROVIDERS: PCP Family Medicine; Visit Provider Chiropractor | DX: R30.0 Dysuria (principal); N94.9 Unspecified condition associated with female genital organs and menstrual cycle | CPT/HCPCS: 87086 ==

== ENCOUNTER 2024-12-24 10:05 | Emergency (ER) | payer OTHER, SELFPAY ==
[2024-12-24] VITALS (9 sets, daily range): BP systolic 94–122; BP diastolic 57–77; PULSE 47–59; RESP 14–18; TEMP 36.3; O2SAT 95–100; BMI 35.6
[2024-12-24 10:50] LABS: Alanine Aminotransferase 28 IU/L (<35); Albumin 4.8 g/dL (3.5-5.0); Albumin Globulin Ratio 1.5 (1.0-2.8); Alkaline Phosphatase 50 U/L (38-126); Blood Urea Nitrogen 13 mg/dL (7-17); Calcium 9.3 mg/dL (8.4-10.2); Carbon Dioxide 24 mmol/L (22-32); Chloride 106 mmol/L (98-107); Estimated Glomerular Filt Rate > 60 mL/min (>60); Globulin 3.3 g/dL (1.7-4.1); Glucose 83 mg/dL (70-99); HEMOLYSIS 17 (0-50); Lipase 73 U/L (23-300); Potassium 4.4 mmol/L (3.4-5.1); Sodium 138 mmol/L (137-145); Total Protein 8.1 g/dL (6.3-8.2)
[2024-12-24 10:51] LABS: Add Manual Diff / Slide Review NO; Hematocrit 36.2 % (36-46); Hemoglobin 12.4 g/dL (12.0-16.0); Lymphocytes Absolute Auto 1800 /uL (1100-4500); Mean Corpuscular HGB Conc 34.2 % (30-36); Mean Corpuscular Hemoglobin 31.8 PG (26-34); Mean Corpuscular Volume 93.0 fL (80-100); Platelet Count 276 X10^3/uL (150-400)
--- NOTE | 2024-12-24 10:56 | DI.CT.S_ITS ---
PROCEDURE: CT ABDOMEN PELVIS W CON INDICATIONS: abd pain- lower TECHNIQUE: After the administration of intravenous contrast, axial sections acquired from the lung bases to the pubic symphysis. Coronal and sagittal reformats were performed. For radiation dose reduction, the following was used: automated exposure control, adjustment of mA and/or kV according to patient size. COMPARISON: [facility], CT, CT ABDOMEN PELVIS W CON, 10/28/2024, 15:06. [facility], CT, CT ABDOMEN PELVIS W CON, 07/13/2024, 14:56. [facility], CT, CT ABDOMEN PELVIS W CON, 10/22/2023, 23:05. CT, CT ABDOMEN PELVIS W CON, 04/10/2023, 16:40. FINDINGS: Image quality: Diagnostic. Lower Chest: No significant findings. ABDOMEN: Liver: No solid mass. Liver is enlarged measuring 23.6 centimeters in long axis. Mild, diffuse fatty infiltration of the liver. Gallbladder: No radiopaque gallstones or wall thickening. Biliary ducts: No biliary dilation. Pancreas: No ductal dilation. Spleen: Size is within normal limits. Adrenal Glands: No adrenal nodules. Kidneys and Ureters: No hydronephrosis. No solid mass. No complex renal cystic lesion which requires follow up. Stomach and Bowel: Normal colonic caliber, without significant wall thickening. The appendix is normal. Peritoneum: No abnormal intraperitoneal fluid. Trace low-density free fluid in the cul-de-sac of the pelvis is within physiologic limits. No free air. Ventral Wall: No significant ventral hernia. Abdominal Nodes: No retroperitoneal or mesenteric adenopathy by size criteria. Vessels: Aorta and inferior vena cava are normal in size. PELVIS: Pelvic Organs: Unremarkable. Bladder: No bladder wall thickening, accounting for underdistention. Pelvic Nodes: No enlarged lymph nodes. Miscellaneous: No inguinal hernias are seen. Bones: No aggressive osseous abnormality. Spine degenerative disc disease and facet arthropathy. Stable anterior wedging of the T12 vertebral body. IMPRESSION: No acute disease process. Dictated by: Desiree Vaughn MD, PhD on 12/24/2024 at 11:30 Approved by: Desiree Vaughn MD, PhD on 12/24/2024 at 11:35
--- NOTE | 2024-12-24 10:57 | ED.ABDPAIN ---
HPI - Abdominal Pain General Chief Complaint: Abdominal Pain Stated Complaint: Possible Infection from x 6 weeks Time Seen by Provider: 12/24/24 10:48 Source: patient Mode of arrival: Ambulatory History of Present Illness HPI narrative: 34-year-old female with a history of C-sections x2 most recently in July of this year. She is complaining of lower abdominal pain with nausea that she has had for about 6 weeks. He has been getting progressively worse. Says that she had similar pain immediately after her section that persisted and then eventually got better. She has had 2- CT scans on 13 July in 28 October. Also had abdominal hernia repair, states that she still has an appendix. Reports she has had pain with intercourse. Has had fevers over the last couple of days most recently up to 102. No dysuria, no diarrhea patient is moving her bowels and passing gas. Surgeon was . Related Data Home Medications ?Medication ?Instructions ?Recorded ?Confirmed buprenorphine 8 mg-naloxone 2 mg 2 tab sublingual QAM 08/19/18 12/24/24 sublingual tablet vitamin-ferrous sulfate tab PO 11/27/23 12/24/24 27 mg iron-folic acid 0.8 mg tablet Previous Rx's ?Medication ?Instructions ?Recorded gabapentin 100 mg capsule 100 mg PO DAILY #30 caps 01/04/24 ondansetron 4 mg disintegrating 4 mg PO Q6H PRN nausea and 12/24/24 tablet vomiting #14 tabs Allergies Allergy/AdvReac Type Severity Reaction Status Date / Time amoxicillin (AMOXICILLIN) Allergy Unknown RASH/HIVES Verified 12/24/24 10:29 Penicillins Allergy Unknown Swelling Verified 12/24/24 10:29 of Lip/Tongue/Throat cephalexin AdvReac Severe Rash Verified 12/24/24 10:29 diphenhydramine AdvReac Severe Anxiety Verified 12/24/24 10:29 hydromorphone AdvReac Verified 12/24/24 10:29 Opioids - Morphine Analogues AdvReac Verified 12/24/24 10:29 Patient History Medical History (Updated 12/24/24 @ 18:23 by Korey Almaraz MD) Opioid abuse, in remission History of opioid abuse Crohn's disease without complication (04/23/15) Hypothyroidism Left ankle injury Umbilical hernia Pyelonephritis Ovarian neoplasm Acne GERD (gastroesophageal reflux disease) Chronic bilateral low back pain without sciatica (07/19/15) Surgical History (Updated 08/22/24 @ 10:23 by Emma Hall DO) S/P section History of hernia repair Anesthesia History of knee surgery H/O oophorectomy Family History (Updated 11/27/23 @ 10:28 by Vika Rey RN) Father Hyperthyroidism Heart disease Heavy smoker Mother Depression Anxiety Drug abuse Social History marital status: unmarried,living together number of children: 1 household members: significant other and children lives independently: Yes caregiver/support person: Yes housing: house pets and animals: Yes (dogs, birds, aware of precautions) education level: college (some college) 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) current occupational exposures/hazards: No travel history: recent ([place]) seatbelt use: always helmet use: Yes water heater temp set < 120 deg: Yes working smoke detector in home: Yes fire extinguisher in home: Yes carbon monox detector in home: Yes firearms in home: No do you feel safe at home: Yes Tobacco: How many years used: 4 quit status: considering quitting second hand exposure: Yes (S/O smokes) alcohol intake: former substance use type: former substance user and marijuana during the past year weight has: decreased > 10 lbs (unintentional following mother's ) well-balanced diet: daily or most days daily servings fruits/ve or more times/day caffeine: Yes Type(s) of exercise: walking, bicycling and other (skateboarding) tobacco type: cigarettes alcohol intake frequency: holidays/special occasions only Exam Initial Vital Signs Initial Vital Signs: Vital Signs Pulse Rate 59 L 12/24/24 10:17 Pulse Oximetry 98 12/24/24 10:17 vital signs are reviewed Const General: cooperative and No acute distress HENMT Head: normocephalic and atraumatic Neck Neck: normal visual inspection, supple and No JVD Resp Effort & Inspection: normal respiratory effort and able to speak in complete sentences Auscultation: clear to auscultation bilaterally Cardio Rate: regular rate Rhythm: regular rhythm Heart Sounds: no murmurs Other: Normal heart rate GI Other: Normal bowel sounds soft with lower abdominal tenderness voluntary guarding she is tearful after exam. Well-healed scar. No rash. Bilateral CVAT External Female Exam: normal external appearance Speculum Exam - Vagina: normal appearance of the vagina and normal vaginal discharge Speculum Exam - Cervix: normal appearance of the cervix Bimanual Exam- Vagina & Uterus: cervical motion tenderness Other: Pelvic exam was quite tender making cervical motion tenderness difficult to interpret Skin General: no rashes or lesions noted and warm Neuro General: patient alert, patient oriented x3 and moves all extremities Speech: speech normal Course Orders Ordered: ED Orders 12/24/24 10:25 Complete Blood Count AUTO DIFF Stat Comprehensive Metabolic Panel Stat Lipase Stat 12/24/24 10:56 CT abdomen pelvis w con Stat 12/24/24 14:00 Chlamydia Gonorrhea PCR -URINE Stat 12/24/24 14:08 pelvic complete Stat Vag Plus HSV, NuSwab Stat Wet Prep Tric BV Amy Stat 12/24/24 16:18 Consult to Obstetrics Stat 12/24/24 17:54 Urine Culture Stat Urine Microscopic Stat Lactated Ringer's (Lactated Ringers) 1,000 mls @ 1,000 mls/hr IV BOLUS ONE Stop: 12/24/24 19:12 Last Admin: 12/24/24 18:15 Dose: 1,000 mls/hr Documented By: KALEB Ondansetron HCl (Ondansetron 4 Mg/2 Ml Inj) 4 mg IV NOW PRN PRN Reason: Nausea And Vomiting Last Admin: 12/24/24 14:55 Dose: 4 mg Documented By: KALEB Ondansetron HCl (Ondansetron 4 Mg Odt) 4 mg PO NOW PRN PRN Reason: Nausea And Vomiting Discontinued Medications Acetaminophen (Acetaminophen 325 Mg Tablet) 975 mg PO NOW ONE Stop: 12/24/24 14:49 Last Admin: 12/24/24 14:55 Dose: 975 mg Documented By: KALEB Lactated Ringer's (Lactated Ringers) 500 mls @ 1,000 mls/hr IV BOLUS ONE Stop: 12/24/24 18:41 Last Admin: 12/24/24 18:19 Dose: Not Given Documented By: KALEB Ketorolac Tromethamine (Ketorolac 30 Mg/Ml Vial) 15 mg IV NOW ONE Stop: 12/24/24 14:49 Last Admin: 12/24/24 14:55 Dose: 15 mg Documented By: MLM Consultations Consultation #1: Consulted , obstetrics and gynecology. She saw the patient in the emergency department recommended IV fluid and outpatient follow up, she will arrange for pelvic physical therapy Vital Signs Vital signs: Vital Signs - 8 hr 12/24/24 10:29 12/24/24 12:00 12/24/24 12:00 Temperature 97.4 F L Pulse Rate 56 L 49 L Respiratory Rate 18 Blood Pressure 122/73 95/60 Pulse Oximetry 99 99 Oxygen Delivery Method Room Air 12/24/24 13:43 12/24/24 13:44 12/24/24 13:44 Temperature Pulse Rate 57 L 54 L Respiratory Rate Blood Pressure 113/77 Pulse Oximetry 97 100 Oxygen Delivery Method 12/24/24 16:09 12/24/24 16:09 12/24/24 17:42 Temperature Pulse Rate 52 L 47 L Respiratory Rate 14 Blood Pressure 94/57 L Pulse Oximetry 95 100 Oxygen Delivery Method 12/24/24 17:44 12/24/24 17:44 Temperature Pulse Rate 48 L Respiratory Rate 16 Blood Pressure 112/77 Pulse Oximetry 98 Oxygen Delivery Method MDM - Abdominal Pain Lab Data Lab results narrative: CBC with diff CMP test gonorrhea and chlamydia all reassuring. 12/24/24 10:25 12/24/24 10:25 Labs: Lab Results 12/24/24 12/24/24 12/24/24 Range/Units 10:25 14:00 17:54 WBC 4.9 (4.5-11.0) X10^3/uL RBC 3.90 L (4.0-5.2) X10^6/uL Hgb 12.4 (12.0-16.0) g/dL Hct 36.2 (36-46) % MCV 93.0 (80-100) fL MCH 31.8 (26-34) PG MCHC 34.2 (30-36) % RDW 14.9 H (11.6-14.8) % Plt Count 276 (150-400) X10^3/uL Neut % (Auto) 51.7 (50-75) % Lymph % (Auto) 36.8 (25-40) % [place] % (Auto) 8.1 (3-14) % Eos % (Auto) 2.1 (2-4) % Baso % (Auto) 1.3 (0-2) % Neut # (Auto) 2500 (4197-7055) /uL Lymph # (Auto) 1800 (9810-5215) /uL [place] # (Auto) 400 (0-900) /uL Eos # (Auto) 100 (0-450) /uL Baso # (Auto) 100 (0-100) /uL Sodium 138 (137-145) mmol/L Potassium 4.4 (3.4-5.1) mmol/L Chloride 106 (98-107) mmol/L Carbon Dioxide 24 (22-32) mmol/L BUN 13 (7-17) mg/dL Creatinine 1.19 H (0.52-1.04) mg/dL Estimated GFR > 60 (>60) mL/min BUN/Creatinine Ratio 10.9 (6-22) Glucose 83 (70-99) mg/dL Calcium 9.3 (8.4-10.2) mg/dL Total Bilirubin 0.3 (0.2-1.3) mg/dL AST 32 (14-36) IU/L ALT 28 (<35) IU/L Alkaline Phosphatase 50 (38-126) U/L Total Protein 8.1 (6.3-8.2) g/dL Albumin 4.8 (3.5-5.0) g/dL Globulin 3.3 (1.7-4.1) g/dL Albumin/Globulin Ratio 1.5 (1.0-2.8) Lipase 73 (23-300) U/L Urine RBC 0-1/hpf D (0-5/HPF) Urine WBC 0-1/hpf (0-5/HPF) Ur Squamous Epith Cells 1-5 /hpf D (0-5/HPF) Urine Bacteria Occasional (0-1) (None) Vol Urine Centrifuged 10ml (spun) Ur Chlamydia DNA (PCR) Not detected N gonorrhoeae DNA (PCR) Not detected Point of care testing: Point of Care Testing Test Results Negative Urine Dip Bedside Urine Glucose Negative Bedside Urine Bilirubin - Negative Bedside Urine Ketone - Negative Urine Specific [place] 1.010 Bedside Urine Occult Blood - Negative Bedside Urine pH 7.5 Bedside Urine Protein +/- 15 Bedside Urine Urobilinogen - Negative Bedside Urine Nitrite - Negative Bedside Urine Leukocytes - Negative Esterase Imaging Data CT scan - abdomen/pelvis: My Impression: Independently reviewed no acute findings Radiologist's Impression: Radiology report reviewed, no acute findings US - STAPLE FIBER WASHER: Radiologist's Impression: Per Radiology, no acute findings MDM Narrative Medical decision making narrative: 34-year-old female who has had months of pelvic pain since a section. Differential diagnosis included appendicitis, diverticulitis, bowel obstruction, pelvic inflammatory disease, urinary tract infection, ovarian torsion. Workup was reassuring with respect to all of these. Gynecology was consulted and saw the the patient. Outpatient follow up and pelvic physical therapy were recommended. Patient was treated with IV ketorolac and IV fluids. Discharge Plan Departure Patient Disposition: Home Clinical Impression: Pelvic pain Activity Restrictions/Additional Instructions: Emergency department evaluation today does not show a serious acute cause for pelvic pain that requires hospitalization or further emergency treatment. Follow up with Dr. St, continue previous home medications, may use ibuprofen 600 mg 3 times a day and acetaminophen 650-1000 mg up to 4 times a day. Make sure that you are getting adequate fluids. If you have fevers vomiting other acute symptoms return to the emergency department Prescriptions: New ondansetron 4 mg tablet,disintegrating 4 mg PO Q6H PRN (Reason: nausea and vomiting) Qty: 14 0RF No Action gabapentin 100 mg capsule 100 mg PO DAILY Qty: 30 0RF vit-ferrous sulfat-FA 27 mg iron- 0.8 mg tablet PO buprenorphine-naloxone 8 MG/2 MG tablet, sublingual 2 tab Sublingual QAM Referrals: Rhonda St DO [Physician, Gynecology] Javier Mckee DO [Primary Care Provider, Family Practice] Stand Alone Forms: Patient Portal/API
--- NOTE | 2024-12-24 14:08 | DI.US.S_ITS ---
PROCEDURE: US PELVIC COMPLETE INDICATIONS: WORSENING SCAR PAIN X 6 MOS TECHNIQUE: Real-time scanning was performed of the pelvic organs, with image documentation. Additional endovaginal scanning was necessary due to incomplete visualization of the adnexal and endometrial structures by transabdominal scanning. COMPARISON: [facility], CT, CT ABDOMEN PELVIS W CON, 12/24/2024, 11:16. [facility], US, US PELVIC COMPLETE, 07/13/2024, 14:46. FINDINGS: Uterus: Uterus is anteverted and normal in size at 8.5 x 4.5 x 7 cm. The myometrium is homogeneous. The endometrium measures 4 mm combined thickness. No abnormal vascularity can be seen along the endometrial stripe. No significant abnormality of the C- section scar can be seen. Ovaries: The right ovary is not seen. The left ovary measures 2.7 x 2.4 x 2.5 cm, with a volume of 8.2 cc. Normal appearing arterial waveforms are confirmed to the left ovary. Less than 12 follicles can be seen involving the left ovary. Other: No pathologic free abdominal or pelvic fluid. IMPRESSION: No significant abnormality of the scar can be seen. The endometrial stripe is no longer thickened. Normal appearing left ovary. Right ovary not seen. We strive to produce accurate, complete, and clear reports of imaging services. To assist us in improving patient care, this report was composed using standard report templates and voice recognition software. Therefore, it may contain abnormal punctuation, insertions and/or omissions. Occasional wrong-word or sound-alike substitutions may occur. Though we review the report and make efforts to correct it, we do recommend that the report be read carefully in proper context to recognize any text inaccuracies. Dictated by: Matthew Jamison M.D. on 12/24/2024 at 14:23 Approved by: Matthew Jamison M.D. on 12/24/2024 at 14:25
[2024-12-24] MEDS: ONDANSETRON 4 MG/2 ML INJ IV (14:55)
[2024-12-24] MEDS: KETOROLAC 30 MG/ML VIAL 15 MG IV (14:55)
[2024-12-24] MEDS: ACETAMINOPHEN 325 MG TABLET 975 MG PO (14:55)
[2024-12-24 15:47] LABS: Urine N gonorrhoeae NOT DETECTED
[2024-12-24 15:51] LABS: Urine Chlamydia NOT DETECTED
[2024-12-24] MEDS: LACTATED RINGERS 1,000 ML 1000 ML IV (18:15)
--- NOTE | 2024-12-24 21:58 | PM.CN.IH.1 ---
History of Present Illness Consult details Date Patient Seen: 12/24/24 Time Patient Seen: 17:30 Chief complaint: Possible Infection from x 6 weeks Reason for consult: Post pain Requesting provider: Korey Almaraz Narrative: Patient is a 34yo s/p RLTCS 07/2024 presented to the ER for evaluation of worsening pelvic pain. Patient reports that she has had progressively worsening pain over the last 6 weeks that has gotten worse over the last 2 weeks. She describes the pain as a constant pain in the lower abdomen that refers sometimes to the upper abdomen and around to her upper and lower back. She reports nausea as well. denies any episodes of emesis. She is currently breast feeding her 4 month old. Patient reports that this pain started initially a day or two after her and had improved but in the last 6 weeks has returned and become more progressive. She has had multiple CT scans and US with no identifiable acute process. She went to urgent care thinking she has a UTI - UA negative and was sent to the ER. she reports some difficulty urinating, feels that she has to push to empty. She does have a history of crohn's disease- has not seen a GI in a while due to lack of medical insurance but reports that this pain is not similar and no findings noted on CT scan. She does report difficulty using the bathrrom, bowel movements are hard and does not feel like she fully empties. + dyspareunia with intercourse denies any bleeding or abnormal discharge Patient did have a speculum exam performed by ER physician-- reports scan discharge present, otherwise normal appearing cervix. +CMT but difficult to assess as patient diffusely tender on exam Meds Home Medications and Allergies Home Medications ?Medication ?Instructions ?Recorded ?Confirmed ?Type buprenorphine 8 mg-naloxone 2 mg 2 tab sublingual QAM 08/19/18 12/24/24 History sublingual tablet vitamin-ferrous sulfate tab PO 11/27/23 12/24/24 History 27 mg iron-folic acid 0.8 mg tablet gabapentin 100 mg capsule 100 mg PO DAILY #30 caps 01/04/24 12/24/24 Rx ondansetron 4 mg disintegrating 4 mg PO Q6H PRN nausea and 12/24/24 Rx tablet vomiting #14 tabs Allergies Allergy/AdvReac Type Severity Reaction Status Date / Time amoxicillin (AMOXICILLIN) Allergy Unknown RASH/HIVES Verified 12/24/24 10:29 Penicillins Allergy Unknown Swelling Verified 12/24/24 10:29 of Lip/Tongue/Throat cephalexin AdvReac Severe Rash Verified 12/24/24 10:29 diphenhydramine AdvReac Severe Anxiety Verified 12/24/24 10:29 hydromorphone AdvReac Verified 12/24/24 10:29 Opioids - Morphine Analogues AdvReac Verified 12/24/24 10:29 Exam Vital Signs (past 8 hours): - 12/24/24 16:09 12/24/24 16:09 12/24/24 17:42 Pulse Rate 52 L 47 L Respiratory Rate 14 Blood Pressure 94/57 L Pulse Oximetry 95 100 12/24/24 17:44 12/24/24 17:44 Pulse Rate 48 L Respiratory Rate 16 Blood Pressure 112/77 Pulse Oximetry 98 Oxygen Delivery Method Room Air Narrative Exam Narrative: Gen- resting comfortably, baby in bed with her, AAO x 3 cardio- RRR GI- mild tender with deep palpation in lower abdomen and sometimes upper abdomen, no rebound or guarding bimanual exam performed-- tenderness during exam diffusely, mostly tenderness noted on the anterior vaginal wall, no evidence of stool in the rectum bladder scan- 150ml --> postvoid- 8ml Objective Labs 12/24/24 10:25 12/24/24 10:25 Labs: Laboratory Results - last 24 hr 12/24/24 12/24/24 12/24/24 10: 14:00 17:54 WBC 4.9 RBC 3.90 L Hgb 12.4 Hct 36.2 MCV 93.0 MCH 31.8 MCHC 34.2 RDW 14.9 H Plt Count 276 Neut % (Auto) 51.7 Lymph % (Auto) 36.8 [place] % (Auto) 8.1 Eos % (Auto) 2.1 Baso % (Auto) 1.3 Neut # (Auto) 2500 Lymph # (Auto) 1800 [place] # (Auto) 400 Eos # (Auto) 100 Baso # (Auto) 100 Sodium 138 Potassium 4.4 Chloride 106 Carbon Dioxide 24 BUN 13 Creatinine 1.19 H Estimated GFR > 60 BUN/Creatinine Ratio 10.9 Glucose 83 Calcium 9.3 Total Bilirubin 0.3 AST 32 ALT 28 Alkaline Phosphatase 50 Total Protein 8.1 Albumin 4.8 Globulin 3.3 Albumin/Globulin Ratio 1.5 Lipase 73 Urine RBC 0-1/hpf D Urine WBC 0-1/hpf Ur Squamous Epith Cells 1-5 /hpf D Urine Bacteria Occasional (0-1) Vol Urine Centrifuged 10ml (spun) Ur Chlamydia DNA (PCR) Not detected N gonorrhoeae DNA (PCR) Not detected PFSH Medical History (Updated 12/24/24 @ 22:[address] DO) Opioid abuse, in remission History of opioid abuse Crohn's disease without complication (04/23/15) Hypothyroidism Left ankle injury Umbilical hernia Pyelonephritis Ovarian neoplasm Acne GERD (gastroesophageal reflux disease) Chronic bilateral low back pain without sciatica (07/19/15) Surgical History (Updated 08/22/24 @ 10:23 by Emma Hall DO) S/P section History of hernia repair Anesthesia History of knee surgery H/O oophorectomy Family History (Updated 11/27/23 @ 10:28 by Vika Rey RN) Father Hyperthyroidism Heart disease Heavy smoker Mother Depression Anxiety Drug abuse Social History marital status: unmarried,living together number of children: 1 household members: significant other and children lives independently: Yes caregiver/support person: Yes housing: house pets and animals: Yes (dogs, birds, aware of precautions) education level: college (some college) 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) current occupational exposures/hazards: No travel history: recent ([place]) Safety seatbelt use: always helmet use: Yes water heater temp set < 120 deg: Yes working smoke detector in home: Yes fire extinguisher in home: Yes carbon monox detector in home: Yes firearms in home: No do you feel safe at home: Yes Tobacco & Substance Use Tobacco: How many years used: 4 quit status: considering quitting second hand exposure: Yes (S/O smokes) alcohol intake: former substance use type: former substance user and marijuana Diet and Exercise during the past year weight has: decreased > 10 lbs (unintentional following mother's ) well-balanced diet: daily or most days daily servings fruits/ve or more times/day caffeine: Yes Type(s) of exercise: walking, bicycling and other (skateboarding) Assessment & Plan Assessment and plan (1) Pelvic pain: Problem details: Pelvic pain with dyspareunia Status: Acute (2) Dyspareunia in female: Status: Acute Plan reviewed imaging and labs- no clear etiology of pain we discussed starting miralax daily x 2 weeks to treat chronic constipation which may improve bloating symptoms bladder scan pre and postvoid shows no evidence of bladder retention UA- negative Urine culture- sent, pending (previously negative in clinic assessment) vaginal cultures collected- Gc/ct neg, vaginitis testing pending-- will f/u results we discussed pelvic floor physical therapy as a possible modality of relief-- discussed fascial release around previous scar and pelvic floor therapy to help with dsypareunia. Patient agreeable to this option and would like a referral. currently on gabapentin and tapering off but does feel like that was somewhat helpful with her pain. will send PFPT referral and front office attendant will contact patient about a 2 month follow up in clinic to assess pain post PFPT Time-Based Coding :: [TOTAL MINUTES] spent with patient and on the chart (including review of chart, obtaining history, exam, reviewing outside data, placing orders, documenting exam and treatment plan, and counseling patient) on [DATE]. PROFEE Charge Codes Inpatient or Observation consultation: [id number]
[2024-12-28 04:08] LABS: Bact Vaginosis-Assoc. bacteria Low - 0 Score (.); Candida albicans, NAA Negative (Negative); Candida glabrata Negative (Negative); Trichomoas vaginalis by NAA Positive (Negative)
== END 2024-12-24 18:44 | disposition home or self-care (01) ==
PROVIDERS: Obstetrics & Gynecology; Emergency Provider Emergency Medicine; PCP Family Medicine
DX: R10.2 Pelvic and perineal pain (principal); N94.10 Unspecified dyspareunia; R30.0 Dysuria; N94.9 Unspecified condition associated with female genital organs and menstrual cycle
CPT/HCPCS: 36415; 74177; 76830; 76856; 80053; 81003; 81015; 81025; 83690; 85025; 87086; 87210; 87491; 87529; 87591; 87661; 87798; 87801; 93976; 96374; 96375; 99284; J1885; J2405; Q9967

== ENCOUNTER 2025-03-21 07:17 | Emergency (ER) | payer OTHER, SELFPAY ==
--- NOTE | 2025-03-21 07:27 | DI.RAD.S_ITS ---
PROCEDURE: XR CHEST 1V INDICATIONS: left sided pain TECHNIQUE: One view of the chest was acquired. COMPARISON: [facility], CR, XR CHEST 1V, 01/21/2022, 17:25. FINDINGS: Surgical changes and devices: None. Lungs and pleura: Lungs are clear. No pleural effusions or pneumothorax. Mediastinum: Mediastinal contours appear normal. Heart size is normal. Bones and chest wall: No suspicious bony lesions. Overlying soft tissues appear unremarkable. IMPRESSION: No acute cardiopulmonary abnormality is seen. Dictated by: Santo Bustillo M.D. on 03/21/2025 at 8:42 Approved by: Santo Bustillo M.D. on 03/21/2025 at 8:43
--- NOTE | 2025-03-21 07:27 | DI.US.S_ITS ---
PROCEDURE: US OB <= 14 WEEKS FETUS INDICATIONS: OUTSIDE/PRIOR DATING DATA: Last menstrual period (LMP): Unknown LMP-based estimated date of delivery (MISTY): Unknown. First dating scan (date and location): 03/21/2025. Estimated date of delivery (MISTY) from first dating scan: 10/31/2025 The calculations are made using the ultrasound MISTY of 10/31/2025. TECHNIQUE: Real-time scanning was performed of the fetus and maternal pelvic organs, with image documentation. Endovaginal scanning was also performed to better visualize the fetus and maternal ovaries. COMPARISON: [facility], US, US OB <= 14 WEEKS FETUS, 12/06/2023, 9:53. FINDINGS: Embryo: 1.6 cm, 8 weeks 0 days Heart rate: 165 Maternal organs: Right ovary not visualized. Left ovary unremarkable. Incidental note made of a possible nonobstructing left renal stone. IMPRESSION: 1. Living very early 1st trimester intrauterine with crown-rump length and heartbeat measuring 8 weeks 0 days. 2. Question incidental finding of a nonobstructing left renal stone in the maternal left kidney. We strive to produce accurate, complete, and clear reports of imaging services. To assist us in improving patient care, this report was composed using standard report templates and voice recognition software. Therefore, it may contain abnormal punctuation, insertions and/or omissions. Occasional wrong-word or sound-alike substitutions may occur. Though we review the report and make efforts to correct it, we do recommend that the report be read carefully in proper context to recognize any text inaccuracies. Dictated by: Santo Bustillo M.D. on 03/21/2025 at 8:55 Approved by: Santo Bustillo M.D. on 03/21/2025 at 8:58
--- NOTE | 2025-03-21 07:30 | EKG_ITS ---
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
--- NOTE | 2025-03-21 07:30 | ED.ABDPAIN ---
HPI - Abdominal Pain General Chief Complaint: Chest Pain Stated Complaint: Chest pain/vomiting/left side chest to hand anback Time Seen by Provider: 03/21/25 07:20 History of Present Illness HPI narrative: Patient is a 34-year-old female history of Crohn's disease, prior substance use however in remission now, presenting today with chest pain and abdominal pain. She reports that she is about 10 weeks she has not yet been evaluated for this she just gave 07/10/2024. Reports that she vomited about 6 time has pretty severe left-sided flank pain abdominal pain it is now radiating up into her chest. She did not throw up any blood. She reports that she has had kidney stones with prior pregnancies in the past. She denies any vaginal bleeding. This has been easier compared to her last 1 not typically nauseous or vomiting. Related Data Home Medications ?Medication ?Instructions ?Recorded ?Confirmed buprenorphine 8 mg-naloxone 2 mg 2 tab sublingual QAM 08/19/18 03/18/25 sublingual tablet [id number]-hzi-[id number] 300 mcg-vitamin ml PO 03/18/25 03/18/25 K 80 mcg-herbal/30 mL oral liquid Previous Rx's ?Medication ?Instructions ?Recorded ondansetron 4 mg disintegrating 4 mg PO Q6H PRN nausea and 12/24/24 tablet vomiting #14 tabs gabapentin 100 mg capsule 100 mg PO DAILY #30 caps 03/18/25 vitamins no.102-iron 90 1 cap PO DAILY #90 caps 03/18/25 mg-folate 1 mg-dha 200 mg capsule Allergies Allergy/AdvReac Type Severity Reaction Status Date / Time amoxicillin (AMOXICILLIN) Allergy Unknown RASH/HIVES Verified 03/21/25 07:30 Penicillins Allergy Unknown Swelling Verified 03/21/25 07:30 of Lip/Tongue/Throat cephalexin AdvReac Severe Rash Verified 03/21/25 07:30 diphenhydramine AdvReac Severe Anxiety Verified 03/21/25 07:30 hydromorphone AdvReac Verified 03/21/25 07:30 Opioids - Morphine Analogues AdvReac Verified 03/21/25 07:30 Patient History Medical History Opioid abuse, in remission History of opioid abuse Crohn's disease without complication (04/23/15) Hypothyroidism Left ankle injury Umbilical hernia Pyelonephritis Ovarian neoplasm Acne GERD (gastroesophageal reflux disease) Chronic bilateral low back pain without sciatica (07/19/15) Surgical History S/P section History of hernia repair Anesthesia History of knee surgery H/O oophorectomy Family History Father Hyperthyroidism Heart disease Heavy smoker Mother Depression Anxiety Drug abuse Social History marital status: unmarried,living together number of children: 1 household members: significant other and children lives independently: Yes caregiver/support person: Yes housing: house pets and animals: Yes (dogs, birds, aware of precautions) education level: college (some college) 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) current occupational exposures/hazards: No travel history: recent ([place]) seatbelt use: always helmet use: Yes water heater temp set < 120 deg: Yes working smoke detector in home: Yes fire extinguisher in home: Yes carbon monox detector in home: Yes firearms in home: No do you feel safe at home: Yes Tobacco: How many years used: 4 quit status: considering quitting second hand exposure: Yes (S/O smokes) alcohol intake: former substance use type: former substance user and marijuana during the past year weight has: decreased > 10 lbs (unintentional following mother's ) well-balanced diet: daily or most days daily servings fruits/ve or more times/day caffeine: Yes Type(s) of exercise: walking, bicycling and other (skateboarding) tobacco type: cigarettes alcohol intake frequency: holidays/special occasions only Exam Initial Vital Signs Initial Vital Signs: Vital Signs Temperature 98 F 03/21/25 07:31 Pulse Rate 84 03/21/25 07:31 Respiratory Rate 17 03/21/25 07:31 Blood Pressure 132/79 03/21/25 07:31 Pulse Oximetry 97 03/21/25 07:31 Oxygen Delivery Method Room Air 03/21/25 07:31 GENERAL: alert 34-year-old female tearful appears uncomfortable HEENT: Head atraumatic,EOMI, pupils reactive, face symmetric, [moist] mucous membranes CARDIOVASCULAR: Regular rate and rhythm without murmurs, rubs or gallops. RESPIRATORY: Breath sounds equal bilaterally, no wheezes rales or rhonchi. ABDOMEN: Soft, tender left lateral quadrant no guarding no rebound : Left CVA tenderness EXTREMITIES: Normal range of motion, no clubbing or edema. Neurovascularly intact NEUROLOGICAL: Alert and oriented x4.Normal gait and speech. Cranial nerves II through XII grossly intact. SKIN: Warm, dry, no laceration, no petechiae, no rashes or lesions. Course Orders Ordered: ED Orders 03/21/25 07:21 EKG-12 Lead Stat 03/21/25 07:27 US OB <= 14 weeks fetus Stat XR chest 1V Stat 03/21/25 07:42 Complete Blood Count AUTO DIFF Stat Comprehensive Metabolic Panel Stat HCG Quantitative /Beta subunit Stat Lipase Stat Magnesium Stat NT-proBNP (BNP-Adult 18+) Stat Troponin I Stat Discontinued Medications Hydromorphone HCl (Hydromorphone Hcl 0.5 Mg/0.5 Ml Syringe) 0.5 mg IV NOW ONE Stop: 03/21/25 10:04 Last Admin: 03/21/25 10:06 Dose: 0.5 mg Documented By: TERE Hydromorphone HCl (Hydromorphone Hcl 0.5 Mg/0.5 Ml Syringe) 0.5 mg IV NOW ONE Stop: 03/21/25 10:04 Acetaminophen (Ofirmev) 1,000 mg in 100 mls @ 400 mls/hr IV NOW ONE Stop: 03/21/25 07:41 Last Infusion: 03/21/25 08:15 Dose: Infused Documented By: Admin: 03/21/25 07:54 Dose: 400 mls/hr Documented By: Sodium Chloride (Normal Saline 0.9%) 1,000 mls @ 1,000 mls/hr IV BOLUS ONE Stop: 03/21/25 08:26 Last Admin: 03/21/25 07:54 Dose: 1,000 mls/hr Documented By: Ondansetron HCl (Ondansetron 4 Mg/2 Ml Inj) 4 mg IV NOW ONE Stop: 03/21/25 07:28 Last Admin: 03/21/25 07:54 Dose: 4 mg Documented By: Ondansetron HCl (Ondansetron 4 Mg/2 Ml Inj) 4 mg IV NOW ONE Stop: 03/21/25 09:37 Last Admin: 03/21/25 10:06 Dose: 4 mg Documented By: TERE Oxycodone HCl (Oxycodone Ir 5 Mg Tablet) 5 mg PO NOW ONE Stop: 03/21/25 10:02 Last Admin: 03/21/25 10:09 Dose: 5 mg Documented By: TERE Vital Signs Vital signs: Vital Signs - 8 hr 03/21/25 07:31 Temperature 98 F Pulse Rate 84 Respiratory Rate 17 Blood Pressure 132/79 Pulse Oximetry 97 Oxygen Delivery Method Room Air MDM - Abdominal Pain Lab Data 03/21/25 07:42 03/21/25 07:42 Labs: Lab Results 03/21/25 Range/Units 07:42 WBC 16.7 H (4.5-11.0) X10^3/uL RBC 4.02 (4.0-5.2) X10^6/uL Hgb 12.7 (12.0-16.0) g/dL Hct 37.1 (36-46) % MCV 92.1 (80-100) fL MCH 31.5 (26-34) PG MCHC 34.2 (30-36) % RDW 12.2 (11.6-14.8) % Plt Count 325 (150-400) X10^3/uL Neut % (Auto) 88.4 H (50-75) % Lymph % (Auto) 4.1 L (25-40) % Towns % (Auto) 7.3 (3-14) % Eos % (Auto) 0.0 L (2-4) % Baso % (Auto) 0.2 (0-2) % Neut # (Auto) 58813 H (7559-5943) /uL Lymph # (Auto) 700 L (1011-9981) /uL Towns # (Auto) 1200 H (0-900) /uL Eos # (Auto) 0 (0-450) /uL Baso # (Auto) 0 (0-100) /uL Sodium 137 (137-145) mmol/L Potassium 3.1 L (3.4-5.1) mmol/L Chloride 104 (98-107) mmol/L Carbon Dioxide 17 L (22-32) mmol/L BUN 8 (7-17) mg/dL Creatinine 0.79 (0.52-1.04) mg/dL Estimated GFR > 60 (>60) mL/min BUN/Creatinine Ratio 10.1 (6-22) Glucose 147 H (70-99) mg/dL Calcium 9.2 (8.4-10.2) mg/dL Magnesium 1.9 (1.6-2.3) mg/dL Total Bilirubin 0.4 (0.2-1.3) mg/dL AST 30 (14-36) IU/L ALT 26 (<35) IU/L Alkaline Phosphatase 51 (38-126) U/L Troponin I < 0.012 (0.01-0.034) ng/mL NT-Pro-B Natriuret Pep 627 H (<125) pg/mL Total Protein 7.8 (6.3-8.2) g/dL Albumin 4.7 (3.5-5.0) g/dL Globulin 3.1 (1.7-4.1) g/dL Albumin/Globulin Ratio 1.5 (1.0-2.8) Lipase 61 (23-300) U/L HCG, Quant 40472 mIU/mL Imaging Data US - OB: Radiologist's Impression: PROCEDURE: US OB <= 14 WEEKS FETUS INDICATIONS: OUTSIDE/PRIOR DATING DATA: Last menstrual period (LMP): Unknown LMP-based estimated date of delivery (MISTY): Unknown. First dating scan (date and location): 03/21/2025. Estimated date of delivery (MISTY) from first dating scan: 10/31/2025 The calculations are made using the ultrasound MISTY of 10/31/2025. TECHNIQUE: Real-time scanning was performed of the fetus and maternal pelvic organs, with image documentation. Endovaginal scanning was also performed to better visualize the fetus and maternal ovaries. COMPARISON: [facility], US, US OB <= 14 WEEKS FETUS, 12/06/2023, 9:53. FINDINGS: Embryo: 1.6 cm, 8 weeks 0 days Heart rate: 165 Maternal organs: Right ovary not visualized. Left ovary unremarkable. Incidental note made of a possible nonobstructing left renal stone. IMPRESSION: 1. Living very early 1st trimester intrauterine with crown-rump length and heartbeat measuring 8 weeks 0 days. 2. Question incidental finding of a nonobstructing left renal stone in the maternal left kidney. We strive to produce accurate, complete, and clear reports of imaging services. To assist us in improving patient care, this report was composed using standard report templates and voice recognition software. Therefore, it may contain abnormal punctuation, insertions and/or omissions. Occasional wrong-word or sound-alike substitutions may occur. Though we review the report and make efforts to correct it, we do recommend that the report be read carefully in proper context to recognize any text inaccuracies. Dictated by: Santo Bustillo M.D. on 03/21/2025 at 8:55 Chest x-ray: Radiologist's Impression: PROCEDURE: XR CHEST 1V INDICATIONS: left sided pain TECHNIQUE: One view of the chest was acquired. COMPARISON: [facility], , XR CHEST 1V, 01/21/2022, 17:25. FINDINGS: Surgical changes and devices: None. Lungs and pleura: Lungs are clear. No pleural effusions or pneumothorax. Mediastinum: Mediastinal contours appear normal. Heart size is normal. Bones and chest wall: No suspicious bony lesions. Overlying soft tissues appear unremarkable. IMPRESSION: No acute cardiopulmonary abnormality is seen. Dictated by: Santo Bustillo M.D. on 03/21/2025 at 8:42 ECG Data Attestation: I personally reviewed and interpreted this ECG as follows: Prior ECG tracings: available for review Interpretation: normal sinus rhythm rate 56 OR interval 130 QRS [address] changes or T-wave inversions MDM Narrative Medical decision making narrative: MDM CC: abdominal pain Complicating co-morbidities: currently Data collected from: Patient husbnd Medical records reviewed: Ob records in prior records have been reviewed by myself Differential considered: [place] tear nephrolithiasis ectopic, acute coronary syndrome Exam documented above, pertinent findings include: Alert 34-year-old female appears very uncomfortable tender left flank pain left lower quadrant pain Lab Test results independently reviewed as above. Pertinent findings: CBC leukocytosis 16.7 CMP shows hypokalemia with a potassium of 3.1 bicarb of 17 Troponin negative HCG is 76,250 Independently reviewed EKG as above Sinus rhythm no ischemia Imaging studies independently reviewed: Ultrasound shows a live IUP at 8 weeks with probable left-sided nephrolithiasis Chest x-ray no acute cardiopulmonary process Consultations: None Treatments: IV 1 L fluid IV Tylenol. Patient was in pretty significant pain was trying to avoid opiates due to past substance abuse problem but was willing to take them due to the pain she was in. She was given IV Dilaudid and oxycodone at 10:00 a.m. Re-evaluations: Patient attempted to urinate multiple times was unsuccessful. Discussed with her that I need to make sure that she did not have an infection prior to leaving. Discussion about pain management with her she was willing to try opiates. Discussion: Patient 34-year-old female currently presenting today with left-sided pain. Pain was initially controlled after Dilaudid and Zofran. IV was going in slowly. Tried to get a urine but she was unable to go. Said that pain was exacerbating we discussed about pain management she ultimately wanted some Dilaudid which was given to her. Blood work does show leukocytosis evidence of dehydration with a potassium of 3.1 and bicarb of 17. Definitely wanted a urinalysis before she left which she understood. I have high suspicion that she has got a left-sided kidney stone unclear what size it is. I did discuss with the patient that she may need a CT and she may need to follow up with Urology. 1030 patient eloped, apparently pulled out her IV and left. Nursing and myself were not informed. Discharge Plan Departure Patient Disposition: Left Without Being Seen Clinical Impression: Nephrolithiasis Prescriptions: No Action bfqkizio-hoh-lyzqx-K-herb 332 300-80 mcg/30 mL liquid PO gabapentin 100 mg capsule 100 mg PO DAILY Qty: 30 0RF PNV [id number]-vpwt-gqlyts-dha 90 mg iron- 1 mg-200 mg capsule 1 cap PO DAILY Qty: 90 3RF ondansetron 4 mg tablet,disintegrating 4 mg PO Q6H PRN (Reason: nausea and vomiting) Qty: 14 0RF buprenorphine-naloxone 8 MG/2 MG tablet, sublingual 2 tab Sublingual QAM
[2025-03-21 07:31] VITALS: BP 132/79; PULSE 84; RESP 17; TEMP 36.6; O2SAT 97; BMI 34.7
[2025-03-21] MEDS: ONDANSETRON 4 MG/2 ML INJ IV ×2 (07:54→10:06)
[2025-03-21] MEDS: ACETAMINOPHEN IV 1,000 MG/100 ML VIAL 400 MG IV (07:54)
[2025-03-21] MEDS: SODIUM CHLORIDE 0.9% 1,000 ML 1000 ML IV (07:54)
[2025-03-21 07:56] LABS: Add Manual Diff / Slide Review NO; Hematocrit 37.1 % (36-46); Hemoglobin 12.7 g/dL (12.0-16.0); Lymphocytes Absolute Auto 700 /uL (1100-4500); Mean Corpuscular HGB Conc 34.2 % (30-36); Mean Corpuscular Hemoglobin 31.5 PG (26-34); Mean Corpuscular Volume 92.1 fL (80-100); Platelet Count 325 X10^3/uL (150-400)
[2025-03-21 08:11] LABS: Alanine Aminotransferase 26 IU/L (<35); Albumin 4.7 g/dL (3.5-5.0); Albumin Globulin Ratio 1.5 (1.0-2.8); Alkaline Phosphatase 51 U/L (38-126); Blood Urea Nitrogen 8 mg/dL (7-17); Calcium 9.2 mg/dL (8.4-10.2); Carbon Dioxide 17 mmol/L (22-32); Chloride 104 mmol/L (98-107); Estimated Glomerular Filt Rate > 60 mL/min (>60); Globulin 3.1 g/dL (1.7-4.1); Glucose 147 mg/dL (70-99); HEMOLYSIS < 15 (0-50); Lipase 61 U/L (23-300); Magnesium 1.9 mg/dL (1.6-2.3); Potassium 3.1 mmol/L (3.4-5.1); Sodium 137 mmol/L (137-145); Total Protein 7.8 g/dL (6.3-8.2)
[2025-03-21 08:23] LABS: NT-proBNP (BNP-Adult 18+) 627 pg/mL (<125); Troponin I < 0.012 ng/mL (0.01-0.034)
--- NOTE | 2025-03-21 10:34 | PC.NURSE ---
Patient no longer in room, this EDRN did not see her leave. Patient had pulled out her own IV. Did not finish 500ML of Normal saline. 20-30mins prior patient had complained of severe pain and been given pain meds as indicated in MAR.
--- NOTE | 2025-03-21 10:38 | PC.NURSE ---
Patient had been asked multiple time to provide a urine specimen, she had stated she could not.
== END 2025-03-21 10:42 | disposition left against medical advice (07) ==
PROVIDERS: Emergency Provider Emergency Medicine; PCP Family Medicine
DX: O26.831 Pregnancy related renal disease, first trimester (principal); N20.0 Calculus of kidney; R10.A2 Flank pain, left side; R07.89 Other chest pain; R11.10 Vomiting, unspecified; Z3A.10 10 weeks gestation of pregnancy
CPT/HCPCS: 36415; 71045; 76801; 76817; 80053; 83690; 83735; 83880; 84484; 84702; 85025; 93005; 96365; 96375; 96376; 99284; J0131; J1171; J2405; J7030

== ENCOUNTER 2025-03-22 00:59 | Emergency (ER) | payer OTHER, SELFPAY | END 2025-03-22 01:12 | disposition left against medical advice (07) | LOC: ED 02:28 | PROVIDERS: Emergency Provider Emergency Medicine; PCP Family Medicine | DX: Z53.21 Procedure and treatment not carried out due to patient leaving prior to being seen by health care provider (principal) ==

== ENCOUNTER 2025-03-22 10:20 | Emergency (ER) | payer OTHER, SELFPAY ==
[2025-03-22] VITALS (10 sets, daily range): BP systolic 98–112; BP diastolic 50–75; PULSE 45–50; RESP 15–24; TEMP 36.7; O2SAT 96–100; BMI 34.7
[2025-03-22 10:47] LABS: Add Manual Diff / Slide Review NO; Hematocrit 37.9 % (36-46); Hemoglobin 12.9 g/dL (12.0-16.0); Lymphocytes Absolute Auto 1900 /uL (1100-4500); Mean Corpuscular HGB Conc 34.0 % (30-36); Mean Corpuscular Hemoglobin 31.3 PG (26-34); Mean Corpuscular Volume 92.0 fL (80-100); Platelet Count 352 X10^3/uL (150-400)
--- NOTE | 2025-03-22 10:55 | ED_ITS ---
HPI - Abdominal Pain General Chief Complaint: Abdominal Pain Stated Complaint: LLQ Pain Time Seen by Provider: 03/22/25 10:22 History of Present Illness HPI narrative: Patient is a 34-year-old female history of substance use disorder currently 8 weeks presenting today with ongoing left-sided flank and abdominal pain. She was seen evaluated here yesterday for the same. She had an ultrasound which showed an living IUP at 8 weeks. There was concern for probable left-sided nephrolithiasis. She was given Dilaudid and Oxy, she was told that she can not breastfeed her current while taking narcotics and was told that she needed a breast pump. She does not have a breast pump she has not been able to breastfeed her baby she is in increasing pain in her left side. She is extremely tearful and apologetic generally does not feel well. This has been ongoing for the last 4 days. She reports that she has not urinated since she left the ED and she was unable to give us a urine sample after multiple hours in the ED. Currently calling L&D for breast pump Related Data Home Medications ?Medication ?Instructions ?Recorded ?Confirmed buprenorphine 8 mg-naloxone 2 mg 2 tab sublingual QAM 08/19/18 03/18/25 sublingual tablet xizwkjow-cwc-xzrno 300 mcg-vitamin ml PO 03/18/2503/09 K 80 mcg-herbal/30 mL oral liquid Previous Rx's ?Medication ?Instructions ?Recorded ondansetron 4 mg disintegrating 4 mg PO Q6H PRN nausea and 12/24/24 tablet vomiting #14 tabs gabapentin 100 mg capsule 100 mg PO DAILY #30 caps 01/31 vitamins no.102-iron 90 1 cap PO DAILY #90 ca ps 03/18/25 mg-folate 1 mg-dha 200 mg capsule hydrocodone 5 mg-acetaminophen 325 1 tab PO Q6H PRN pa in #14 tabs 03/22/25 mg tablet metoclopramide HCl 10 mg tablet 10 mg PO Q6H PRN nause a and 03/22/25 (Reglan) vomiting #20 tabs tamsulosin 0.4 mg capsule (Flomax) 0.4 mg PO BEDTIME # 10 caps 03/22/25 Allergies Allergy/AdvReac Type Severity Reaction Status Date / Time amoxicillin (AMOXICILLIN) Allergy Unknown RASH/HIVES Verified 03/22/25 10:46 Penicillins Allergy Unknown Swelling Verified 03/22/25 10:46 of Lip/Tongue/Throat cephalexin AdvReac Severe Rash Verified 03/22/25 10:46 diphenhydramine AdvReac Severe Anxiety Verified 03/22/25 10:46 hydromorphone AdvReac Verified 03/22/25 10:46 Opioids - Morphine Analogues AdvReac Verified 03/22/25 10:46 Patient History Medical History Opioid abuse, in remission History of opioid abuse Crohn's disease without complication (04/23/15) Hypothyroidism Left ankle injury Umbilical hernia Pyelonephritis Ovarian neoplasm Acne GERD (gastroesophageal reflux disease) Chronic bilateral low back pain without sciatica (07/19/15) Surgical History S/P section History of hernia repair Anesthesia History of knee surgery H/O oophorectomy Family History Father Hyperthyroidism Heart disease Heavy smoker Mother Depression Anxiety Drug abuse Social History marital status: unmarried,living together number of children: 1 household members: significant other and children lives independently: Yes caregiver/support person: Yes housing: house pets and animals: Yes (dogs, birds, aware of precautions) education level: college (some college) 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) current occupational exposures/hazards: No travel history: recent ([place]) seatbelt use: always helmet use: Yes water heater temp set < 120 deg: Yes working smoke detector in home: Yes fire extinguisher in home: Yes carbon monox detector in home: Yes firearms in home: No do you feel safe at home: Yes Tobacco: How many years used: 4 quit status: considering quitting second hand exposure: Yes (S/O smokes) alcohol intake: former substance use type: former substance user and marijuana during the past year weight has: decreased > 10 lbs (unintentional following mother's ) well-balanced diet: daily or most days daily servings fruits/ve or more times/day caffeine: Yes Type(s) of exercise: walking, bicycling and other (skateboarding) tobacco type: cigarettes alcohol intake frequency: holidays/special occasions only Exam Initial Vital Signs Initial Vital Signs: Vital Signs Pulse Rate 46 L 03/22/25 10:38 Pulse Oximetry 96 03/22/25 10:38 GENERAL: Alert tearful 34-year-old female and in no acute distress. HEENT: Head atraumatic,EOMI, pupils reactive, face symmetric, moist mucous membranes CARDIOVASCULAR: Regular rate and rhythm without murmurs, rubs or gallops. RESPIRATORY: Breath sounds equal bilaterally, no wheezes rales or rhonchi. ABDOMEN: Soft, tender left lower quadrant no guarding +rebound :+ left CVA tender EXTREMITIES: Normal range of motion, no clubbing or edema. Neurovascularly intact NEUROLOGICAL: Alert and oriented x4.Normal gait and speech. Cranial nerves II through XII grossly intact. SKIN: Warm, dry, no laceration, no petechiae, no rashes or lesions. Course Orders Ordered: ED Orders 03/22/25 10:25 CBC Auto Diff [Complete Blood Count AUTO DIFF] Stat CMP [Comprehensive Metabolic Panel] Stat HCG Quantitative /Beta subunit Stat Lactate (Lactic Acid) Stat 03/22/25 11:28 UA Complete [Urinalysis and Microscopic] Stat 03/22/25 14:50 Blood Culture Stat Discontinued Medications Sodium Chloride (Normal Saline 0.9%) 1,000 mls @ 1,000 mls/hr IV BOLUS ONE Stop: 03/22/25 11:21 Last Infusion: 03/22/25 12:42 Dose: Infused Documented By: Edilberto Admin: 03/22/25 11:10 Dose: 1,000 mls/hr Documented By: Edilberto Sodium Chloride (Normal Saline 0.9%) 1,000 mls @ 1,000 mls/hr IV BOLUS ONE Stop: 03/22/25 12:33 Last Infusion: 03/22/25 12:43 Dose: Infused Documented By: Edilberto Admin: 03/22/25 11:46 Dose: 1,000 mls/hr Documented By: RIZWAN Lorazepam (Lorazepam 2 Mg/Ml Inj) 0.5 mg IV NOW ONE Stop: 03/22/25 11:47 Last Admin: 03/22/25 11:52 Dose: 0.5 mg Documented By: Edilberto Metoclopramide HCl (Metoclopramide 10 Mg/2 Ml Inj) 10 mg IV NOW ONE Stop: 03/22/25 11:35 Last Admin: 03/22/25 11:46 Dose: 10 mg Documented By: RLC Morphine Sulfate (Morphine 4 Mg/Ml Inj) 4 mg IV NOW ONE Stop: 03/22/25 10:54 Last Admin: 03/22/25 11:10 Dose: 4 mg Documented By: RLC Morphine Sulfate (Morphine 4 Mg/Ml Inj) 4 mg IV NOW ONE Stop: 03/22/25 14:28 Last Admin: 03/22/25 14:43 Dose: 4 mg Documented By: RLC Ondansetron HCl (Ondansetron 4 Mg/2 Ml Inj) 4 mg IV NOW ONE Stop: 03/22/25 10:23 Last Admin: 03/22/25 14:21 Dose: Not Given Documented By: RIZWAN Ondansetron HCl (Ondansetron 4 Mg/2 Ml Inj) 4 mg IV NOW ONE Stop: 03/22/25 15:04 Last Admin: 03/22/25 15:13 Dose: 4 mg Documented By: JAMES Vital Signs Vital signs: Vital Signs - 8 hr 03/22/25 10:38 03/22/25 10:48 03/22/25 11:00 Temperature 98.0 F Pulse Rate 46 L 46 L Respiratory Rate 15 Blood Pressure 108/58 L 108/61 Pulse Oximetry 96 96 Oxygen Delivery Method Room Air 03/22/25 11:00 03/22/25 11:30 03/22/25 11:30 Temperature Pulse Rate 45 L 47 L Respiratory Rate 20 21 Blood Pressure 106/75 Pulse Oximetry 96 99 Oxygen Delivery Method 03/22/25 12:00 03/22/25 12:01 03/22/25 12:01 Temperature Pulse Rate 46 L 49 L Respiratory Rate 24 19 Blood Pressure 112/58 L Pulse Oximetry 100 100 Oxygen Delivery Method 03/22/25 12:30 03/22/25 12:30 03/22/25 13:00 Temperature Pulse Rate 46 L Respiratory Rate 17 Blood Pressure 100/54 L 98/53 L Pulse Oximetry 100 Oxygen Delivery Method 03/22/25 13:00 03/22/25 13:30 03/22/25 13:30 Temperature Pulse Rate 50 L 48 L Respiratory Rate 17 19 Blood Pressure 99/58 L Pulse Oximetry 97 97 Oxygen Delivery Method 03/22/25 14:00 03/22/25 14:00 Temperature Pulse Rate 45 L Respiratory Rate 17 Blood Pressure 99/50 L Pulse Oximetry 97 Oxygen Delivery Method MDM - Abdominal Pain Lab Data 03/22/25 10:25 03/22/25 10:25 Labs: Lab Results 03/22/25 03/22/25 Range/Units 10: 11:28 WBC 11.2 H (4.5-11.0) X10^3/uL RBC 4.12 (4.0-5.2) X10^6/uL Hgb 12.9 (12.0-16.0) g/dL Hct 37.9 (36-46) % MCV 92.0 (80-100) fL MCH 31.3 (26-34) PG MCHC 34.0 (30-36) % RDW 12.2 (11.6-14.8) % Plt Count 352 (150-400) X10^3/uL Neut % (Auto) 73.9 (50-75) % Lymph % (Auto) 17.0 L (25-40) % [place] % (Auto) 8.0 (3-14) % Eos % (Auto) 0.2 L (2-4) % Baso % (Auto) 0.9 (0-2) % Neut # (Auto) 8200 H (1301-4246) /uL Lymph # (Auto) 1900 (1333-7746) /uL [place] # (Auto) 900 (0-900) /uL Eos # (Auto) 0 (0-450) /uL Baso # (Auto) 100 (0-100) /uL Sodium 136 L (137-145) mmol/L Potassium 3.7 (3.4-5.1) mmol/L Chloride 105 (98-107) mmol/L Carbon Dioxide 21 L (22-32) mmol/L BUN 11 (7-17) mg/dL Creatinine 0.67 (0.52-1.04) mg/dL Estimated GFR > 60 (>60) mL/min BUN/Creatinine Ratio 16.4 (6-22) Glucose 95 (70-99) mg/dL Lactate 0.9 (0.7-2.1) mmol/L Calcium 8.9 (8.4-10.2) mg/dL Total Bilirubin 0.9 (0.2-1.3) mg/dL AST 37 H (14-36) IU/L ALT 19 (<35) IU/L Alkaline Phosphatase 44 (38-126) U/L Total Protein 8.2 (6.3-8.2) g/dL Albumin 4.7 (3.5-5.0) g/dL Globulin 3.5 (1.7-4.1) g/dL Albumin/Globulin Ratio 1.3 (1.0-2.8) HCG, Quant 59573 mIU/mL Urine Color Yellow Urine Appearance Clear Urine pH 5.5 (4.5-8.0) Ur Specific [place] >=1.030 H (1.000-1.035) Urine Protein 1+ H (Negative) Urine Glucose (UA) Negative (Negative) g/dL Urine Ketones 1+ H (NEGATIVE) Urine Occult Blood Trace-intact (Negative) Urine Nitrate Negative (Negative) Urine Bilirubin Negative (NEGATIVE) Urine Urobilinogen 0.2 (0.2) E.U./dL Ur Leukocyte Esterase Negative (NEGATIVE) Urine RBC 0-1/hpf (0-5/HPF) Urine WBC 0-1/hpf (0-5/HPF) Ur Squamous Epith Cells 5-10 /hpf H (0-5/HPF) Urine Bacteria Occasional (0-1) (None) Urine Mucus 2+ H (Negative) Ur Culture Indicated? Cult not indicated Vol Urine Centrifuged 10ml (spun) MDM Narrative Medical decision making narrative: MDM CC: Left flank pain Complicating co-morbidities: Currently 8 weeks Data collected from: Patient Medical records reviewed: Records reviewed from yesterday Differential considered: Nephrolithiasis miscarriage, sepsis, Exam documented above, pertinent findings include: Alert 34-year-old female appears more comfortable after fentanyl from EMS but twister tender paper in left lower quadrant and left flank Lab Test results independently reviewed as above. Pertinent findings: WBC shows improvement today it is 11.2 no anemia, this is improved from yesterday's WBC of 16.7 Electrolytes seem he also show improvement with an improved bicarb of 21 yesterday was 17 creatinine stable 0.67 Lactic acid 0.9 AST ALT bilirubin within normal limits HCG is increasing your today is 82,326 yesterday 76,250 Urinalysis does not show any evidence of UTI Imaging studies independently reviewed: None Consultations: 1230 Dr. Edmonds on-call Ob updated patient's symptoms test results wondering about a CT abdomen for increasing pain suspicion for nephrolithiasis on the left side. She recommended against getting a CT. May just need Urology for ureteral stent if there is infection. Treatments: Morphine Reglan Ativan Re-evaluations: Patient is still feeling nauseous and got quite anxious requiring Ativan. Discussion: Patient 34-year-old female currently 8 weeks and breast- feeding presenting again today for left-sided flank pain. High suspicion for nephrolithiasis seen on ultrasound yesterday. She is trying to avoid opiates but really pain is not manageable. Ultimately pain and nausea got under control with fluids and medications here in the ED. She does not have a UTI no concern for sepsis today. Long discussion with her about how she wants to manage her pain. She feels comfortable taking opiate she understands and wants to stop she does not want it to continue during her . We discussed I do think this is ongoing nephrolithiasis. She may need Urology with a stent but pain is now manageable. Encouraged her to follow-up with urology, and OBGYN. Also return as needed. She is now given prescriptions to go home with but she was not previously. Discharge Plan Departure Patient Disposition: Home Clinical Impression: Left nephrolithiasis Instructions: DI for Kidney Stones Activity Restrictions/Additional Instructions: *You have been diagnosed with nephrolithiasis *What to do: At this time it is presumed that you have a kidney stone on the left side. Increase fluids as tolerated. You will need to follow up with Urology and consumer insights intern this week if possible. *Continue to take medications as directed Tylenol 650 mg every 4-6 hours for [id number] Reglan 10 mg every 6 hours for nausea Flomax 0.4 mg once daily to help with passage of kidney stone [place] 1 tablet every 4-6 hours if needed for severe pain Do not take ibuprofen or naproxen or other NSAIDs while *Follow up with your primary care provider in 2-3 days or call [phone] Cuello and OB for follow up *Return to ER if you should have increasing pain, fever, not tolerating fluids or any new, worsening or concerning symptoms Prescriptions: New tamsulosin [Flomax] 0.4 mg capsule 0.4 mg PO BEDTIME Qty: 10 0RF hydrocodone-acetaminophen 5-325 mg tablet 1 tab PO Q6H PRN (Reason: pain) Qty: 14 0RF metoclopramide HCl [Reglan] 10 mg tablet 10 mg PO Q6H PRN (Reason: nausea and vomiting) Qty: 20 0RF No Action aouxjfjq-vxf-jkole-K-herb 332 300-80 mcg/30 mL liquid PO gabapentin 100 mg capsule 100 mg PO DAILY Qty: 30 0RF PNV [id number]-gcwb-tavwji-dha 90 mg iron- 1 mg-200 mg capsule 1 cap PO DAILY Qty: 90 3RF ondansetron 4 mg tablet,disintegrating 4 mg PO Q6H PRN (Reason: nausea and vomiting) Qty: 14 0RF buprenorphine-naloxone 8 MG/2 MG tablet, sublingual 2 tab Sublingual QAM Referrals: Javier Mckee DO [Primary Care Provider, [facility]] Stand Alone Forms: Patient Portal/API
[2025-03-22 10:59] LABS: Lactate (Lactic Acid) 0.9 mmol/L (0.7-2.1)
[2025-03-22 11:00] LABS: Alanine Aminotransferase 19 IU/L (<35); Albumin 4.7 g/dL (3.5-5.0); Albumin Globulin Ratio 1.3 (1.0-2.8); Alkaline Phosphatase 44 U/L (38-126); Blood Urea Nitrogen 11 mg/dL (7-17); Calcium 8.9 mg/dL (8.4-10.2); Carbon Dioxide 21 mmol/L (22-32); Chloride 105 mmol/L (98-107); Estimated Glomerular Filt Rate > 60 mL/min (>60); Globulin 3.5 g/dL (1.7-4.1); Glucose 95 mg/dL (70-99); Potassium 3.7 mmol/L (3.4-5.1); Sodium 136 mmol/L (137-145); Total Protein 8.2 g/dL (6.3-8.2)
[2025-03-22 11:10] LABS: HEMOLYSIS 131 (0-50)
[2025-03-22] MEDS: MORPHINE 4 MG/ML INJ IV ×2 (11:10→14:43)
[2025-03-22] MEDS: SODIUM CHLORIDE 0.9% 1,000 ML 1000 ML IV ×2 (11:10→11:46)
[2025-03-22 11:41] LABS: HCG Quantitative /Beta subunit 82326 mIU/mL
[2025-03-22] MEDS: METOCLOPRAMIDE 10 MG/2 ML INJ IV (11:46)
[2025-03-22 12:23] LABS: Appearance Urine UA CLEAR; Bilirubin Urine UA NEGATIVE (NEGATIVE); Color Urine UA YELLOW; Glucose Urine UA NEGATIVE (Negative); Ketones Urine UA 1+ (NEGATIVE); Leukocyte Esterase Urine UA NEGATIVE (NEGATIVE); Nitrite Urine UA NEGATIVE (Negative); Occult Blood Urine UA TRACE-INTACT (Negative); Protein Urine UA 1+ (Negative); Specific Gravity Urine UA >=1.030 (1.000-1.035); Urobilinogen Urine UA 0.2 E.U./dL (0.2)
[2025-03-22 12:30] LABS: pH Urine UA 5.5 (4.5-8.0)
[2025-03-22 12:38] LABS: Culture Indicated Urine Cult Not Indicated
[2025-03-22] MEDS: ONDANSETRON 4 MG/2 ML INJ IV (15:13)
== END 2025-03-22 15:20 | disposition home or self-care (01) ==
PROVIDERS: Emergency Provider Emergency Medicine; PCP Family Medicine
DX: O26.891 Other specified pregnancy related conditions, first trimester (principal); N20.0 Calculus of kidney; R10.32 Left lower quadrant pain; Z3A.01 Less than 8 weeks gestation of pregnancy
CPT/HCPCS: 51798; 80053; 81001; 83605; 84702; 85025; 87040; 87077; 87147; 96361; 96374; 96375; 96376; 99284; J2060; J2272; J2405; J2765; J7030

== ENCOUNTER 2025-03-24 08:39 | Emergency (ER) | payer OTHER, SELFPAY ==
[2025-03-24 08:52] VITALS: BP 126/72; PULSE 51; RESP 12; TEMP 37; O2SAT 98; BMI 34.7
--- NOTE | 2025-03-24 08:55 | ED.ABDPAIN ---
HPI - Abdominal Pain General Chief Complaint: Abdominal Pain Stated Complaint: Abdominal Pain Time Seen by Provider: 03/24/25 08:53 History of Present Illness HPI narrative: Patient brought in by ambulance from home. Complains of fever nausea vomiting left flank pain. Patient is seen here twice in the past couple of days for the same complaint. Blood culture positive g cocci done 2 days ago. Patient has had fever since then. Patient is using formula for her current baby. She is 8 weeks . ultrasound done here 3 days ago shows IUP. Patient states she would like pain medication nausea medication, she does understand risks and benefits of medication and could lose current . She is requesting opiate medication. Related Data Home Medications ?Medication ?Instructions ?Recorded ?Confirmed buprenorphine 8 mg-naloxone 2 mg 2 tab sublingual QAM 08/19/18 03/18/25 sublingual tablet xunhjgpb-rrb-bbnyi 300 mcg-vitamin ml PO 03/18/25 03/18/25 K 80 mcg-herbal/30 mL oral liquid Previous Rx's ?Medication ?Instructions ?Recorded ondansetron 4 mg disintegrating 4 mg PO Q6H PRN nausea and 12/24/24 tablet vomiting #14 tabs gabapentin 100 mg capsule 100 mg PO DAILY #30 caps 03/18/25 vitamins no.102-iron 90 1 cap PO DAILY #90 caps 03/18/25 mg-folate 1 mg-dha 200 mg capsule hydrocodone 5 mg-acetaminophen 325 1 tab PO Q6H PRN pain #14 tabs 03/22/25 mg tablet metoclopramide HCl 10 mg tablet 10 mg PO Q6H PRN nausea and 03/22/25 (Reglan) vomiting #20 tabs tamsulosin 0.4 mg capsule (Flomax) 0.4 mg PO BEDTIME #10 caps 03/22/25 Allergies Allergy/AdvReac Type Severity Reaction Status Date / Time amoxicillin (AMOXICILLIN) Allergy Unknown RASH/HIVES Verified 03/22/25 10:46 Penicillins Allergy Unknown Swelling Verified 03/22/25 10:46 of Lip/Tongue/Throat cephalexin AdvReac Severe Rash Verified 03/22/25 10:46 diphenhydramine AdvReac Severe Anxiety Verified 03/22/25 10:46 hydromorphone AdvReac Verified 03/22/25 10:46 Opioids - Morphine Analogues AdvReac Verified 03/22/25 10:46 Review of Systems Review of Systems Narrative: GENERAL: Negative chills, fatigue, malaise, positive fever, sweats. HEENT: Negative sinus pain, ear pain, sore throat RESPIRATORY: Negative dyspnea, cough CARDIOVASCULAR: Negative chest pain, palpitations GASTROINTESTINAL: Positive flank pain, vomiting, nausea, abdominal pain : Negative dysuria, frequency, hematuria MUSCULOSKELETAL: Negative muscle or bony pain SKIN: Negative rash, skin lesions NEUROLOGIC: Negative weakness, numbness ROS Unobtainable: All systems reviewed & are unremarkable except as noted in HPI and below Patient History Medical History Opioid abuse, in remission History of opioid abuse Crohn's disease without complication (04/23/15) Hypothyroidism Left ankle injury Umbilical hernia Pyelonephritis Ovarian neoplasm Acne GERD (gastroesophageal reflux disease) Chronic bilateral low back pain without sciatica (07/19/15) Surgical History S/P section History of hernia repair Anesthesia History of knee surgery H/O oophorectomy Family History Father Hyperthyroidism Heart disease Heavy smoker Mother Depression Anxiety Drug abuse Social History marital status: unmarried,living together number of children: 1 household members: significant other and children lives independently: Yes caregiver/support person: Yes housing: house pets and animals: Yes (dogs, birds, aware of precautions) education level: college (some college) 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) current occupational exposures/hazards: No travel history: recent ([place]) seatbelt use: always helmet use: Yes water heater temp set < 120 deg: Yes working smoke detector in home: Yes fire extinguisher in home: Yes carbon monox detector in home: Yes firearms in home: No do you feel safe at home: Yes Smoking Status: Former smoker Tobacco: How many years used: 4 quit status: considering quitting second hand exposure: Yes (S/O smokes) alcohol intake: former substance use type: former substance user and marijuana during the past year weight has: decreased > 10 lbs (unintentional following mother's ) well-balanced diet: daily or most days daily servings fruits/ve or more times/day caffeine: Yes Type(s) of exercise: walking, bicycling and other (skateboarding) tobacco type: cigarettes alcohol intake frequency: holidays/special occasions only Exam Narrative Exam Narrative: GENERAL: in no distress, not toxic not dyspneic HEAD: Normocephalic. EYES: Pupils equal round ENT: Mucous membranes moist. NECK: Trachea midline. CARDIOVASCULAR: Regular rate and rhythm RESPIRATORY: Clear to auscultation. Breath sounds equal bilaterally. No wheezes, rales, or rhonchi. GASTROINTESTINAL: Abdomen soft, reproducible left upper quadrant left flank tenderness. No peritoneal signs no guarding or rebound. BACK: No flank tenderness. EXTREMITIES: No gross deformities. NEURO: AOx4. Clear speech SKIN: Warm and dry PSYCH: Not anxious, is cooperative Initial Vital Signs Initial Vital Signs: Vital Signs Temperature 98.6 F 03/24/25 08:52 Pulse Rate 51 L 03/24/25 08:52 Respiratory Rate 12 03/24/25 08:52 Blood Pressure 126/72 03/24/25 08:52 Pulse Oximetry 98 03/24/25 08:52 Oxygen Delivery Method Room Air 03/24/25 08:52 Course Orders Ordered: ED Orders 03/24/25 08:40 Complete Blood Count AUTO DIFF Stat Comprehensive Metabolic Panel Stat Lactate (Lactic Acid) Stat Lipase Stat Magnesium Stat Procalcitonin Stat Discontinued Medications Acetaminophen (Acetaminophen 325 Mg Tablet) 975 mg PO NOW ONE Stop: 03/24/25 09:08 Last Admin: 03/24/25 09:49 Dose: Not Given Documented By: JAMES Sodium Chloride (Normal Saline 0.9%) 1,000 mls @ 1,000 mls/hr IV BOLUS ONE Stop: 03/24/25 10:01 Last Infusion: 03/24/25 10:18 Dose: Infused Documented By: Admin: 03/24/25 09:15 Dose: 1,000 mls/hr Documented By: JAMES Morphine Sulfate (Morphine 4 Mg/Ml Inj) 4 mg IV NOW ONE Stop: 03/24/25 09:27 Last Admin: 03/24/25 09:48 Dose: 4 mg Documented By: JAMES Prochlorperazine (Prochlorperazine 10 Mg/2 Ml Vial) 10 mg IV NOW ONE Stop: 03/24/25 09:03 Last Admin: 03/24/25 09:16 Dose: 10 mg Documented By: JAMES Vital Signs Vital signs: Vital Signs - 8 hr 03/24/25 08:52 03/24/25 09:16 Temperature 98.6 F Pulse Rate 51 L 53 L Respiratory Rate 12 Blood Pressure 126/72 126/71 Pulse Oximetry 98 Oxygen Delivery Method Room Air MDM - Abdominal Pain Lab Data 03/24/25 08:40 03/24/25 08:40 Labs: Lab Results 03/24/25 Range/Units 08:40 WBC 8.3 (4.5-11.0) X10^3/uL RBC 4.30 (4.0-5.2) X10^6/uL Hgb 13.5 (12.0-16.0) g/dL Hct 39.6 (36-46) % MCV 92.1 (80-100) fL MCH 31.4 (26-34) PG MCHC 34.1 (30-36) % RDW 12.3 (11.6-14.8) % Plt Count 362 (150-400) X10^3/uL Neut % (Auto) 73.4 (50-75) % Lymph % (Auto) 16.4 L (25-40) % [place] % (Auto) 8.2 (3-14) % Eos % (Auto) 1.5 L (2-4) % Baso % (Auto) 0.5 (0-2) % Neut # (Auto) 6100 (8096-7246) /uL Lymph # (Auto) 1400 (0589-0612) /uL [place] # (Auto) 700 (0-900) /uL Eos # (Auto) 100 (0-450) /uL Baso # (Auto) 0 (0-100) /uL Sodium 137 (137-145) mmol/L Potassium 3.0 L (3.4-5.1) mmol/L Chloride 106 (98-107) mmol/L Carbon Dioxide 20 L (22-32) mmol/L BUN 6 L (7-17) mg/dL Creatinine 0.66 (0.52-1.04) mg/dL Estimated GFR > 60 (>60) mL/min BUN/Creatinine Ratio 9.1 (6-22) Glucose 94 (70-99) mg/dL Lactate 1.0 (0.7-2.1) mmol/L Calcium 9.0 (8.4-10.2) mg/dL Magnesium 2.1 (1.6-2.3) mg/dL Total Bilirubin 0.4 (0.2-1.3) mg/dL AST 23 (14-36) IU/L ALT 16 (<35) IU/L Alkaline Phosphatase 57 (38-126) U/L Total Protein 7.3 (6.3-8.2) g/dL Albumin 4.2 (3.5-5.0) g/dL Globulin 3.1 (1.7-4.1) g/dL Albumin/Globulin Ratio 1.4 (1.0-2.8) Lipase 73 (23-300) U/L Procalcitonin < 0.030 (<0.5) ng/mL MDM Narrative Medical decision making narrative: Patient brought in by ambulance from home. Complains of fever nausea vomiting left flank pain. Patient is seen here twice in the past couple of days for the same complaint. Blood culture positive g cocci done 2 days ago. Patient has had fever since then. Patient is using formula for her current baby. She is 8 weeks . ultrasound done here 3 days ago shows IUP. Patient states she would like pain medication nausea medication, she does understand risks and benefits of medication and could lose current . She is requesting opiate medication. MDM After history and exam, CBC CMP lactic acid procalcitonin renal ultrasound urinalysis Compazine normal saline, patient received fentanyl and Zofran prior to arrival by EMS. Tylenol Differential considered: Includes but not limited to sepsis pyelonephritis UTI Medical records reviewed: ER visits here March 21 at March 22. ultrasound, blood culture done Lab Test results independently reviewed as above. Pertinent findings: WBC 8.3 hemoglobin 13.5 sodium 137 potassium 3.0 BUN 6 creatinine 0.66 GFR greater than 60 magnesium 2.1 lactate 1.0 lipase 73 procalcitonin less than 0.03 Imaging studies independently reviewed: Patient refused ultrasound Consultations: Patient left against medical advice Re-evaluations: 10:18 a.m.. I have ordered pain medication, morphine for patient. She wants more pain medications. She is refusing ultrasound of the kidneys. She has decided to leave against medical advice. She did not want to talk to me. Discussion: Patient has left against medical advice Diagnosis: Left Against Medical Advice Discharge Plan Departure Patient Disposition: Left Against Medical Advice Clinical Impression: Left against medical advice Prescriptions: No Action ucbdtjqz-fdd-eomyq-K-herb 332 300-80 mcg/30 mL liquid PO gabapentin 100 mg capsule 100 mg PO DAILY Qty: 30 0RF PNV [id number]-puzc-ibgocv-dha 90 mg iron- 1 mg-200 mg capsule 1 cap PO DAILY Qty: 90 3RF ondansetron 4 mg tablet,disintegrating 4 mg PO Q6H PRN (Reason: nausea and vomiting) Qty: 14 0RF buprenorphine-naloxone 8 MG/2 MG tablet, sublingual 2 tab Sublingual QAM tamsulosin [Flomax] 0.4 mg capsule 0.4 mg PO BEDTIME Qty: 10 0RF hydrocodone-acetaminophen 5-325 mg tablet 1 tab PO Q6H PRN (Reason: pain) Qty: 14 0RF metoclopramide HCl [Reglan] 10 mg tablet 10 mg PO Q6H PRN (Reason: nausea and vomiting) Qty: 20 0RF Referrals: Javier Mckee DO [Primary Care Provider, [facility] Practice] Stand Alone Forms: Patient Portal/API, Against Med. Advice ([place])
[2025-03-24 09:08] LABS: Add Manual Diff / Slide Review NO; Hematocrit 39.6 % (36-46); Hemoglobin 13.5 g/dL (12.0-16.0); Lymphocytes Absolute Auto 1400 /uL (1100-4500); Mean Corpuscular HGB Conc 34.1 % (30-36); Mean Corpuscular Hemoglobin 31.4 PG (26-34); Mean Corpuscular Volume 92.1 fL (80-100); Platelet Count 362 X10^3/uL (150-400)
[2025-03-24] MEDS: SODIUM CHLORIDE 0.9% 1,000 ML 1000 ML IV (09:15)
[2025-03-24 09:16] VITALS: BP 126/71; PULSE 53
[2025-03-24] MEDS: PROCHLORPERAZINE 10 MG/2 ML VIAL IV (09:16)
[2025-03-24 09:18] LABS: Alanine Aminotransferase 16 IU/L (<35); Albumin 4.2 g/dL (3.5-5.0); Albumin Globulin Ratio 1.4 (1.0-2.8); Alkaline Phosphatase 57 U/L (38-126); Blood Urea Nitrogen 6 mg/dL (7-17); Calcium 9.0 mg/dL (8.4-10.2); Carbon Dioxide 20 mmol/L (22-32); Chloride 106 mmol/L (98-107); Estimated Glomerular Filt Rate > 60 mL/min (>60); Globulin 3.1 g/dL (1.7-4.1); Glucose 94 mg/dL (70-99); HEMOLYSIS < 15 (0-50); Lipase 73 U/L (23-300); Potassium 3.0 mmol/L (3.4-5.1); Sodium 137 mmol/L (137-145); Total Protein 7.3 g/dL (6.3-8.2)
[2025-03-24 09:19] LABS: Lactate (Lactic Acid) 1.0 mmol/L (0.7-2.1)
[2025-03-24 09:33] LABS: Procalcitonin < 0.030 ng/mL (<0.5)
[2025-03-24] MEDS: MORPHINE 4 MG/ML INJ IV (09:48)
[2025-03-24 10:09] LABS: Magnesium 2.1 mg/dL (1.6-2.3)
--- NOTE | 2025-03-24 10:18 | PC.NURSE ---
[employer] tech arrived. in room. Pt stated that she wanted to leave and attempted to remove her own IV. RN responded and asked what was wrong and the patient stated she wanted to go home and that shes been here 3 times and shes getting nowhere The patient was insisting that the nurse remove the IV or she was going to do it herself. Provider, Charge nurse, and director notified. The patient signed AMA paper work and immediately walked out the door in her gown.
== END 2025-03-24 10:28 | disposition left against medical advice (07) ==
PROVIDERS: Emergency Provider Emergency Medicine; PCP Family Medicine
DX: O26.891 Other specified pregnancy related conditions, first trimester (principal); O21.9 Vomiting of pregnancy, unspecified; R10.A2 Flank pain, left side; R50.9 Fever, unspecified; Z3A.01 Less than 8 weeks gestation of pregnancy; Z53.29 Procedure and treatment not carried out because of patient's decision for other reasons
CPT/HCPCS: 80053; 83605; 83690; 83735; 84145; 85025; 96361; 96374; 96375; 99283; 99284; J0780; J2272; J7030

== ENCOUNTER 2025-03-25 07:04 | Emergency (ER) | payer OTHER, SELFPAY ==
[2025-03-25] VITALS (12 sets, daily range): BP systolic 122–148; BP diastolic 72–83; PULSE 47–60; RESP 12–18; TEMP 36.6; O2SAT 97–100; BMI 34.7
--- NOTE | 2025-03-25 07:14 | DI.US.S_ITS ---
PROCEDURE: US RENAL COMPLETE INDICATIONS: LEFT FLANK PAIN TECHNIQUE: Real-time scanning was performed of the kidneys and bladder, with image documentation. COMPARISON: None. FINDINGS: Kidneys: Kidneys are normal in size. Right kidney measures 11.6 cm long; left kidney measures 10.4 cm long. Right renal cortical thickness is 1.6 cm; left renal cortical thickness is 2.0 cm. Renal cortical echotexture is normal. No hydronephrosis or nephrolithiasis. No suspicious solid mass lesions. Bladder: Pre-void bladder volume is 43 mL. No postvoid residual obtained. Pre-void images demonstrate no intraluminal masses or stones. On pre-void images, no ureteral jets are noted with color Doppler interrogation. (Of note, ureteral jets may not be detectable in up to 25% of cases due to insufficient differences in specific gravity between ureteral and bladder urine). Miscellaneous: No free pelvic fluid. IMPRESSION: Unremarkable renal ultrasound. Normal size kidneys with no hydronephrosis. No stones identified. Dictated by: Santo Bustillo M.D. on 03/25/2025 at 8:17 Approved by: Santo Bustillo M.D. on 03/25/2025 at 8:24
[2025-03-25 07:20] LABS: Add Manual Diff / Slide Review NO; Hematocrit 37.4 % (36-46); Hemoglobin 12.8 g/dL (12.0-16.0); Lymphocytes Absolute Auto 1700 /uL (1100-4500); Mean Corpuscular HGB Conc 34.2 % (30-36); Mean Corpuscular Hemoglobin 31.4 PG (26-34); Mean Corpuscular Volume 91.8 fL (80-100); Platelet Count 347 X10^3/uL (150-400)
--- NOTE | 2025-03-25 07:20 | ED_ITS ---
HPI - Female Genitourinary General Chief complaint: Urogenital-Female Stated complaint: Flank Pain, N/V Time Seen by Provider: 03/25/25 07:06 Source: EMS Mode of arrival: EMS History of Present Illness HPI Narrative: Patient is a 34-year-old female currently 8 weeks presenting for the 4th time in less than a week for ongoing left flank pain. She has a history of polysubstance use disorder but has been sober for number of years. She has ongoing left flank pain concerning for left-sided kidney stone. Initially she had leukocytosis of 16 however her white count has come down each time. She has 1 of 2 positive blood cultures from March 22 Gram-positive cocci. Probable contaminant but rechecking blood cultures. She was seen evaluated yesterday there was talk of admission however she again left against medical advice. Related Data Home Medications ?Medication ?Instructions ?Recorded ?Confirmed buprenorphine 8 mg-naloxone 2 mg 2 tab sublingual QAM 08/19/18 03/18/25 sublingual tablet [id number] 300 mcg-vitamin ml PO 03/18/2503/09 K 80 mcg-herbal/30 mL oral liquid Previous Rx's ?Medication ?Instructions ?Recorded ondansetron 4 mg disintegrating 4 mg PO Q6H PRN nausea and 12/24/24 tablet vomiting #14 tabs gabapentin 100 mg capsule 100 mg PO DAILY #30 caps 01/31 vitamins no.102-iron 90 1 cap PO DAILY #90 ca ps 03/18/25 mg-folate 1 mg-dha 200 mg capsule hydrocodone 5 mg-acetaminophen 325 1 tab PO Q6H PRN pa in #14 tabs 03/22/25 mg tablet metoclopramide HCl 10 mg tablet 10 mg PO Q6H PRN nause a and 03/22/25 (Reglan) vomiting #20 tabs tamsulosin 0.4 mg capsule (Flomax) 0.4 mg PO BEDTIME # 10 caps 03/22/25 cefdinir 300 mg capsule 300 mg PO Q12H #14 caps 03/09 10/31 hydrocodone 5 mg-acetaminophen 325 1 tab PO Q6H PRN pa in #10 tabs 03/25/25 mg tablet metronidazole 500 mg tablet 500 mg PO Q8H 7 days #21 t abs 03/25/25 ondansetron 4 mg disintegrating 4 mg PO Q8H PRN nausea and 03/25/25 tablet vomiting #10 tabs Allergies Allergy/AdvReac Type Severity Reaction Status Date / Time amoxicillin (AMOXICILLIN) Allergy Unknown RASH/HIVES Verified 03/25/25 07:16 Penicillins Allergy Unknown Swelling Verified 03/25/25 07:16 of Lip/Tongue/Throat cephalexin AdvReac Severe Rash Verified 03/25/25 07:16 diphenhydramine AdvReac Severe Anxiety Verified 03/25/25 07:16 hydromorphone AdvReac Verified 03/25/25 07:16 Opioids - Morphine Analogues AdvReac Verified 03/25/25 07:16 Patient History Medical History Opioid abuse, in remission History of opioid abuse Crohn's disease without complication (04/23/15) Hypothyroidism Left ankle injury Umbilical hernia Pyelonephritis Ovarian neoplasm Acne GERD (gastroesophageal reflux disease) Chronic bilateral low back pain without sciatica (07/19/15) Surgical History S/P section History of hernia repair Anesthesia History of knee surgery H/O oophorectomy Family History Father Hyperthyroidism Heart disease Heavy smoker Mother Depression Anxiety Drug abuse tobacco type: cigarettes Exam Initial Vital Signs Initial Vital Signs: Vital Signs Pulse Rate 60 03/25/25 07:10 Pulse Oximetry 97 03/25/25 07:10 GENERAL: alert anxious 34-year-old female HEENT: Head atraumatic,EOMI, pupils reactive, face symmetric, [moist] mucous membranes CARDIOVASCULAR: Regular rate and rhythm without murmurs, rubs or gallops. RESPIRATORY: Breath sounds equal bilaterally, no wheezes rales or rhonchi. ABDOMEN: Soft, nontender. Normoactive bowel sounds all 4 quadrants. No guarding or rebound. : LeftCVA tenderness EXTREMITIES: Normal range of motion, no clubbing or edema. Neurovascularly intact NEUROLOGICAL: Alert and oriented x4.Normal gait and speech. Cranial nerves II through XII grossly intact. SKIN: Warm, dry, no laceration, no petechiae, no rashes or lesions. Course Orders Ordered: ED Orders 03/25/25 07:05 CBC Auto Diff [Complete Blood Count AUTO DIFF] Stat CMP [Comprehensive Metabolic Panel] Stat Lactate (Lactic Acid) Stat Procalcitonin Stat 03/25/25 07:14 US renal complete Stat 03/25/25 08:45 Blood Culture Stat 03/25/25 08:58 CT kidney ureter bladder (KUB) Stat Discontinued Medications Hydromorphone HCl (Hydromorphone 1 Mg/Ml Syringe) 1 mg IV NOW ONE Stop: 03/25/25 08:18 Last Admin: 03/25/25 08:21 Dose: 1 mg Documented By: JAMES Hydromorphone HCl (Hydromorphone Hcl 0.5 Mg/0.5 Ml Syringe) 0.5 mg IV NOW ONE Stop: 03/25/25 08:59 Last Admin: 03/25/25 09:04 Dose: 0.5 mg Documented By: JAMES Hydromorphone HCl (Hydromorphone Hcl 0.5 Mg/0.5 Ml Syringe) 0.5 mg IV NOW ONE Stop: 03/25/25 10:21 Last Admin: 03/25/25 10:24 Dose: 0.5 mg Documented By: MARK Acetaminophen (Ofirmev) 1,000 mg in 100 mls @ 400 mls/hr IV NOW ONE Stop: 03/25/25 07:25 Last Infusion: 03/25/25 07:45 Dose: Infused Documented By: Admin: 03/25/25 07:23 Dose: 400 mls/hr Documented By: JAMES Sodium Chloride (Normal Saline 0.9%) 1,000 mls @ 1,000 mls/hr IV BOLUS ONE Stop: 03/25/25 08:21 Last Infusion: 03/25/25 09:04 Dose: Infused Documented By: Admin: 03/25/25 07:28 Dose: 1,000 mls/hr Documented By: JAMES Lorazepam (Lorazepam 2 Mg/Ml Inj) 1 mg IV NOW ONE Stop: 03/25/25 07:12 Last Admin: 03/25/25 07:23 Dose: 1 mg Documented By: JAMES Metoclopramide HCl (Metoclopramide 10 Mg/2 Ml Inj) 10 mg IV NOW ONE Stop: 03/25/25 08:11 Last Admin: 03/25/25 08:15 Dose: 10 mg Documented By: JMAES Ondansetron HCl (Ondansetron 4 Mg/2 Ml Inj) 4 mg IV NOW ONE Stop: 03/25/25 10:29 Last Admin: 03/25/25 10:35 Dose: 4 mg Documented By: JAMES Vital Signs Vital signs: Vital Signs - 8 hr 03/25/25 07:10 03/25/25 07:16 03/25/25 07:30 Temperature 97.9 F Pulse Rate 60 50 L 51 L Respiratory Rate 12 16 Blood Pressure 148/77 H Pulse Oximetry 97 99 99 Oxygen Delivery Method Room Air 03/25/25 07:30 03/25/25 07:58 03/25/25 08:00 Temperature Pulse Rate 52 L Respiratory Rate 18 Blood Pressure 143/79 H 142/74 H Pulse Oximetry 98 98 Oxygen Delivery Method Room Air 03/25/25 08:06 03/25/25 08:30 03/25/25 08:30 Temperature Pulse Rate 51 L 48 L Respiratory Rate 16 Blood Pressure 142/81 H Pulse Oximetry 98 97 Oxygen Delivery Method Room Air 03/25/25 09:00 03/25/25 09:00 03/25/25 09:15 Temperature Pulse Rate 49 L 48 L Respiratory Rate Blood Pressure 126/72 Pulse Oximetry 99 100 Oxygen Delivery Method 03/25/25 09:15 03/25/25 09:30 03/25/25 09:30 Temperature Pulse Rate 47 L Respiratory Rate Blood Pressure 127/78 122/83 Pulse Oximetry 98 Oxygen Delivery Method 03/25/25 10:00 03/25/25 10:00 03/25/25 10:30 Temperature Pulse Rate 49 L 47 L Respiratory Rate Blood Pressure 134/79 Pulse Oximetry 98 97 Oxygen Delivery Method 03/25/25 10:30 Temperature Pulse Rate Respiratory Rate 16 Blood Pressure 131/75 Pulse Oximetry Oxygen Delivery Method MDM - Female Genitourinary Lab Data 03/25/25 07:05 03/25/25 07:05 Labs: Lab Results 03/25/25 Range/Units 07:05 WBC 8.0 (4.5-11.0) X10^3/uL RBC 4.07 (4.0-5.2) X10^6/uL Hgb 12.8 (12.0-16.0) g/dL Hct 37.4 (36-46) % MCV 91.8 (80-100) fL MCH 31.4 (26-34) PG MCHC 34.2 (30-36) % RDW 12.0 (11.6-14.8) % Plt Count 347 (150-400) X10^3/uL Neut % (Auto) 68.4 (50-75) % Lymph % (Auto) 20.7 L (25-40) % [place] % (Auto) 8.9 (3-14) % Eos % (Auto) 1.4 L (2-4) % Baso % (Auto) 0.6 (0-2) % Neut # (Auto) 5500 (2386-0570) /uL Lymph # (Auto) 1700 (4362-2103) /uL [place] # (Auto) 700 (0-900) /uL Eos # (Auto) 100 (0-450) /uL Baso # (Auto) 0 (0-100) /uL Sodium 138 (137-145) mmol/L Potassium 3.1 L (3.4-5.1) mmol/L Chloride 105 (98-107) mmol/L Carbon Dioxide 22 (22-32) mmol/L BUN 8 (7-17) mg/dL Creatinine 0.63 (0.52-1.04) mg/dL Estimated GFR > 60 (>60) mL/min BUN/Creatinine Ratio 12.7 (6-22) Glucose 101 H (70-99) mg/dL Lactate 1.7 (0.7-2.1) mmol/L Calcium 9.1 (8.4-10.2) mg/dL Total Bilirubin 0.4 (0.2-1.3) mg/dL AST 28 (14-36) IU/L ALT 17 (<35) IU/L Alkaline Phosphatase 52 (38-126) U/L Total Protein 7.2 (6.3-8.2) g/dL Albumin 4.4 (3.5-5.0) g/dL Globulin 2.8 (1.7-4.1) g/dL Albumin/Globulin Ratio 1.6 (1.0-2.8) Procalcitonin < 0.030 (<0.5) ng/mL Imaging Data US - abdomen: Radiologist's Impression: PROCEDURE: US RENAL COMPLETE INDICATIONS: LEFT FLANK PAIN TECHNIQUE: Real-time scanning was performed of the kidneys and bladder, with image documentation. COMPARISON: None. FINDINGS: Kidneys: Kidneys are normal in size. Right kidney measures 11.6 cm long; left kidney measures 10.4 cm long. Right renal cortical thickness is 1.6 cm; left renal cortical thickness is 2.0 cm. Renal cortical echotexture is normal. No hydronephrosis or nephrolithiasis. No suspicious solid mass lesions. Bladder: Pre-void bladder volume is 43 mL. No postvoid residual obtained. Pre-void images demonstrate no intraluminal masses or stones. On pre-void images, no ureteral jets are noted with color Doppler interrogation. (Of note, ureteral jets may not be detectable in up to 25% of cases due to insufficient differences in specific gravity between ureteral and bladder urine). Miscellaneous: No free pelvic fluid. IMPRESSION: Unremarkable renal ultrasound. Normal size kidneys with no hydronephrosis. No stones identified. Dictated by: Santo Bustillo M.D. on 03/25/2025 at 8:17 MDM Narrative Medical decision making narrative: Patient 34-year-old female currently 8 weeks presenting for the 4th ED visit with ongoing left-sided back and abdominal pain. She has left Against Medical Advice twice, and here again for ongoing pain and nausea already requesting Ativan and something for pain. Blood work has been reviewed overall reassuring No leukocytosis Mild hypokalemia with a potassium of 3.1 which is better than 3.0 yesterday no PAUL Lactate 1.7 Procalcitonin is negative Repeat blood cultures pending but I think probably a contaminant. Imaging reviewed Renal ultrasound normal size kidneys no hydronephrosis no stone CT non-con KUB shows no renal stone segmental colitis large left paracentral disc protrusion L3-L4 likely impinges the L4 nerve root Differential diagnosis diverticulitis but she does not have a white count she did have a hydroureter 0730 Dr. Cuello urology updated patient's symptoms test results in ED to see and evaluate patient. he discussed risks and benefits of a ureteral stent with patient she would like to do this in a try for 5:00 p.m. tonight. Still awaiting today's blood work and today's ultrasound. [address], OB, updated patient's symptoms test results wanting to admit for pain control. She will come into the ED to see and evaluate patient but has not accepted patient. 0850 discussion with patient about management. Ultrasound is negative for any abnormality there is no hydroureter. Unclear what is causing her pain urology is less likely to put in a stent without an abnormal ultrasound. Patient is not able to stay and do a stent today has been needs to get to work. She would like to come in tomorrow but the time would be the same tomorrow. [id number]- Dr. St called back requesting that we get a CT. This will give us more information on what is actually going on and how best to help her. I personally discussed risks and benefits of CT with patient she understands but agrees to CT. Consent is signed. Ultimately no renal stone is identified on CT no need for ureteral stent she is found to have colitis without significant leukocytosis. We discussed antibiotics she has no leukocytosis she is allergic to penicillin and amoxicillin. Discussed with OB about antibiotics okay for Flagyl will put her on cefdinir. However CT also shows herniated disc L3-L4 which is likely causing her back pain. Discussion with her about pain management and that she will need to get off opiate medications. She understands she is motivated to do so. Both she and her are updated on test results and going forward. At this time no admission is indicated patient does not want to stay. She has received numerous doses of nausea medication and pain medication along with Ativan for anxiety here in the ED. Discussion with the patient that she will only be getting a small amount of [place]. She may require outpatient PT for her ongoing back problems. Discharge Plan Departure Patient Disposition: Home Clinical Impression: Colitis, Acute herniated disc Instructions: Herniated Disc, Low-Fiber/Low-Residue Diet, DI for Colitis Activity Restrictions/Additional Instructions: *You have been diagnosed with colitis *What to do: At this time you have inflammation of your colon. It will take time for it to get better. Stay hydrated. Do not eat high-fiber foods such as fruits and veggies well this is active. Once this is healed then you can resume your normal diet. I would try toast crackers meet she uses rice low-fiber diet You will need to get off the opiate medication as to avoid addiction *Continue to take medications as directed Zofran 4 mg every 8 hours for nausea or vomiting [place] 1 tablet every 6 hours only if needed for severe pain Do not exceed more than 1000 mg of Tylenol at a time and 4000 mg in a 24 hour. *Follow up with your primary care provider in 2-3 days or call [phone] Please call OB and schedule follow up appointment I did talk with Dr. Bah today *Return to ER if you should have any inability to tolerate fluids, increasing pain new, worsening or concerning symptoms CONTROLLED SUBSTANCE DISCHARGE (Narcotoic/benzodiazepine/Flexeril/Phenergan) 1. You have been prescribed narcotic medications, it does have acetaminophen/Tylenol/paracetamol in it, DO NOT TAKE MORE THAN 4,00mg in 24 hours of Tylenol. TRAMADOL DOES NOT CONTAIN TYLENOL 2. Please understand that we cannot provide further refills of narcotics, benzodiazepines or controlled substances through the ED and her pain management will need to be through your provider. 3. While on these medications you cannot drive or operate heavy machinery. 4. You cannot sign legal documents or perform any duties such as this. 5. As long as you're taking opiate pain medications he should also be taking a stool softener such as Colace, Dulcolax, MiraLAX or prune juice, to help avoid constipation. Prescriptions: New metronidazole 500 mg tablet 500 mg PO Q8H 7 Days Qty: 21 0RF hydrocodone-acetaminophen 5-325 mg tablet 1 tab PO Q6H PRN (Reason: pain) Qty: 10 0RF cefdinir 300 mg capsule 300 mg PO Q12H Qty: 14 0RF ondansetron 4 mg tablet,disintegrating 4 mg PO Q8H PRN (Reason: nausea and vomiting) Qty: 10 0RF No Action [id number] 332 300-80 mcg/30 mL liquid PO gabapentin 100 mg capsule 100 mg PO DAILY Qty: 30 0RF PNV [id number]-dha 90 mg iron- 1 mg-200 mg capsule 1 cap PO DAILY Qty: 90 3RF ondansetron 4 mg tablet,disintegrating 4 mg PO Q6H PRN (Reason: nausea and vomiting) Qty: 14 0RF buprenorphine-naloxone 8 MG/2 MG tablet, sublingual 2 tab Sublingual QAM tamsulosin [Flomax] 0.4 mg capsule 0.4 mg PO BEDTIME Qty: 10 0RF hydrocodone-acetaminophen 5-325 mg tablet 1 tab PO Q6H PRN (Reason: pain) Qty: 14 0RF metoclopramide HCl [Reglan] 10 mg tablet 10 mg PO Q6H PRN (Reason: nausea and vomiting) Qty: 20 0RF Referrals: Javier Mckee DO [Primary Care Provider, [facility]] Stand Alone Forms: Patient Portal/API
[2025-03-25] MEDS: ACETAMINOPHEN IV 1,000 MG/100 ML VIAL 400 MG IV (07:23)
[2025-03-25] MEDS: SODIUM CHLORIDE 0.9% 1,000 ML 1000 ML IV (07:28)
[2025-03-25 07:36] LABS: Lactate (Lactic Acid) 1.7 mmol/L (0.7-2.1)
[2025-03-25 07:37] LABS: Alanine Aminotransferase 17 IU/L (<35); Albumin 4.4 g/dL (3.5-5.0); Albumin Globulin Ratio 1.6 (1.0-2.8); Alkaline Phosphatase 52 U/L (38-126); Blood Urea Nitrogen 8 mg/dL (7-17); Calcium 9.1 mg/dL (8.4-10.2); Carbon Dioxide 22 mmol/L (22-32); Chloride 105 mmol/L (98-107); Estimated Glomerular Filt Rate > 60 mL/min (>60); Globulin 2.8 g/dL (1.7-4.1); Glucose 101 mg/dL (70-99); HEMOLYSIS < 15 (0-50); Potassium 3.1 mmol/L (3.4-5.1); Sodium 138 mmol/L (137-145); Total Protein 7.2 g/dL (6.3-8.2)
--- NOTE | 2025-03-25 07:48 | P.CONS_ITS ---
History of Present Illness Consult details Date Patient Seen: 03/25/25 Time Patient Seen: 07:30 Chief complaint: Flank Pain, N/V Reason for consult: Left flank pain Narrative: 34 y/o F w/ a h/o nephrolithiasis returns to ER for the fourth time in the last 5 days for evaluation of left flank pain with associated nausea/vomiting. Her evaluation on 21 Mar 2025 was notable for a WBC of 16.7, sCr of 0.79 and an unremarkable UA. Her US was notable for questionable left hydronephrosis with a questionable non-obstructing left renal stone. Her subsequent evaluations have been notable for a downtrending WBC, stable sCr and unremarkable UA's. She admits that her pain has continued to worsen and she is unable to care for her other children at home. Urology was consulted regarding further management. Meds Home Medications and Allergies Home Medications ?Medication ?Instructions ?Recorded ?Confirmed ?Type buprenorphine 8 mg-naloxone 2 mg 2 tab sublingual QAM 08/19/18 03/18/25 History sublingual tablet ondansetron 4 mg disintegrating 4 mg PO Q6H PRN nausea and 12/24/24 03/18/25 Rx tablet vomiting #14 tabs gabapentin 100 mg capsule 100 mg PO DAILY #30 caps 01/3103/18/25 Rx [id number] 300 mcg-vitamin ml PO 03/18/2503/09 History K 80 mcg-herbal/30 mL oral liquid vitamins no.102-iron 90 1 cap PO DAILY #90 ca ps 03/18/25 03/18/25 Rx mg-folate 1 mg-dha 200 mg capsule hydrocodone 5 mg-acetaminophen 325 1 tab PO Q6H PRN pa in #14 tabs 03/22/25 Rx mg tablet metoclopramide HCl 10 mg tablet 10 mg PO Q6H PRN nause a and 03/22/25 Rx (Reglan) vomiting #20 tabs tamsulosin 0.4 mg capsule (Flomax) 0.4 mg PO BEDTIME # 10 caps 03/22/25 Rx Allergies Allergy/AdvReac Type Severity Reaction Status Date / Time amoxicillin (AMOXICILLIN) Allergy Unknown RASH/HIVES Verified 03/25/25 07:16 Penicillins Allergy Unknown Swelling Verified 03/25/25 07:16 of Lip/Tongue/Throat cephalexin AdvReac Severe Rash Verified 03/25/25 07:16 diphenhydramine AdvReac Severe Anxiety Verified 03/25/25 07:16 hydromorphone AdvReac Verified 03/25/25 07:16 Opioids - Morphine Analogues AdvReac Verified 03/25/25 07:16 Review of Systems Review of Systems Narrative: A complete ROS was completed with all pertinent positives and negatives documented in HPI. All other systems were reviewed and are negative. Exam Vital Signs (past 8 hours): - 03/25/25 07:10 03/25/25 07:16 03/25/25 07:30 Temperature 97.9 F Pulse Rate 60 50 L 51 L Respiratory Rate 12 16 Blood Pressure 148/77 H Pulse Oximetry 97 99 99 Oxygen Delivery Method Room Air 03/25/25 07:30 Temperature Pulse Rate Respiratory Rate Blood Pressure 143/79 H Pulse Oximetry Oxygen Delivery Method Oxygen Delivery Method Room Air Narrative Exam Narrative: GEN: Alert and oriented X3. No acute distress. Well-nourished. EYES: PERRLA, EOMI. HENT: Moist mucus membranes, no scleral icterus, normal neck ROM. RESP: Unlabored breathing, equal rise and fall of chest bilaterally, no cyanosis appreciated. CV: No peripheral edema, unremarkable heart rate. ABD: Soft, non-tender, non-distended, no palpable masses. EXT: No edema, clubbing or cyanosis. SKIN: No rashes or lesions. NEURO: No focal neurologic deficits, CN II-XII grossly intact. PSYCH: Cooperative, appropriate mood and affect. Objective Labs 03/25/25 07:05 03/25/25 07:05 Labs: Laboratory Results - last 24 hr 03/25/25 07:05 WBC 8.0 RBC 4.07 Hgb 12.8 Hct 37.4 MCV 91.8 MCH 31.4 MCHC 34.2 RDW 12.0 Plt Count 347 Neut % (Auto) 68.4 Lymph % (Auto) 20.7 L [place] % (Auto) 8.9 Eos % (Auto) 1.4 L Baso % (Auto) 0.6 Neut # (Auto) 5500 Lymph # (Auto) 1700 [place] # (Auto) 700 Eos # (Auto) 100 Baso # (Auto) 0 Sodium 138 Potassium 3.1 L Chloride 105 Carbon Dioxide 22 BUN 8 Creatinine 0.63 Estimated GFR > 60 BUN/Creatinine Ratio 12.7 Glucose 101 H Lactate 1.7 Calcium 9.1 Total Bilirubin 0.4 AST 28 ALT 17 Alkaline Phosphatase 52 Total Protein 7.2 Albumin 4.4 Globulin 2.8 Albumin/Globulin Ratio 1.6 [facility] Medical History Opioid abuse, in remission History of opioid abuse Crohn's disease without complication (04/23/15) Hypothyroidism Left ankle injury Umbilical hernia Pyelonephritis Ovarian neoplasm Acne GERD (gastroesophageal reflux disease) Chronic bilateral low back pain without sciatica (07/19/15) Surgical History S/P section History of hernia repair Anesthesia History of knee surgery H/O oophorectomy Family History Father Hyperthyroidism Heart disease Heavy smoker Mother Depression Anxiety Drug abuse Social History marital status: unmarried,living together number of children: 1 household members: significant other and children lives independently: Yes caregiver/support person: Yes housing: house pets and animals: Yes (dogs, birds, aware of precautions) education level: college (some college) 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) current occupational exposures/hazards: No travel history: recent ([place]) Safety seatbelt use: always helmet use: Yes water heater temp set < 120 deg: Yes working smoke detector in home: Yes fire extinguisher in home: Yes carbon monox detector in home: Yes firearms in home: No do you feel safe at home: Yes Tobacco & Substance Use Tobacco: How many years used: 4 quit status: considering quitting second hand exposure: Yes (S/O smokes) alcohol intake: former substance use type: former substance user and marijuana Diet and Exercise during the past year weight has: decreased > 10 lbs (unintentional following mother's ) well-balanced diet: daily or most days daily servings fruits/ve or more times/day caffeine: Yes Type(s) of exercise: walking, bicycling and other (skateboarding) Assessment & Plan Assessment and plan (1) Left flank pain: Status: Acute Plan: 34 y/o F w/ a h/o nephrolithiasis who has returned to ER 4 times in the last 5 days for evaluation of severe left flank pain with associated nausea/vomiting. Her WBC has continued to downtrend and her sCr has remained stable. Her US from 21 Mar 2025 was notable for questionable left hydronephrosis and a questionable non-obstructing left nephrolith. Discussed that I would strongly recommend a formal RBUS to evaluate for left hydronephrosis as we are unable to obtain a CT KUB. Should she have left hydronephrosis and continued left flank pain, options would include pain control, placement of a left ureteral stent knowing that it would likely need exchanged every 6-8 weeks throughout , a cystoscopy with left ureteroscopy with possible laser lithotripsy and likely left ureteral stent placement or placement of a left percutaneous nephrostomy tube by IR at another facility. Discussed risks of the stent placement procedure or left ureteroscopy to include but not limited to pain, bleeding, infection, injury to urethra/bladder/ureter, inability to access the ureter requiring discussion with Interventional Radiology regarding a possible ureteral stent placement in an antegrade fashion vs a possible nephroureteral stent and/or percutaneous nephrostomy tube, urinary tract infection, inability to remove all of the stone in one setting, need for emergent open repair of bladder and/or ureter, need for multiple ureteroscopic interventions necessary to render the patient stone free. At this time, she is strongly favoring moving forward with a cystoscopy, left ureteroscopy, laser lithotripsy and likely left ureteral stent placement. - Please keep NPO for now - Will wait for OB to weigh in - If requires admission, will request assistance of OB and Urology will remain a technology applications consultant Time-Based Coding :: [TOTAL MINUTES] spent with patient and on the chart (including review of chart, obtaining history, exam, reviewing outside data, placing orders, documenting exam and treatment plan, and counseling patient) on [DATE]. PROFEE Charge Codes Inpatient or Observation consultation: 25799
[2025-03-25 07:52] LABS: Procalcitonin < 0.030 ng/mL (<0.5)
[2025-03-25] MEDS: METOCLOPRAMIDE 10 MG/2 ML INJ IV (08:15)
--- NOTE | 2025-03-25 08:58 | DI.CT.S_ITS ---
PROCEDURE: CT KIDNEY URETER BLADDER (KUB) INDICATIONS: on going left flank pain, TECHNIQUE: Axial sections were acquired from the lung bases to the pubic symphysis. Coronal and sagittal reformats were performed. For radiation dose reduction, the following was used: automated exposure control, adjustment of mA and/or kV according to patient size. COMPARISON: [facility], , OB <= 14 WEEKS FETUS, 03/21/2025, 8:31. FINDINGS: Image quality: Diagnostic. Lower Chest: No significant findings. URINARY: Right Kidney: No stones or hydronephrosis. Right Ureter: No hydroureter. Left Kidney: No stones or hydronephrosis. Left Ureter: No hydroureter. Bladder: Normal wall thickness. No stones. ABDOMEN: Liver: No contour-deforming solid mass. Gallbladder: No radiopaque gallstones or wall thickening. Biliary ducts: No biliary dilation. Pancreas: No ductal dilation. Spleen: Size is within normal limits. Adrenal Glands: No adrenal nodules. Stomach and Bowel: There is thickening of the wall of the ascending colon and proximal half of the transverse colon, consistent with segmental colitis. Peritoneum: No abnormal intraperitoneal fluid. No free air. Ventral Wall: No hernia. Abdominal Nodes: No enlarged retroperitoneal or mesenteric lymph nodes. Vessels: Aorta and inferior vena cava are normal in size. PELVIS: Pelvic Organs: A 1st trimester intrauterine is present. Pelvic Nodes: Unremarkable. Miscellaneous: No inguinal hernias are seen. Bones: Large left paracentral disc protrusion at L3-L4 likely significantly impinging on the left L4 nerve root in the left lateral recess. Reference sagittal image 75 of series 5 and axial image 66 of series 2. IMPRESSION: 1. No renal stone, ureteral stone, or hydronephrosis. 2. Segmental colitis. Consider infectious versus inflammatory etiologies. Consider Crohn's colitis. 3. 1st trimester uterus. 4. Large left paracentral disc protrusion at L3-L4 likely impinges on the left L4 nerve root in the left lateral recess. Comment: Findings discussed with Dr. Olsen on 03/25/[address] Olsen physician ordered this study after consultation with with urology and obstetrics prior to performing this study, and apparently obtained patient consent. I, as the offsite interpreting radiologist, was not involved in pre-scan discussion. Dictated by: Santo Bustillo M.D. on 03/25/2025 at 9:27 Approved by: Santo Bustillo M.D. on 03/25/2025 at 10:00
[2025-03-25] MEDS: ONDANSETRON 4 MG/2 ML INJ IV (10:35)
== END 2025-03-25 10:48 | disposition home or self-care (01) ==
PROVIDERS: Emergency Provider Emergency Medicine; PCP Family Medicine
DX: K52.9 Noninfective gastroenteritis and colitis, unspecified (principal); R10.A2 Flank pain, left side; M51.26 Other intervertebral disc displacement, lumbar region
CPT/HCPCS: 36415; 74176; 76770; 80053; 83605; 84145; 85025; 87040; 96365; 96375; 96376; 99284; J0131; J1171; J2060; J2405; J2765; J7030